=== PATIENT | male | born 1945 | race Caucasian/White ===

== ENCOUNTER 2017-09-15 09:32 | Inpatient (IN) | payer MEDICARE, SELFPAY ==
[2017-09-15] VITALS (14 sets, daily range): BP systolic 124–161; BP diastolic 75–122; PULSE 68–94; RESP 14–18; TEMP 36.4–36.8; O2SAT 92–96; BMI 41.5; BMI 40.4; BMI 41.6
--- NOTE | 2017-09-15 09:48 | EKG12_ITS ---
Test Reason : SOB Blood Pressure : / mmHG Vent. Rate : 088 BPM Atrial Rate : 101 BPM P-R Int : 000 ms QRS Dur : 114 ms QT Int : 394 ms P-R-T Axes : 000 -38 -69 degrees QTc Int : 476 ms Atrial fibrillation Left axis deviation Septal infarct , age undetermined Abnormal ECG Confirmed by ACE SOLIMAN, ERIKA ([id number]), commercial production editor ROSSANA HOGAN ([id number]) on 09/19/2017 2:31:38 PM Referred By: LUCERO/SHANON Confirmed By:ERIKA BELLO MD
--- NOTE | 2017-09-15 09:48 | RAD_ITS ---
STUDY: X-RAY CHEST REASON FOR EXAM: Male, 72 years old. Chest pain. TECHNIQUE: Single AP portable view of the chest. COMPARISON: None. FINDINGS: EKG electrodes are seen. Mild increased markings at the lung bases suggest bibasilar atelectasis. There is no demonstrated pleural abnormality. There is borderline cardiomegaly. Normal mediastinum and surjit. Normal visualized pulmonary arteries. There is atherosclerotic tortuosity of the aortic arch and descending thoracic aorta. Normal visualized thoracic spine. Normal visualized ribs, clavicles, and shoulders. There is no demonstrated abnormality of the visualized soft tissue structures of the upper abdomen. RAD/Chest 1 View (Portable) IMPRESSION: Mild increased markings at the lung bases suggestive of bibasilar atelectasis. Electronically Signed: Mane Velázquez MD at 10:10 EST Tel [phone], Service support ,
[2017-09-15] MEDS: Enoxaparin 100 MG/ML Syringe 140 MG SC (10:03)
[2017-09-15] MEDS: Aspirin 81 MG TAB.CHEW 324 MG PO (10:04)
[2017-09-15 10:10] LABS: Absolute Neutrophil Count 4.1 X10^3/uL (2.0-7.7); Basophil# 0.02 X10^3/uL; Basophil% 0.3 % (0-1); Eosinophil# 0.16 X10^3/uL; Eosinophils% 2.6 % (0-5); Hematocrit 43.6 % (40-54); Hemoglobin 13.6 g/dl (13.0-16.5); Lymphocyte % 16.4 % (19-41); Mean Corp Hgb Conc 31.2 g/gl (32-36); Mean Corpuscular Hgb 29.3 pg (27.0-32.0); Mean Platelet Vol. 10.5 fl (6.2-12.0); Monocyte# 0.79 X10^3/uL; Neutrophil # 4.11 X10^3/uL (2.7-7.7); Neutrophil % 67.5 % (47-70); Platelet Count 186 K/mm3 (150-450); RBC Distribution Width CV 14.9 % (11.6-14.6); RBC Distribution Width SD 50.8 fl (35.1-43.9); Red Blood Count 4.64 M/mm3 (4.6-6.2); White Blood Count 6.1 K/mm3 (4.4-11.0)
[2017-09-15 10:12] LABS: POSITIVE COUNT NO; POSITIVE DIFFERENTIAL NO; POSITIVE MORPHOLOGY NO
[2017-09-15 10:21] LABS: International Normalized Ratio 1.2; Partial Thromboplast Time 31.4 Seconds (24.1-36.2); Prothrombin Time (Protime)PT. 15.2 SECONDS (11.7-14.9)
[2017-09-15 10:38] LABS: ALB/GLOB Ratio 1.2 RATIO (0.9-2.4); AST(SGOT) 21 U/L (15-37); Alanine Aminotransfer ALT/SGPT 31 U/L (16-61); Albumin, Serum 3.5 g/dL (3.2-5.0); Alkaline Phosphatase 120 U/L (45-117); Anion Gap 8 (5-15); BUN 19 mg/dL (7-18); BUN/Creat Ratio 17.6 RATIO (10-20); Calcium,Total 8.7 mg/dL (8.5-10.1); Chloride 105 mmol/L (98-107); Creatinine, Serum 1.08 mg/dL (0.70-1.30); EST Glomerular Filtration Rate 72 mL/min (>60); Est Glom Filt Rate - Afr Amer 87 mL/min (>60); Estimated Creatinine Clearance 69.86 ml/min; Globulin 2.9 g/dL (2.2-4.2); Glucose 98 mg/dL (74-106); Potassium 4.2 mmol/L (3.5-5.1); Protein, Total 6.4 g/dL (6.4-8.2); Sodium Level 142 mmol/L (136-145); Thyroid Stim Hormone (TSH) 2.69 uIU/mL (0.358-3.74)
[2017-09-15 10:42] LABS: BNP,B-Type NATRIURETIC PEPTIDE 540.5 pg/mL (0-100)
--- NOTE | 2017-09-15 10:43 | CT_ITS ---
STUDY: CTA CHEST REASON FOR EXAM: Male, 72 years old. Shortness of breath. Several week history of lower extremity edema. RADIATION DOSAGE (If Supplied By Facility): CTDIvol = ( 20.05 ) mGy, DLP = ( 777.80 ) mGycm TECHNIQUE: The examination was performed with the intravenous administration of 100mL ml of Isovue 370 contrast material. Post-processing of the angiographic images was performed, with multiplanar reformation and 3D reconstruction. Individualized dose optimization techniques were used for this CT. COMPARISON: Comparison is made with prior chest radiograph done earlier in the day. FINDINGS: Normal enhancement of the main pulmonary artery and right and left pulmonary arteries. Normal enhancement of the bilateral peripheral pulmonary arteries. There is no demonstrated pulmonary embolism. There is atherosclerotic calcification of the aortic arch with tortuosity. There is no demonstrated aortic dissection. Normal heart and pericardium. There are calcifications of the coronary arteries. There are visualized mediastinal lymph nodes, which are within normal size limits, and with normal morphology. Normal hilar regions. Normal visualized trachea and bronchi. The lungs are well expanded. Mild increased markings at the right lung base with areas of confluence suggestive of left basilar atelectasis and/or infiltrate. Small right pleural effusion. Normal chest wall structures. There are degenerative changes of thoracic spine. Small amount of perisplenic fluid collection. Small amount of anterior perihepatic fluid collection. CT/CTA Chest W/WO Contrast IMPRESSION: Small right pleural effusion. Increased markings at the right lung base suggestive of atelectasis. Small amount of perihepatic and perisplenic fluid. Electronically Signed: Mane Velázquez MD at 11:24 EST Tel [phone], Service support ,
[2017-09-15] MEDS: Furosemide 100 MG/10 ML Vial 80 MG IV (11:48)
--- NOTE | 2017-09-15 11:48 | ED.VISSUMM ---
- ER Visit Summary Date of Service: 09/15/17 Chief Complaint: New onset A. fib History of Present Illness: The patient is a 72 M who went for his yearly checkup with his doctor today. He notices a progressive shortness of breath and bilateral leg swelling over the past few weeks. He notes particular dyspnea on exertion. He denies any palpitations or chest pain. He is a non-smoker has a history of hypertension hypercholesterolemia. While at doctor's office did an EKG and found him to be in A. fib but there was rate controlled. He does take metoprolol 100 mg once a day which could explain his rate control. Physical Examination: Afebrile vital signs are stable Gen: Well-nourished well-developed Head: Normocephalic atraumatic Eyes: Perrl EOMI ENT: TMs clear no rhinorrhea moist mucous membranes Neck: Supple no lymphadenopathy no JVD nontender CVS: Irregularly irregular rhythm rate rhythm no murmurs normal S1-S2 Respiratory: No distress few rales at bases bilaterally chest nontender Abdomen: Soft nontender nondistended normal bowel sounds no masses Back: Nontender Extremity: Nontender 2+ bilateral lower extremity edema dating Skin: Normal color no rash Neuro: alert orientated ?3 CN II-XII intact normal strength sensation reflexes gait cerebellar Psych: Normal affect normal mood Test Results: EKG shows atrial fibrillation at a rate of 88. Chest x-ray negative. Basic blood work including coags troponin magnesium and TSH were normal. Troponin negative. Beta natruretic peptide at 540. CTA of the chest was stated no pulmonary embolism. There was noted fluid in the abdomen. Emergency Department Course and Treatment: Appear the patient has new onset atrial fibrillation that is rate controlled most likely due to his high-dose metoprolol. He has associated congestive heart failure. He received Lovenox subcu and 80 of Lasix IV. Plan is admission to the hospital Impression: 1. New onset atrial fibrillation 2. Congestive heart failure This note was generated with [employer] dictation software. It may contain incorrect words, spelling, and punctuation that were not noted in review of the chart prior to signing ED Disposition - Plan for ED Patient: Chief Complaint: Palpitations Referrals: Demetrio Lyons MD [Primary Care Provider] -
--- NOTE | 2017-09-15 11:50 | ECHOD_ITS ---
Reason For Study: dyspnea/SOB Procedure This was a 2D Doppler, Color Flow transthoracic echocardiogram. The study was technically difficult. Due to body habitus. Exam performed portable in patient room. Left Ventricle Moderately dilated left ventricle. Mild concentric left ventricular hypertrophy. The estimated ejection fraction is 25 %. Severe global left ventricular systolic dysfunction. Transmitral and pulmonary venous doppler flow suggestive of elevated left atrial pressure. Transmitral diastolic flow velocities suggest severe (stage 3) diastolic dysfunction. Atria The left atrium is moderately enlarged. The right atrium is moderately enlarged. Mitral Valve Normal mitral valve. Mild-Moderate (1-2+) eccentric mitral valve insufficiency. Tricuspid Valve Normal tricuspid valve. Moderate (2+) tricuspid valve insufficiency. Pulmonary artery systolic pressure is 45 mmHg. Mild pulmonary hypertension. Pulmonic Valve Normal pulmonic valve. Great Vessels Normal aortic root. The pulmonary artery is normal size. The inferior vena cava is dilated. Pericardium/Pleural No pericardial effusion. MMode/2D Measurements & Calculations LVIDd: 6.1 cm IVSd: 1.3 cm Ao root diam: 3.6 cm LVIDs: 4.9 cm LVPWd: 1.3 cm LA dimension: 4.8 cm RVDd: 3.9 cm FS: 20.0 % LAV(MOD-bp): 90.0 ml LA A4 area: 25.3 cm2 RA A4 area: 27.9 cm2 LAV(MOD-bp) Indexed: 35.3 ml/m2 LAV(MOD-sp2): 89.5 ml LAV(MOD-sp4): 87.1 ml Time Measurements MV dec time: 0.17 sec Doppler Measurements & Calculations MV E max hiro: 95.4 cm/sec Ao V2 max: 109.9 cm/sec LV V1 max: 77.3 cm/sec MV A max hiro: 33.5 cm/sec Ao max P.8 mmHg LV V1 max P.4 mmHg MV E/A: 2.8 MR max hiro: 497.8 cm/sec PA V2 max: 68.9 cm/sec TR max hiro: 296.7 cm/sec MR max P.1 mmHg TR max P.8 mmHg Interpretation Summary Moderately dilated left ventricle. Mild concentric left ventricular hypertrophy. The estimated ejection fraction is 25 %. Severe global left ventricular systolic dysfunction. The left atrium is moderately enlarged. Mild pulmonary hypertension. Ordering Physician: Sis Montes De Oca Referring Physician: Demetrio Lyons Performed By: Nika Ronquillo RDCS, RVT
--- NOTE | 2017-09-15 11:50 | PCM.HP.STD ---
Problem List (1) Acute exacerbation of CHF (congestive heart failure) Status: Acute Qualifiers: Heart failure type: unspecified Qualified Code(s): I50.9 - Heart failure, unspecified (2) Hypertension Status: Chronic Qualifiers: Hypertension type: essential hypertension Qualified Code(s): I10 - Essential (primary) hypertension (3) Atrial fibrillation Status: Acute Qualifiers: Atrial fibrillation type: unspecified Qualified Code(s): I48.91 - Unspecified atrial fibrillation History of Present Illness Date of Admission: 09/15/17 Chief Complaint: Shortness of breath, leg swelling ongoing for 2 weeks The patient is a 72 year old M with PMhx of hypertension, morbid obesity who comes in with SOB and bilateral leg swelling ongoing for weeks. He noticed worsening bilateral leg swelling, went to see his PCP and had an EKG done that showed A. fib. No cardiac PMHx, denies chest pain, palpitations, nausea, vomiting, dizizness. Vitals in the ED show T 98.2F, HR 80, BP 147/91, RR 14, SpO2 94% on RA. Labs show CBCD and BMP which are unremarkable. BNPep 540.5. Troponin x 2 negative. EKG shows A. fib, rate controlled. CXR shows bibasilar atelectasis. CTA shows no PE. Past Medical History Past Medical History (Chronic Problems): Chronic Problems Hypertension (Chronic) Allergies Sulfa (Sulfonamide Antibiotics) Allergy (Verified 09/15/17 09:49) Hives Home Medications: Ambulatory Orders Medication Instructions Recorded Allopurinol [Zyloprim] 300 mg PO DAILY 09/15/17 Diclofenac Potassium 50 mg PO TID PRN 09/15/17 Doxazosin Mesylate [Cardura] 4 mg PO QHS 09/15/17 Metoprolol Succinate [Toprol Xl] 100 mg PO BID 09/15/17 Sildenafil Citrate [Viagra] 50 mg PO DAILY PRN PRN 09/15/17 TraMADol [Ultram] 1 - 2 tab PO Q6H PRN PRN 09/15/17 Surgical History: appendectomy Psychiatric History: No pertinent psych hx Lives: Spouse/ Significant Other Smoking Status: Former smoker Tobacco Use: Non-smoker Alcohol: None Drugs: None - *Family History Maternal History Items: No pertinent history Paternal History Items: Heart Disease Sibling History Items: Heart Disease - pacemaker Review of Systems Constitutional: Denies: Anorexia, Chills, Fever, Malaise, Weakness, Weight Change Eyes: Denies: Blurred vision, Cataracts, Conjunctivae Inflammation, Double vision HEENT: Denies: Difficulty Hearing, Difficulty Swallowing, Head Aches, Hearing Changes, Sinus Congestion, Sinus Drainage Cardiovascular: Reports: Edema. Denies: Chest Pain, Claudication, Chest Pressure, Heaviness, Light Headedness, Orthopnea, Palpitations, Paroxysmal Noc. Dyspnea, Syncope Respiratory: Reports: Shortness of Breath, Shortness of breath upon exertion. Denies: Cough, Shortness of breath at rest, Sputum production Gastrointestinal: Denies: Abdominal Pain, Constipation, Hematemesis, Hematochezia, Nausea, Vomiting Genitourinary: Denies: Dysuria Musculoskeletal: Denies: Joint Pain, Joint stiffness, Joint swelling, Joint Tenderness Skin: Denies: Rash, Wounds Neurological: Denies: Numbness, Tingling, Focal weakness Psychiatric: Denies: Anxiety, Depression, Homicidal Ideations, Suicidal Ideations Hematologic/ Lymphatic: Denies: Easy Bruising, Easy Bleeding VTE Information - Inpt Only VTE Present on Admission: No VTE Pharm Prophylaxis ordered?: Yes Patient Problems: Active and Suspected Problems Acute exacerbation of CHF (congestive heart failure) (Acute) Atrial fibrillation (Acute) - Physical Exam General: Alert, Oriented x3, Cooperative, - - obese, not in respiratory distress HEENT: Atraumatic, PERRLA, EOMI, Normocephalic Oral: Moist Mucosa Neck: Supple, No JVD, Negative Carotid Bruits Lungs: Clear to auscultation, Normal air movement, Diminished - at lung bases Cardiovascular: Regular rate, Regular Rhythm, Normal S1, Normal S2, No murmurs Abdomen: Bowel Sounds Present, Soft, Non Tender, Non-Distended, No Hepato-splenomegaly Extremities: Edema - bilateral +1, pitting, nontender Skin: No rashes, No breakdown Musculoskeletal: No Tenderness to Palpation of Joints or Extremities Neurological: Cranial nerves II-XII grossly intact, Motor Exam 5/5 strength throughout Psych/Mental Status: Normal Affect, Appropriate Vital Signs Temp Pulse Resp BP Pulse Ox 97.6 F L 80 17 161/98 H 94 09/15/17 09:34 09/15/17 10:30 09/15/17 10:30 09/15/17 10:30 09/15/17 10:30 Oxygen Delivery Method Room Air Weight: 139 kg Body Mass Index (BMI) 41.5 Laboratory Tests Past 24 Hrs 09/15/17 09/15/17 09/15/17 10:00 10:00 10:00 WBC 6.1 RBC 4.64 Hgb 13.6 Hct 43.6 MCV 94.0 MCH 29.3 MCHC 31.2 L RDW 14.9 H RDW Differential 50.8 H Plt Count 186 MPV 10.5 Immature Gran % (Auto) 0.200 Neut % (Auto) 67.5 Lymph % (Auto) 16.4 L [place] % (Auto) 13.0 H Eos % (Auto) 2.6 Baso % (Auto) 0.3 Absolute Neuts (auto) 4.1 Absolute Lymphs (auto) 1.00 Total Counted Not Reportable PT 15.2 H INR 1.2 APTT 31.4 Sodium 142 Potassium 4.2 Chloride 105 Carbon Dioxide 29.0 Anion Gap 8 BUN 19 H Creatinine 1.08 Estim Creat Clear Calc 69.86 Est GFR (MDRD) Af Amer 87 Est GFR (MDRD) Non-Af 72 BUN/Creatinine Ratio 17.6 Glucose 98 Calcium 8.7 Magnesium 2.0 Total Bilirubin 1.20 H AST 21 ALT 31 Alkaline Phosphatase 120 H Troponin I < 0.02 B-Natriuretic Peptide Total Protein 6.4 Albumin 3.5 Globulin 2.9 Albumin/Globulin Ratio 1.2 TSH 2.69 09/15/17 10:00 WBC RBC Hgb Hct MCV MCH MCHC RDW RDW Differential Plt Count MPV Immature Gran % (Auto) Neut % (Auto) Lymph % (Auto) [place] % (Auto) Eos % (Auto) Baso % (Auto) Absolute Neuts (auto) Absolute Lymphs (auto) Total Counted PT INR APTT Sodium Potassium Chloride Carbon Dioxide Anion Gap BUN Creatinine Estim Creat Clear Calc Est GFR (MDRD) Af Amer Est GFR (MDRD) Non-Af BUN/Creatinine Ratio Glucose Calcium Magnesium Total Bilirubin AST ALT Alkaline Phosphatase Troponin I B-Natriuretic Peptide 540.5 H Total Protein Albumin Globulin Albumin/Globulin Ratio TSH Assessment/Plan Active and Suspected Problems Acute exacerbation of CHF (congestive heart failure) (Acute) Atrial fibrillation (Acute) 72 year old M with PMhx of hypertension, morbid obesity who comes in with SOB and bilateral leg swelling ongoing for weeks. He noticed worsening bilateral leg swelling, went to see his PCP and had an EKG done that showed A. fib. 1. Acute CHF, unknown EF, newly diagnosed, likely secondary to A. fib, newly diagnosed. Vitals are controlled. Plan: Admit to PCU, monitor on telemetry, trend troponins, cardiology consult, continue IV 40 mg twice daily, Strict I & O's, daily weights, 2D echo. 2. Atrial fibrillation, newly diagnosed, chads score of 2, rate controlled, started on Lovenox twice daily for ED, will continue same. 3. Hypertension, controlled, likely secondary to medication noncompliance, patient is on metoprolol succinate, would continue same, monitor vitals closely 4. Morbid obesity, BMI 40.5, weight loss and diet advised 5. DVT prophylaxis - patient on Lovenox twice daily Code Visit Inpatient E&M: [id number] Init Hosp L3
--- NOTE | 2017-09-15 11:51 | ED.DCSUM_ITS ---
- ER Visit Summary Date of Service: 09/15/17 Chief Complaint: New onset A. fib History of Present Illness: The patient is a 72 M who went for his yearly checkup with his doctor today. He notices a progressive shortness of breath and bilateral leg swelling over the past few weeks. He notes particular dyspnea on exertion. He denies any palpitations or chest pain. He is a non- smoker has a history of hypertension hypercholesterolemia. While at doctor's office did an EKG and found him to be in A. fib but there was rate controlled. He does take metoprolol 100 mg once a day which could explain his rate control. Physical Examination: Afebrile vital signs are stable Gen: Well-nourished well-developed Head: Normocephalic atraumatic Eyes: Perrl EOMI ENT: TMs clear no rhinorrhea moist mucous membranes Neck: Supple no lymphadenopathy no JVD nontender CVS: Irregularly irregular rhythm rate rhythm no murmurs normal S1-S2 Respiratory: No distress few rales at bases bilaterally chest nontender Abdomen: Soft nontender nondistended normal bowel sounds no masses Back: Nontender Extremity: Nontender 2+ bilateral lower extremity edema dating Skin: Normal color no rash Neuro: alert orientated ?3 CN II-XII intact normal strength sensation reflexes gait cerebellar Psych: Normal affect normal mood Test Results: EKG shows atrial fibrillation at a rate of 88. Chest x-ray negative. Basic blood work including coags troponin magnesium and TSH were normal. Troponin negative. Beta natruretic peptide at 540. CTA of the chest was stated no pulmonary embolism. There was noted fluid in the abdomen. Emergency Department Course and Treatment: Appear the patient has new onset atrial fibrillation that is rate controlled most likely due to his high-dose metoprolol. He has associated congestive heart failure. He received Lovenox subcu and 80 of Lasix IV. Plan is admission to the hospital Impression: 1. New onset atrial fibrillation 2. Congestive heart failure This note was generated with [employer] dictation software. It may contain incorrect words, spelling, and punctuation that were not noted in review of the chart prior to signing ED Disposition - Plan for ED Patient: Chief Complaint: Palpitations Referrals: Demetrio Lyons MD [Primary Care Provider] -
--- NOTE | 2017-09-15 16:30 | CON.PCM_ITS ---
Reason for Consult Date of Consultation: 09/15/17 History of Present Illness: The patient is a 72 year old M with past medical history significant for hypertension. He presented to the emergency room with complaints of lower extremity swelling and shortness of breath with exertion that he has noticed for the last few weeks. Gradual onset. Has any orthopnea or paroxysmal nocturnal dyspnea. His any history of coronary artery disease. No fevers or chills. Denies any palpitations. According to the patient, he gets short of breath with mild exertion. Patient was noted to be in atrial fibrillation in the emergency room. This is new for him. [] Past Medical History Allergies/Adverse Reactions: Allergies Sulfa (Sulfonamide Antibiotics) Allergy (Verified 09/15/17 09:49) Hives Home Medications: Ambulatory Orders Medication Instructions Recorded Allopurinol [Zyloprim] 300 mg PO DAILY 09/15/17 Diclofenac Potassium 50 mg PO TID PRN 09/15/17 Doxazosin Mesylate [Cardura] 4 mg PO QHS 09/15/17 Metoprolol Succinate [Toprol Xl] 100 mg PO BID 09/15/17 Sildenafil Citrate [Viagra] 50 mg PO DAILY PRN PRN 09/15/17 TraMADol [Ultram] 1 - 2 tab PO Q6H PRN PRN 09/15/17 Past Medical History (Chronic Problems): Chronic Problems Hypertension (Chronic) Surgical History: appendectomy Psychiatric History: No pertinent psych hx - *Family History Maternal History Items: No pertinent history Paternal History Items: Heart Disease Sibling History Items: Heart Disease - pacemaker Lives: Spouse/ Significant Other Smoking Status: Former smoker Tobacco Use: Non-smoker Alcohol: None Drugs: None Review of Systems - Review of Systems General: Denies: Fever, Chills, Night Sweats, Anorexia, Weight Loss HEENT: Denies: Vision Change, Blurred Vision, Head Aches, Sore Throat Cardiovascular: Reports: Shortness of Breath with Exertion. Denies: Chest Discomfort, Chest Discomfort at Rest, Chest Discomfort with Exertion, Orthopnea , PND, Palpitations, Lightheadedness, Dizziness, Near Syncope, Syncope Respiratory: Denies: Cough, Hemoptysis Gastrointestinal: Denies: Abdominal Discomfort, Jaundice, Nausea, Hematemesis Muscoloskeletal: Denies: Myalgias Skin: Denies: Pruritus, Jaundice Neurological: Denies: History of TIA, History of CVA Psychiatric: Denies: Depression, Hallucinations Endocrine: Denies: Heat Intolerance, Cold Intolerance Hematologic/ Lymphatic: Denies: Easy Brusing, Easy Bleeding Subjectve: Obese. Appears comfortable. No distress. Objective: Vital Signs Temp Pulse Resp BP Pulse Ox 98.2 F 76 14 147/91 H 92 09/15/17 12:49 09/15/17 15:00 09/15/17 12:49 09/15/17 12:49 09/15/17 13:45 Oxygen Delivery Method Room Air Weight: 135.4 kg Body Mass Index (BMI) 40.4 General: Awake, Alert, Oriented x 3, No Acute Distress HEENT: Atraumatic, Normocephalic Oral: Moist Mucosa Neck: - - Neck with examination difficult because of body habitus Lungs: - - Mild end expiratory wheeze. Cardiovascular: Irregular Rhythm, Normal S1, Normal S2, No Murmurs Vascular: No Carotid Bruits Abdomen: Bowel Sounds Present, Soft Extremities: Bilateral Edema +3 Neurological: No Focal Motor or Sensory Deficit, CN II-XII Intact Psych/Mental Status: Appropriate 09/15/17 14:02: Troponin I < 0.02 Rhythm: Atrial fibrillation EKG: Atrial fibrillation. No ischemic changes noted. CXR: Bibasilar atelectasis Chest CT Scan: Atelectasis noted Assessment/Plan 1. New onset atrial fibrillation. Ventricular rate controlled. Continue metoprolol. Thromboembolic risks discussed with patient. Oral anticoagulation offered. Risks and benefits explained. The stent and wishes to proceed. Stop Lovenox. Start on Eliquis 5 mg twice daily 2. CHF. Most probably right-sided. No lung congestion. Agree with diuretics. Check 2D echocardiogram with Doppler 3. Obesity. Lose weight 4. Consider workup for sleep apnea. Follow as per internal medicine 5. Hypertension. Uncontrolled. Start on Cozaar 6. Further recommendations will follow results of 2D echocardiogram. Will continue to follow with you.
[2017-09-15] MEDS: Losartan Potassium 25 MG Tablet PO (17:40)
[2017-09-15] MEDS: Metoprolol(XL)Succ 100 MG Tablet PO (22:16)
[2017-09-15] MEDS: Doxazosin 4 MG Tablet PO (22:17)
[2017-09-15] MEDS: 0.9% NaCl Peripheral Flush Adult/Peds IV (22:17)
[2017-09-15] MEDS: APIXABAN 5 MG TABLET PO (22:17)
[2017-09-16] VITALS (12 sets, daily range): BP systolic 106–149; BP diastolic 58–93; PULSE 64–88; RESP 14–18; TEMP 36.6–36.8; O2SAT 92–97
[2017-09-16 05:59] LABS: Hematocrit 43.9 % (40-54); Hemoglobin 13.6 g/dl (13.0-16.5); Mean Corpuscular Hgb 29.1 pg (27.0-32.0); Mean Platelet Vol. 10.1 fl (6.2-12.0); Platelet Count 184 K/mm3 (150-450); RBC Distribution Width CV 14.9 % (11.6-14.6); RBC Distribution Width SD 51.1 fl (35.1-43.9); Red Blood Count 4.67 M/mm3 (4.6-6.2); White Blood Count 5.5 K/mm3 (4.4-11.0)
[2017-09-16 06:07] LABS: Scan Indicated on CBC? Y/N NO
[2017-09-16 06:18] LABS: International Normalized Ratio 1.4; Prothrombin Time (Protime)PT. 16.7 SECONDS (11.7-14.9)
[2017-09-16 06:21] LABS: Anion Gap 7 (5-15); BUN 16 mg/dL (7-18); Calcium,Total 8.6 mg/dL (8.5-10.1); Chloride 103 mmol/L (98-107); Creatinine, Serum 1.07 mg/dL (0.70-1.30); EST Glomerular Filtration Rate 73 mL/min (>60); Est Glom Filt Rate - Afr Amer 88 mL/min (>60); Estimated Creatinine Clearance 70.51 ml/min; Glucose 94 mg/dL (74-106); Potassium 3.8 mmol/L (3.5-5.1); Sodium Level 144 mmol/L (136-145)
--- NOTE | 2017-09-16 09:47 | PCM.PN.CARD ---
Subjectve: Feels better. No complaints Objective: Vital Signs Temp Pulse Resp BP Pulse Ox 97.8 F 78 18 106/58 L 92 09/16/17 04:15 09/16/17 07:00 09/16/17 04:15 09/16/17 04:15 09/16/17 04:15 Oxygen Delivery Method Room Air Weight: 130.6 kg Body Mass Index (BMI) 40.4 Intake and Output for Last 24 Hours 09/14/17 09/15/17 09/16/17 23:59 23:59 23:59 Intake Total 240 / 240 240 / 240 Output Total 2875 / 2875 1550 / 1550 Balance -2635 / -2635 -1310 / -1310 General: Awake, Alert, Oriented x 3, No Acute Distress HEENT: Atraumatic Oral: Moist Mucosa Lungs: Clear to auscultation Cardiovascular: Irregular Rhythm, Normal S1, Normal S2 Extremities: Bilateral Edema +3 Neurological: No Focal Motor or Sensory Deficit, CN II-XII Intact Psych/Mental Status: Appropriate 09/15/17 14:02: Troponin I < 0.02 09/15/17 18:56: Troponin I < 0.02 09/16/17 00:00: Troponin I < 0.02 09/16/17 05:48: WBC 5.5, RBC 4.67, Hgb 13.6, Hct 43.9, MCV 94.0, MCH 29.1, MCHC 31.0 L, RDW 14.9 H, RDW Differential 51.1 H, Plt Count 184, MPV 10.1 09/16/17 05:48: PT 16.7 H, INR 1.4 09/16/17 05:48: Sodium 144, Potassium 3.8, Chloride 103, Carbon Dioxide 34.0 H, Anion Gap 7, BUN 16, Creatinine 1.07, Est GFR (MDRD) Af Amer 88, Est GFR (MDRD) Non-Af 73, BUN/Creatinine Ratio 15.0, Glucose 94, Calcium 8.6 Rhythm: Atrial fibrillation. Controlled ventricular response. ECHO: Ejection fraction 25%. Global hypokinesis. Moderately dilated left ventricle. Assessment/Plan 1. CHF with severe cardiomyopathy. Continue angiotensin receptor roz, beta roz, continued diuresis. Start on Lasix infusion. Start on Aldactone. As we are starting on Aldactone, decrease Cardura to 2 mg once daily in view of borderline blood pressure. Cardiac catheterization to rule out coronary artery disease as outpatient after discharge. 2. Atrial fibrillation. On Eliquis. Ventricular rate controlled with metoprolol 3. Hypertension. Controlled. See #1 above 4. Obesity. Lose weight 5. Lipid management as per internal medicine
[2017-09-16] MEDS: APIXABAN 5 MG TABLET PO ×2 (09:58→22:01)
[2017-09-16] MEDS: Allopurinol 300 MG Tablet PO (09:58)
[2017-09-16] MEDS: Losartan Potassium 25 MG Tablet PO (09:58)
[2017-09-16] MEDS: Metoprolol(XL)Succ 100 MG Tablet PO ×2 (09:59→22:01)
[2017-09-16] MEDS: 0.9% NaCl Peripheral Flush Adult/Peds IV (10:03)
[2017-09-16] MEDS: Furosemide 500 MG in Empty Viaflex 50 mL 1 EACH CONT INF (10:33)
--- NOTE | 2017-09-16 13:48 | CASEMGMT ---
Face to Face with patient for initial transition planning/care coordination assessment. SAMANTHA DYE introduced self and role at [facility], pt voices understanding and consents to assessment at this time. Pt sitting up in bed in no distress at this time. Pt A/O x4 at this time and answers all questions appropriately. Care providers, pharmacy, and demographics verified. See attached link. Pt voices no further concerns/needs at this time. Advised pt to ask for CM if any further questions/concerns/needs arise, voices understanding. PLAN: [place] SAMANTHA DYE
--- NOTE | 2017-09-16 16:10 | CASEMGMT ---
Social Work Received referral from RN HARDIK as pt is requesting advance directives. SW met with pt and friend Patti in room and introduced self and role of SW. SW explained living will and Health Care POA and educated importance of end of life decisions and speaking with family about decisions. You have a choice Booklet provided as well as Living Will and HCPOA. Pt does not want to complete documents at this time as he would like to discuss with his children before he makes decisions. Instruction given on how to complete paper work if he should decide to do so. No further SW needs at this time. SW will remain available should needs arise. JENNIFER Sherman
[2017-09-16] MEDS: Spironolactone 25 MG Tablet 12.5 MG PO (16:16)
--- NOTE | 2017-09-16 17:39 | PN_ITS ---
Patient Problems: Active and Suspected Problems Acute exacerbation of CHF (congestive heart failure) (Acute) Atrial fibrillation (Acute) Subjective: Patient is a 72-year-old male with a past medical history of hypertension, Erectile dysfunction and obesity who presented to the ED at [facility] on 09/15/17 c/o swelling in his legs and SOB. His states that he has not been feeling well for about 3 months. BNP was increased at 540. The chest x-ray showed no pulmonary vascular congestion, no infiltrates and no pleural effusions. EKG in the emergency room showed atrial fibrillation which was rate controlled and he is on metoprolol for high blood pressure. A CTA of the chest was done and showed no pulmonary embolism. He was admitted to PCU and started on intravenous diuretics. Consultation with cardiology was ordered and he was seen by Dr. Key and I have reviewed the consult. He recommends a continuous Lasix infusion, ASHLEY, beta-roz and Aldactone. He recommends cardiac catheterization to rule out coronary artery disease as contributing to severe cardiomyopathy but feels this can be done as an outpatient following discharge. Pt states that his breathing is improving. He denies CP, palpitations, lightheadedness. Blood pressure today has ranged from 106/58-140 9/83. Cardura was decreased to prevent hypotension in light of continuous Lasix drip and Aldactone. Review of the lab shows a mildly increased serum bicarbonate 34 with a BUN of 16 and a creatinine that is stable at 1.07. Serial cardiac enzymes were negative. Fluid balance since admission is -[id number]. - Physical Exam General: Alert, Oriented x3, Cooperative, No apparent distress - sitting at the EOB. Oral: Moist Mucosa Lungs: Clear to auscultation - after a few deep breaths, - - He has no conversational dyspnea and is not tachypneic. He can speak in full sentences. Cardiovascular: Irregular Rate - in AF on the quality assurance monitor with a controlled VR Abdomen: Bowel Sounds Present, Soft, Non Tender, Non-Distended Extremities: Edema - He has pitting edema of both LE's R>L. ASHLEY wraps are inplace but, they are not wrapped to the tibial plateau Skin: No rashes, No breakdown Neurological: Cranial nerves II-XII grossly intact, Neuro grossly intact Psych/Mental Status: Normal Affect, Appropriate Vital Signs Temp Pulse Resp BP Pulse Ox 97.8 F 64 14 149/83 H 93 09/16/17 15:55 09/16/17 15:55 09/16/17 15:55 09/16/17 15:55 09/16/17 15:55 Oxygen Delivery Method Room Air Weight: 287 lb 14.779 oz Body Mass Index (BMI) 40.4 Intake and Output for Last 24 Hours 09/14/17 09/15/17 09/16/17 23:59 23:59 23:59 Intake Total 240 / 240 629.9 / 629.9 Output Total 2875 / 2875 2029 / 2029 Balance -2635 / -2635 -1400.1 / -1400.1 Laboratory Tests Past 24 Hrs 09/15/17 09/16/17 09/16/17 18:56 00:00 05:48 WBC 5.5 RBC 4.67 Hgb 13.6 Hct 43.9 MCV 94.0 MCH 29.1 MCHC 31.0 L RDW 14.9 H RDW Differential 51.1 H Plt Count 184 MPV 10.1 PT INR Sodium Potassium Chloride Carbon Dioxide Anion Gap BUN Creatinine Estim Creat Clear Calc Est GFR (MDRD) Af Amer Est GFR (MDRD) Non-Af BUN/Creatinine Ratio Glucose Calcium Troponin I < 0.02 < 0.02 09/16/17 09/16/17 05:48 05:48 WBC RBC Hgb Hct MCV MCH MCHC RDW RDW Differential Plt Count MPV PT 16.7 H INR 1.4 Sodium 144 Potassium 3.8 Chloride 103 Carbon Dioxide 34.0 H Anion Gap 7 BUN 16 Creatinine 1.07 Estim Creat Clear Calc 70.51 Est GFR (MDRD) Af Amer 88 Est GFR (MDRD) Non-Af 73 BUN/Creatinine Ratio 15.0 Glucose 94 Calcium 8.6 Troponin I Assessment/Plan Active and Suspected Problems Acute exacerbation of CHF (congestive heart failure) (Acute) Atrial fibrillation (Acute) Impressions 1. severe CM with a 25% EF - why? Is it due to AF? uncontrolled HTN? CAD? tachycardia induced due to AF with RVR? 2. mild Pulmonary HTN 3. hx of HTN 4. Atrial fibrillation 5. Obesity continue with the current orders Appreciate dr. Key's input. Pt has had a very large amount of urine OP today.....will check a BMP and a Mag now and repeat in the AM.
[2017-09-16] MEDS: Doxazosin 1 MG Tablet 2 MG PO (22:01)
[2017-09-16 22:30] LABS: Anion Gap 6 (5-15); BUN 18 mg/dL (7-18); BUN/Creat Ratio 14.2 RATIO (10-20); Calcium,Total 9.3 mg/dL (8.5-10.1); Chloride 101 mmol/L (98-107); Creatinine, Serum 1.27 mg/dL (0.70-1.30); EST Glomerular Filtration Rate 60 mL/min (>60); Est Glom Filt Rate - Afr Amer 72 mL/min (>60); Estimated Creatinine Clearance 59.41 ml/min; Glucose 83 mg/dL (74-106); Magnesium 2.2 mg/dL (1.6-2.6); Potassium 3.7 mmol/L (3.5-5.1); Sodium Level 141 mmol/L (136-145)
[2017-09-17] VITALS (12 sets, daily range): BP systolic 100–141; BP diastolic 58–84; PULSE 69–87; RESP 16–18; TEMP 36.6–36.9; O2SAT 92–95
[2017-09-17 07:14] LABS: International Normalized Ratio 1.3; Prothrombin Time (Protime)PT. 16.1 SECONDS (11.7-14.9)
[2017-09-17 07:31] LABS: BUN 15 mg/dL (7-18); Creatinine, Serum 1.24 mg/dL (0.70-1.30); EST Glomerular Filtration Rate 61 mL/min (>60); Estimated Creatinine Clearance 60.84 ml/min; Glucose 90 mg/dL (74-106)
[2017-09-17 07:32] LABS: Anion Gap 8 (5-15); BUN/Creat Ratio 12.1 RATIO (10-20); Calcium,Total 9.1 mg/dL (8.5-10.1); Chloride 97 mmol/L (98-107); Est Glom Filt Rate - Afr Amer 74 mL/min (>60); Magnesium 1.9 mg/dL (1.6-2.6); Potassium 3.5 mmol/L (3.5-5.1); Sodium Level 143 mmol/L (136-145)
[2017-09-17] MEDS: Allopurinol 300 MG Tablet PO (09:38)
[2017-09-17] MEDS: Losartan Potassium 25 MG Tablet PO (09:38)
[2017-09-17] MEDS: Metoprolol(XL)Succ 100 MG Tablet PO ×2 (09:38→22:09)
[2017-09-17] MEDS: APIXABAN 5 MG TABLET PO (09:39)
[2017-09-17] MEDS: Spironolactone 25 MG Tablet 12.5 MG PO (09:39)
--- NOTE | 2017-09-17 10:12 | PN.CARD_ITS ---
Subjectve: The patient was seen and evaluated. He appears to be breathing much better. Objective: Vital Signs Temp Pulse Resp BP Pulse Ox 97.8 F 84 16 141/84 H 93 09/17/17 03:55 09/17/17 09:38 09/17/17 03:55 09/17/17 03:55 09/17/17 03:55 Oxygen Delivery Method Room Air Weight: 276 lb 14.409 oz Body Mass Index (BMI) 40.4 Intake and Output for Last 24 Hours 09/15/17 09/16/17 09/17/17 23:59 23:59 23:59 Intake Total 240 / 240 1206.8 / 1206.8 242.1 / 242.1 Output Total 2875 / 2875 4445 / 4445 3275 / 3275 Balance -2635 / -2635 -3238.2 / -3238.2 -3032.9 / -3032.9 General: Awake, Alert, Oriented x 3 HEENT: PERRL, EOMI, Sclera Non Icteric Neck: Supple, Good ROM, No Lymph Node Enlargement Lungs: Clear to auscultation Cardiovascular: Irregular Rhythm, Normal S1, Normal S2, No Murmurs, No Rubs, No Gallops Vascular: No Carotid Bruits, Normal Femoral Pulses, Normal Radial Pulses, Normal Dorsalis Pedal Pulse, Normal Posterior Tibial Pulses Abdomen: Bowel Sounds Present, Soft, Non Tender, No HSM, No Organomegaly Extremities: No Cyanosis, No Clubbing, Bilateral Edema +1 Neurological: No Focal Motor or Sensory Deficit 09/16/17 22:06: Sodium 141, Potassium 3.7, Chloride 101, Carbon Dioxide 34.0 H, Anion Gap 6, BUN 18, Creatinine 1.27, Est GFR (MDRD) Af Amer 72, Est GFR (MDRD) Non-Af 60, BUN/Creatinine Ratio 14.2, Glucose 83, Calcium 9.3, Magnesium 2.2 09/17/17 06:33: PT 16.1 H, INR 1.3 09/17/17 06:33: Sodium 143, Potassium 3.5, Chloride 97 L, Carbon Dioxide 38.0 H , Anion Gap 8, BUN 15, Creatinine 1.24, Est GFR (MDRD) Af Amer 74, Est GFR (MDRD ) Non-Af 61, BUN/Creatinine Ratio 12.1, Glucose 90, Calcium 9.1, Magnesium 1.9 Rhythm: EKG: Atrial fibrillation with a controlled ventricular response rate. Assessment/Plan 1. CHF with severe cardiomyopathy-acute systolic. The etiology of the above is unclear at this particular time. The plan at this time will be to continue him on the beta-roz as well as the ARB and the spironolactone. He is on intravenous Lasix which will be continued for another day before he switched over to oral Lasix. I think as he may be closer to euvolemic on Tuesday we may just keep him and perform a cardiac catheterization on him on Tuesday morning. I have discussed the above with him he understands and agrees to proceed. 2. Atrial fibrillation. On Eliquis. Ventricular rate controlled with metoprolol will hold Eliquis from today. Pending cardiac catheterization early in the week. 3. Hypertension. Controlled. Will continue with the beta-roz as well as the ARB. He is also on Cardura. 4. Obesity. Weight loss and dietary manipulation have been advocated. 5. Lipid management -we will continue with aggressive lipid management. Thank you for allowing me to participate in the care of your patient. Please don't hesitate to call if any issues arise
--- NOTE | 2017-09-17 14:38 | PCM.PN.HOSP ---
Patient Problems: Active and Suspected Problems Acute exacerbation of CHF (congestive heart failure) (Acute) Atrial fibrillation (Acute) Subjective: The patient shortness of breath is better. Still dyspnea on mild exertion, going to bathroom. Acute on chronic heart failure with severe cardiomyopathy. Discussed with the space engineer, Dr. walton. Vitals/I&O's: Vital Signs Temp Pulse Resp BP Pulse Ox 97.8 F 70 16 121/70 H 92 09/17/17 09:35 09/17/17 11:34 09/17/17 09:35 09/17/17 09:35 09/17/17 09:35 Oxygen Delivery Method Room Air Weight: 276 lb 14.409 oz Body Mass Index (BMI) 40.4 Intake and Output for Last 24 Hours 09/15/17 09/16/17 09/17/17 23:59 23:59 23:59 Intake Total 240 / 240 1206.8 / 1206.8 639.1 / 639.1 Output Total 2875 / 2875 4445 / 4445 4675 / 4675 Balance -2635 / -2635 -3238.2 / -3238.2 -4035.9 / -4035.9 General: Alert, Oriented x3, Cooperative HEENT: Atraumatic, PERRLA, EOMI, Normocephalic Neck: Supple, No JVD, Negative Carotid Bruits Lungs: No rhonchi, No wheeze, Diminished Cardiovascular: Normal S1, Normal S2, No murmurs, Irregular Rate Abdomen: Bowel Sounds Present, Soft, Non Tender, Non-Distended Extremities: Capillary Refill Less than 3 Seconds, Edema Skin: No rashes, No breakdown Musculoskeletal: No Tenderness to Palpation of Joints or Extremities Neurological: Cranial nerves II-XII grossly intact Psych/Mental Status: Normal Affect, Appropriate Laboratory Results 09/16/17 22:06: Sodium 141, Potassium 3.7, Chloride 101, Carbon Dioxide 34.0 H, Anion Gap 6, BUN 18, Creatinine 1.27, Estim Creat Clear Calc 59.41, Est GFR (MDRD) Af Amer 72, Est GFR (MDRD) Non-Af 60, BUN/Creatinine Ratio 14.2, Glucose 83, Calcium 9.3, Magnesium 2.2 09/17/17 06:33: PT 16.1 H, INR 1.3 09/17/17 06:33: Sodium 143, Potassium 3.5, Chloride 97 L, Carbon Dioxide 38.0 H, Anion Gap 8, BUN 15, Creatinine 1.24, Estim Creat Clear Calc 60.84, Est GFR (MDRD) Af Amer 74, Est GFR (MDRD) Non-Af 61, BUN/Creatinine Ratio 12.1, Glucose 90, Calcium 9.1, Magnesium 1.9 Current Medications Acetaminophen (Tylenol) 650 mg PO Q6H PRN PRN PRN Reason: Mild Pain (1-3)/Temp > 100.7 F Albuterol/Ipratropium (Duoneb) 3 ml INHALATION Q4HWA.RT PRN PRN Reason: SHORTNESS OF BREATH [facility] Last Admin: 09/17/17 09:38 Dose: 300 mg Bisacodyl (Dulcolax) 5 mg PO DAILY PRN PRN PRN Reason: Constipation Doxazosin Mesylate (Cardura) [address] [facility] Last Admin: 09/16/17 22:01 Dose: 2 mg Furosemide 500 mg/ N/A 50 mls @ 0.5 mls/hr CONT INF .Q100H [facility] PRN Reason: 5 MG/HR Last Admin: 09/16/17 10:33 Dose: 0.5 mls/hr Losartan Potassium (Cozaar) 25 mg PO DAILY [facility] Last Admin: 09/17/17 09:38 Dose: 25 mg Magnesium Hydroxide (Milk Of Magnesia) 30 ml PO DAILY PRN PRN Reason: Constipation Metoprolol Succinate (Toprol Xl (Beta Masood)) 100 mg PO BID [facility] Last Admin: 09/17/17 09:38 Dose: 100 mg Ondansetron HCl (Zofran) 4 mg IV Q8H PRN PRN PRN Reason: NAUSEA Psyllium Hydrophilic Mucilloid (Metamucil) 1 packet PO DAILY PRN PRN PRN Reason: CONSTIPATION Sodium Chloride () 5 - 30 ml IV UD PRN PRN Reason: SALINE FLUSH Last Admin: 09/16/17 10:03 Dose: 10 ml Spironolactone (Aldactone) 12.5 mg PO DAILY [facility] Last Admin: 09/17/17 09:39 Dose: 12.5 mg Tramadol HCl (Ultram (G)) 50 - 100 mg PO Q6H PRN PRN PRN Reason: PAIN Assessment/Plan Active and Suspected Problems Acute exacerbation of CHF (congestive heart failure) (Acute) Atrial fibrillation (Acute) Patient is a 72-year-old male with a past medical history of hypertension, Erectile dysfunction and obesity who presented to the ED at [facility] on 09/15/17 c/o swelling in his legs and SOB. His states that he has not been feeling well for about 3 months. BNP was increased at 540. The chest x-ray showed no pulmonary vascular congestion, no infiltrates and no pleural effusions. EKG in the emergency room showed atrial fibrillation which was rate controlled and he is on metoprolol for high blood pressure. A CTA of the chest was done and showed no pulmonary embolism. He was admitted to PCU and started on intravenous diuretics. Consultation with cardiology was ordered and he was seen by Dr. Key. He recommended a continuous Lasix infusion, ASHLEY, beta-masood and Aldactone. Impressions 1. Acute systolic severe heart failure with severe CM, exact etiology unclear but ischemic cardiomyopathy needs to be ruled out. troponin enzymes are negative; acute coronary syndrome ruled out. 2D echo shows EF 25% with severe global left ventricular systolic dysfunction, elevated left atrial pressure listed above severe stage III diastolic dysfunction. Right atrium moderately enlarged. 2+ eccentric MR, moderate TR with PASP 45 mmHg consistent with mild pulmonary hypertension. Dr. walton suggested 1 more day of IV Lasix diuresis and then transitioned to oral Lasix tomorrow. Cardiac cath on Tuesday. Currently on beta-masood, ARB, spironolactone. 2. mild Pulmonary HTN 3. hx of HTN 4. Atrial fibrillation: Eliquis is discontinued because of cardiac cath anticipation on Tuesday. 5. Dyslipidemia and obesity: On high intensity statin. FLP tomorrow morning. This note was generated with [employer] dictation software. Every effort was made to ensure accuracy, however computerized collaborative physician mistakes may persist. Code Visit Inpatient E&M: [id number] [facility] Hosp L3
--- NOTE | 2017-09-17 14:47 | PN_ITS ---
Patient Problems: Active and Suspected Problems Acute exacerbation of CHF (congestive heart failure) (Acute) Atrial fibrillation (Acute) Subjective: The patient shortness of breath is better. Still dyspnea on mild exertion, going to bathroom. Acute on chronic heart failure with severe cardiomyopathy. Discussed with the enterprise integration developer, Dr. walton. Vitals/I&O's: Vital Signs Temp Pulse Resp BP Pulse Ox 97.8 F 70 16 121/70 H 92 09/17/17 09:35 09/17/17 11:34 09/17/17 09:35 09/17/17 09:35 09/17/17 09:35 Oxygen Delivery Method Room Air Weight: 276 lb 14.409 oz Body Mass Index (BMI) 40.4 Intake and Output for Last 24 Hours 09/15/17 09/16/17 09/17/17 23:59 23:59 23:59 Intake Total 240 / 240 1206.8 / 1206.8 639.1 / 639.1 Output Total 2875 / 2875 4445 / 4445 4675 / 4675 Balance -2635 / -2635 -3238.2 / -3238.2 -4035.9 / -4035.9 General: Alert, Oriented x3, Cooperative HEENT: Atraumatic, PERRLA, EOMI, Normocephalic Neck: Supple, No JVD, Negative Carotid Bruits Lungs: No rhonchi, No wheeze, Diminished Cardiovascular: Normal S1, Normal S2, No murmurs, Irregular Rate Abdomen: Bowel Sounds Present, Soft, Non Tender, Non-Distended Extremities: Capillary Refill Less than 3 Seconds, Edema Skin: No rashes, No breakdown Musculoskeletal: No Tenderness to Palpation of Joints or Extremities Neurological: Cranial nerves II-XII grossly intact Psych/Mental Status: Normal Affect, Appropriate Laboratory Results 09/16/17 22:06: Sodium 141, Potassium 3.7, Chloride 101, Carbon Dioxide 34.0 H, Anion Gap 6, BUN 18, Creatinine 1.27, Estim Creat Clear Calc 59.41, Est GFR ( MDRD) Af Amer 72, Est GFR (MDRD) Non-Af 60, BUN/Creatinine Ratio 14.2, Glucose 83, Calcium 9.3, Magnesium 2.2 09/17/17 06:33: PT 16.1 H, INR 1.3 09/17/17 06:33: Sodium 143, Potassium 3.5, Chloride 97 L, Carbon Dioxide 38.0 H , Anion Gap 8, BUN 15, Creatinine 1.24, Estim Creat Clear Calc 60.84, Est GFR ( MDRD) Af Amer 74, Est GFR (MDRD) Non-Af 61, BUN/Creatinine Ratio 12.1, Glucose 90, Calcium 9.1, Magnesium 1.9 Current Medications Acetaminophen (Tylenol) 650 mg PO Q6H PRN PRN PRN Reason: Mild Pain (1-3)/Temp > 100.7 F Albuterol/Ipratropium (Duoneb) 3 ml INHALATION Q4HWA.RT PRN PRN Reason: SHORTNESS OF BREATH [facility] Last Admin: 09/17/17 09:38 Dose: 300 mg Bisacodyl (Dulcolax) 5 mg PO DAILY PRN PRN PRN Reason: Constipation Doxazosin Mesylate (Cardura) 2 mg PO [facility] Last Admin: 09/16/17 22:01 Dose: 2 mg Furosemide 500 mg/ N/A 50 mls @ 0.5 mls/hr CONT INF .Q100H [facility] PRN Reason: 5 MG/HR Last Admin: 09/16/17 10:33 Dose: 0.5 mls/hr Losartan Potassium (Cozaar) 25 mg PO DAILY [facility] Last Admin: 09/17/17 09:38 Dose: 25 mg Magnesium Hydroxide (Milk Of Magnesia) 30 ml PO DAILY PRN PRN Reason: Constipation Metoprolol Succinate (Toprol Xl (Beta Masood)) 100 mg PO BID [facility] Last Admin: 09/17/17 09:38 Dose: 100 mg Ondansetron HCl (Zofran) 4 mg IV Q8H PRN PRN PRN Reason: NAUSEA Psyllium Hydrophilic Mucilloid (Metamucil) 1 packet PO DAILY PRN PRN PRN Reason: CONSTIPATION Sodium Chloride () 5 - 30 ml IV UD PRN PRN Reason: SALINE FLUSH Last Admin: 09/16/17 10:03 Dose: 10 ml Spironolactone (Aldactone) 12.5 mg PO DAILY [facility] Last Admin: 09/17/17 09:39 Dose: 12.5 mg Tramadol HCl (Ultram (G)) 50 - 100 mg PO Q6H PRN PRN PRN Reason: PAIN Assessment/Plan Active and Suspected Problems Acute exacerbation of CHF (congestive heart failure) (Acute) Atrial fibrillation (Acute) Patient is a 72-year-old male with a past medical history of hypertension, Erectile dysfunction and obesity who presented to the ED at [facility] on 09/15/17 c/o swelling in his legs and SOB. His states that he has not been feeling well for about 3 months. BNP was increased at 540. The chest x-ray showed no pulmonary vascular congestion, no infiltrates and no pleural effusions. EKG in the emergency room showed atrial fibrillation which was rate controlled and he is on metoprolol for high blood pressure. A CTA of the chest was done and showed no pulmonary embolism. He was admitted to PCU and started on intravenous diuretics. Consultation with cardiology was ordered and he was seen by Dr. Key. He recommended a continuous Lasix infusion, ASHLEY, beta- masood and Aldactone. Impressions 1. Acute systolic severe heart failure with severe CM, exact etiology unclear but ischemic cardiomyopathy needs to be ruled out. troponin enzymes are negative; acute coronary syndrome ruled out. 2D echo shows EF 25% with severe global left ventricular systolic dysfunction, elevated left atrial pressure listed above severe stage III diastolic dysfunction. Right atrium moderately enlarged. 2+ eccentric MR, moderate TR with PASP 45 mmHg consistent with mild pulmonary hypertension. Dr. walton suggested 1 more day of IV Lasix diuresis and then transitioned to oral Lasix tomorrow. Cardiac cath on Tuesday. Currently on beta-masood, ARB, spironolactone. 2. mild Pulmonary HTN 3. hx of HTN 4. Atrial fibrillation: Eliquis is discontinued because of cardiac cath anticipation on Tuesday. 5. Dyslipidemia and obesity: On high intensity statin. FLP tomorrow morning. This note was generated with [employer] dictation software. Every effort was made to ensure accuracy, however computerized kiln car unloader mistakes may persist. Code Visit Inpatient E&M: [id number] [facility] Hosp L3
[2017-09-17] MEDS: Doxazosin 1 MG Tablet 2 MG PO (22:09)
[2017-09-17] MEDS: Atorvastatin Calcium 40 MG Tablet PO (22:09)
[2017-09-18] VITALS (14 sets, daily range): BP systolic 102–136; BP diastolic 67–81; PULSE 64–92; RESP 16; TEMP 36.5–36.9; O2SAT 92–96
[2017-09-18 06:14] LABS: Cholesterol 130 mg/dL (200); High Density Lipoprotein 37 mg/dL; Triglycerides 72 mg/dL; Very Low Density Lipoprotein 14 mg/dL (5-40)
[2017-09-18] MEDS: Losartan Potassium 25 MG Tablet PO (09:28)
[2017-09-18] MEDS: Spironolactone 25 MG Tablet 12.5 MG PO (09:28)
[2017-09-18] MEDS: Metoprolol(XL)Succ 100 MG Tablet PO (09:28)
[2017-09-18] MEDS: Allopurinol 300 MG Tablet PO (09:28)
--- NOTE | 2017-09-18 10:27 | PCM.PN.CARD ---
Subjectve: The patient was seen and evaluated and appears to be doing well with no complaints. Objective: Vital Signs Temp Pulse Resp BP Pulse Ox 98 F 91 16 125/80 H 92 09/18/17 08:00 09/18/17 09:28 09/18/17 08:00 09/18/17 08:00 09/18/17 08:10 Oxygen Delivery Method Room Air Weight: 268 lb 11.896 oz Body Mass Index (BMI) 40.4 Intake and Output for Last 24 Hours 09/16/17 09/17/17 09/19/17 23:59 23:59 00:59 Intake Total 1206.8 / 1206.8 1170.4 / 1170.4 190.2 / 190.2 Output Total 4445 / 4445 6700 / 6700 600 / 600 Balance -3238.2 / -3238.2 -5529.6 / -5529.6 -409.8 / -409.8 General: Awake, Alert, Oriented x 3 HEENT: PERRL, EOMI, Sclera Non Icteric Neck: Supple, Good ROM, No Lymph Node Enlargement Lungs: Clear to auscultation Cardiovascular: Regular Rhythm, Normal S1, Normal S2, No Murmurs, No Rubs, No Gallops Vascular: No Carotid Bruits, Normal Femoral Pulses, Normal Radial Pulses, Normal Dorsalis Pedal Pulse, Normal Posterior Tibial Pulses Abdomen: Bowel Sounds Present, Soft, Non Tender, No HSM, No Organomegaly Extremities: No Cyanosis, No Clubbing, No edema Neurological: No Focal Motor or Sensory Deficit 09/18/17 05:37: Triglycerides 72, Cholesterol 130, LDL Cholesterol 79, VLDL Cholesterol 14, HDL Cholesterol 37 L Assessment/Plan 1. CHF with severe cardiomyopathy-acute systolic. The etiology of the above is unclear at this particular time. The plan at this time will be to continue him on the beta-roz as well as the ARB and the spironolactone. He is on intravenous Lasix which will be switched over to oral Lasix. I think as he may be closer to euvolemic on Tuesday we may just keep him and perform a cardiac catheterization on him on Tuesday morning. I have discussed the above with him he understands and agrees to proceed. Risks benefits and alternatives have been explained to him. 2. Atrial fibrillation. On Eliquis. Ventricular rate controlled with metoprolol will hold Eliquis from today. Pending cardiac catheterization early in the week. 3. Hypertension. Controlled. Will continue with the beta-roz as well as the ARB. He is also on Cardura. 4. Obesity. Weight loss and dietary manipulation have been advocated. 5. Lipid management -we will continue with aggressive lipid management. Lipid levels appear to be excellent at this time. Thank you for allowing me to participate in the care of your patient. Please don't hesitate to call if any issues arise
--- NOTE | 2017-09-18 11:13 | PCM.PN.HOSP ---
Patient Problems: Active and Suspected Problems Acute exacerbation of CHF (congestive heart failure) (Acute) Atrial fibrillation (Acute) Subjective: Follow-up on acute systolic CHF exacerbation: Joint was seen and examined. Admits to feeling much better. Denies any chest pain or dizziness or chest shortness of breath. Discussed with cardiology, will have a cardiac cath tomorrow. No acute events on telemetry. Objective: Physical Exam General: Alert, Oriented x3, Cooperative, - - obese, not in respiratory distress, on lasix drip HEENT: Atraumatic, PERRLA, EOMI, Normocephalic Oral: Moist Mucosa Neck: Supple, No JVD, Negative Carotid Bruits Lungs: Clear to auscultation, Normal air movement, Diminished - at lung bases Cardiovascular: Irregular rate, Regular Rhythm, Normal S1, Normal S2, No murmurs Abdomen: Bowel Sounds Present, Soft, Non Tender, Non-Distended, No Hepato-splenomegaly Extremities: Edema - bilateral +1, pitting, nontender, respiratory legs Skin: No rashes, No breakdown Musculoskeletal: No Tenderness to Palpation of Joints or Extremities Neurological: Cranial nerves II-XII grossly intact, Motor Exam 5/5 strength throughout Psych/Mental Status: Normal Affect, Appropriate Vitals/I&O's: Vital Signs Temp Pulse Resp BP Pulse Ox 98 F 91 16 125/80 H 92 09/18/17 08:00 09/18/17 09:28 09/18/17 08:00 09/18/17 08:00 09/18/17 08:10 Oxygen Delivery Method Room Air Weight: 121.9 kg Body Mass Index (BMI) 40.4 Intake and Output for Last 24 Hours 09/16/17 09/17/17 09/19/17 23:59 23:59 00:59 Intake Total 1206.8 / 1206.8 1170.4 / 1170.4 190.2 / 190.2 Output Total 4445 / 4445 6700 / 6700 600 / 600 Balance -3238.2 / -3238.2 -5529.6 / -5529.6 -409.8 / -409.8 Laboratory Results 09/18/17 05:37: Triglycerides 72, Cholesterol 130, LDL Cholesterol 79, VLDL Cholesterol 14, HDL Cholesterol 37 L Current Medications Acetaminophen (Tylenol) 650 mg PO Q6H PRN PRN PRN Reason: Mild Pain (1-3)/Temp > 100.7 F Albuterol/Ipratropium (Duoneb) 3 ml INHALATION Q4HWA.RT PRN PRN Reason: SHORTNESS OF BREATH Allopurinol (Zyloprim) 300 mg PO DAILYCM [facility] Last Admin: 09/18/17 09:28 Dose: 300 mg Atorvastatin Calcium (Lipitor) 40 mg PO QHS [facility] Last Admin: 09/17/17 22:09 Dose: 40 mg Bisacodyl (Dulcolax) 5 mg PO DAILY PRN PRN PRN Reason: Constipation Doxazosin Mesylate (Cardura) 2 mg PO HS [facility] Last Admin: 09/17/17 22:09 Dose: 2 mg Furosemide (Lasix) 40 mg PO BID@1000,1800 SARAI Sodium Chloride () 1,000 mls @ 15 mls/hr IV .Q48H SARAI PRN Reason: KVO Losartan Potassium (Cozaar) 25 mg PO DAILY [facility] Last Admin: 09/18/17 09:28 Dose: 25 mg Magnesium Hydroxide (Milk Of Magnesia) 30 ml PO DAILY PRN PRN Reason: Constipation Metoprolol Succinate (Toprol Xl (Beta Masood)) 100 mg PO BID [facility] Last Admin: 09/18/17 09:28 Dose: 100 mg Ondansetron HCl (Zofran) 4 mg IV Q8H PRN PRN PRN Reason: NAUSEA Psyllium Hydrophilic Mucilloid (Metamucil) 1 packet PO DAILY PRN PRN PRN Reason: CONSTIPATION Sodium Chloride () 5 - 30 ml IV UD PRN PRN Reason: SALINE FLUSH Last Admin: 09/16/17 10:03 Dose: 10 ml Spironolactone (Aldactone) 12.5 mg PO DAILY [facility] Last Admin: 09/18/17 09:28 Dose: 12.5 mg Tramadol HCl (Ultram (G)) 50 - 100 mg PO Q6H PRN PRN PRN Reason: PAIN Assessment/Plan Active and Suspected Problems Acute exacerbation of CHF (congestive heart failure) (Acute) Atrial fibrillation (Acute) 72 year old M with PMhx of hypertension, morbid obesity who comes in with SOB and bilateral leg swelling ongoing for weeks. He noticed worsening bilateral leg swelling, went to see his PCP and had an EKG done that showed A. fib. 1. Acute CHF, EF 25%, severe global left ventricular systolic dysfunction, newly diagnosed, unclear underlying etiology, patient has diuresed nicely, lost more than 14 pounds of weight, cardiology following, patient would have cardiac cath tomorrow, switch from IV Lasix to p.o., continue on atorvastatin,, beta-masood, Aldactone, labs in am 2. Atrial fibrillation, newly diagnosed, metoprolol, off Eliquis for cardiac cath tomorrow, 3. Hypertension, controlled, likely secondary to medication noncompliance, patient is on metoprolol succinate, would continue same, monitor vitals closely 4. Morbid obesity, BMI 40.5, weight loss and diet advised 5. BPH, reduced doses of Cardura 2mg daily, 6. Gout, on allopurinol DVT prophylaxis - patient on Lovenox twice daily Code Visit Inpatient E&M: 26363 Subs Hosp L3
--- NOTE | 2017-09-18 11:21 | PN_ITS ---
Patient Problems: Active and Suspected Problems Acute exacerbation of CHF (congestive heart failure) (Acute) Atrial fibrillation (Acute) Subjective: Follow-up on acute systolic CHF exacerbation: Joint was seen and examined. Admits to feeling much better. Denies any chest pain or dizziness or chest shortness of breath. Discussed with cardiology, will have a cardiac cath tomorrow. No acute events on telemetry. Objective: Physical Exam General: Alert, Oriented x3, Cooperative, - - obese, not in respiratory distress , on lasix drip HEENT: Atraumatic, PERRLA, EOMI, Normocephalic Oral: Moist Mucosa Neck: Supple, No JVD, Negative Carotid Bruits Lungs: Clear to auscultation, Normal air movement, Diminished - at lung bases Cardiovascular: Irregular rate, Regular Rhythm, Normal S1, Normal S2, No murmurs Abdomen: Bowel Sounds Present, Soft, Non Tender, Non-Distended, No Hepato- splenomegaly Extremities: Edema - bilateral +1, pitting, nontender, respiratory legs Skin: No rashes, No breakdown Musculoskeletal: No Tenderness to Palpation of Joints or Extremities Neurological: Cranial nerves II-XII grossly intact, Motor Exam 5/5 strength throughout Psych/Mental Status: Normal Affect, Appropriate Vitals/I&O's: Vital Signs Temp Pulse Resp BP Pulse Ox 98 F 91 16 125/80 H 92 09/18/17 08:00 09/18/17 09:28 09/18/17 08:00 09/18/17 08:00 09/18/17 08:10 Oxygen Delivery Method Room Air Weight: 121.9 kg Body Mass Index (BMI) 40.4 Intake and Output for Last 24 Hours 09/16/17 09/17/17 09/19/17 23:59 23:59 00:59 Intake Total 1206.8 / 1206.8 1170.4 / 1170.4 190.2 / 190.2 Output Total 4445 / 4445 6700 / 6700 600 / 600 Balance -3238.2 / -3238.2 -5529.6 / -5529.6 -409.8 / -409.8 Laboratory Results 09/18/17 05:37: Triglycerides 72, Cholesterol 130, LDL Cholesterol 79, VLDL Cholesterol 14, HDL Cholesterol 37 L Current Medications Acetaminophen (Tylenol) 650 mg PO Q6H PRN PRN PRN Reason: Mild Pain (1-3)/Temp > 100.7 F Albuterol/Ipratropium (Duoneb) 3 ml INHALATION Q4HWA.RT PRN PRN Reason: SHORTNESS OF BREATH Allopurinol (Zyloprim) 300 mg PO DAILYCM [facility] Last Admin: 09/18/17 09:28 Dose: 300 mg Atorvastatin Calcium (Lipitor) 40 mg PO QHS [facility] Last Admin: 09/17/17 22:09 Dose: 40 mg Bisacodyl (Dulcolax) 5 mg PO DAILY PRN PRN PRN Reason: Constipation Doxazosin Mesylate (Cardura) 2 mg PO HS [facility] Last Admin: 09/17/17 22:09 Dose: 2 mg Furosemide (Lasix) 40 mg PO BID@1000,1800 SARAI Sodium Chloride () 1,000 mls @ 15 mls/hr IV .Q48H SARAI PRN Reason: KVO Losartan Potassium (Cozaar) 25 mg PO DAILY [facility] Last Admin: 09/18/17 09:28 Dose: 25 mg Magnesium Hydroxide (Milk Of Magnesia) 30 ml PO DAILY PRN PRN Reason: Constipation Metoprolol Succinate (Toprol Xl (Beta Masood)) 100 mg PO BID [facility] Last Admin: 09/18/17 09:28 Dose: 100 mg Ondansetron HCl (Zofran) 4 mg IV Q8H PRN PRN PRN Reason: NAUSEA Psyllium Hydrophilic Mucilloid (Metamucil) 1 packet PO DAILY PRN PRN PRN Reason: CONSTIPATION Sodium Chloride () 5 - 30 ml IV UD PRN PRN Reason: SALINE FLUSH Last Admin: 09/16/17 10:03 Dose: 10 ml Spironolactone (Aldactone) 12.5 mg PO DAILY [facility] Last Admin: 09/18/17 09:28 Dose: 12.5 mg Tramadol HCl (Ultram (G)) 50 - 100 mg PO Q6H PRN PRN PRN Reason: PAIN Assessment/Plan Active and Suspected Problems Acute exacerbation of CHF (congestive heart failure) (Acute) Atrial fibrillation (Acute) 72 year old M with PMhx of hypertension, morbid obesity who comes in with SOB and bilateral leg swelling ongoing for weeks. He noticed worsening bilateral leg swelling, went to see his PCP and had an EKG done that showed A. fib. 1. Acute CHF, EF 25%, severe global left ventricular systolic dysfunction, newly diagnosed, unclear underlying etiology, patient has diuresed nicely, lost more than 14 pounds of weight, cardiology following, patient would have cardiac cath tomorrow, switch from IV Lasix to p.o., continue on atorvastatin,, beta- masood, Aldactone, labs in am 2. Atrial fibrillation, newly diagnosed, metoprolol, off Eliquis for cardiac cath tomorrow, 3. Hypertension, controlled, likely secondary to medication noncompliance, patient is on metoprolol succinate, would continue same, monitor vitals closely 4. Morbid obesity, BMI 40.5, weight loss and diet advised 5. BPH, reduced doses of Cardura 2mg daily, 6. Gout, on allopurinol DVT prophylaxis - patient on Lovenox twice daily Code Visit Inpatient E&M: 35311 Subs Hosp L3
[2017-09-18] MEDS: Furosemide 40 MG Tablet PO (17:00)
[2017-09-18] MEDS: Atorvastatin Calcium 40 MG Tablet PO (22:05)
[2017-09-18] MEDS: Doxazosin 1 MG Tablet 2 MG PO (22:05)
[2017-09-18] MEDS: Aspirin 81 MG TAB.CHEW PO (23:10)
[2017-09-19] VITALS (31 sets, daily range): BP systolic 96–167; BP diastolic 57–107; PULSE 64–96; RESP 10–22; TEMP 35.6–36.8; O2SAT 90–99; BMI 36.1
--- NOTE | 2017-09-19 05:00 | EKG12_ITS ---
Test Reason : AM Blood Pressure : / mmHG Vent. Rate : 077 BPM Atrial Rate : 087 BPM P-R Int : 000 ms QRS Dur : 140 ms QT Int : 418 ms P-R-T Axes : 000 -46 084 degrees QTc Int : 473 ms Atrial fibrillation with premature ventricular or aberrantly conducted complexes Left axis deviation Non-specific intra-ventricular conduction block Abnormal ECG When compared with ECG of 15-SEP-2017 09:35, MANUAL COMPARISON REQUIRED, DATA IS UNCONFIRMED Confirmed by ACE SOLIMAN, ERIKA ([id number]), proposal editor ROSSANA HOGAN ([id number]) on 09/21/2017 4:15:28 PM Referred By: TRENA Confirmed By:ERIKA BELLO MD
[2017-09-19 05:23] LABS: Absolute Lymphocyte Count 1.62 X10^3/ul (0.83-4.51); Absolute Neutrophil Count 4.3 X10^3/uL (2.0-7.7); Basophil# 0.02 X10^3/uL; Basophil% 0.3 % (0-1); Eosinophil# 0.27 X10^3/uL; Eosinophils% 3.8 % (0-5); Hematocrit 47.5 % (40-54); Hemoglobin 15.4 g/dl (13.0-16.5); Lymphocyte # 1.62 X10^3/ul (4.0); Lymphocyte % 22.7 % (19-41); Mean Corp Hgb Conc 32.4 g/gl (32-36); Mean Corpuscular Volume 92.4 fL (80-94); Mean Platelet Vol. 10.4 fl (6.2-12.0); Monocyte# 0.95 X10^3/uL; Monocyte% 13.3 % (0-10); Neutrophil # 4.27 X10^3/uL (2.7-7.7); Neutrophil % 59.8 % (47-70); Platelet Count 217 K/mm3 (150-450); RBC Distribution Width CV 14.6 % (11.6-14.6); RBC Distribution Width SD 49.1 fl (35.1-43.9); Red Blood Count 5.14 M/mm3 (4.6-6.2); White Blood Count 7.1 K/mm3 (4.4-11.0)
[2017-09-19 05:26] LABS: International Normalized Ratio 1.1; Prothrombin Time (Protime)PT. 14.6 SECONDS (11.7-14.9)
[2017-09-19 05:27] LABS: POSITIVE COUNT NO; POSITIVE DIFFERENTIAL NO; POSITIVE MORPHOLOGY NO; Partial Thromboplast Time 32.4 Seconds (24.1-36.2)
[2017-09-19 05:41] LABS: Anion Gap 7 (5-15); BUN 23 mg/dL (7-18); BUN/Creat Ratio 22.1 RATIO (10-20); Calcium,Total 9.2 mg/dL (8.5-10.1); Chloride 98 mmol/L (98-107); Creatinine, Serum 1.04 mg/dL (0.70-1.30); EST Glomerular Filtration Rate 75 mL/min (>60); Est Glom Filt Rate - Afr Amer 91 mL/min (>60); Estimated Creatinine Clearance 72.54 ml/min; Glucose 101 mg/dL (74-106); Potassium 3.4 mmol/L (3.5-5.1); Sodium Level 141 mmol/L (136-145)
[2017-09-19] MEDS: Aspirin 81 MG TAB.CHEW PO (06:41)
--- NOTE | 2017-09-19 09:38 | PCM.PN.CARD ---
Subjectve: Patient seen and evaluated. Objective: Vital Signs Temp Pulse Resp BP Pulse Ox 98.3 F 64 16 130/66 H 94 09/19/17 07:50 09/19/17 07:50 09/19/17 07:50 09/19/17 07:50 09/19/17 08:00 Oxygen Delivery Method Room Air Weight: 267 lb 10.259 oz Body Mass Index (BMI) 40.4 Intake and Output for Last 24 Hours 09/17/17 09/18/17 09/19/17 22:59 23:59 23:59 Intake Total Output Total 500 / 500 Balance -500 / -500 General: Awake, Alert, Oriented x 3 HEENT: PERRL, EOMI, Sclera Non Icteric Neck: Supple, Good ROM, No Lymph Node Enlargement Lungs: Clear to auscultation Cardiovascular: Regular Rhythm, Normal S1, Normal S2, No Murmurs, No Rubs, No Gallops Vascular: No Carotid Bruits, Normal Femoral Pulses, Normal Radial Pulses, Normal Dorsalis Pedal Pulse, Normal Posterior Tibial Pulses Abdomen: Bowel Sounds Present, Soft, Non Tender, No HSM, No Organomegaly Extremities: No Cyanosis, No Clubbing, No edema Neurological: No Focal Motor or Sensory Deficit 09/19/17 05:00: Sodium 141, Potassium 3.4 L, Chloride 98, Carbon Dioxide 36.0 H, Anion Gap 7, BUN 23 H, Creatinine 1.04, Est GFR (MDRD) Af Amer 91, Est GFR (MDRD) Non-Af 75, BUN/Creatinine Ratio 22.1 H, Glucose 101, Calcium 9.2 09/19/17 05:00: WBC 7.1, RBC 5.14, Hgb 15.4, Hct 47.5, MCV 92.4, MCH 30.0, MCHC 32.4, RDW 14.6, RDW Differential 49.1 H, Plt Count 217, MPV 10.4, Immature Gran % (Auto) 0.100, Neut % (Auto) 59.8, Lymph % (Auto) 22.7, Pacific % (Auto) 13.3 H, Eos % (Auto) 3.8, Baso % (Auto) 0.3, Absolute Neuts (auto) 4.3, Total Counted Not Reportable 09/19/17 05:00: PT 14.6, INR 1.1, APTT 32.4 Rhythm: EKG: Atrial fibrillation. With a controlled ventricular response rate. Assessment/Plan 1. CHF with severe cardiomyopathy-acute systolic. The etiology of the above is unclear at this particular time. The plan at this time will be to continue him on the beta-roz as well as the ARB and the spironolactone. His cardiac catheterization today demonstrated a normal left main coronary artery. The left anterior descending artery with mild disease. C codominant circumflex artery with mild disease. The right coronary artery with eccentric 70% lesion noted in the proximal distribution. Severe left ventricular systolic dysfunction with an estimated ejection fraction of 25%. Based on the above angiographic findings the patient will be treated with Brilinta and we will proceed with angioplasty of the right coronary artery. His cardiomyopathy may be out of proportion to the extent of his coronary disease however. 2. Atrial fibrillation. On Eliquis. Ventricular rate controlled with metoprolol will hold Eliquis from today. The Eliquis can be started again after he has undergone the angioplasty. 3. Hypertension. Controlled. Will continue with the beta-roz as well as the ARB. He is also on Cardura. 4. Obesity. Weight loss and dietary manipulation have been advocated. 5. Lipid management -we will continue with aggressive lipid management. Lipid levels appear to be excellent at this time. Thank you for allowing me to participate in the care of your patient. Please don't hesitate to call if any issues arise
--- NOTE | 2017-09-19 09:50 | CL.D_ITS ---
Patient Name: NANDO TIMMONS Study Date: 09/19/2017 Performing: Lemuel Martinez MD Ht: 72.04 inches 183 cm : 1945 Wt: 266.76 lbs 121 kg Age: 72 Gender: male BSA: 2.41 PROCEDURE(S) PERFORMED RT53-GVE/COR/LV CLINICAL PROFILE AND INDICATIONS INDICATIONS: 72 yo man with cardiomyopathy Stress/Imaging Stress/Image Study Performed: No CAD Presentations: No Sxs, no angina. CONCLUSIONS Severe single-vessel disease with out of proportion cardiomyopathy. RECOMMENDATIONS Referred for immediate PCI DESCRIPTION OF PROCEDURE The patient arrived to the procedure lab. The risks and benefits of the procedure as well as a full d escription of our services here and current unavailability of surgical backup were fully explained to the patient and/or their significant other prior to the catheterization. The Timeout was completed, verifying the correct patient and procedure. The patient's procedural site was prepped and draped in the usual fashion. Local anesthetic was given subcutaneously to right radial region with Lidocaine 2% . Using a modified Seldinger technique, arterial access was obtained via the right radial artery, a 6 Fr sheath was inserted. Left Coronary Artery selective angiography was performed in multiple views u sing a 5 Fr. 4.0 Rosebud catheter. Right Coronary Artery selective angiography was then performed in mu ltiple views using a 5 Fr. JR 5 catheter. more Left Coronary Artery selective angiography was perform ed in multiple views using a 5 Fr. JL3.5 catheter. Left Ventriculography was performed in HUGHES project ion using a 4 Fr. Pigtail catheter. LV to AO pullback pressures were then recorded.The arterial sheat h was pulled and a TR Band was applied for hemostasis CORONARY ANGIOGRAPHY DOMINANCE: Co- Dominant LEFT HEART ASSESSMENT Left Ventricular Ejection Fraction: by LV Gram 25 % Global Hypokinesis - Severe Depressed Left Ventricular systolic function LEFT MAIN: Angiographically normal LEFT ANTERIOR DECENDING ARTERY: Mild luminal irregularities less than 30% CIRCUMFLEX ARTERY: Mild luminal irregularities RIGHT CORONARY ARTERY: PROX RCA: 70 eccentric % Stenosis COMPLICATIONS No Complications PROCEDURE MEDICATIONS Versed 1 mg IV Fentanyl 50 mcg IV Oxygen: 2 L/min via nasal cannula Heparin diluted in 23cc Heparinized saline. Patient given 10cc IA of this solution. 09/19/2017 09:01: 51 Verapamil 2.5mg, Ntg 100mcgs, 2000 units of Heparin diluted in 23cc Heparinized saline. Patient give n 10cc IA of this solution. 09/19/2017 09:01:51 SUMMARY OF HEMODYNAMIC DATA Time AIR REST ECG 08:37:40 AO 95/74 (83) SA 09:11:05 LV 114/2, 9 09:31:59 LV 110/2, 7 09:32:22 LV 115/7, 12 09:33:27 LVp 107/7, 13 09:33:35 AOp 0/78 (90) 09:33:40 Signed By Lemuel Martinez MD On 09/19/2017 09:49:52 Lemuel Martinez MD
--- NOTE | 2017-09-19 11:38 | CASEMGMT ---
REPORT RECEIVED FROM Vic SINGH CM, THAT PATIENT DOES NOT HAVE PRESCRIPTION DRUG INSURANCE. PATIENT HAS BEEN PROVIDED WITH ELIQUIS COUPON AND RX HOPE INFORMATION. [facility] WILL CONTINUE TO FOLLOW FOR FURTHER PRESCRIPTION NEEDS. Anastacio ARMSTRONG, BSN, RN-BC, CCM WRITTEN HANDOFF REPORT PROVIDED TO Kimberly SINGH CM, ICU/MS2 [facility].
--- NOTE | 2017-09-19 11:43 | CL.I_ITS ---
Patient Name: NANDO TIMMONS Study Date: 09/19/2017 Performing: Nick Siu MD Ht: 72.04 inches 183 cm : 1945 Wt: 266.76 lbs 121 kg Age: 72 Gender: male BSA: 2.41 PROCEDURE(S) PERFORMED [id number] W OR WO PTCA, SINGLE CORONARY ARTERY CLINICAL PROFILE AND CO-MORBIDITIES INDICATIONS: 72 yo man with cardiomyopathy Stress/Imaging Stress/Image Study Performed: No CAD Presentations: No Sxs, no angina. CONCLUSIONS Successful PTCA/BONNY of the proximal RCA with a 3.5 x 17 BONNY Elunir stent, post dilated throughout wit h a 4.0 x 12 NC Balloon; 75%-->0%, no dissection. RECOMMENDATIONS Highly recommend quitting all tobacco products Follow up with primary center human resources manager Risk factor modification ASA Indefinitley Plavix for at least 12 months Routine post interventional care Refer for Outpatient Cardiac Rehab Manual sheath removal per protocol Follow up with Dr. Martinez Start anti-coagulation in a few days per protocol for 3-4 weeks, then DCCV for Afib, followed by card ia rehab, then repeat echo in 4 months for LV dysfunction. Pt will need DAPT for 1 full year given Elunir stent. D/w Dr Martinez. Successul Mynx closure. Release TR band in 1 hour. DESCRIPTION OF PROCEDURE The patient arrived to the procedure lab. The risks and benefits of the procedure as well as a full d escription of our services here and current unavailability of surgical backup were fully explained to the patient and/or their significant other prior to the catheterization. The Timeout was completed, verifying the correct patient and procedure. The patient's procedural site was prepped and draped in the usual fashion. Local anesthetic was given subcutaneously to right radial region with Lidocaine 2% Using a modified Seldinger technique,arterial access was obtained via the right radial artery, a 6Fr sheath was inserted. Left Coronary Artery selective angiography was performed in multiple views usin g a 5 Fr. 4.0 Bud catheter. Right Coronary Artery selective angiography was then performed in multi ple views using a 5 Fr. JR 5 catheter. more Left Coronary Artery selective angiography was performed in multiple views using a 5 Fr. JL3.5 catheter. Left Ventriculography was performed in HUGHES projection using a 4 Fr. Pigtail catheter. LV to AO pullback pressures were then recorded.The images were revie wed and options discussed. A decision was then made to proceed with an Intervention, IVUS or other ad junct procedure. Angiogram performed pre balloon dilatation. HS II Guide catheter was inserted and engaged into the RC A. universal Guide wire was advanced to the RCA. 2.0x12 emerge Balloon catheter was advanced across l esion in the right coronary, proximal. PTCA balloon inflated at 12 atms for [address] ug Eluting stent was advanced across the lesion in the right coronary, proximal. NC emerge 4.0x12 Bal loon catheter was inserted post stent. Angiogram performed post stent deployment.. . The arterial sh eath was pulled and a TR Band was applied for hemostasis. The arterial sheath was pulled and a Mynx c losure device was deployed for hemostasis. INTERVENTION INFORMATION LESION SITE: RCA (Proximal) Lesion Complexity: Non-High/Non-C, lesion at bifurcation: No, thrombus present: No, lesion length: 17 mm, culprit lesion: Yes Pre Stenosis: 75 % Pre intervention INOCENCIO flow: 3 PROCEDURE: Drug Eluting Stent with pre and post dilatation Post Stenosis: 0 % Post intervention INOCENCIO flow: 3 Lesion Devices: Arrogenetronic 6 Fr HSII 100cm Guide Catheter Rubio .014 [employer] [place] Straight 190cm Jase Sci EMERGE MR 2.00x12 BALLOON Cardinal Elunir BONNY RX 3.5x17 Jase Sci NC EMERGE MR 4.00x12 BALLOON COMPLICATIONS No Complications PROCEDURE MEDICATIONS Versed 1 mg IV Fentanyl 50 mcg IV Versed 1 mg IV Oxygen: 2 L/min via nasal cannula Oxygen: 2 L/min via nasal cannula Brilinta 180 mg PO @ 09/19/2017 09:49:46 Heparin diluted in 23cc Heparinized saline. Patient given 10cc IA of this solution. 09/19/2017 09:01: 51 Heparin 6000 unit(s) IV 09/19/2017 11:05:38 Nitro 200 mcg IC 09/19/2017 11:07:42 Nitro 200 mcg IC 09/19/2017 11:07:42 Verapamil 2.5mg, Ntg 100mcgs, 2000 units of Heparin diluted in 23cc Heparinized saline. Patient give n 10cc IA of this solution. 09/19/2017 09:01:51 SUMMARY OF HEMODYNAMIC DATA Time AIR REST ECG 08:37:40 AO 95/74 (83) SA 09:11:05 LV 114/2, 9 09:31:59 LV 110/2, 7 09:32:22 LV 115/7, 12 09:33:27 LVp 107/7, 13 09:33:35 AOp 0/78 (90) 09:33:40 ECG 11:01:16 Signed By Nick Siu MD On 09/19/2017 11:42:55 Nick Siu MD
--- NOTE | 2017-09-19 11:45 | EKG12_ITS ---
Test Reason : POST-PCI Blood Pressure : / mmHG Vent. Rate : 074 BPM Atrial Rate : 250 BPM P-R Int : 000 ms QRS Dur : 140 ms QT Int : 460 ms P-R-T Axes : 000 -48 017 degrees QTc Int : 510 ms Atrial fibrillation Left axis deviation Non-specific intra-ventricular conduction block Abnormal ECG When compared with ECG of 19-SEP-2017 05:36, MANUAL COMPARISON REQUIRED, DATA IS UNCONFIRMED Confirmed by ACE SOLIMAN, ERIKA ([id number]), proposal editor ROSSANA HOGAN ([id number]) on 09/23/2017 2:13:10 PM Referred By: ETHAN Confirmed By:ERIKA BELLO MD
[2017-09-19 11:51] LABS: ACT Activated Clotting Time 202 sec (74-137)
[2017-09-19 12:26] LABS: Hematocrit 46.3 % (40-54); Hemoglobin 14.6 g/dl (13.0-16.5); Mean Corp Hgb Conc 31.5 g/gl (32-36); Mean Corpuscular Hgb 29.1 pg (27.0-32.0); Mean Corpuscular Volume 92.4 fL (80-94); Mean Platelet Vol. 10.4 fl (6.2-12.0); Platelet Count 211 K/mm3 (150-450); RBC Distribution Width CV 14.7 % (11.6-14.6); RBC Distribution Width SD 49.3 fl (35.1-43.9); Red Blood Count 5.01 M/mm3 (4.6-6.2)
[2017-09-19 12:34] LABS: Scan Indicated on CBC? Y/N NO
[2017-09-19 12:35] LABS: CPK Total, Creatine Kinase 69 U/L (39-308)
--- NOTE | 2017-09-19 13:36 | CRPHASE1 ---
Patient Data/Charges Dispatcher [employer]ugboat:: Nick Siu PCP:: Demetrio Lyons Date/Diagnosis #1:: HEART CATH WITH PCI Risk Factors/Lifestyle Smoking Status: Former smoker Hx Hypertension: Yes Hx Diabetes Mellitus Type 1: No Hx Diabetes Mellitus Type 2: No Hx Dyslipidemia: Yes Hx Obesity: Yes Height: 1.83 m Weight:: 121 kg BMI: 36.1 Risk Factor for Sedentary Lifestyle: Highest Risk Family History: Cancer, High Cholesterol Past Cardiac Illness: CHF, Myocardial Infarction Laboratory Values: Cardiac Rehab Phase I Labs Triglycerides 72 mg/dL (-199) 09/18/17 05:37 Cholesterol 130 mg/dL (200) 09/18/17 05:37 LDL Cholesterol 79 mg/dL (0-130) 09/18/17 05:37 HDL Cholesterol 37 mg/dL (40-) L 09/18/17 05:37 Phase I Education Given On:: [facility] Presenting Symptoms:: SOB, EDEMA Medical/Surgical History AL:: Yes Pulmonary:: No COPD:: No Asthma:: No Diabetes:: Yes Hypertension:: Yes Dyslipidemia:: Yes PE:: No DVT:: No PVD:: No Arthritis:: Yes GI:: No GERD:: No Cancer:: No Renal:: No Thyroid:: Yes CABG: No Discharge/Home/Social Eval Discharge Disposition: Home
--- NOTE | 2017-09-19 13:39 | PN_ITS ---
Patient Problems: Active and Suspected Problems Acute exacerbation of CHF (congestive heart failure) (Acute) Atrial fibrillation (Acute) Subjective: Patient had cardiac catheter and BONNY in RCA through right radial artery approach. Objective: General: Alert, Oriented x3, Cooperative HEENT: Atraumatic, PERRLA, EOMI, Normocephalic Neck: Supple, No JVD, Negative Carotid Bruits Lungs: No rhonchi, No wheeze, Diminished Cardiovascular: Normal S1, Normal S2, No murmurs, Irregular Rate Abdomen: Bowel Sounds Present, Soft, Non Tender, Non-Distended Extremities: Capillary Refill Less than 3 Seconds, Edema; better after cr?pe bandage Skin: No rashes, No breakdown Musculoskeletal: No Tenderness to Palpation of Joints or Extremities Neurological: Cranial nerves II-XII grossly intact Psych/Mental Status: Normal Affect, Appropriate Vitals/I&O's: Vital Signs Temp Pulse Resp BP Pulse Ox 96.1 F L 76 16 143/73 H 98 09/19/17 12:00 09/19/17 13:15 09/19/17 13:15 09/19/17 13:15 09/19/17 13:15 Oxygen Flow Rate (L/min) 2 Oxygen Delivery Method Room Air Weight: 267 lb 10.259 oz Body Mass Index (BMI) 40.4 Intake and Output for Last 24 Hours 09/17/17 09/18/17 09/19/17 22:59 23:59 23:59 Intake Total Output Total 500 / 500 Balance -500 / -500 Laboratory Results 09/19/17 05:00: Sodium 141, Potassium 3.4 L, Chloride 98, Carbon Dioxide 36.0 H , Anion Gap 7, BUN 23 H, Creatinine 1.04, Estim Creat Clear Calc 72.54, Est GFR (MDRD) Af Amer 91, Est GFR (MDRD) Non-Af 75, BUN/Creatinine Ratio 22.1 H, Glucose 101, Calcium 9.2 09/19/17 05:00: WBC 7.1, RBC 5.14, Hgb 15.4, Hct 47.5, MCV 92.4, MCH 30.0, MCHC 32.4, RDW 14.6, RDW Differential 49.1 H, Plt Count 217, MPV 10.4, Immature Gran % (Auto) 0.100, Neut % (Auto) 59.8, Lymph % (Auto) 22.7, [place] % (Auto) 13.3 H, Eos % (Auto) 3.8, Baso % (Auto) 0.3, Absolute Neuts (auto) 4.3, Absolute Lymphs (auto) 1.62, Total Counted Not Reportable 09/19/17 05:00: PT 14.6, INR 1.1, APTT 32.4 09/19/17 10:27: Activated Clotting Time 202 H 09/19/17 12:10: Total Creatine Kinase 69 09/19/17 12:10: WBC 7.0, RBC 5.01, Hgb 14.6, Hct 46.3, MCV 92.4, MCH 29.1, MCHC 31.5 L, RDW 14.7 H, RDW Differential 49.3 H, Plt Count 211, MPV 10.4 09/19/17 12:10: MRSA (PCR) Pending Current Medications Acetaminophen (Tylenol) 650 mg PO Q6H PRN PRN PRN Reason: Mild Pain (1-3)/Temp > 100.7 F Albuterol/Ipratropium (Duoneb) 3 ml INHALATION Q4HWA.RT PRN PRN Reason: SHORTNESS OF BREATH [facility] Admin: 09/18/17 09:28 Dose: 300 mg Aspirin (Ecotrin) 81 mg PO DAILY@0800 [facility] Atorvastatin Calcium (Lipitor) 40 mg PO QHS [facility] Last Admin: 09/18/17 22:05 Dose: 40 mg Atropine Sulfate () 0.5 mg IV UD PRN PRN Reason: HR <50 bpm Bisacodyl (Dulcolax) 5 mg PO DAILY PRN PRN PRN Reason: Constipation Diazepam (Valium) 5 mg PO Q6H PRN PRN PRN Reason: BACK SPASMS/ANXIETY Doxazosin Mesylate (Cardura) 2 mg PO HS [facility] Last Admin: 09/18/17 22:05 Dose: 2 mg Furosemide (Lasix) 40 mg PO BID@1000,1800 [facility] Last Admin: 09/18/17 17:00 Dose: 40 mg Sodium Chloride () 1,000 mls @ 60 mls/hr IV .[id number] [facility] Sodium Chloride () 1,000 mls @ 150 mls/hr IV .[id number] [facility] Stop: 09/19/17 18:14 Sodium Chloride () 250 mls @ 15 mls/hr IV .[id number] PRN PRN Reason: SALINE FLUSH Sodium Chloride () 250 mls @ 15 mls/hr IV .[id number] PRN PRN Reason: SALINE FLUSH Losartan Potassium (Cozaar) 25 mg PO DAILY [facility] Last Admin: 09/18/17 09:28 Dose: 25 mg Magnesium Hydroxide (Milk Of Magnesia) 30 ml PO DAILY PRN PRN Reason: Constipation Metoclopramide HCl (Reglan) 5 mg IV Q6 PRN PRN Reason: NAUSEA/VOMITING Metoprolol Succinate (Toprol Xl (Beta Roz)) 100 mg PO BID [facility] Last Admin: 09/18/17 22:04 Dose: Not Given Ondansetron HCl (Zofran) 4 mg IV Q8H PRN PRN PRN Reason: NAUSEA Psyllium Hydrophilic Mucilloid (Metamucil) 1 packet PO DAILY PRN PRN PRN Reason: CONSTIPATION Sodium Chloride () 500 ml IV BOLUS PRN PRN Reason: VASO-VAGAL PROTOCOL Sodium Chloride () 5 - 30 ml IV UD PRN PRN Reason: SALINE FLUSH Spironolactone (Aldactone) 12.5 mg PO DAILY [facility] Last Admin: 09/18/17 09:28 Dose: 12.5 mg Ticagrelor (Brilinta) 90 mg PO BID [facility] Tramadol HCl (Ultram (G)) 50 - 100 mg PO Q6H PRN PRN PRN Reason: PAIN Assessment/Plan Active and Suspected Problems Acute exacerbation of CHF (congestive heart failure) (Acute) Atrial fibrillation (Acute) Patient is a 72-year-old male with a past medical history of hypertension, Erectile dysfunction and obesity who presented to the ED at [facility] on 09/15/17 c/o swelling in his legs and SOB. His states that he has not been feeling well for about 3 months. BNP was increased at 540. The chest x-ray showed no pulmonary vascular congestion, no infiltrates and no pleural effusions. EKG in the emergency room showed atrial fibrillation which was rate controlled and he is on metoprolol for high blood pressure. A CTA of the chest was done and showed no pulmonary embolism. He was admitted to PCU and started on intravenous diuretics. Consultation with cardiology was ordered and he was seen by Dr. Key. Patient was treated with IV Lasix infusion and on ASHLEY, beta- roz and Aldactone. Impressions 1. Acute systolic severe heart failure with severe CM, exact etiology unclear but ischemic cardiomyopathy needs to be ruled out. troponin enzymes are negative; acute coronary syndrome ruled out. Cardiac cath done today shows proximal RCA eccentric 70% lesion for which he received BONNY. EF 25%. Severe LV systolic dysfunction. Currently patient on Brilinta. Eliquis on hold and will resume later after 24 hours. 2D echo shows EF 25% with severe global left ventricular systolic dysfunction, elevated left atrial pressure listed above severe stage III diastolic dysfunction. Right atrium moderately enlarged. 2+ eccentric MR, moderate TR with PASP 45 mmHg consistent with mild pulmonary hypertension. Dr. walton suggested 1 more day of IV Lasix diuresis and then transitioned to oral Lasix tomorrow. Currently on beta-roz, ARB, spironolactone 6. 2. mild Pulmonary HTN 3. hx of HTN 4. Atrial fibrillation: Eliquis is on hold as mentioned above 5. Dyslipidemia and obesity: On high intensity statin. FLP shows low HDL 37, LDL 79. This note was generated with [employer] dictation software. Every effort was made to ensure accuracy, however computerized sleeping bag filler mistakes may persist. Code Visit Inpatient E&M: 83885 Subs Hosp L3
--- NOTE | 2017-09-19 13:44 | CRPHASE1_ITS ---
Patient Data/Charges Director University:: [employer] PCP:: Demetrio Lyons Date/Diagnosis #1:: HEART CATH WITH PCI Risk Factors/Lifestyle Smoking Status: Former smoker Hx Hypertension: Yes Hx Diabetes Mellitus Type 1: No Hx Diabetes Mellitus Type 2: No Hx Dyslipidemia: Yes Hx Obesity: Yes Height: 1.83 m Weight:: 121 kg BMI: 36.1 Risk Factor for Sedentary Lifestyle: Highest Risk Family History: Cancer, High Cholesterol Past Cardiac Illness: CHF, Myocardial Infarction Laboratory Values: Cardiac Rehab Phase I Labs Triglycerides 72 mg/dL (-199) 09/18/17 05:37 Cholesterol 130 mg/dL (200) 09/18/17 05:37 LDL Cholesterol 79 mg/dL (0-130) 09/18/17 05:37 HDL Cholesterol 37 mg/dL (40-) L 09/18/17 05:37 Phase I Education Given On:: [place] [facility] Presenting Symptoms:: SOB, EDEMA Medical/Surgical History SD:: Yes Pulmonary:: No COPD:: No Asthma:: No Diabetes:: Yes Hypertension:: Yes Dyslipidemia:: Yes PE:: No DVT:: No PVD:: No Arthritis:: Yes GI:: No GERD:: No Cancer:: No Renal:: No Thyroid:: Yes CABG: No Discharge/Home/Social Eval Discharge Disposition: Home
--- NOTE | 2017-09-19 13:44 | CRPH1.INSTRU ---
General Education CAD and cardiac anatomy and function:: Not instructed Explanation of diagnoses and procedures:: Not instructed Sign/Symptoms of MO:: Needs reinforcement Antiplatelet therapy: Needs reinforcement, Not instructed Proper use of NTG-SL: Not instructed Emergency procedures and activation of EMS: Not instructed Compliance of all prescribed medications: Not instructed Smoking Patient Nicotine/Smoking Risk Factors Are:: Smokeless tobacco Nicotine/Smoking Response Code:: Needs reinforcement Dyslipidemia Recommendations Include:: Lipid profile not available Dyslipidemia Response Code:: Not instructed Overweight/Obesity Patient Overweight/Obesity Risk Factors Are:: Obesity - > or = 30 Overweight/Obesity:: Not instructed Hypertension Hypertension:: Needs reinforcement Heart Disease Heart Disease Response Code:: Needs reinforcement Diabetes Patient Diabetes Risk Factors Are:: Elevated blood sugars - STATES HE WAS TOLD BY PCP THAT HE IS BORDERLINE DM Diabetes:: Not instructed Metabolic Syndrome Patient Metabolic Syndrome Risk Factors Are [3 of 5]:: Waist circumference > 35 [female] or 40 [male], Hypertension Metabolic Syndrome Response Code:: Needs reinforcement Sedentary Patient Sedentary Risk Factors Are:: Lack of regular exercise Sedentary Response Code:: Needs reinforcement Stress Stress Response Code:: Not instructed
--- NOTE | 2017-09-19 13:47 | CRPH1.INST_ITS ---
General Education CAD and cardiac anatomy and function:: Not instructed Explanation of diagnoses and procedures:: Not instructed Sign/Symptoms of MD:: Needs reinforcement Antiplatelet therapy: Needs reinforcement, Not instructed Proper use of NTG-SL: Not instructed Emergency procedures and activation of EMS: Not instructed Compliance of all prescribed medications: Not instructed Smoking Patient Nicotine/Smoking Risk Factors Are:: Smokeless tobacco Nicotine/Smoking Response Code:: Needs reinforcement Dyslipidemia Recommendations Include:: Lipid profile not available Dyslipidemia Response Code:: Not instructed Overweight/Obesity Patient Overweight/Obesity Risk Factors Are:: Obesity - > or = 30 Overweight/Obesity:: Not instructed Hypertension Hypertension:: Needs reinforcement Heart Disease Heart Disease Response Code:: Needs reinforcement Diabetes Patient Diabetes Risk Factors Are:: Elevated blood sugars - STATES HE WAS TOLD BY PCP THAT HE IS BORDERLINE DM Diabetes:: Not instructed Metabolic Syndrome Patient Metabolic Syndrome Risk Factors Are [3 of 5]:: Waist circumference > 35 [female] or 40 [male], Hypertension Metabolic Syndrome Response Code:: Needs reinforcement Sedentary Patient Sedentary Risk Factors Are:: Lack of regular exercise Sedentary Response Code:: Needs reinforcement Stress Stress Response Code:: Not instructed
[2017-09-19 14:36] LABS: M R Staph aureus DNA By PCR Negative (Negative); Probe Check PASS; Specimen Processing Control PASS
[2017-09-19 14:38] LABS: Bacteria 0 SEEN /hpf (None Seen); Mucous, Urine 0 SEEN /hpf (<or=2+); Squamous Epithelial Cells - UA 0 SEEN /hpf (0-5)
[2017-09-19 14:55] LABS: Color, Urine Yellow (Yellow); Glucose, Dipstick Normal (Normal); Ketone-Dipstick 15 mg/dl (Negative); Leukocyte Esterase-Dipstick 25 /ul (Negative); Nitrite-Dipstick Negative (Negative); Occult Blood-Urine 250 /ul (Negative); Protein-Dipstick 30 mg/dl (Negative); Urine Bilirubin Dipstick Negative (Negative); Urine Clarity Sl. Cloudy (Clear); Urine Urobilinogen 1 mg/dl (Normal)
[2017-09-19 15:01] LABS: Red Blood Cells-Urine 25-50 SEEN /hpf (0-5); White Blood Cells 0-5 SEEN /hpf (0-5)
[2017-09-19] MEDS: Losartan Potassium 25 MG Tablet PO (15:32)
[2017-09-19] MEDS: Allopurinol 300 MG Tablet PO (15:32)
[2017-09-19] MEDS: Spironolactone 25 MG Tablet 12.5 MG PO (15:33)
[2017-09-19] MEDS: Furosemide 40 MG Tablet PO (15:33)
[2017-09-19] MEDS: diazePAM 5 MG Tablet PO ×2 (16:06→22:17)
[2017-09-19 18:24] LABS: Hematocrit 47.5 % (40-54); Hemoglobin 15.1 g/dl (13.0-16.5); Mean Corp Hgb Conc 31.8 g/gl (32-36); Mean Corpuscular Hgb 29.4 pg (27.0-32.0); Mean Corpuscular Volume 92.4 fL (80-94); Mean Platelet Vol. 10.6 fl (6.2-12.0); Platelet Count 215 K/mm3 (150-450); RBC Distribution Width CV 14.6 % (11.6-14.6); RBC Distribution Width SD 49.4 fl (35.1-43.9); Red Blood Count 5.14 M/mm3 (4.6-6.2); White Blood Count 7.8 K/mm3 (4.4-11.0)
[2017-09-19 18:25] LABS: Scan Indicated on CBC? Y/N NO
[2017-09-19 18:47] LABS: CPK Total, Creatine Kinase 65 U/L (39-308)
[2017-09-19] MEDS: LORazepam 2 MG/ML Syringe 1 MG IV (19:39)
[2017-09-19] MEDS: 0.9% NaCl Peripheral Flush Adult/Peds IV (19:40)
[2017-09-19] MEDS: TICAGRELOR 90 MG TABLET PO (21:45)
[2017-09-19] MEDS: Atorvastatin Calcium 40 MG Tablet PO (21:45)
[2017-09-19 22:01] LABS: Bedside Glucose 85 mg/dL (70-110)
[2017-09-19 23:39] LABS: Hematocrit 45.8 % (40-54); Hemoglobin 15.3 g/dl (13.0-16.5); Mean Corp Hgb Conc 33.4 g/gl (32-36); Mean Corpuscular Hgb 30.2 pg (27.0-32.0); Mean Corpuscular Volume 90.5 fL (80-94); Mean Platelet Vol. 10.5 fl (6.2-12.0); Platelet Count 225 K/mm3 (150-450); RBC Distribution Width CV 14.6 % (11.6-14.6); RBC Distribution Width SD 48.1 fl (35.1-43.9); Red Blood Count 5.06 M/mm3 (4.6-6.2); White Blood Count 9.2 K/mm3 (4.4-11.0)
[2017-09-19 23:44] LABS: Scan Indicated on CBC? Y/N NO
[2017-09-20] VITALS (26 sets, daily range): BP systolic 92–167; BP diastolic 55–103; PULSE 62–108; RESP 11–19; TEMP 36–36.9; O2SAT 89–98
[2017-09-20 00:07] LABS: CPK Total, Creatine Kinase 73 U/L (39-308)
[2017-09-20 01:56] LABS: Bedside Glucose 98 mg/dL (70-110)
[2017-09-20 05:33] LABS: Hematocrit 46.6 % (40-54); Hemoglobin 15.2 g/dl (13.0-16.5); Mean Corp Hgb Conc 32.6 g/gl (32-36); Mean Corpuscular Hgb 29.6 pg (27.0-32.0); Mean Corpuscular Volume 90.8 fL (80-94); Mean Platelet Vol. 10.4 fl (6.2-12.0); Platelet Count 212 K/mm3 (150-450); RBC Distribution Width CV 14.6 % (11.6-14.6); RBC Distribution Width SD 47.6 fl (35.1-43.9); Red Blood Count 5.13 M/mm3 (4.6-6.2); White Blood Count 9.3 K/mm3 (4.4-11.0)
[2017-09-20 05:37] LABS: Scan Indicated on CBC? Y/N NO
[2017-09-20 05:41] LABS: Anion Gap 8 (5-15); BUN 19 mg/dL (7-18); BUN/Creat Ratio 21.5 RATIO (10-20); Calcium,Total 9.2 mg/dL (8.5-10.1); Chloride 102 mmol/L (98-107); Creatinine, Serum 0.88 mg/dL (0.70-1.30); EST Glomerular Filtration Rate 91 mL/min (>60); Est Glom Filt Rate - Afr Amer 110 mL/min (>60); Estimated Creatinine Clearance 85.73 ml/min; Glucose 92 mg/dL (74-106); Potassium 3.6 mmol/L (3.5-5.1); Sodium Level 143 mmol/L (136-145)
--- NOTE | 2017-09-20 05:55 | EKG12_ITS ---
Test Reason : AM EKG Blood Pressure : / mmHG Vent. Rate : 083 BPM Atrial Rate : 091 BPM P-R Int : 000 ms QRS Dur : 142 ms QT Int : 414 ms P-R-T Axes : 000 -55 063 degrees QTc Int : 486 ms Atrial fibrillation Left axis deviation Left bundle branch block Abnormal ECG When compared with ECG of 19-SEP-2017 11:59, MANUAL COMPARISON REQUIRED, DATA IS UNCONFIRMED Confirmed by ACE SOLIMAN, ERIKA ([id number]), greeting card editor ROSSANA HOGAN ([id number]) on 09/23/2017 2:02:08 PM Referred By: MICHELLE Confirmed By:ERIKA BELLO MD
[2017-09-20] MEDS: Aspirin E.C. 81 MG Tablet PO (07:46)
[2017-09-20] MEDS: Allopurinol 300 MG Tablet PO (07:46)
--- NOTE | 2017-09-20 08:28 | PN.CARD_ITS ---
Subjectve: The patient was seen and evaluated and appears to be stable. Was apparently somewhat restless in the night. Objective: Vital Signs Temp Pulse Resp BP Pulse Ox 96.8 F L 81 16 148/95 H 97 09/20/17 08:00 09/20/17 08:00 09/20/17 08:00 09/20/17 08:00 09/20/17 08:00 Oxygen Flow Rate (L/min) 2 Oxygen Delivery Method Room Air Weight: 270 lb 11.642 oz Body Mass Index (BMI) 40.4 Intake and Output for Last 24 Hours 09/18/17 09/19/17 09/20/17 23:59 23:59 23:59 Intake Total 626 / 626 250 / 250 Output Total 1100 / 1100 1125 / 1125 Balance -474 / -474 -875 / -875 General: Awake, Alert, Oriented x 3 HEENT: PERRL, EOMI, Sclera Non Icteric Neck: Supple, Good ROM, No Lymph Node Enlargement Lungs: Clear to auscultation Cardiovascular: Irregular Rhythm, Normal S1, Normal S2, No Murmurs, No Rubs, No Gallops Vascular: No Carotid Bruits, Normal Femoral Pulses, Normal Radial Pulses, Normal Dorsalis Pedal Pulse, Normal Posterior Tibial Pulses Abdomen: Bowel Sounds Present, Soft, Non Tender, No HSM, No Organomegaly Extremities: No Cyanosis, No Clubbing, No edema Neurological: No Focal Motor or Sensory Deficit 09/18/17 14:30: Urine Color Yellow, Urine Clarity Sl. Cloudy, Urine pH 8.0, Ur Specific [place] 1.010, Urine Protein 30 H, Urine Glucose (UA) Normal, Urine Ketones 15 H, Urine Occult Blood 250 H, Urine Nitrite Negative, Urine Bilirubin Negative, Urine Urobilinogen 1 H, Ur Leukocyte Esterase 25 H, Urine RBC 25-50 SEEN, Urine WBC 0-5 SEEN 09/19/17 12:10: WBC 7.0, RBC 5.01, Hgb 14.6, Hct 46.3, MCV 92.4, MCH 29.1, MCHC 31.5 L, RDW 14.7 H, RDW Differential 49.3 H, Plt Count 211, MPV 10.4 09/19/17 17:40: WBC 7.8, RBC 5.14, Hgb 15.1, Hct 47.5, MCV 92.4, MCH 29.4, MCHC 31.8 L, RDW 14.6, RDW Differential 49.4 H, Plt Count 215, MPV 10.6 09/19/17 23:30: WBC 9.2, RBC 5.06, Hgb 15.3, Hct 45.8, MCV 90.5, MCH 30.2, MCHC 33.4, RDW 14.6, RDW Differential 48.1 H, Plt Count 225, MPV 10.5 09/20/17 05:15: WBC 9.3, RBC 5.13, Hgb 15.2, Hct 46.6, MCV 90.8, MCH 29.6, MCHC 32.6, RDW 14.6, RDW Differential 47.6 H, Plt Count 212, MPV 10.4 09/20/17 05:15: Sodium 143, Potassium 3.6, Chloride 102, Carbon Dioxide 33.0 H, Anion Gap 8, BUN 19 H, Creatinine 0.88, Est GFR (MDRD) Af Amer 110, Est GFR ( MDRD) Non-Af 91, BUN/Creatinine Ratio 21.5 H, Glucose 92, Calcium 9.2 Rhythm: Atrial fibrillation with pauses. No pauses in excess of 3.5 seconds. EKG: Atrial fibrillation with a controlled ventricular response rate. ECHO: Globally reduced ejection fraction estimated at 25% Assessment/Plan 1. CHF with severe cardiomyopathy-acute systolic. The etiology of the above is unclear at this particular time. Is likely multifactorial the plan at this time will be to continue him on the beta- roz as well as the ARB and the spironolactone. His cardiac catheterization today demonstrated a normal left main coronary artery. The left anterior descending artery with mild disease. C codominant circumflex artery with mild disease. The right coronary artery with eccentric 70% lesion noted in the proximal distribution. Severe left ventricular systolic dysfunction with an estimated ejection fraction of 25%. Based on the above angiographic findings the patient underwent angioplasty and stenting of the right coronary lesion. The plan will be to keep him on aspirin and Brilinta as well as Eliquis. His hemoglobin has remained stable as well as his creatinine. And there has been no change from baseline. 2. Atrial fibrillation. Patient did experience some pauses and the metoprolol dose was reduced. Ventricular rate controlled with metoprolol will hold Eliquis today. The Eliquis can be started again this evening. The plan would be to continue for at least 4 weeks and perform a DC cardioversion to see whether this would improve his left ventricular function. 3. Hypertension. Controlled. Will continue with the beta-roz as well as the ARB. He is also on Cardura. 4. Obesity. Weight loss and dietary manipulation have been advocated. He likely has sleep apnea as well. 5. Lipid management -we will continue with aggressive lipid management. Lipid levels appear to be excellent at this time. Thank you for allowing me to participate in the care of your patient. Please don't hesitate to call if any issues arise The patient can be transferred to the progressive care unit or even may be discharged home later today.
[2017-09-20] MEDS: Metoprolol Tartrate 50 MG Tablet PO ×2 (09:32→21:10)
[2017-09-20] MEDS: Losartan Potassium 25 MG Tablet PO (09:33)
[2017-09-20] MEDS: Furosemide 40 MG Tablet PO ×2 (09:33→17:15)
[2017-09-20] MEDS: TICAGRELOR 90 MG TABLET PO ×2 (09:34→21:10)
[2017-09-20] MEDS: Spironolactone 25 MG Tablet 12.5 MG PO (09:34)
--- NOTE | 2017-09-20 10:19 | PCM.PN.HOSP ---
Patient Problems: Active and Suspected Problems Acute exacerbation of CHF (congestive heart failure) (Acute) Atrial fibrillation (Acute) Subjective: The patient had sinus bradycardia with sinus pauses to missed heartbeat yesterday. Metoprolol was held. Today she is tachycardic, heart rate between 110s-120s. Still in A. fib. Vitals/I&O's: Vital Signs Temp Pulse Resp BP Pulse Ox 97 F L 100 15 153/85 H 95 09/20/17 10:00 09/20/17 10:00 09/20/17 10:00 09/20/17 10:00 09/20/17 10:00 Oxygen Flow Rate (L/min) 2 Oxygen Delivery Method Room Air Weight: 270 lb 11.642 oz Body Mass Index (BMI) 40.4 Intake and Output for Last 24 Hours 09/18/17 09/19/17 09/20/17 23:59 23:59 23:59 Intake Total 626 / 626 250 / 250 Output Total 1100 / 1100 1125 / 1125 Balance -474 / -474 -875 / -875 General: Alert, Oriented x3, Cooperative HEENT: Atraumatic, PERRLA, EOMI, Normocephalic Neck: Supple, No JVD, Negative Carotid Bruits Lungs: Clear to auscultation, Normal air movement, No rhonchi, No wheeze, No rales Cardiovascular: Normal S1, Normal S2, No murmurs, Irregular Rate, Tachycardic Abdomen: Bowel Sounds Present, Soft, Non Tender Extremities: No edema, Capillary Refill Less than 3 Seconds Skin: No rashes, No breakdown Musculoskeletal: No Tenderness to Palpation of Joints or Extremities Neurological: Cranial nerves II-XII grossly intact Psych/Mental Status: Normal Affect, Appropriate Laboratory Results 09/18/17 14:30: Urine Color Yellow, Urine Clarity Sl. Cloudy, Urine pH 8.0, Ur Specific [place] 1.010, Urine Protein 30 H, Urine Glucose (UA) Normal, Urine Ketones 15 H, Urine Occult Blood 250 H, Urine Nitrite Negative, Urine Bilirubin Negative, Urine Urobilinogen 1 H, Ur Leukocyte Esterase 25 H, Urine RBC 25-50 SEEN, Urine WBC 0-5 SEEN, Ur Squamous Epith Cells 0 SEEN, Urine Bacteria 0 SEEN, Urine Mucus 0 SEEN 09/19/17 10:27: Activated Clotting Time 202 H 09/19/17 12:10: Total Creatine Kinase 69 09/19/17 12:10: WBC 7.0, RBC 5.01, Hgb 14.6, Hct 46.3, MCV 92.4, MCH 29.1, MCHC 31.5 L, RDW 14.7 H, RDW Differential 49.3 H, Plt Count 211, MPV 10.4 09/19/17 12:10: MRSA (PCR) Negative 09/19/17 17:40: Total Creatine Kinase 65 09/19/17 17:40: WBC 7.8, RBC 5.14, Hgb 15.1, Hct 47.5, MCV 92.4, MCH 29.4, MCHC 31.8 L, RDW 14.6, RDW Differential 49.4 H, Plt Count 215, MPV 10.6 09/19/17 21:55: POC Glucose 85 09/19/17 23:30: Total Creatine Kinase 73 09/19/17 23:30: WBC 9.2, RBC 5.06, Hgb 15.3, Hct 45.8, MCV 90.5, MCH 30.2, MCHC 33.4, RDW 14.6, RDW Differential 48.1 H, Plt Count 225, MPV 10.5 09/20/17 01:52: POC Glucose 98 09/20/17 05:15: WBC 9.3, RBC 5.13, Hgb 15.2, Hct 46.6, MCV 90.8, MCH 29.6, MCHC 32.6, RDW 14.6, RDW Differential 47.6 H, Plt Count 212, MPV 10.4 09/20/17 05:15: Sodium 143, Potassium 3.6, Chloride 102, Carbon Dioxide 33.0 H, Anion Gap 8, BUN 19 H, Creatinine 0.88, Estim Creat Clear Calc 85.73, Est GFR (MDRD) Af Amer 110, Est GFR (MDRD) Non-Af 91, BUN/Creatinine Ratio 21.5 H, Glucose 92, Calcium 9.2 Current Medications Acetaminophen (Tylenol) 650 mg PO Q6H PRN PRN PRN Reason: Mild Pain (1-3)/Temp > 100.7 F Albuterol/Ipratropium (Duoneb) 3 ml INHALATION Q4HWA.RT PRN PRN Reason: SHORTNESS OF BREATH [facility]) [facility] Last Admin: 09/20/17 07:46 Dose: 300 mg Aspirin (Ecotrin) 81 mg PO DAILY@0800 [facility] Last Admin: 09/20/17 07:46 Dose: 81 mg Atorvastatin Calcium (Lipitor) 40 mg PO QHS [facility] Last Admin: 09/19/17 21:45 Dose: 40 mg Atropine Sulfate () 0.5 mg IV UD PRN PRN Reason: HR <50 bpm Bisacodyl (Dulcolax) 5 mg PO DAILY PRN PRN PRN Reason: Constipation Diazepam (Valium) 5 mg PO Q6H PRN PRN PRN Reason: BACK SPASMS/ANXIETY Last Admin: 09/19/17 22:17 Dose: 5 mg Furosemide (Lasix) 40 mg PO BID@1000,1800 [facility] Last Admin: 09/20/17 09:33 Dose: 40 mg Sodium Chloride () 250 mls @ 15 mls/hr IV .[id number] PRN PRN Reason: SALINE FLUSH Sodium Chloride () 250 mls @ 15 mls/hr IV .[id number] PRN PRN Reason: SALINE FLUSH Losartan Potassium (Cozaar) 25 mg PO DAILY [facility] Last Admin: 09/20/17 09:33 Dose: 25 mg Magnesium Hydroxide (Milk Of Magnesia) 30 ml PO DAILY PRN PRN Reason: Constipation Metoclopramide HCl (Reglan) 5 mg IV Q6 PRN PRN Reason: NAUSEA/VOMITING Metoprolol Tartrate (Lopressor (Beta Masood)) 50 mg PO BID [facility] Last Admin: 09/20/17 09:32 Dose: 50 mg Ondansetron HCl (Zofran) 4 mg IV Q8H PRN PRN PRN Reason: NAUSEA Psyllium Hydrophilic Mucilloid (Metamucil) 1 packet PO DAILY PRN PRN PRN Reason: CONSTIPATION Sodium Chloride () 500 ml IV BOLUS PRN PRN Reason: VASO-VAGAL PROTOCOL Sodium Chloride () 5 - 30 ml IV UD PRN PRN Reason: SALINE FLUSH Last Admin: 09/19/17 19:40 Dose: 10 ml Spironolactone (Aldactone) 12.5 mg PO DAILY [facility] Last Admin: 09/20/17 09:34 Dose: 12.5 mg Ticagrelor (Brilinta) 90 mg PO BID [facility] Last Admin: 09/20/17 09:34 Dose: 90 mg Tramadol HCl (Ultram (G)) 50 - 100 mg PO Q6H PRN PRN PRN Reason: PAIN Assessment/Plan Active and Suspected Problems Acute exacerbation of CHF (congestive heart failure) (Acute) Atrial fibrillation (Acute) Patient is a 72-year-old male with a past medical history of hypertension, Erectile dysfunction and obesity who presented to the ED at [facility] on 09/15/17 c/o swelling in his legs and SOB. His states that he has not been feeling well for about 3 months. BNP was increased at 540. The chest x-ray showed no pulmonary vascular congestion, no infiltrates and no pleural effusions. EKG in the emergency room showed atrial fibrillation which was rate controlled and he is on metoprolol for high blood pressure. A CTA of the chest was done and showed no pulmonary embolism. He was admitted to PCU and started on intravenous diuretics. Consultation with cardiology was ordered and he was seen by Dr. Key. Patient was treated with IV Lasix infusion and on ASHLEY, beta-masood and Aldactone. Impressions 1. Acute systolic severe heart failure with severe CM, exact etiology unclear but ischemic cardiomyopathy needs to be ruled out. troponin enzymes are negative; acute coronary syndrome ruled out. Cardiac cath done today shows proximal RCA eccentric 70% lesion for which he received BONNY. EF 25%. Severe LV systolic dysfunction. Currently patient on Brilinta. Eliquis on hold and will resume later after 24 hours. 2D echo shows EF 25% with severe global left ventricular systolic dysfunction, elevated left atrial pressure listed above severe stage III diastolic dysfunction. Right atrium moderately enlarged. 2+ eccentric MR, moderate TR with PASP 45 mmHg consistent with mild pulmonary hypertension. Dr. walton suggested 1 more day of IV Lasix diuresis and then transitioned to oral Lasix tomorrow. Currently on beta-masood, ARB, spironolactone 6. 2. mild Pulmonary HTN 3. hx of HTN 4. Atrial fibrillation, unstable heart rate : Patient was bradycardic with sinus pause yesterday and today's tachycardic; most probably due to hold off metoprolol Eliquis is on hold as mentioned above, may be resumed in the evening. Metoprolol resumed. Heart rate in 90s 5. Dyslipidemia and obesity: On high intensity statin. FLP shows low HDL 37, LDL 79. This note was generated with [employer] dictation software. Every effort was made to ensure accuracy, however computerized insurance rater mistakes may persist. Code Visit Inpatient E&M: 44766 Subs Hosp L3
[2017-09-20 11:32] LABS: Hemoglobin 15.5 g/dl (13.0-16.5); Mean Corp Hgb Conc 32.3 g/gl (32-36); Mean Corpuscular Hgb 29.7 pg (27.0-32.0); Mean Platelet Vol. 10.7 fl (6.2-12.0); Platelet Count 225 K/mm3 (150-450); RBC Distribution Width CV 14.5 % (11.6-14.6); RBC Distribution Width SD 48.3 fl (35.1-43.9); Red Blood Count 5.22 M/mm3 (4.6-6.2); White Blood Count 9.2 K/mm3 (4.4-11.0)
[2017-09-20 11:34] LABS: Scan Indicated on CBC? Y/N NO
[2017-09-20] MEDS: Atorvastatin Calcium 40 MG Tablet PO (21:10)
[2017-09-21] VITALS (8 sets, daily range): BP systolic 120–155; BP diastolic 65–94; PULSE 71–107; RESP 16–19; TEMP 36.4–37; O2SAT 95–97
--- NOTE | 2017-09-21 05:55 | EKG12_ITS ---
Test Reason : AM EKG Blood Pressure : / mmHG Vent. Rate : 094 BPM Atrial Rate : 129 BPM P-R Int : 000 ms QRS Dur : 138 ms QT Int : 432 ms P-R-T Axes : 000 -44 122 degrees QTc Int : 540 ms Atrial fibrillation Left axis deviation Non-specific intra-ventricular conduction block Nonspecific T wave abnormality Abnormal ECG When compared with ECG of 20-SEP-2017 05:34, MANUAL COMPARISON REQUIRED, DATA IS UNCONFIRMED Confirmed by ACE SOLIMAN, ERIKA ([id number]), imaging technician ROSSANA HOGAN ([id number]) on 09/23/2017 1:38:00 PM Referred By: DR MARTINEZ Confirmed By:ERIKA BELLO MD
[2017-09-21 06:01] LABS: Anion Gap 7 (5-15); BUN 22 mg/dL (7-18); BUN/Creat Ratio 22.9 RATIO (10-20); Calcium,Total 9.1 mg/dL (8.5-10.1); Chloride 102 mmol/L (98-107); Creatinine, Serum 0.96 mg/dL (0.70-1.30); EST Glomerular Filtration Rate 82 mL/min (>60); Est Glom Filt Rate - Afr Amer 99 mL/min (>60); Estimated Creatinine Clearance 78.59 ml/min; Glucose 104 mg/dL (74-106); Potassium 3.5 mmol/L (3.5-5.1); Sodium Level 142 mmol/L (136-145)
--- NOTE | 2017-09-21 07:41 | PN.CARD_ITS ---
Subjectve: Patient seen and evaluated and appears to be doing well. Had uneventful night. Objective: Vital Signs Temp Pulse Resp BP Pulse Ox 98.6 F 81 16 155/94 H 95 09/21/17 04:06 09/21/17 04:06 09/21/17 04:06 09/21/17 04:06 09/21/17 07:31 Oxygen Flow Rate (L/min) 2 Oxygen Delivery Method Room Air Weight: 263 lb 10.766 oz Body Mass Index (BMI) 40.4 Intake and Output for Last 24 Hours 09/19/17 09/20/17 09/21/17 23:59 23:59 23:59 Intake Total 626 / 626 550 / 550 200 / 200 Output Total 1100 / 1100 2075 / 2075 Balance -474 / -474 -1525 / -1525 200 / 200 General: Awake, Alert, Oriented x 3 HEENT: PERRL, EOMI, Sclera Non Icteric Neck: Supple, Good ROM, No Lymph Node Enlargement Lungs: Clear to auscultation Cardiovascular: Irregular Rhythm, Normal S1, Normal S2, No Murmurs, No Rubs, No Gallops Vascular: No Carotid Bruits, Normal Femoral Pulses, Normal Radial Pulses, Normal Dorsalis Pedal Pulse, Normal Posterior Tibial Pulses Abdomen: Bowel Sounds Present, Soft, Non Tender, No HSM, No Organomegaly Extremities: No Cyanosis, No Clubbing, No edema Neurological: No Focal Motor or Sensory Deficit 09/20/17 11:20: WBC 9.2, RBC 5.22, Hgb 15.5, Hct 48.0, MCV 92.0, MCH 29.7, MCHC 32.3, RDW 14.5, RDW Differential 48.3 H, Plt Count 225, MPV 10.7 09/21/17 05:10: Sodium 142, Potassium 3.5, Chloride 102, Carbon Dioxide 33.0 H, Anion Gap 7, BUN 22 H, Creatinine 0.96, Est GFR (MDRD) Af Amer 99, Est GFR (MDRD ) Non-Af 82, BUN/Creatinine Ratio 22.9 H, Glucose 104, Calcium 9.1 Rhythm: Atrial fibrillation with a controlled ventricular response rate Assessment/Plan 1. CHF with severe cardiomyopathy-acute systolic. The etiology of the above is unclear at this particular time. Is likely multifactorial the plan at this time will be to continue him on the beta- roz as well as the ARB and the spironolactone. His cardiac catheterization demonstrated a normal left main coronary artery. The left anterior descending artery with mild disease. C codominant circumflex artery with mild disease. The right coronary artery with eccentric 70% lesion noted in the proximal distribution. Severe left ventricular systolic dysfunction with an estimated ejection fraction of 25%. Based on the above angiographic findings the patient underwent angioplasty and stenting of the right coronary lesion. The plan will be to keep him on aspirin and Brilinta as well as Eliquis. His hemoglobin has remained stable as well as his creatinine. And there has been no change from baseline. 2. Atrial fibrillation. Patient did experience some pauses and the metoprolol dose was reduced. Ventricular rate controlled with metoprolol will resume Eliquis today. The plan would be to continue for at least 4 weeks and perform a DC cardioversion to see whether this would improve his left ventricular function. 3. Hypertension. UNControlled. Will continue with the beta-roz as well as the ARB. Will increase the dose of the losartan. He is also on Cardura. 4. Obesity. Weight loss and dietary manipulation have been advocated. He likely has sleep apnea as well. 5. Lipid management -we will continue with aggressive lipid management. Lipid levels appear to be excellent at this time. Thank you for allowing me to participate in the care of your patient. Please don't hesitate to call if any issues arise He can be discharged home later today. Outpatient follow-up arranged through my office.
[2017-09-21] MEDS: Spironolactone 25 MG Tablet 12.5 MG PO (09:51)
[2017-09-21] MEDS: Losartan Potassium 50 MG Tablet PO (09:52)
[2017-09-21] MEDS: APIXABAN 5 MG TABLET PO (09:53)
[2017-09-21] MEDS: Aspirin E.C. 81 MG Tablet PO (09:53)
[2017-09-21] MEDS: Metoprolol Tartrate 50 MG Tablet PO (09:56)
[2017-09-21] MEDS: TICAGRELOR 90 MG TABLET PO (09:56)
[2017-09-21] MEDS: Allopurinol 300 MG Tablet PO (09:56)
[2017-09-21] MEDS: Furosemide 40 MG Tablet PO (09:56)
--- NOTE | 2017-09-21 11:50 | PCM.DC ---
- Discharge Diagnoses Current Active Problems: Current Active and Chronic Problems Acute exacerbation of CHF (congestive heart failure) (Acute) Hypertension (Chronic) Atrial fibrillation (Acute) You will use the following diet at home:: Cardiac Your food should be the consistency of: Regular Discharge Activity: May not drive while taking narcotic pain medications. Allergies/Adverse Reactions: Allergies Sulfa (Sulfonamide Antibiotics) Allergy (Verified 09/15/17 09:49) Hives Medications to take at Discharge Allopurinol [Zyloprim] 300 mg PO DAILY 09/15/17 Diclofenac Potassium 50 mg PO TID PRN 09/15/17 Doxazosin Mesylate [Cardura] 4 mg PO QHS 09/15/17 TraMADol [Ultram] 1 - 2 tab PO Q6H PRN PRN 09/15/17 Apixaban [Eliquis] 5 mg PO BID #60 tab 09/21/17 Aspirin E.C. [Ecotrin] 81 mg PO DAILY@0800 #30 tab 09/21/17 Atorvastatin Calcium [Lipitor] 40 mg PO QHS #30 tab 09/21/17 Furosemide [Lasix] 40 mg PO BID #30 tab 09/21/17 Losartan Potassium [Cozaar] 50 mg PO DAILY #30 tab 09/21/17 Metoprolol Tartrate [Lopressor (beta roz)] 50 mg PO BID #60 tab 09/21/17 Sildenafil Citrate [Viagra] 25 mg PO DAILY PRN PRN #0 09/21/17 Spironolactone [Aldactone] 25 mg PO DAILY #30 tab 09/21/17 Ticagrelor [Brilinta] 90 mg PO BID #60 tab 09/21/17 The following prescriptions were given: Aspirin E.C. [Ecotrin] 81 mg PO DAILY@0800 #30 tab Atorvastatin Calcium [Lipitor] 40 mg PO QHS #30 tab Losartan Potassium [Cozaar] 50 mg PO DAILY #30 tab Spironolactone [Aldactone] 25 mg PO DAILY #30 tab Apixaban [Eliquis] 5 mg PO BID #60 tab Furosemide [Lasix] 40 mg PO BID #30 tab Metoprolol Tartrate [Lopressor (beta roz)] 50 mg PO BID #60 tab Ticagrelor [Brilinta] 90 mg PO BID #60 tab Primary Care Physician: Demetrio Lyons MD [Primary Care Provider] - Please follow up with your Primary Care Physician in: in 2 weeks Please Follow Up With: Lemuel Martinez MD When: in 3-4 weeks
--- NOTE | 2017-09-21 12:05 | DS.PCM_ITS ---
Discharge Date and Diagnosis Date of Admission: 09/15/17 Date of Discharge: 09/21/17 - Primary Discharge Diagnosis Active and Suspected Problems 1. Acute systolic and diastolic combined severe heart failure with ischemic cardiomyopathy due to proximal RCA stenosis: 2D echo shows EF 25% with severe global left ventricular systolic dysfunction, elevated left atrial pressure listed above severe stage III diastolic dysfunction. Right atrium moderately enlarged. 2+ eccentric MR, moderate TR with PASP 45 mmHg consistent with mild pulmonary hypertension. Coronary artery disease with RCA stent status post stent mild Pulmonary HTN New Onset atrial fibrillation, unstable heart rate : - Secondary Discharge Diagnosis Chronic Problems Hypertension (Chronic) Hospital Course and Treatment Summary of Care Provided: [] Patient is a 72-year-old male with a past medical history of hypertension, Erectile dysfunction and obesity who presented to the ED at [facility] on 09/15/17 c/o swelling in his legs and SOB. His states that he has not been feeling well for about 3 months. BNP was increased at 540. The chest x-ray showed no pulmonary vascular congestion, no infiltrates and no pleural effusions. EKG in the emergency room showed atrial fibrillation which was rate controlled and he is on metoprolol for high blood pressure. A CTA of the chest was done and showed no pulmonary embolism. He was admitted to PCU and started on intravenous diuretics. Consultation with cardiology was ordered and he was seen by Dr. Key. Patient was treated with IV Lasix infusion and on ASHLEY, beta- roz and Aldactone. Impressions 1. Acute systolic and diastolic combined severe heart failure with ischemic cardiomyopathy due to proximal RCA stenosis; coronary artery disease: Troponins negative; acute coronary syndrome ruled out. Cardiac cath done shows proximal RCA eccentric 70% lesion for which he received BONNY. EF 25%. Severe LV systolic dysfunction. Currently patient on Brilinta. Eliquis on hold and will resume later after 24 hours. 2D echo shows EF 25% with severe global left ventricular systolic dysfunction, elevated left atrial pressure listed above severe stage III diastolic dysfunction. Right atrium moderately enlarged. 2+ eccentric MR, moderate TR with PASP 45 mmHg consistent with mild pulmonary hypertension. Patient is discharged onLasix, beta-roz, ARB, spironolactone. Coronary artery disease with RCA stent status post stent 2. mild Pulmonary HTN 3. hx of HTN 4. Atrial fibrillation,variable heart rate : Patient was bradycardic with sinus pause yesterday and today's tachycardic; most probably due to hold off metoprolol Eliquis is on hold as mentioned above, may be resumed in the evening. Metoprolol resumed. Heart rate in 90s. Discussed with Dr. walton and patient is discharged on metoprolol 50 mg p.o. twice daily. 5. Dyslipidemia and obesity: On high intensity statin. FLP shows low HDL 37, LDL 79. Discharge meds reconciliation done. Follow-up instructions given. Patient was advised to follow-up with the worm picker, Dr. walton for possible cardioversion in 2-4 weeks. Continue Eliquis. Total time spent, exact 32 minutes on discharge meds reconciliation, examination , review of imaging and blood test and discussion with the patient on follow-up instructions. This note was generated with [employer] dictation software. Every effort was made to ensure accuracy, however computerized prior authorization nurse mistakes may persist. Discharge Activity: May not drive while taking narcotic pain medications. Home Medications: Medications to take at Discharge Allopurinol [Zyloprim] 300 mg PO DAILY 09/15/17 Diclofenac Potassium 50 mg PO TID PRN 09/15/17 Doxazosin Mesylate [Cardura] 4 mg PO QHS 09/15/17 TraMADol [Ultram] 1 - 2 tab PO Q6H PRN PRN 09/15/17 Apixaban [Eliquis] 5 mg PO BID #60 tab 09/21/17 Aspirin E.C. [Ecotrin] 81 mg PO DAILY@0800 #30 tab 09/21/17 Atorvastatin Calcium [Lipitor] 40 mg PO QHS #30 tab 09/21/17 Furosemide [Lasix] 40 mg PO BID #30 tab 09/21/17 Losartan Potassium [Cozaar] 50 mg PO DAILY #30 tab 09/21/17 Metoprolol Tartrate [Lopressor (beta roz)] 50 mg PO BID #60 tab 09/21/17 Sildenafil Citrate [Viagra] 25 mg PO DAILY PRN PRN #0 09/21/17 Spironolactone [Aldactone] 25 mg PO DAILY #30 tab 09/21/17 Ticagrelor [Brilinta] 90 mg PO BID #60 tab 09/21/17 Following Prescrptions Were Given to Patient: Aspirin E.C. [Ecotrin] 81 mg PO DAILY@0800 #30 tab Atorvastatin Calcium [Lipitor] 40 mg PO QHS #30 tab Losartan Potassium [Cozaar] 50 mg PO DAILY #30 tab Spironolactone [Aldactone] 25 mg PO DAILY #30 tab Apixaban [Eliquis] 5 mg PO BID #60 tab Furosemide [Lasix] 40 mg PO BID #30 tab Metoprolol Tartrate [Lopressor (beta roz)] 50 mg PO BID #60 tab Ticagrelor [Brilinta] 90 mg PO BID #60 tab Primary Care Physician: Demetrio Lyons MD [Primary Care Provider] - Please follow up with your Primary Care Physician in: in 2 weeks Please Follow Up With: Lemuel Walton MD When: in 3-4 weeks Meaningful Use Info Meaningful Use Diagnoses (Choose all that apply): CHF - CHF ASHLEY/ARB ordered at discharge?: Yes Documented LVEF (%): 25 Code Visit Inpatient E&M: 54556 Disch Hosp
--- NOTE | 2017-09-21 14:44 | CASEMGMT ---
Pt to be sent home on Brilinta and Eliquis. Pt already given Rx assist info and Eliquis card by this SAMANTHA DYE previously. Call to [facility] to check on cost of scripts at this time as pt does not have Rx coverage. Per tech, Brilinta will be $362.14/month and Eliquis will be $429.86/month. Pt given Brilinta 30day free coupon at this time. Pt/ updated on all at this time and voice understanding. Pt advised to get into see Dr. Martinez in 3 weeks for f/u and medication discussion/assist. Also, advised pt/ that they can call drug company directly to try and get assist, voice understanding. Myesha, [employer] workers compensation legal secretary, did attempt to set up appt for pt for Dr. Martinez at this time but had to leave a message. Pt to be discharged at this time. SSttang SINGH CM
== END 2017-09-21 13:58 | disposition home or self-care (01) | DRG 246 ==
LOC: ED 11:57 → PCU 12:02 → ICU 09-19 11:27 → PCU 09-20 15:35
PROVIDERS: Internal Medicine; Internal Medicine Cardiovascular Disease; Admitting Provider Internal Medicine; Emergency Provider Emergency Medicine; Family Provider Family Medicine; PCP Family Medicine; Visit Provider Internal Medicine
DX: I48.91 Unspecified atrial fibrillation (principal); I50.41 Acute combined systolic (congestive) and diastolic (congestive) heart failure; E66.01 Morbid (severe) obesity due to excess calories; I27.20 Pulmonary hypertension, unspecified; I25.5 Ischemic cardiomyopathy; Z68.41 Body mass index [BMI] 40.0-44.9, adult; I25.10 Atherosclerotic heart disease of native coronary artery without angina pectoris; Z87.891 Personal history of nicotine dependence; E78.5 Hyperlipidemia, unspecified; N40.0 Benign prostatic hyperplasia without lower urinary tract symptoms; M10.9 Gout, unspecified; Z79.899 Other long term (current) drug therapy; I10 Essential (primary) hypertension
CPT/HCPCS: 36415; 71045; 71275; 80048; 80053; 80061; 81001; 82550; 82962; 83735; 83880; 84443; 84484; 85025; 85027; 85347; 85610; 85730; 87641; 92928; 93005; 93306; 93458; 99152; 99153; 99285; C1760; J3010; J7040; Q9957; Q9967; A4216; C1725; C1769; C1874; C1887; C1894; C9600; J1940

== ENCOUNTER → 2017-10-17 12:29 | Outpatient (CLI) | payer MEDICARE, SELFPAY ==
[2017-09-21 13:58] VITALS: BMI 36.1
--- NOTE | 2017-10-17 13:01 | CR.ITP_ITS ---
Exercise - Initial Assessment - Visit Date of Eval: 10/17/17 - Lennox Mays - Stages of Change Stages of Change:: Contemplate - Exercise Prescription Mode:: Treadmill, Biodyne, Rower, Airdyne, NuStep, Arm Ergometer Angina with exercise?: No Target Heart Rate:: 105-112 - Hypertension Do any of the following apply?: Yes Resting Blood Pressure:: 82/52 - Intervention Home Exercise/Activity Goal:: Sitting Time <3 hrs/day - Education Goals:: Warm-up, RPE KASI Scale, S/S, Safe Exercise, Self-Monitoring - Exercise Program Goals Exercise Program Goals: Aerobic Activity >30 min, B/P <140/90 Nutrition - Initial Assessment - Program Goals Nutrition Program Goals: LDL <70. Total Cholesterol <200. HDL >45. Triglycerides <150. HgbA1C <7%. BMI <25 - Visit Date of Assessment:: 10/17/17 - Stages of Change Stages of Change:: Contemplate - Diabetes Diabetes:: Yes - Weight Management Height: 1.83 m Weight:: 138.346 kg Total Score:: 3 - Intervention Referral to dietitian:: No Referral to Diabetic Clinic:: No Will attend diet classes:: No - Education Gave educational materials for:: Signs & symptoms of hypoglycemia, Signs & symptoms of hyperglycemia, Relate diabetes to coronary artery disease, Healthy eating Nutrition - 30-Day Assessment - Program Goals Nutrition Program Goals: LDL <70. Total Cholesterol <200. HDL >45. Triglycerides <150. HgbA1C <7%. BMI <25 - Diabetes Diabetes:: Yes Nutrition - 60-Day Assessment - Program Goals Nutrition Program Goals: LDL <70. Total Cholesterol <200. HDL >45. Triglycerides <150. HgbA1C <7%. BMI <25 - Diabetes Diabetes:: Yes Nutrition - 90-Day Assessment - Program Goals Nutrition Program Goals: LDL <70. Total Cholesterol <200. HDL >45. Triglycerides <150. HgbA1C <7%. BMI <25 - Diabetes Diabetes:: Yes Nutrition - Final Assessment - Program Goals Nutrition Program Goals: LDL <70. Total Cholesterol <200. HDL >45. Triglycerides <150. HgbA1C <7%. BMI <25 - Diabetes Diabetes:: Yes Tobacco - Initial Assessment - Program Goals Tobacco Program Goals: Complete smoking cessation. Attend education classes. Improve Knowledge Test score - Stage of Change Stages of Change:: Contemplate - Learning Barriers Total Score:: 8 - Family Support Do you have family support?: Yes - Tobacco Use Tobacco Use: Non-smoker Do you use smokeless tobacco?: No - Intervention Smoking Cessation Referral:: No Individual Education/Counseling:: No Education Schedule Given:: Yes - Education Gave educational material for:: Tobacco triggers, Coronary artery disease, Risk factors, Sexuality, Medical compliance, Cardiac A&P, Angina signs & symptoms Psychosocial - Initial Assess - Target Goals Target Goals: Assess presence or absence of depression. Using a valid screening tool, maximizes coping skills. Positive support system - Stages of Change Stages of Change:: Contemplate - Psychosocial Test Tool Used:: HANDS Depression Questionnaire Tests Completed: SF - 36 survey completed Total Mood Screening Score:: 4 Self-Efficacy Score:: 3 - Intervention PS - Interventions: Yes Attend Stress Management Classes, Yes Uses Stress Management Skills, No Referral to Mental Health, No Referral to [facility] Case Management, No Referral to Physician - Education Gave educational materials for:: Coping techniques, Signs & symptoms of depression, Stress management, Relaxation techniques - Assistive Devices Assistive Devices:: Cane Fall Risk Assessed:: Yes Patient Health Questionnaire Initial Assessment 1. Little interest or pleasure in doing things: Not at all 2. Feeling down, depressed, or hopeless: Not at all 3. Trouble falling or staying asleep, or sleeping too much: Several days 4. Feeling tired or having little energy: Several days 5. Poor appetite or overeating: Several days 6. Feeling bad about yourself -- or that you are a failure or have let yourself or your family down: Not at all 7. Trouble concentrating on things, such as reading the newspaper or watching television: Several days 8. Moving or speaking so slowly that other people could have noticed. Or the opposite - being so fidgety or restless that you have been moving around a lot more than usual: Not at all 9. Thoughts that you would be better off , or of hurting yourself in some way: Not at all Total Score: 4 Knowledge Test - Check your knowledge Initial The #1 cause of in the [place] each year is:: Heart disease Which of the following is a common treatment for heart disease?: All of the above The arteries that feed the heart are called:: Coronary arteries HDL cholesterol is known as the good cholesterol.: True What disease increases your risk for heart disease?: Diabetes What food product raises blood cholesterol level the most?: Saturated fat The bad cholesterol in the blood is called:: LDL Hypertension is another word for:: High stress A blood pressure reading of 148/88 is considered normal.: True Exercise will only benefit your health when your heart rate reaches a target level.: False Total Score:: 8 Self-Efficacy Initial Assessment We would like to know how confident you are in doing certain activities. Please select your confidence level for:: Select your confidence level for the following using the scale 1-10 where 1 is not at all confident and 10 is totally confident. Your score is the average of all 6 responses. Fatigue: How confident are you that you can keep the fatigue caused by your disease from interfering with the things you want to do? Select Number: 3 Physical Discomfort or Pain: How confident are you that you can keep the physical discomfort or pain of your disease from interfering with the things you want to do? Select Number: 4 Emotional Distress: How confident are you that you can keep the emotional distress caused by your disease from interfering with the things you want to do? Select Number: 3 Other Symptoms or Health Problems: How confident are you that you can keep other symptoms or health problems from interfering with the things you want to do? Select Number: 3 Different Tasks and Activities: How confident are you that you can do the different tasks and activities needed to manage your health condition so as to reduce your need to see a doctor? Select Number: 4 Medication: How confident are you that you can do things other than just taking medication to reduce how much your illness affects your everyday life? Select Number: 5 Total Score:: 3 Nutrition Survey - Nutrition Survey Instructions Scoring Instructions: Scoring is as follows: Yes = 1 points. No = 0 point. Patient score that is >/=12 is considered to be at potential nutritional risk and could benefit from a referral to a registered dietitian. - Nutrition Survey Initial Have you lost >10 lbs over the past 2 months without trying?: No Are you following a special diet at home for diabetes, low fat, or low salt?: Yes Are you interested in meeting with a dietitian for help understanding your diet? : Yes Do you eat less than 3 meals a day?: Yes Do you eat fatty meats (beck, sausage, ribs, etc), fried foods, desserts, large amounts of salad dressings, margarine, butter, or cheese most days?: No Do you have food allergies? [Enter types in comment field]: No Do you eat in restaurants more than 3 times a week?: No Do you season food with salt, seasoning salt, or garlic salt?: No Do you used canned, boxed, frozen meals, or soups, seasoning packets?: No Total Score:: 3 Cardiac Rehabilitation Goals - Cardiac Rehab Goals Cardiac Rehabilitation Goals: 1. Maintain the individual as the primary focus of care. 2. To improve the patient's quality of life. 3. Identification of cardiac risk factors and provide cardiac risk factor management. 4. Enhance the psychosocial status of the patient. 5. Reconditioning enough to allow the patient to resume customary activities. 6. Control symptoms of cardiac disease - Scale Scale for measuring improvement of personal goals: Enter appropriate number in Comments. 2 = Unchanged. 3 = Slightly Better. 4 = Moderate Improvement. 5 = Met my Goal Initial Assessment Personal Goals: 30-day Re-assessment: Improve management of stress and emotions , Improve energy level, Participate in home exercise program, Improve knowledge of cardiac disease, Improve muscle strength and endurance, Improve diet and eating habits (eat healthier), Control risk factors (learn risk factor modification)
--- NOTE | 2017-10-17 13:03 | CR.HP_ITS ---
CR - History & Physical - General Arrival date:: 10/17/17 Arrival time:: 12:51 Date of Admission: 09/19/17 Referring Physician: Dr. Lemuel Martinez Primary Diagnosis: Z95.5, I25.10 09/19/2017 - History of Present Cardiac Event Onset Date: Enter Onset Date of cardiac illnesses in Comment field below Angina:: No PA:: No CABG:: No PTCA:: Yes Valve Replacement/Repair:: No Pacemaker/ICD: No Type of Symptoms:: SOB, LE edema Were there any complications?: New onset of A-Fib - Medications Home Medications: Ambulatory Orders Medication Instructions Recorded Allopurinol [Zyloprim] 300 mg PO DAILY 09/15/17 Diclofenac Potassium 50 mg PO TID PRN 09/15/17 Doxazosin Mesylate [Cardura] 4 mg PO QHS 09/15/17 traMADol [Ultram] 1 - 2 tab PO Q6H PRN PRN 09/15/17 Apixaban [Eliquis] 5 mg PO BID #60 tab 09/21/17 Aspirin E.C. [Ecotrin] 81 mg PO DAILY@0800 #30 tab 09/21/17 Atorvastatin Calcium [Lipitor] 40 mg PO QHS #30 tab 09/21/17 Metoprolol Tartrate [Lopressor 50 mg PO BID #60 tab 09/21/17 (beta roz)] Sildenafil Citrate [Viagra] 25 mg PO DAILY PRN PRN #0 09/21/17 Ticagrelor [Brilinta] 90 mg PO BID #60 tab 09/21/17 furosemide 40 mg tablet 40 mg PO BID #60 tab 10/06/17 losartan 50 mg tablet 50 mg PO DAILY #30 tab 10/12/17 spironolactone 25 mg tablet 25 mg PO DAILY #30 tab 10/12/17 - Allergies Allergies/Adverse Reactions: Allergies Sulfa (Sulfonamide Antibiotics) Allergy (Verified 10/12/17 12:56) Hives - Sleep Disorder Evaluation Hx of Sleep Apnea: No Do you snore loudly (louder than talking or can be heard through closed doors)? : Yes Do you often feel tired/ fatigued/ sleepy during daytime?: No Has anyone observed you stop breathing during sleep?: No History of Hypertension (for STOP score): Yes STOP Results: Positive Advanced Directives - Advanced Directives Power of Jerker: No Living Will: No Advance Directives Information Provided: No Advance Directives on File: No DNR Order?:: No Additional Comments:: Plans on completing Past Medical History - Problems and Co-Morbidities Problems & Co-Morbidities: Dyslipidemia, Obesity, Hypertension - Cardiology Procedures/Interventions Cardiology Procedures/Interventions: PCI w/Stenting, Heart Catheterization, Echocardiogram - EF 25% - Past Surgical History Surgical History: appendectomy, - - erectile dysfunction - Family History Summary Family History: Heart Disease: Sibling, Paternal Review of Systems - Review of Systems Hints: Right click = Denies (Slash). Left click = Reports ([place]) Review of Present Symptoms: Reports: Shortness of Breath with Exertion, Appetite - Normal. Denies: Shortness of Breath at Rest, PVD, Operative Discomfort, Angina, Wound Healing, Dizziness/Lightheadedness, Fatigue, Heart Arrhythmia/Irregularities, Appetite - Special Diet, Sleep - Normal, Sexual Changes Risk Factor Assessment - Chief Complaint Chief Complaint: SOB and LE edema - Pulse Pulse Rate: 62 - SPO2 95% Pulse Rhythm: Irregular - Hypertension How long have you been treated?: 10 Blood Pressure Sitting - Right Arm: 82/52 - Diabetes Nutrition Referral for Diabetes: No - Obesity Height: 1.83 m Weight:: 136.985 kg Weight in Pounds: 302.0 lbs Body Mass Index (BMI): 40.9 Nutritional Referral for Obesity: No - Physical Inactivity Physical Inactivity: Recreational activity - Risk Stratification Risk Guidelines: Moderate Risk: Risk Factor for Smoking, Risk Factor for Dyslipidemia, Risk Factor for Diabetes, Risk Factor for Sedentary Lifestyle, Risk Factor for Depression, Highest Risk: Risk Factor for Obesity, Risk Factor for Hypertension - For Smoking Smoking Risk Guidelines: Smoking Low Risk: None or quit greater than 6 months ago. Smoking Moderate Risk: Smoker or quit 6 months or less ago. Smoking High Risk: Smoker - For Dyslipidemia Dyslipidemia Risk Guidelines: Low Risk: Moderate Risk: High Risk: 15-25% fat 25.1-29% fat >/= 30% fat. <7% sat fat 7-9% sat fat >9% sat fat. <150 mg chol 150-299 mg chol >/= 300 mg chol. LDL <100 LDL 100-129 LDL >/= 130. Chol/HDL ratio <5.0 Chol/HDL ratio 5.0-6.0 Chol/HDL ratio >6.0. Triglycerides <100 Triglycerides 100-149 Triglycerides >/= 150 - For Diabetes Mellitus Diabetes Risk Guidelines: Diabetes Low Risk: HgA1c <6.5% and/or FBG <120. Diabetes Moderate Risk: HgA1c 6.6-7.9% and/or FBG 120-180. Diabetes High Risk: HgA1c >/= 8% and/or FBG >180 - For Obesity/Overweight Obesity/Overweight Risk Guidelines: Obesity Low Risk: BMI <25.0. Obesity Moderate Risk: BMI 25-29.9. Obesity High Risk: BMI >/= 30.0 - For Hypertension Hypertension Risk Guidelines: Hypertension Low Risk: Systolic <120 and Diastolic <80. Hypertension Moderate Risk: Systolic 120-139 and Diastolic 80-89. Hypertension High Risk: Systolic >/= 140 and Diastolic >/= 90 - For Sedentary Lifestyle Sedentary Lifestyle Risk Guidelines: Sedentary Lifestyle Low Risk: >/= 1 ,500 kcal/week. Sedentary Lifestyle Moderate Risk: 700-1,499 kcal/week. Sedentary Lifestyle High Risk: < 700 kcal/week - For Depression Depression Risk Guidelines: Depression Low Risk: Not clinically depressed. Depression Moderate Risk: Mildly depressed. Depression High Risk: Clinically depressed - Family History Family History: Family History (Last Reviewed 10/12/17 @ 13:40 by Lemuel Martinez MD) Father Heart disease Brother Heart disease Social History - Smoking History Smoking Status: Former smoker Years Smokin Packs Smoked per Day: 1 Hx Smoking Cessation Date: 1989 Hx Tobacco Use: Yes Hx Smoking Exposure: Yes - Alcohol Use Alcohol Usage: Yes - socially - Substance Abuse Hx Substance Use: No - Occupation Occupation (List type of work in comments):: Retired - Hobbies, Recreation, Social Activities Recreational Activities: I am able to engage in all my recreational activities Marital Status - Status Marital Status: - Current Living Arrangements Living Environment:: Spouse - lives with girlfriend - Children How many children do you have?: 2 Do any of your children live nearby?: Yes - Safety Do you feel safe in your surroundings?: Yes - Assistance Do you need any assistance at home?: none
[2017-10-17 14:00] VITALS: BP 82/52
[2017-10-17 14:11] VITALS: BP 82/52; PULSE 62; BMI 40.9
== END ==
PROVIDERS: Family Provider Family Medicine; PCP Family Medicine; Visit Provider Internal Medicine Cardiovascular Disease
DX: I25.10 Atherosclerotic heart disease of native coronary artery without angina pectoris (principal); Z95.5 Presence of coronary angioplasty implant and graft

== ENCOUNTER → 2017-10-27 13:04 | Outpatient (CLI) | payer MEDICARE, SELFPAY ==
[2017-09-21 13:58] VITALS: BMI 36.1
[2017-10-27 14:00] LABS: Anion Gap 6 (5-15); BUN 30 mg/dL (7-18); BUN/Creat Ratio 19.6 RATIO (10-20); Calcium,Total 9.2 mg/dL (8.5-10.1); Chloride 101 mmol/L (98-107); Creatinine, Serum 1.53 mg/dL (0.70-1.30); EST Glomerular Filtration Rate 48 mL/min (>60); Est Glom Filt Rate - Afr Amer 58 mL/min (>60); Glucose 80 mg/dL (74-106); Potassium 4.3 mmol/L (3.5-5.1); Sodium Level 138 mmol/L (136-145)
== END ==
PROVIDERS: Family Provider Family Medicine; PCP Family Medicine; Visit Provider Internal Medicine Cardiovascular Disease
DX: I48.1 Persistent atrial fibrillation (principal)
CPT/HCPCS: 36415; 80048

== ENCOUNTER 2017-10-31 09:45 | Day surgery (SDC) | payer MEDICARE, SELFPAY ==
[2017-09-21 13:58] VITALS: BMI 36.1
[2017-10-28 10:10] VITALS: BMI 35.6
--- NOTE | 2017-10-31 12:17 | PCM.OP.BLANK ---
Operative Report Date of Procedure: 10/31/17 DC cardioversion. 72-year-old man with a history of cardiomyopathy right coronary artery stenosis and atrial fibrillation. The patient was brought to the cardiac catheterization lab in the postabsorptive nonsedated state. The patient was seen by Dr. Powell of the critical care division. After informed consent was obtained anterior posterior pads were applied the patient was administered 12 mg of etomidate and 4 mg aliquots. The patient was cardioverted with 200 J, 300 J, and 360 J of biphasic DC cardioversion energy with none converting him back to sinus rhythm. Unsuccessful DC cardioversion from atrial fibrillation. The patient will be reevaluated in the office.
--- NOTE | 2017-10-31 13:04 | OP.PCM_ITS ---
Operative Report Date of Procedure: 10/31/17 CONSCIOUS SEDATION REPORT DATE OF SERVICE: October 31, 2017 BRIEF HISTORY OF PRESENT ILLNESS: The patient is a 72-year-old male who presented to [facility] for an elective outpatient cardioversion due to underlying atrial fibrillation. The patient is currently anticoagulated on Eliquis. His last surface echocardiogram revealed an ejection fraction of approximately 25%. The patient has never undergone any previous cardioversions. He denies a history of anesthetic complications. There is some clinical concern for underlying sleep disordered breathing, however, the patient has never undergone a formal polysomnogram. He denies a history of asthma or COPD. PHYSICAL EXAMINATION: VITAL SIGNS: Reviewed and were acceptable. GENERAL: The patient is a male, in no apparent distress, speaking in full sentences. HEENT: Normocephalic, atraumatic. Mucous membranes are moist and pink. Good mouth opening noted. Trachea is midline. Good neck mobility. CHEST: S1, S2 irregularly irregular. No murmurs, rubs or gallops were noted. LUNGS: Clear to auscultation bilaterally without appreciable wheezes, rales or rhonchi. ABDOMEN: Soft, nontender, nondistended. Positive bowel sounds. EXTREMITIES: There is no clubbing, cyanosis or edema. ASA Class: II DESCRIPTION OF PROCEDURE: After confirmation of informed consent, the patient's anesthesia plan was reviewed in detail. Etomidate was chosen. Risks and benefits were reviewed and the patient agreed to proceed. At 1203, the patient was given the first bolus of etomidate. In total, the patient required 12 mg of etomidate throughout the entire procedure in order to facilitate adequate sedation for 3 separate cardioversions to be delivered, one at 200 J, one at 300 J and one at 360 J. Unfortunately, the cardioversion was unsuccessful in achieving normal sinus rhythm. Dr. Martinez was present at the bedside. The patient was monitored until 1212, at which time they reached their baseline mental status and function. The patient tolerated the procedure well. COMPLICATIONS: None ESTIMATED BLOOD LOSS: None RECOMMENDATIONS: Okay to recover in usual fashion. Code Visit 9xxxx: Other Procedure See Report
== END 2017-10-31 23:59 | disposition home or self-care (01) ==
LOC: CLSP 09:46
PROVIDERS: Family Provider Family Medicine; PCP Family Medicine; Visit Provider Internal Medicine Cardiovascular Disease
DX: I48.1 Persistent atrial fibrillation (principal); Z79.01 Long term (current) use of anticoagulants; I25.10 Atherosclerotic heart disease of native coronary artery without angina pectoris; Z79.899 Other long term (current) drug therapy; I11.0 Hypertensive heart disease with heart failure; I50.41 Acute combined systolic (congestive) and diastolic (congestive) heart failure; Z87.891 Personal history of nicotine dependence; E78.5 Hyperlipidemia, unspecified; I43 Cardiomyopathy in diseases classified elsewhere
CPT/HCPCS: 92960; 93005; J7030

== ENCOUNTER 2017-11-07 14:15 | Outpatient (RCR) | payer MEDICARE, SELFPAY ==
[2017-09-21 13:58] VITALS: BMI 36.1
[2017-10-31 13:43] VITALS: BP 130/74; BP 84/50
--- NOTE | 2017-10-31 13:43 | CR.ITP_ITS ---
General Information - General Information Admitting Diagnosis: PCI with coronary stenting - Education/Goals Individual Counselin-Day Assessment: Abnormal Cholesterol Levels, High Blood Pressure, Overweight/Obesity Cardiac Rehabilitation Goals: 1. Maintain the individual as the primary focus of care. 2. To improve the patient's quality of life. 3. Identification of cardiac risk factors and provide cardiac risk factor management. 4. Enhance the psychosocial status of the patient. 5. Reconditioning enough to allow the patient to resume customary activities. 6. Control symptoms of cardiac disease Scale for measuring improvement of personal goals: Enter appropriate number in Comments. 2 = Unchanged. 3 = Slightly Better. 4 = Moderate Improvement. 5 = Met my Goal Personal Goals: 30-day Re-assessment: Improve energy level, Participate in home exercise program, Improve knowledge of cardiac disease, Improve muscle strength and endurance, Improve diet and eating habits (eat healthier) Exercise - 30-day Assessment - Visit Date of Eval: 10/31/17 Session #:: 3 - Stages of Change Stages of Change:: Action - Exercise Prescription Mode:: Treadmill, Airdyne, NuStep Frequency (x/week): 3 Duration:: 30 METs - Progression: 0.5-1 MET as tolerated: 2.5 Target Heart Rate:: 105-112 - Hypertension Resting Blood Pressure:: 84/50 Peak Exercise Blood Pressure:: 130/74 Medication Changes:: No - Intervention Home Exercise/Activity Goal:: Sitting Time <3 hrs/day - Education Goals:: Warm-up, RPE KASI Scale, S/S, Safe Exercise, Self-Monitoring - Exercise Program Goals Exercise Program Goals: Aerobic Activity >30 min, B/P <140/90 Nutrition - 30-Day Assessment - Program Goals Nutrition Program Goals: LDL <70. Total Cholesterol <200. HDL >45. Triglycerides <150. HgbA1C <7%. BMI <25 - Visit Date of Eval: 10/31/17 - Stages of Change Stages of Change:: Action - Lipids Has the patient seen the dietitian?: No - Diabetes Diabetes:: Yes - Weight Management Weight:: 116.346 kg - Intervention Referral to dietitian:: No Referral to Diabetic Clinic:: No Will attend diet classes:: Yes - Education Attended class for:: Signs & symptoms of hypoglycemia, Signs & symptoms of hyperglycemia, Relate diabetes to coronary artery disease, Healthy eating Tobacco - 30-Day Assessment - Program Goals Tobacco Program Goals: Complete smoking cessation. Attend education classes. Improve Knowledge Test score - Stage of Change Stages of Change:: Action - Learning Barriers Learning Barriers: Participates in education - Family Support Do you have family support?: Yes - Tobacco Use Tobacco Use: Non-smoker Do you use smokeless tobacco?: No - Intervention Smoking Cessation Referral:: No Individual Education/Counseling:: No Education Schedule Given:: Yes - Education Attended class for:: Tobacco triggers Psychosocial - Initial Assess - Target Goals Target Goals: Assess presence or absence of depression. Using a valid screening tool, maximizes coping skills. Positive support system - Psychosocial Test Tool Used:: HANDS Depression Questionnaire - Assistive Devices Fall Risk Assessed:: Yes Psychosocial - 30-Day Assess - Target Goals Target Goals: Assess presence or absence of depression. Using a valid screening tool, maximizes coping skills. Positive support system - Stages of Change Stages of Change:: Action - Psychosocial Test Tool Used:: HANDS Depression Questionnaire - Intervention PS - Interventions: Yes Attend Stress Management Classes, Yes Uses Stress Management Skills, No Referral to Mental Health, No Referral to [facility] Case Management - Education Attended classes for:: Coping techniques, Signs & symptoms of depression, Stress management, Relaxation techniques - Assistive Devices Assistive Devices:: None Fall Risk Assessed:: Yes Patient Health Questionnaire 30-Day Re-eval Assessment 1. Little interest or pleasure in doing things: Not at all 2. Feeling down, depressed, or hopeless: Not at all 3. Trouble falling or staying asleep, or sleeping too much: Several days 4. Feeling tired or having little energy: Several days 5. Poor appetite or overeating: Several days 6. Feeling bad about yourself -- or that you are a failure or have let yourself or your family down: Not at all 7. Trouble concentrating on things, such as reading the newspaper or watching television: Several days 8. Moving or speaking so slowly that other people could have noticed. Or the opposite - being so fidgety or restless that you have been moving around a lot more than usual: Not at all 9. Thoughts that you would be better off , or of hurting yourself in some way: Not at all How difficult have these problems made it for you to do your work, take care of things at home, or get along with other people?: Not difficult at all Total Score: 4 Self-Efficacy 30-Day Re-eval Assessment We would like to know how confident you are in doing certain activities. Please select your confidence level for:: Select your confidence level for the following using the scale 1-10 where 1 is not at all confident and 10 is totally confident. Your score is the average of all 6 responses. Fatigue: How confident are you that you can keep the fatigue caused by your disease from interfering with the things you want to do? Select Number: 4 Physical Discomfort or Pain: How confident are you that you can keep the physical discomfort or pain of your disease from interfering with the things you want to do? Select Number: 4 Emotional Distress: How confident are you that you can keep the emotional distress caused by your disease from interfering with the things you want to do? Select Number: 4 Other Symptoms or Health Problems: How confident are you that you can keep other symptoms or health problems from interfering with the things you want to do? Select Number: 4 Different Tasks and Activities: How confident are you that you can do the different tasks and activities needed to manage your health condition so as to reduce your need to see a doctor? Select Number: 4 Medication: How confident are you that you can do things other than just taking medication to reduce how much your illness affects your everyday life? Select Number: 5 Total Score:: 4
== END 2017-11-07 23:59 ==
LOC: CR 14:15
PROVIDERS: Family Provider Family Medicine; PCP Family Medicine; Visit Provider Internal Medicine Cardiovascular Disease
DX: Z95.5 Presence of coronary angioplasty implant and graft (principal); I25.10 Atherosclerotic heart disease of native coronary artery without angina pectoris; I50.9 Heart failure, unspecified; I10 Essential (primary) hypertension; I48.91 Unspecified atrial fibrillation
CPT/HCPCS: 93798

== ENCOUNTER → 2017-11-24 12:42 | Outpatient (CLI) | payer MEDICARE, SELFPAY ==
[2017-09-21 13:58] VITALS: BMI 36.1
[2017-11-24 14:12] LABS: Anion Gap 5 (5-15); BUN 25 mg/dL (7-18); BUN/Creat Ratio 19.5 RATIO (10-20); Calcium,Total 8.9 mg/dL (8.5-10.1); Chloride 105 mmol/L (98-107); Creatinine, Serum 1.28 mg/dL (0.70-1.30); EST Glomerular Filtration Rate 59 mL/min (>60); Est Glom Filt Rate - Afr Amer 71 mL/min (>60); Glucose 97 mg/dL (74-106); Potassium 4.4 mmol/L (3.5-5.1); Sodium Level 142 mmol/L (136-145)
== END ==
PROVIDERS: Family Provider Family Medicine; PCP Family Medicine; Visit Provider Internal Medicine Cardiovascular Disease
DX: I48.1 Persistent atrial fibrillation (principal)
CPT/HCPCS: 36415; 80048

== ENCOUNTER 2017-11-28 10:43 | Day surgery (SDC) | payer MEDICARE, SELFPAY ==
[2017-09-21 13:58] VITALS: BMI 36.1
[2017-11-25 10:42] VITALS: BMI 35.6
--- NOTE | 2017-11-28 12:07 | PN_ITS ---
Progress Note ADDENDUM Addendum entered and electronically signed by COLIN Garcia 12:06: I have re-examined the patient. There are no clinical changes since the date of exam. He will followup accordingly after his cardioversion. HPI HPI Chief Complaint: Follow-up visit. Details: NANDO TIMMONS, is a 72 M who presents to the office today for a follow -up visit. He is a gentleman with a history of atrial fibrillation congestive heart failure severe cardiomyopathy with an estimated ejection fraction of approximately 25%. He was diuresed placed on medication including beta blockers and ARB's and did well. He underwent a cardiac catheterization which demonstrated a high-grade stenosis of his right coronary artery for which she underwent angioplasty. He has been on dual antiplatelet therapy as well as anticoagulation with apixaban which he has tolerated. He has had no neck arm or jaw discomfort suggest angina he has had occasional funny chest episodes no dizziness or diaphoresis no near syncope or syncope. His physical exam demonstrates clear lung montes irregular regular heart rate and no pedal edema. Intake Vital Signs 10/12/17 Blood Pressure 82/44 10/12/17 Blood Pressure Position Standing 10/12/17 Pulse Rate 76 10/12/17 Height 6 ft 10/12/17 Weight: 263 lb 10/12/17 Body Mass Index (BMI) 35.6 10/12/17 Blood Pressure 98/50 10/12/17 Blood Pressure Position Sitting 10/12/17 Respiratory Rate 20 10/12/17 Pulse Rate 70 10/12/17 Pulse Ox 98 Intake Visit Reasons: DC PCU 3-14 (NEW to [facility]) Allergies Sulfa (Sulfonamide Antibiotics) Allergy (Verified 10/12/17 12:56) Hives Medications Allopurinol [Zyloprim] 300 mg PO DAILY 09/15/17 [History Confirmed 09/15/17] Diclofenac Potassium 50 mg PO TID PRN 09/15/17 [History Confirmed 09/15/17] Doxazosin Mesylate [Cardura] 4 mg PO QHS 09/15/17 [History Confirmed 09/15/17] traMADol [Ultram] 1 - 2 tab PO Q6H PRN PRN 09/15/17 [History Confirmed 09/15/17] Apixaban [Eliquis] 5 mg PO BID #60 tab 09/21/17 [Rx] Aspirin E.C. [Ecotrin] 81 mg PO DAILY@0800 #30 tab 09/21/17 [Rx] Atorvastatin Calcium [Lipitor] 40 mg PO QHS #30 tab 09/21/17 [Rx] Losartan Potassium [Cozaar] 50 mg PO DAILY #30 tab 09/21/17 [Rx] Metoprolol Tartrate [Lopressor (beta roz)] 50 mg PO BID #60 tab 09/21/17 [Rx ] Sildenafil Citrate [Viagra] 25 mg PO DAILY PRN PRN #0 09/21/17 [Rx Confirmed 02/25] Spironolactone [Aldactone] 25 mg PO DAILY #30 tab 09/21/17 [Rx] Ticagrelor [Brilinta] 90 mg PO BID #60 tab 09/21/17 [Rx] furosemide 40 mg tablet 40 mg PO BID #60 tab 10/06/17 [Rx] PFSH Medical History Acute combined systolic (congestive) and diastolic (congestive) heart failure ( Acute) Dyslipidemia (Chronic) Obesity (Chronic) Nonrheumatic mitral (valve) insufficiency (Chronic) Non-rheumatic tricuspid valve insufficiency (Chronic) Cardiomyopathy in disease classified elsewhere (Chronic) Secondary pulmonary arterial hypertension (Chronic) Persistent atrial fibrillation (Acute) Atherosclerosis of coronary artery of [place] heart without angina pectoris ( Chronic) Hypertension (Chronic) Erectile dysfunction (Chronic) Surgical History History of appendectomy (Chronic) History of coronary artery stent placement (Chronic ~09/19/17) Family History Father Heart disease Brother Heart disease Pacemaker Social History Smoking Status: Former smoker ROS Const Const: Negative for fatigue, weakness, difficulty sleeping, frequent falls, headache(s) or excessive sweating Eyes Eyes: Negative for loss of peripheral vision, transient loss of vision, blurry vision or double vision ENT ENT: Negative for headache(s), Nosebleed/epistaxis, balance problems or dizziness Cardio Chest Pain: No Edema: None Muscle aches with walking: None Resp Respiratory: Positive for SOB with activity (SOB when ambulating); negative for SOB at rest, SOB orthopnea\SOB lying down or paroxysmal nocturnal dyspnea GI GI: Negative nausea or heartburn : Negative for hematuria Musc Musc: Negative for muscle aches/ myalgia, muscle weakness, joint pain or balance problems Skin Skin: Negative non-healing lesions, unusual bruising or rash Neuro Neuro: Positive for orthostatic symptoms; negative for weakness, frequent falls, blurry vision, headache(s), double vision or dizziness [place] Hematologic/Lymphatic: Negative for easy bruising Endo Endo: Negative for fatigue, excessive sweating or increased thirst/drinking Psych Psych: Negative for anxiety or depression Allergy Allergy/Immunology: Negative for hives, Negative for rash Cardiology Exam Const Appearance: cooperative, healthy appearing, well developed, well groomed and no acute distress Nutritional Appearance: well nourished and average body habitus Orientation: alert, awake and oriented x3 Head Head: normal to inspection, normocephalic and atraumatic Ears: hearing grossly normal bilaterally and external ears normal Nose: external nose normal, nasal mucous membranes and turbinates normal, nares normal, septum normal, no nasal discharge Face and Sinus: face symmetric Mouth: oral mucosae normal, tongue normal, oropharynx normal and moist mucous membranes Teeth and gingiva: dentition normal Throat: posterior oropharynx normal, tonsils normal and uvula midline Eyes General: appearance normal, both eyes and all related structures Eyelids: eyelids normal Conjunctivae: conjunctivae normal Pupils: PERRL, normal by confrontation and accommodation normal EOM: EOM intact bilaterally Neck Neck: normal visual inspection, trachea midline and no JVD JVD: +5 Carotids: normal carotid upstroke and bounding pulses Chest Chest inspection: normal inspection of the chest, symmetric chest movement and normal respiratory effort Auscultation: Bilateral: Clear to Auscultation Cardio Palpation: normal PMI Rhythm: irregular rhythm Heart sounds: S1 normal and S2 normal GI GI: normal to inspection, soft, no hepatosplenomegaly and bowel sounds present Neuro General: alert, awake, oriented x3, no focal sensory deficit, gait normal and moves all extremities Skin Skin: no rashes or lesions noted Extremities Pulses: Normal: Right Femoral Pulse, Left Femoral Pulse, Right Dorsalis Pedis Pulse, Left Dorsalis Pedis Pulse, Right Posterior Tibial Pulse, Left Posterior Tibial Pulse, Right Radial Pulse, Left Radial Pulse Lower Extremity Edema: None: Bilateral Musculoskel Musculoskeletal: No joint tenderness Psych Psychological: normal affect Assessment & Plan 1. Atherosclerosis of coronary artery of [place] heart without angina pectoris I25.10 PCI-BONNY Prox RCA 3.5 x 17 mm Elunir 09/19/17 Plan Patient is noted to have atherosclerosis of the coronary arteries and underwent drug-eluting stent to the right coronary artery. This is out of proportion to his coronary artery disease. The plan will be for him to continue on his aspirin and Brilinta for at least a year. He would also remain on his beta- roz. 2. Cardiomyopathy in disease classified elsewhere I43 Plan He does have a history of cardiomyopathy and he will remain on his Toprol as well as his losartan. I suspect the above may be tachycardia mediated. A repeat echocardiogram will be performed in 3-4 months to see how he is doing. 3. Persistent atrial fibrillation I48.1 Plan He does now have chronic persistent atrial fibrillation his ventricular response rate is controlled. He has been on apixaban and the plan will be for him to continue with and for us to attempt a DC cardioversion towards the end of this month. If he reverts to sinus rhythm hopefully this would help improve his overall cardiac function. Orders Orders: Cardioversion 3 Weeks Basic Metabolic Profile (BMP) 3 Weeks 4. Essential hypertension I10 Plan His blood pressure appears to be under good control on the current medical therapy with the doxazosin Cozaar furosemide and metoprolol as well as the spironolactone. I would like us to obtain a chemistry profile. 5. Dyslipidemia E78.5 Plan He is in a high intensity statin as he has coronary artery disease. This will be continued with no changes. Thank you for allowing me to participate in the care of your patient. 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) Coding Level of Care Code Off vis,est,level 4 Diagnoses Atherosclerosis of coronary artery of [place] heart without angina pectoris I25.10 Cardiomyopathy in disease classified elsewhere I43 Persistent atrial fibrillation I48.1 Essential hypertension I10 Hypertension type: essential hypertension Dyslipidemia E78.5 Coding Level of Care Code Off vis,est,level 4 Diagnoses Atherosclerosis of coronary artery of [place] heart without angina pectoris I25.10 Cardiomyopathy in disease classified elsewhere I43 Persistent atrial fibrillation I48.1 Essential hypertension I10 Hypertension type: essential hypertension Dyslipidemia E78.5
--- NOTE | 2017-11-28 12:17 | PCM.OP.BLANK ---
Operative Report Date of Procedure: 11/28/17 DC cardioversion. 72-year-old man with a history of chronic persistent atrial fibrillation and cardiomyopathy with an estimated ejection fraction of 25% status post right coronary artery stenting. The patient was brought into the noninvasive cardiac catheterization suite in the postabsorptive nonsedated state. Informed consent was obtained. The patient was seen by Dr. Powell of the critical care division. Anterior posterior pads were applied. The patient was then administered 6 mg of intravenous etomidate and 300 J of DC cardioversion energy were applied. The patient did not convert to sinus rhythm and so required an additional 4 mg of intravenous etomidate and 300 J of DC cardioversion energy were applied with prompt reversal to sinus rhythm. Successful DC cardioversion. Patient to continue anticoagulation. Patient to continue amiodarone and follow-up in office with EKG.
--- NOTE | 2017-11-28 13:11 | PCM.OP.BLANK ---
Operative Report Date of Procedure: 11/28/17 CONSCIOUS SEDATION REPORT DATE OF SERVICE: November 28, 2017 BRIEF HISTORY OF PRESENT ILLNESS: The patient is a 72-year-old male who presented to [facility] [place] for an elective outpatient cardioversion due to underlying atrial fibrillation. The patient is currently anticoagulated on Eliquis. His last surface echocardiogram revealed ejection fraction of approximately 25%. The patient did previously undergo a cardioversion in October 2017 which was unsuccessful in achieving normal sinus rhythm. The patient received a total of 12 mg of etomidate throughout that procedure. The patient does have a history of sleep disordered breathing, but is yet to undergo a formal polysomnogram. He has no known history of asthma or COPD. PHYSICAL EXAMINATION: VITAL SIGNS: Reviewed and were acceptable. GENERAL: The patient is a male, in no apparent distress, speaking in full sentences. HEENT: Normocephalic, atraumatic. Mucous membranes are moist and pink. Good mouth opening noted. Trachea is midline. Good neck mobility. MP III CHEST: S1, S2 irregularly irregular. No murmurs, rubs or gallops were noted. LUNGS: Clear to auscultation bilaterally without appreciable wheezes, rales or rhonchi. ABDOMEN: Soft, nontender, nondistended. Positive bowel sounds. EXTREMITIES: There is no clubbing, cyanosis or edema. ASA Class: II DESCRIPTION OF PROCEDURE: After confirmation of informed consent, the patient's anesthesia plan was reviewed in detail. Etomidate was chosen. Risks and benefits were reviewed and the patient agreed to proceed. At 1207, the patient was given the first bolus of etomidate. In total, the patient required 10 mg of etomidate throughout the entire procedure in order to facilitate adequate sedation for 2 separate cardioversions to be delivered, one at 300 J, one at 360 J. Following the last cardioversion attempts, normal sinus rhythm was restored. Dr. Martinez was present at the bedside. The patient was monitored until 1213, at which time he reached his baseline mental status and function. The patient tolerated the procedure well. COMPLICATIONS: None ESTIMATED BLOOD LOSS: None RECOMMENDATIONS: Okay to recover in usual fashion. Code Visit 9xxxx: Other Procedure See Report - [id number]
== END 2017-11-28 23:59 | disposition home or self-care (01) ==
LOC: CLSP 10:44
PROVIDERS: Family Provider Family Medicine; PCP Family Medicine; Visit Provider Internal Medicine Cardiovascular Disease
DX: I25.10 Atherosclerotic heart disease of native coronary artery without angina pectoris (principal); I43 Cardiomyopathy in diseases classified elsewhere; I48.1 Persistent atrial fibrillation; I11.0 Hypertensive heart disease with heart failure; I50.21 Acute systolic (congestive) heart failure; E78.5 Hyperlipidemia, unspecified; Z79.899 Other long term (current) drug therapy; Z79.82 Long term (current) use of aspirin; E66.9 Obesity, unspecified; I34.0 Nonrheumatic mitral (valve) insufficiency; I36.1 Nonrheumatic tricuspid (valve) insufficiency; I27.21 Secondary pulmonary arterial hypertension; N52.9 Male erectile dysfunction, unspecified; Z87.891 Personal history of nicotine dependence; Z68.35 Body mass index [BMI] 35.0-35.9, adult
CPT/HCPCS: 92960; 93005; J7040

== ENCOUNTER 2017-12-02 14:15 | Outpatient (RCR) | payer MEDICARE, SELFPAY ==
[2017-09-21 13:58] VITALS: BMI 36.1
[2017-11-08 01:08] VITALS: BP 130/74; BP 84/50
--- NOTE | 2017-11-30 11:46 | PCM.CR.ITP ---
General Information - General Information Admitting Diagnosis: PCI w/coroanry stent placement - Education/Goals Barriers to Learning: None Individual Counselin-Day Assessment: High Blood Pressure, Overweight/Obesity Cardiac Rehabilitation Goals: 1. Maintain the individual as the primary focus of care. 2. To improve the patient's quality of life. 3. Identification of cardiac risk factors and provide cardiac risk factor management. 4. Enhance the psychosocial status of the patient. 5. Reconditioning enough to allow the patient to resume customary activities. 6. Control symptoms of cardiac disease Scale for measuring improvement of personal goals: Enter appropriate number in Comments. 2 = Unchanged. 3 = Slightly Better. 4 = Moderate Improvement. 5 = Met my Goal Personal Goals: 60-day Re-assessment: Improve energy level - 4, Participate in home exercise program - 4, Improve knowledge of cardiac disease - 4, Improve muscle strength and endurance - 4, Improve diet and eating habits (eat healthier) - 4, Control risk factors (learn risk factor modification) - 4 Exercise - 60-Day Assessment - Visit Date of Eval: 11/30/17 Session #:: 15 - has only missed 1 session - Stages of Change Stages of Change:: Action - Exercise Prescription Mode:: Treadmill, Rower, Airdyne, NuStep Frequency (x/week): 3 Duration:: 30 METs: 2.9 Target Heart Rate:: 105-112 - Hypertension Resting Blood Pressure:: 90/58 Peak Exercise Blood Pressure:: 130/60 Medication Changes:: Yes - Intervention Home Exercise/Activity Goal:: Moderate Exercise 30 min/day x 5 days/wk - Education Goals:: Warm-up, RPE KASI Scale, S/S, Safe Exercise, Self-Monitoring - Exercise Program Goals Exercise Program Goals: Aerobic Activity >30 min Nutrition - 60-Day Assessment - Program Goals Nutrition Program Goals: LDL <70. Total Cholesterol <200. HDL >45. Triglycerides <150. HgbA1C <7%. BMI <25 - Visit Date of Eval: 11/30/17 - Stages of Change Stages of Change:: Action - Lipids Has the patient seen the dietitian?: No - Weight Management Weight:: 258 lb - 3% decrease - Intervention Referral to dietitian:: No Referral to Diabetic Clinic:: No Will attend diet classes:: Yes - Education Attended class for:: Healthy eating Tobacco - 60-Day Assessment - Program Goals Tobacco Program Goals: Complete smoking cessation. Attend education classes. Improve Knowledge Test score - Stage of Change Stages of Change:: Action - Learning Barriers Learning Barriers: Participates in education - Family Support Do you have family support?: Yes - Tobacco Use Tobacco Use: Non-smoker Do you use smokeless tobacco?: No - Intervention Smoking Cessation Referral:: No Individual Education/Counseling:: No Education Schedule Given:: Yes - Education Attended class for:: Coronary artery disease, Risk factors, Sexuality, Medical compliance, Cardiac A&P, Angina signs & symptoms Psychosocial - 60-Day Assess - Target Goals Target Goals: Assess presence or absence of depression. Using a valid screening tool, maximizes coping skills. Positive support system - Stages of Change Stages of Change:: Action - Psychosocial Test Tool Used:: HANDS Depression Questionnaire - Intervention PS - Interventions: Yes Attend Stress Management Classes, Yes Uses Stress Management Skills, No Referral to Mental Health, No Referral to [facility] Case Management, No Referral to Physician - Education Attended classes for:: Coping techniques, Signs & symptoms of depression, Stress management, Relaxation techniques - Patient/Program Goal Preventative Medication(s):: Aspirin, Clopidogrel, Statin/lipid - Assistive Devices Assistive Devices:: Cane Fall Risk Assessed:: Yes Patient Health Questionnaire 60-Day Re-eval Assessment 1. Little interest or pleasure in doing things: Not at all 2. Feeling down, depressed, or hopeless: Not at all 3. Trouble falling or staying asleep, or sleeping too much: Not at all 4. Feeling tired or having little energy: Several days 5. Poor appetite or overeating: Several days 6. Feeling bad about yourself -- or that you are a failure or have let yourself or your family down: Not at all 7. Trouble concentrating on things, such as reading the newspaper or watching television: Not at all 8. Moving or speaking so slowly that other people could have noticed. Or the opposite - being so fidgety or restless that you have been moving around a lot more than usual: Not at all 9. Thoughts that you would be better off , or of hurting yourself in some way: Not at all How difficult have these problems made it for you to do your work, take care of things at home, or get along with other people?: Not difficult at all Total Score: 2 Self-Efficacy 60-Day Re-eval Assessment We would like to know how confident you are in doing certain activities. Please select your confidence level for:: Select your confidence level for the following using the scale 1-10 where 1 is not at all confident and 10 is totally confident. Your score is the average of all 6 responses. Fatigue: How confident are you that you can keep the fatigue caused by your disease from interfering with the things you want to do? [place] Number: 8 Physical Discomfort or Pain: How confident are you that you can keep the physical discomfort or pain of your disease from interfering with the things you want to do? Select Number: 9 Emotional Distress: How confident are you that you can keep the emotional distress caused by your disease from interfering with the things you want to do? [place] Number: 8 Other Symptoms or Health Problems: How confident are you that you can keep other symptoms or health problems from interfering with the things you want to do? [place] Number: 9 Different Tasks and Activities: How confident are you that you can do the different tasks and activities needed to manage your health condition so as to reduce your need to see a doctor? Select Number: 9 Medication: How confident are you that you can do things other than just taking medication to reduce how much your illness affects your everyday life? Select Number: 9 Total Score:: 8
[2017-11-30 11:54] VITALS: BP 130/60; BP 90/58
== END 2017-12-08 23:59 ==
LOC: CR 14:15
PROVIDERS: Family Provider Family Medicine; PCP Family Medicine; Visit Provider Internal Medicine Cardiovascular Disease
DX: Z95.5 Presence of coronary angioplasty implant and graft (principal); I25.10 Atherosclerotic heart disease of native coronary artery without angina pectoris; I50.9 Heart failure, unspecified; I10 Essential (primary) hypertension; I48.91 Unspecified atrial fibrillation
CPT/HCPCS: 93798

== ENCOUNTER 2018-01-06 14:15 | Outpatient (RCR) | payer MEDICARE, SELFPAY ==
[2017-09-21 13:58] VITALS: BMI 36.1
[2017-12-09 00:56] VITALS: BP 130/60; BP 90/58
[2017-12-30 09:22] VITALS: BP 162/76; BP 96/52
--- NOTE | 2017-12-30 09:23 | CR.ITP_ITS ---
General Information - General Information Admitting Diagnosis: PCI with coronary stent - Education/Goals Cardiac Rehabilitation Goals: 1. Maintain the individual as the primary focus of care. 2. To improve the patient's quality of life. 3. Identification of cardiac risk factors and provide cardiac risk factor management. 4. Enhance the psychosocial status of the patient. 5. Reconditioning enough to allow the patient to resume customary activities. 6. Control symptoms of cardiac disease Scale for measuring improvement of personal goals: Enter appropriate number in Comments. 2 = Unchanged. 3 = Slightly Better. 4 = Moderate Improvement. 5 = Met my Goal Personal Goals: Discharge Reassessment: Improve energy level, Participate in home exercise program, Get back to work, or to resume activities faster, Improve muscle strength and endurance, Control risk factors (learn risk factor modification) Exercise - 90-Day Assessment - Visit Date of Eval: 12/30/17 Session #:: 23 - Stages of Change Stages of Change:: Action - Exercise Prescription Mode:: Treadmill, Airdyne, NuStep Frequency (x/week): 3 Duration:: 30 METs: 3.5 40% increase Target Heart Rate:: 105-112 Max HR 119 - Hypertension Resting Blood Pressure:: 96/52 Peak Exercise Blood Pressure:: 162/76 Medication Changes:: No - Intervention Home Exercise/Activity Goal:: Sitting Time <3 hrs/day - Education Goals:: Warm-up, RPE KASI Scale, S/S, Safe Exercise, Self-Monitoring - Exercise Program Goals Exercise Program Goals: Aerobic Activity >30 min, B/P <130/80 Nutrition - 90-Day Assessment - Program Goals Nutrition Program Goals: LDL <70. Total Cholesterol <200. HDL >45. Triglycerides <150. HgbA1C <7%. BMI <25 - Visit Date of Eval: 12/30/17 - Stages of Change Stages of Change:: Action - Lipids Has the patient seen the dietitian?: No - Diabetes Diabetes:: No - Weight Management Weight:: 116.12 kg - Intervention Referral to dietitian:: No Referral to Diabetic Clinic:: No Will attend diet classes:: Yes - Education Attended class for:: Signs & symptoms of hypoglycemia, Signs & symptoms of hyperglycemia, Relate diabetes to coronary artery disease, Healthy eating Tobacco - 90-Day Assessment - Program Goals Tobacco Program Goals: Complete smoking cessation. Attend education classes. Improve Knowledge Test score - Stage of Change Stages of Change:: Action - Learning Barriers Learning Barriers: Participates in education - Family Support Do you have family support?: Yes - Tobacco Use Tobacco Use: Non-smoker Do you use smokeless tobacco?: No - Intervention Smoking Cessation Referral:: No Individual Education/Counseling:: No Education Schedule Given:: Yes - Education Attended class for:: Tobacco triggers, Coronary artery disease, Risk factors, Sexuality, Medical compliance, Cardiac A&P, Angina signs & symptoms Psychosocial - Initial Assess - Target Goals Target Goals: Assess presence or absence of depression. Using a valid screening tool, maximizes coping skills. Positive support system - Psychosocial Test Tool Used:: HANDS Depression Questionnaire - Assistive Devices Fall Risk Assessed:: Yes Psychosocial - 90-Day Assess - Target Goals Target Goals: Assess presence or absence of depression. Using a valid screening tool, maximizes coping skills. Positive support system - Stages of Change Stages of Change:: Action - Psychosocial Test Tool Used:: HANDS Depression Questionnaire - Intervention PS - Interventions: Yes Attend Stress Management Classes, Yes Uses Stress Management Skills, No Referral to Mental Health, No Referral to [facility] Case Management, No Referral to Physician - Education Attended classes for:: Coping techniques, Signs & symptoms of depression, Stress management, Relaxation techniques - Assistive Devices Assistive Devices:: None Fall Risk Assessed:: Yes Patient Health Questionnaire 90-Day Re-eval Assessment 1. Little interest or pleasure in doing things: Not at all 2. Feeling down, depressed, or hopeless: Not at all 3. Trouble falling or staying asleep, or sleeping too much: Not at all 4. Feeling tired or having little energy: Several days 5. Poor appetite or overeating: Not at all 6. Feeling bad about yourself -- or that you are a failure or have let yourself or your family down: Not at all 7. Trouble concentrating on things, such as reading the newspaper or watching television: Not at all 8. Moving or speaking so slowly that other people could have noticed. Or the opposite - being so fidgety or restless that you have been moving around a lot more than usual: Not at all 9. Thoughts that you would be better off , or of hurting yourself in some way: Not at all How difficult have these problems made it for you to do your work, take care of things at home, or get along with other people?: Not difficult at all Total Score: 1 Self-Efficacy 90-Day Re-eval Assessment We would like to know how confident you are in doing certain activities. Please select your confidence level for:: Select your confidence level for the following using the scale 1-10 where 1 is not at all confident and 10 is totally confident. Your score is the average of all 6 responses. Fatigue: How confident are you that you can keep the fatigue caused by your disease from interfering with the things you want to do? Select Number: 9 Physical Discomfort or Pain: How confident are you that you can keep the physical discomfort or pain of your disease from interfering with the things you want to do? Select Number: 9 Emotional Distress: How confident are you that you can keep the emotional distress caused by your disease from interfering with the things you want to do? Select Number: 9 Other Symptoms or Health Problems: How confident are you that you can keep other symptoms or health problems from interfering with the things you want to do? Select Number: 9 Different Tasks and Activities: How confident are you that you can do the different tasks and activities needed to manage your health condition so as to reduce your need to see a doctor? Select Number: 9 Medication: How confident are you that you can do things other than just taking medication to reduce how much your illness affects your everyday life? Select Number: 9 Total Score:: 9
== END 2018-01-07 23:59 ==
LOC: CR 14:15
PROVIDERS: Family Provider Family Medicine; PCP Family Medicine; Visit Provider Internal Medicine Cardiovascular Disease
DX: I25.10 Atherosclerotic heart disease of native coronary artery without angina pectoris (principal); I11.0 Hypertensive heart disease with heart failure; I50.9 Heart failure, unspecified; I48.91 Unspecified atrial fibrillation; Z95.5 Presence of coronary angioplasty implant and graft
CPT/HCPCS: 93798

== ENCOUNTER 2018-01-30 14:15 | Outpatient (RCR) | payer MEDICARE, SELFPAY ==
[2017-09-21 13:58] VITALS: BMI 36.1
[2018-01-08 00:48] VITALS: BP 162/76; BP 96/52
--- NOTE | 2018-02-01 07:24 | PCM.CR.ITP ---
Exercise - Final/Discharge - Visit Date of Eval: 02/01/18 Session #:: 36 - Stages of Change Stages of Change:: Action - Exercise Prescription Mode:: Treadmill, Rower, Airdyne, NuStep Frequency (x/week): 3 Duration:: 30 METs: 3.8 Target Heart Rate:: 112-124 Max HR 130 - Hypertension Do any of the following apply?: Yes Resting Blood Pressure:: 100/50 - optimal management Peak Exercise Blood Pressure:: 162/88 - Intervention Home Exercise/Activity Goal:: Moderate Exercise 30 min/day x 5 days/wk - Education Goal Progress: Goal Met - Exercise Program Goals Exercise Program Goals: Aerobic Activity >30 min Nutrition - Final Assessment - Program Goals Nutrition Program Goals: LDL <70. Total Cholesterol <200. HDL >45. Triglycerides <150. HgbA1C <7%. BMI <25 - Visit Date of Eval: 02/01/18 - Diabetes Diabetes:: No - Weight Management Height: 6 ft Weight:: 254 lb - loss 2# - Intervention Referral to dietitian:: No Referral to Diabetic Clinic:: No Will attend diet classes:: Yes - Education Education Goal Reached?: Yes Tobacco - Final Assessment - Program Goals Tobacco Program Goals: Complete smoking cessation. Attend education classes. Improve Knowledge Test score - Stage of Change Stages of Change:: Action - Family Support Do you have family support?: No - Tobacco Use Tobacco Use: Non-smoker Do you use smokeless tobacco?: No - Intervention Education Schedule Given:: Yes - Education Education Goal Reached?: Yes Psychosocial - Final Assessmen - Target Goals Target Goals: Assess presence or absence of depression. Using a valid screening tool, maximizes coping skills. Positive support system - Stages of Change Stages of Change:: Action - Psychosocial Test Tool Used:: HANDS Depression Questionnaire - Intervention PS - Interventions: Yes Attend Stress Management Classes, Yes Uses Stress Management Skills, No Referral to Mental Health, No Referral to [facility] Case Management, No Referral to Physician - Education Education Goal Reached?: Yes - Patient/Program Goal Preventative Medication(s):: Aspirin, Clopidogrel, Beta roz, Statin/lipid - Assistive Devices Assistive Devices:: None Fall Risk Assessed:: Yes Patient Health Questionnaire Discharge Assessment 1. Little interest or pleasure in doing things: Not at all 2. Feeling down, depressed, or hopeless: Not at all 3. Trouble falling or staying asleep, or sleeping too much: Not at all 4. Feeling tired or having little energy: Not at all 5. Poor appetite or overeating: Not at all 6. Feeling bad about yourself -- or that you are a failure or have let yourself or your family down: Not at all 7. Trouble concentrating on things, such as reading the newspaper or watching television: Not at all 8. Moving or speaking so slowly that other people could have noticed. Or the opposite - being so fidgety or restless that you have been moving around a lot more than usual: Not at all 9. Thoughts that you would be better off , or of hurting yourself in some way: Not at all Total Score: 0 YU-Q SV Test - Statements CAD is a disease of the arteries in the heart: False Examples of risk factors for heart disease: True Angina is chest pain or discomfort: True The benefits of resistance training include: True Eating more meat and dairy products: False Anti-platelet medications such as aspirin are important: True The only effective way to manage stress: False An exercise warm-up slowly increases heart rate: True Prepared, processed foods usually have high sodium: True Depression is common after a heart attack: True The statin medications lower cholesterol: True To control blood pressure, lower the amount of sodium: True If someone gets chest discomfort during walking: False Transfats are partially hydrogenated vegetable oils: True Sleep apnea that is not treated increases the risk: False To control cholesterol, one should become a vegetarian: False Someone knows if he/she is exercising at the right level: True Diabetes cannot be prevented with exercise & health eating: False Stress is a large risk for heart attack: True A diet that can help lower blood pressure is rich in: True - Total Score Total Correct Responses: 20 Self-Efficacy Discharge Assessment We would like to know how confident you are in doing certain activities. Please select your confidence level for:: Select your confidence level for the following using the scale 1-10 where 1 is not at all confident and 10 is totally confident. Your score is the average of all 6 responses. Fatigue: How confident are you that you can keep the fatigue caused by your disease from interfering with the things you want to do? Select Number: 9 Physical Discomfort or Pain: How confident are you that you can keep the physical discomfort or pain of your disease from interfering with the things you want to do? Select Number: 10 Emotional Distress: How confident are you that you can keep the emotional distress caused by your disease from interfering with the things you want to do? Select Number: 10 Other Symptoms or Health Problems: How confident are you that you can keep other symptoms or health problems from interfering with the things you want to do? Select Number: 10 Different Tasks and Activities: How confident are you that you can do the different tasks and activities needed to manage your health condition so as to reduce your need to see a doctor? Select Number: 10 Medication: How confident are you that you can do things other than just taking medication to reduce how much your illness affects your everyday life? Select Number: 10 Total Score:: 9 Nutrition Survey - Nutrition Survey Instructions Scoring Instructions: Scoring is as follows: Yes = 1 points. No = 0 point. Patient score that is >/=12 is considered to be at potential nutritional risk and could benefit from a referral to a registered dietitian. - Nutrition Survey Discharge Have you lost >10 lbs over the past 2 months without trying?: No Are you following a special diet at home for diabetes, low fat, or low salt?: Yes - low fat, low sodium cardiac diet Are you interested in meeting with a dietitian for help understanding your diet?: No Do you eat less than 3 meals a day?: No Do you eat fatty meats (beck, sausage, ribs, etc), fried foods, desserts, large amounts of salad dressings, margarine, butter, or cheese most days?: No Do you have food allergies? [Enter types in comment field]: No Do you eat in restaurants more than 3 times a week?: No Do you season food with salt, seasoning salt, or garlic salt?: No Do you used canned, boxed, frozen meals, or soups, seasoning packets?: No Total Score:: 1
[2018-02-01 07:28] VITALS: BP 100/50; BP 162/88
== END 2018-02-01 14:24 | disposition home or self-care (01) ==
LOC: CR 14:15
PROVIDERS: Family Provider Family Medicine; PCP Family Medicine; Visit Provider Internal Medicine Cardiovascular Disease
DX: I25.10 Atherosclerotic heart disease of native coronary artery without angina pectoris (principal); I11.0 Hypertensive heart disease with heart failure; I50.9 Heart failure, unspecified; I48.91 Unspecified atrial fibrillation; Z95.5 Presence of coronary angioplasty implant and graft
CPT/HCPCS: 93798

== ENCOUNTER → 2018-04-20 20:08 | Outpatient (CLI) | payer MEDICARE, SELFPAY ==
[2017-09-21 13:58] VITALS: BMI 36.1
== END ==
PROVIDERS: Family Provider Family Medicine; PCP Family Medicine; Referring Provider Family Medicine; Visit Provider Family Medicine
DX: G47.10 Hypersomnia, unspecified (principal); R06.83 Snoring; I11.0 Hypertensive heart disease with heart failure; I50.42 Chronic combined systolic (congestive) and diastolic (congestive) heart failure; I25.10 Atherosclerotic heart disease of native coronary artery without angina pectoris; I27.20 Pulmonary hypertension, unspecified; I25.5 Ischemic cardiomyopathy
CPT/HCPCS: 95810

== ENCOUNTER → 2018-04-24 10:35 | Outpatient (CLI) | payer MEDICARE, SELFPAY ==
[2017-09-21 13:58] VITALS: BMI 36.1
--- NOTE | 2018-04-24 10:37 | ECHOD_ITS ---
Version 2 Reason For Study: DYSPNEA Procedure This was a 2D Doppler, Color Flow transthoracic echocardiogram. Myocardial strain analysis was performed in this exam to aid in the assessment of cardiac function. Exam performed in department. Left Ventricle Normal LV size. Left ventricular systolic function is lower limits of normal. The estimated ejection fraction is 50 %. Stage 2 diastolic dysfunction. The global longitudinal strain is borderline abnormal. The global longitudinal strain = -16% (abnormal). No regional wall motion abnormalities noted. Right Ventricle Normal RV size. Normal systolic function. Atria The left atrium is mildly enlarged. Normal right atrium. Mitral Valve Normal mitral valve. Trivial eccentric mitral valve insufficiency. Tricuspid Valve Normal tricuspid valve. Mild (1+) tricuspid valve insufficiency. Pulmonary artery systolic pressure is 34 mmHg. Aortic Valve Trisinus/trileaflet aortic valve. Mild focal aortic valve calcification. Pulmonic Valve Normal pulmonic valve. Great Vessels Normal aortic root. The pulmonary artery is normal size. Normal inferior vena cava. Pericardium/Pleural No pericardial effusion. MMode/2D Measurements & Calculations LVIDd: 6.5 cm IVSd: 1.2 cm Ao root diam: 3.9 cm LVIDs: 4.4 cm LVPWd: 1.2 cm LA dimension: 4.7 cm RVDd: 4.0 cm FS: 31.9 % LAV(MOD-bp): 76.1 ml LA A4 area: 22.0 cm2 RA A4 area: 19.1 cm2 LAV(MOD-bp) Indexed: 32.2 ml/m2 LAV(MOD-sp2): 79.1 ml LAV(MOD-sp4): 63.8 ml Time Measurements MV dec time: 0.21 sec Doppler Measurements & Calculations MV E max wally: 95.2 cm/sec Lat Peak E' Wally: 8.6 cm/sec Med Peak E' Wally: 4.6 cm/sec MV A max wally: 88.0 cm/sec E/E' lat: 11.1 E/E' med: 20.5 MV E/A: 1.1 Ao V2 max: 141.2 cm/sec TR max wally: 274.5 cm/sec Ao max P.0 mmHg TR max P.5 mmHg Interpretation Summary Normal LV size. Left ventricular systolic function is lower limits of normal. The estimated ejection fraction is 50 %. Stage 2 diastolic dysfunction. The left atrium is mildly enlarged. Mild (1+) tricuspid valve insufficiency. The global longitudinal strain is borderline abnormal. Ordering Physician: Lemuel Martinez Referring Physician: JUSTIN PETTIT Performed By: Alycia Bush RDCS, RVT
== END ==
PROVIDERS: Family Provider Family Medicine; PCP Family Medicine; Referring Provider Internal Medicine Cardiovascular Disease; Visit Provider Internal Medicine Cardiovascular Disease
DX: I45.5 Other specified heart block (principal)
CPT/HCPCS: 93306

== ENCOUNTER → 2018-05-04 11:38 | Outpatient (CLI) | payer MEDICARE, SELFPAY ==
[2017-09-21 13:58] VITALS: BMI 36.1
[2018-05-04 14:16] LABS: Hematocrit 19.2 % (40-54); Mean Corp Hgb Conc 26.6 g/gl (32-36); Mean Corpuscular Hgb 19.8 pg (27.0-32.0); Mean Corpuscular Volume 74.7 fL (80-94); Mean Platelet Vol. 9.4 fl (6.2-12.0); Platelet Count 317 K/mm3 (150-450); RBC Distribution Width CV 16.9 % (11.6-14.6); RBC Distribution Width SD 46.6 fl (35.1-43.9); Red Blood Count 2.57 M/mm3 (4.6-6.2); White Blood Count 6.9 K/mm3 (4.4-11.0)
[2018-05-04 14:18] LABS: Hemoglobin 5.1 g/dl (13.0-16.5); Scan Indicated on CBC? Y/N YES- FLAGS NOTED
[2018-05-04 14:26] LABS: Ferritin 3 ng/mL (26-388); Iron 9 ug/dL (65-175); Iron Binding Capacity,Total 447 ug/dL (250-450)
[2018-05-04 14:35] LABS: Differential Comment SCANNED
[2018-05-08 13:09] LABS: Pathologist Review Reviewed
== END ==
PROVIDERS: Family Provider Family Medicine; PCP Family Medicine; Referring Provider Internal Medicine Pulmonary Disease; Visit Provider Internal Medicine Pulmonary Disease
DX: D64.9 Anemia, unspecified (principal)
CPT/HCPCS: 36415; 82728; 83540; 83550; 85027

== ENCOUNTER 2018-05-04 15:36 | Inpatient (IN) | payer MEDICARE, SELFPAY ==
[2017-09-21 13:58] VITALS: BMI 36.1
[2018-05-04] VITALS (23 sets, daily range): BP systolic 105–150; BP diastolic 44–75; PULSE 63–91; RESP 13–23; TEMP 36.8–37.3; O2SAT 97–100; BMI 35.9; BMI 35.2
--- NOTE | 2018-05-04 16:57 | EKG12_ITS ---
Test Reason : Blood Pressure : / mmHG Vent. Rate : 064 BPM Atrial Rate : 064 BPM P-R Int : 170 ms QRS Dur : 138 ms QT Int : 472 ms P-R-T Axes : 040 -24 066 degrees QTc Int : 486 ms Normal sinus rhythm Non-specific intra-ventricular conduction block Abnormal ECG Confirmed by DAISY LONG ([id number]), photo editor ROSSANA HOGAN ([id number]) on 05/09/2018 8:46:47 AM Referred By: Lemuel Martinez Confirmed By:DAISY LONG
--- NOTE | 2018-05-04 17:00 | RAD_ITS ---
STUDY: X-RAY CHEST REASON FOR EXAM: Male, 73 years old. Low O2 sats TECHNIQUE: Single AP portable view of the chest. COMPARISON: 09/15/2017 FINDINGS: Stable elevation of the right hemidiaphragm The lungs are clear and expanded. There is no demonstrated pleural abnormality. Normal size heart. Normal mediastinum and surjit. Normal visualized pulmonary arteries. Normal visualized aortic arch and descending thoracic aorta. Normal visualized thoracic spine. Normal visualized ribs, clavicles, and shoulders. There is no demonstrated abnormality of the visualized soft tissue structures of the upper abdomen. RAD/Chest 1 View (Portable) IMPRESSION: No acute pulmonary process Electronically Signed: Fritz Gardner MD at 17:16 EDT , Service support ,
[2018-05-04 17:47] LABS: International Normalized Ratio 1.3; Prothrombin Time (Protime)PT. 15.9 SECONDS (11.7-14.9)
[2018-05-04 17:56] LABS: Absolute Lymphocyte Count 0.91 X10^3/ul (0.83-4.51); Absolute Neutrophil Count 4.2 X10^3/uL (2.0-7.7); Basophil# 0.02 X10^3/uL; Basophil% 0.3 % (0-1); Eosinophil# 0.12 X10^3/uL; Hematocrit 18.2 % (40-54); Hemoglobin 4.9 g/dl (13.0-16.5); Lymphocyte # 0.91 X10^3/ul (4.0); Lymphocyte % 15.2 % (19-41); Mean Corp Hgb Conc 26.9 g/gl (32-36); Mean Corpuscular Hgb 19.8 pg (27.0-32.0); Mean Corpuscular Volume 73.7 fL (80-94); Mean Platelet Vol. 9.5 fl (6.2-12.0); Monocyte# 0.77 X10^3/uL; Monocyte% 12.9 % (0-10); Neutrophil # 4.16 X10^3/uL (2.7-7.7); Neutrophil % 69.4 % (47-70); Platelet Count 317 K/mm3 (150-450); RBC Distribution Width CV 16.8 % (11.6-14.6); RBC Distribution Width SD 46.2 fl (35.1-43.9); Red Blood Count 2.47 M/mm3 (4.6-6.2)
--- NOTE | 2018-05-04 17:56 | ED.RN ---
LAB CALLED CRITICAL RESULT ON THIS PATIENT, HEMOGLOBIN 4.9, DR BHAKTA NOTIFIED, NFO
[2018-05-04 18:00] LABS: Anion Gap 5 (5-15); BUN 29 mg/dL (7-18); BUN/Creat Ratio 18.8 RATIO (10-20); Calcium,Total 8.3 mg/dL (8.5-10.1); Chloride 108 mmol/L (98-107); Creatinine, Serum 1.54 mg/dL (0.70-1.30); EST Glomerular Filtration Rate 48 mL/min (>60); Est Glom Filt Rate - Afr Amer 58 mL/min (>60); Estimated Creatinine Clearance 48.29 ml/min; Glucose 111 mg/dL (74-106); Potassium 3.9 mmol/L (3.5-5.1); Sodium Level 141 mmol/L (136-145)
[2018-05-04 18:22] LABS: Differential Indicated SCAN CRITERIA MET; POSITIVE COUNT YES; POSITIVE DIFFERENTIAL NO; POSITIVE MORPHOLOGY YES
[2018-05-04 18:23] LABS: Platelet Estimate ADEQUATE (ADEQ)
[2018-05-04 18:25] LABS: Anisocytosis 2+; Hypochromasia 3+
--- NOTE | 2018-05-04 19:33 | ED.DCSUM_ITS ---
- ER Visit Summary Date of Service: 05/04/18 Chief Complaint: Low hemoglobin History of Present Illness: The patient is a 73 M presenting with low hemoglobin. Patient was sent in by Dr. Frazier's office. He had routine blood work which showed a hemoglobin of 5.1. He complains of dizziness, weakness, and shortness of breath. He states this has been going on for awhile. He denies any black or bloody stool. He is on Eliquis and Brilinta. He states he has had chest pain which has been ongoing for the past month. Physical Examination: Vitals are stable. Patient is afebrile. Alert no acute distress. HEENT exam is unremarkable. Neck is supple. Lungs are clear and equal bilaterally. Heart is regular rate and rhythm. Abdomen is soft nontender nondistended. Extremities are unremarkable. Skin is warm and dry. No focal neurologic deficit. Remainder of exam is unremarkable. Emergency Department Course and Treatment: EKG is sinus rate is 64 with no acute ischemic changes. Chest x-ray shows no acute process. CBC showed hemoglobin 4.9, hematocrit 18.2. Chemistries show glucose 111, BUN 29, creatinine 1.54. INR 1.3. Troponin is negative. Stool is guaiac negative. Patient was typed and cross for 2 units packed red blood cells. Will discuss with hospitalist for admission. Disposition: Admission Impression: Anemia This note was generated with [employer] dictation software. It may contain incorrect words, spelling, and punctuation that were not noted in review of the chart prior to signing ED Disposition - Plan for ED Patient: Chief Complaint: Abn Labs
--- NOTE | 2018-05-04 19:35 | HP.PCM_ITS ---
Problem List (1) Acute anemia Status: Acute (2) Heart failure Status: Chronic Qualifiers: Heart failure type: combined systolic and diastolic Heart failure chronicity: chronic Qualified Code(s): I50.42 - Chronic combined systolic (congestive) and diastolic (congestive) heart failure (3) Bradycardia Status: Chronic (4) Dyslipidemia Status: Chronic (5) Obesity Status: Chronic Qualifiers: Obesity type: due to excess calories Obesity classification: adult class 2 (BMI 35 - 39.9) Serious obesity comorbidity presence: with serious comorbidity (6) Nonrheumatic mitral (valve) insufficiency Status: Chronic (7) Non-rheumatic tricuspid valve insufficiency Status: Chronic (8) Cardiomyopathy in disease classified elsewhere Status: Chronic (9) Secondary pulmonary arterial hypertension Status: Chronic (10) Persistent atrial fibrillation Status: Chronic (11) History of coronary artery stent placement Status: Chronic Comment: PCI-BONNY Prox RCA 3.5 x 17 mm Elunir 09/19/17 (12) Atherosclerosis of coronary artery of [place] heart without angina pectoris Status: Chronic Qualifiers: Coronary Disease-Associated Artery/Lesion type: [place] artery Qualified Code(s): I25.10 - Atherosclerotic heart disease of [place] coronary artery without angina pectoris Comment: PCI-BONNY Prox RCA 3.5 x 17 mm Elunir 09/19/17 (13) Hypertension Status: Chronic Qualifiers: Hypertension type: essential hypertension Qualified Code(s): I10 - Essential (primary) hypertension History of Present Illness Date of Admission: 05/04/18 Chief Complaint: Low Hgb at Dr. Frazier office The patient is a 73 y/o M w/ PMHx: Chronic Systolic and Diastolic CHF, Severe Cardiomyopathy Unclear Type (EF 25%), MVI and TVI, Pulmonary Hypertension, Persistent atrial fibrillation, CAD s/p BONNY Prox RCA 09/19/17, HTN, HLD who presents to the [facility] ED on 05/04/18 with history of ongoing progressively worsening weakness, fatigue dyspnea especially with exertion, dizziness as well as L sided focal lateral lower rib chest discomfort, described as sharp, rated 3-4/5 when it does occur, intermittent, lasting 2-3 minutes independent of activity x 1 month with recent medication changes per Cardiology secondary to lower BP felt possible related to hypotension who now presents to the [facility] following referral to Dr. Frazier for BRITTA assessment and CPAP start with Hgb obtained and notably low 5.1. In the ED patient denies any current chest pain. He denies any recent stool changes including dark black or tarry stools or bright red blood per rectum. Notes he has had the ongoing symptoms as noted. In the ED work-up included T 98.2, HR 91, BP 115/49, RR 18, 98% on RA, CBC w/ WBC 6, Hgb 4.9 (last Hgb after stent 09/2017 15), Plts 317 without marked shift, coags w/ PT 15.9, INR 1.3, PTT 33, BMP w/ Chl 108, BUN/Cr 29/1.54 (baseline Cr 1.2), glucose 111, trop < 0.015, EKG without acute findings, CXR without acute process. 2 U PRBC ordered per ED. Past Medical History Past Medical History (Chronic Problems): Chronic Problems (Last Reviewed 04/12/18 @ 15:31 by Lemuel Martinez MD) Heart failure (Chronic) Bradycardia (Chronic) Dyslipidemia (Chronic) Obesity (Chronic) History of appendectomy (Chronic) Nonrheumatic mitral (valve) insufficiency (Chronic) Non-rheumatic tricuspid valve insufficiency (Chronic) Cardiomyopathy in disease classified elsewhere (Chronic) Secondary pulmonary arterial hypertension (Chronic) Persistent atrial fibrillation (Chronic) History of coronary artery stent placement (Chronic ~09/19/17) PCI-BONNY Prox RCA 3.5 x 17 mm Elunir 09/19/17 Atherosclerosis of coronary artery of tang[place] heart without angina pectoris (Chronic) PCI-BONNY Prox RCA 3.5 x 17 mm Elunir 09/19/17 Hypertension (Chronic) Medical History: Medical History (Last Reviewed 04/12/18 @ 15:31 by Lemuel Martinez MD) Acute combined systolic (congestive) and diastolic (congestive) heart failure (Acute) I50.41 Dyslipidemia (Chronic) E78.5 Obesity (Chronic) E66.9 Nonrheumatic mitral (valve) insufficiency (Chronic) I34.0 Non-rheumatic tricuspid valve insufficiency (Chronic) I36.1 Cardiomyopathy in disease classified elsewhere (Chronic) I43 Secondary pulmonary arterial hypertension (Chronic) I27.21 Persistent atrial fibrillation (Chronic) I48.1 Atherosclerosis of coronary artery of [place] heart without angina pectoris (Chronic) I25.10 PCI-BONNY Prox RCA 3.5 x 17 mm Elunir 09/19/17 Hypertension (Chronic) I10 Erectile dysfunction N52.9 Allergies Sulfa (Sulfonamide Antibiotics) Allergy (Verified 05/04/18 15:37) Hives Home Medications: Ambulatory Orders Medication Instructions Recorded Allopurinol [Zyloprim] 300 mg PO DAILY 09/15/17 Doxazosin Mesylate [Cardura] 4 mg PO QHS 09/15/17 Aspirin E.C. [Ecotrin] 81 mg PO DAILY@0800 #30 tab 09/21/17 atorvastatin 40 mg tablet 40 mg PO QHS #30 tab 10/21/17 Tramadol HCl [Ultram] 50 - 100 mg PO Q6H PRN 11/25/17 losartan 25 mg tablet 25 mg PO QDAY tab 12/21/17 Brilinta 90 mg tablet 90 mg PO BID #180 tab NS 01/12/18 furosemide 40 mg tablet 40 mg PO QDAY tab 01/12/18 metoprolol tartrate 50 mg tablet 25 mg PO BID tab 01/12/18 Amiodarone HCl 200 mg PO DAILY 05/04/18 Apixaban [Eliquis] 5 mg PO BID 05/04/18 Surgical History: Surgical History (Last Reviewed 04/12/18 @ 15:31 by Lemuel Martinez MD) History of appendectomy (Chronic) Z90.49 History of coronary artery stent placement (Chronic) Onset Date: ~09/19/17 Z95.5 PCI-BONNY Prox RCA 3.5 x 17 mm Elunir 09/19/17 Surgical History: - - Intestinal perforation repair, PCI, appendectomy. Psychiatric History: No pertinent psych hx Lives: Spouse/ Significant Other Smoking Status: Former smoker - Smoked when he was in the and quit remotely. Tobacco Use: Non-smoker Alcohol: Occasional Drugs: None - *Family History Maternal Family History: Family History (Last Reviewed 04/12/18 @ 15:31 by Lemuel Martinez MD) Father Heart disease Brother Heart disease History Items: Heart Disease Paternal Family History: Family History (Last Reviewed 04/12/18 @ 15:31 by Lemuel Martinez MD) Father Heart disease Brother Heart disease History Items: Heart Disease Sibling Family History: Family History (Last Reviewed 04/12/18 @ 15:31 by Lemuel Martinez MD) Father Heart disease Brother Heart disease History Items: Heart Disease - pacemaker Review of Systems Constitutional: Reports: Malaise, Weakness, Fatigue. Denies: Chills, Fever, Weight Change HEENT: Denies: Head Aches, Sinus Congestion, Sinus Drainage Cardiovascular: Reports: Chest Pain, Light Headedness. Denies: Orthopnea, Palpitations Respiratory: Reports: Shortness of breath upon exertion. Denies: Cough, Shortness of Breath, Shortness of breath at rest, Sputum production Gastrointestinal: Denies: Abdominal Pain, Nausea, Vomiting Genitourinary: Denies: Dysuria Musculoskeletal: Reports: Back Pain. Denies: Joint Pain, Joint Tenderness Skin: Denies: Rash, Wounds Neurological: Denies: Numbness, Tingling, Focal weakness Psychiatric: Denies: Anxiety, Depression, Homicidal Ideations, Suicidal Ideations Hematologic/ Lymphatic: Reports: Anemia, Easy Bruising, Easy Bleeding VTE Information - Inpt Only VTE Present on Admission: No VTE Mechan Device Prophylaxis: SCD's VTE Pharm Prophylaxis ordered?: No Reason prophylaxis not ordered:: Medical Contraindication Patient Problems: Active and Suspected Problems (Last Reviewed 04/12/18 @ 15:31 by Lemuel Martinez MD) Acute anemia (Acute) Subjective: Seated upright in ED bed, fatigued appearance but otherwise well-appearing. Objective: Physical Examination: General: awake, alert, oriented x 3 and cooperative, seated upright in the ED bed in no apparent distress. Skin: pale color, turgor, no icterus, cyanosis. HEENT: AT/NC, EOMI, PERRLA, MMM, no carotid bruits or JVD noted. Lungs: Diminished BS BL, > bases, moderate effort, no rales, ronchi or wheezing. Heart: Regular rate and rhythm; no gallop, rub audible. Abdomen: soft, obese, NTTP, ND, normal BS, no HSM. Extremities: no cyanosis, clubbing, or edema. Neurological: patient awake, alert, oriented x 3; cognitive function intact; pupils equally reactive to light and accomodation; cranial nerves II-XII grossly normal, moving all 4 extremities, no focal deficits, strength moderately globally decreased. Psychiatric: affect appears normal, no acute evidence of depressive or anxiety feelings. - Physical Exam Vital Signs Temp Pulse Resp BP Pulse Ox 98.2 F 66 23 H 122/56 H 100 05/04/18 15:38 05/04/18 19:00 05/04/18 19:00 05/04/18 19:00 05/04/18 19:00 Oxygen Flow Rate (L/min) 2 Oxygen Delivery Method Nasal Cannula Weight: 264 lb 8.875 oz Body Mass Index (BMI) 35.9 Microbiology Past 72 Hours 05/04/18 18:17 Stool Occult Blood ([facility]EDITH) - Final Stool Laboratory Tests Past 24 Hrs 05/04/18 05/04/18 05/04/18 16:30 16:30 16:30 WBC 6.0 RBC 2.47 L Hgb 4.9 L* Hct 18.2 L MCV 73.7 L MCH 19.8 L MCHC 26.9 L RDW 16.8 H RDW Differential 46.2 H Plt Count 317 MPV 9.5 Immature Gran % (Auto) 0.200 Neut % (Auto) 69.4 Lymph % (Auto) 15.2 L Kimball % (Auto) 12.9 H Eos % (Auto) 2.0 Baso % (Auto) 0.3 Absolute Neuts (auto) 4.2 Absolute Lymphs (auto) 0.91 Total Counted Not Reportable Diff Path Review May foll Platelet Estimate ADEQUATE Hypochromasia 3+ Anisocytosis 2+ PT 15.9 H INR 1.3 APTT 33.0 Sodium 141 Potassium 3.9 Chloride 108 H Carbon Dioxide 28.0 Anion Gap 5 BUN 29 H Creatinine 1.54 H Estim Creat Clear Calc 48.29 Est GFR (MDRD) Af Amer 58 L Est GFR (MDRD) Non-Af 48 L BUN/Creatinine Ratio 18.8 Glucose 111 H Calcium 8.3 L Troponin I < 0.015 Blood Type Antibody Screen 05/04/18 16:30 WBC RBC Hgb Hct MCV MCH MCHC RDW RDW Differential Plt Count MPV Immature Gran % (Auto) Neut % (Auto) Lymph % (Auto) Kimball % (Auto) Eos % (Auto) Baso % (Auto) Absolute Neuts (auto) Absolute Lymphs (auto) Total Counted Diff Path Review Platelet Estimate Hypochromasia Anisocytosis PT INR APTT Sodium Potassium Chloride Carbon Dioxide Anion Gap BUN Creatinine Estim Creat Clear Calc Est GFR (MDRD) Af Amer Est GFR (MDRD) Non-Af BUN/Creatinine Ratio Glucose Calcium Troponin I Blood Type O NEGATIVE Antibody Screen NEGATIVE Assessment/Plan All Active Problems (Last Reviewed 04/12/18 @ 15:31 by Lemuel Martinez MD) Acute anemia (Acute) Sinus pause (Acute) Acute combined systolic (congestive) and diastolic (congestive) heart failure (Acute) The patient is a 73 y/o M w/ PMHx: Chronic Systolic and Diastolic CHF, Severe Cardiomyopathy Unclear Type (EF 25%), MVI and TVI, Pulmonary Hypertension, Persistent atrial fibrillation, CAD s/p BONNY Prox RCA 09/19/17, HTN, HLD who presents to the [facility] ED on 05/04/18 with history of ongoing progressively worsening weakness, fatigue dyspnea especially with exertion, dizziness as well as L sided focal lateral lower rib chest discomfort, described as sharp, rated 3-4/5 when it does occur, intermittent, lasting 2-3 minutes independent of activity x 1 month with incidentally noted Hgb low 5.1. (1) Acute Microcytic Anemia, ? GI Bleed on Anticoagulation and Antiplt therapies: Admission Hgb 5.1-->4.[address] Frazier, sent to ED, guiac negative, will admit to ICU, maintain on IVFs. Admission INR 1.3, holding anticoagulation. Will obtain serial H+H q 6 hours, PRBC ordered per ED, will continue, maintain on IV PPI. Surgery consulted. (2) Chronic bradycardia: Known, following w/ Cardiology, secondary to his usage amiodarone and BB therapy for his atrial fibrillation. (3) CAD: s/p PCI x 1 BONNY Prox RCA 09/2017, given acute presentation unclear if antiplt contributing, temporarily hold asa, brillinta, continue home metoprolol, statin. Cardiology consultation given acute presentation w/ severe anemia in the setting of recent stent. (4) Persistent Atrial Fibrillation: Maintain on home amiodarone, metoprolol, holding apixaban. (5) Chronic Combined Systolic and Diastolic CHF, Severe Cardiomyopathy Unclear Type: Holding asa, brillinta as noted, continue metoprolol, lasix, ARB, recent discontinuation of patient spironolactone. (6) Hypertension: Recent Cardiology visit 04/12/18 with discontinuation of his spironolactone and reduction of his doxazosin to 2 mg daily, continue losartan, lasix with hold parameters, PRN hydralazine. (7) Hyperlipidemia: Continue home statin regimen. (8) DVT Prophylaxis: SCDs, holding patient anticoagulation given acute presentation, #1. (9) CODE status: Patient and are in process of learning about setting up HCPOA and living will, not in place currently. Discussed CODE status at length including difference between FULL code, DNR-CCA and DNR-CC status. Encouraged them to discuss, currently FULL CODE. Advanced Care Planning Face to Face Time: 16 minutes. Code Visit Inpatient E&M: 06776 Init Hosp L3 Procedures: 95260 Advncd Care Plan 30 Min
[2018-05-04] MEDS: Doxazosin 4 MG Tablet 2 MG PO (21:23)
[2018-05-04] MEDS: Atorvastatin Calcium 40 MG Tablet PO (21:23)
[2018-05-04] MEDS: Metoprolol Tartrate 25 MG Tablet PO (21:23)
[2018-05-04 21:41] LABS: Hematocrit 17.4 % (40-54)
[2018-05-04 21:43] LABS: Hemoglobin 4.7 g/dl (13.0-16.5)
[2018-05-04 21:58] LABS: Magnesium 2.1 mg/dL (1.6-2.6)
[2018-05-04] MEDS: 0.9% NaCl Peripheral Flush Adult/Peds IV (22:07)
[2018-05-04] MEDS: 0.9% NaCl IVPB Med Flush (250 mL) 15 ML IV (22:07)
[2018-05-05] VITALS (33 sets, daily range): BP systolic 90–155; BP diastolic 37–70; PULSE 52–76; RESP 11–22; TEMP 36.4–37.3; O2SAT 95–100
[2018-05-05 04:15] LABS: Absolute Lymphocyte Count 1.16 X10^3/ul (0.83-4.51); Absolute Neutrophil Count 3.5 X10^3/uL (2.0-7.7); Basophil# 0.03 X10^3/uL; Basophil% 0.5 % (0-1); Eosinophil# 0.15 X10^3/uL; Eosinophils% 2.7 % (0-5); Hematocrit 20.7 % (40-54); Lymphocyte # 1.16 X10^3/ul (4.0); Lymphocyte % 20.6 % (19-41); Mean Corpuscular Hgb 21.7 pg (27.0-32.0); Mean Corpuscular Volume 77.5 fL (80-94); Mean Platelet Vol. 9.5 fl (6.2-12.0); Monocyte# 0.75 X10^3/uL; Monocyte% 13.3 % (0-10); Neutrophil # 3.54 X10^3/uL (2.7-7.7); Neutrophil % 62.7 % (47-70); Platelet Count 298 K/mm3 (150-450); RBC Distribution Width CV 17.2 % (11.6-14.6); RBC Distribution Width SD 45.7 fl (35.1-43.9); Red Blood Count 2.67 M/mm3 (4.6-6.2); White Blood Count 5.6 K/mm3 (4.4-11.0)
[2018-05-05 04:17] LABS: Differential Indicated SCAN CRITERIA MET; Hemoglobin 5.8 g/dl (13.0-16.5); POSITIVE COUNT YES; POSITIVE DIFFERENTIAL NO; POSITIVE MORPHOLOGY NO
[2018-05-05 04:19] LABS: Anion Gap 7 (5-15); BUN 23 mg/dL (7-18); BUN/Creat Ratio 16.7 RATIO (10-20); Calcium,Total 8.2 mg/dL (8.5-10.1); Chloride 110 mmol/L (98-107); Creatinine, Serum 1.38 mg/dL (0.70-1.30); EST Glomerular Filtration Rate 54 mL/min (>60); Est Glom Filt Rate - Afr Amer 65 mL/min (>60); Estimated Creatinine Clearance 53.89 ml/min; Glucose 94 mg/dL (74-106); Potassium 4.1 mmol/L (3.5-5.1); Sodium Level 145 mmol/L (136-145)
[2018-05-05 05:08] LABS: Anisocytosis RARE
[2018-05-05 05:09] LABS: Microcytosis 1+
[2018-05-05 05:10] LABS: Hypochromasia 2+
--- NOTE | 2018-05-05 05:55 | EKG12_ITS ---
Test Reason : AM EKG Blood Pressure : / mmHG Vent. Rate : 076 BPM Atrial Rate : 076 BPM P-R Int : 182 ms QRS Dur : 140 ms QT Int : 424 ms P-R-T Axes : 049 -35 099 degrees QTc Int : 477 ms Normal sinus rhythm Left axis deviation Non-specific intra-ventricular conduction block Abnormal ECG When compared with ECG of 28-NOV-2017 12:22, Fusion complexes are no longer Present Nonspecific T wave abnormality no longer evident in Inferior leads T wave inversion now evident in Lateral leads Confirmed by DAISY LONG ([id number]), editorial director ROSSANA HOGAN ([id number]) on 05/09/2018 12:45:14 PM Referred By: Lemuel Martinez Confirmed By:DAISY LONG
--- NOTE | 2018-05-05 06:05 | PCM.CON.CC ---
Reason for Consult Date of Consultation: 05/05/18 Reason for Consultation: Anemia History of Present Illness: The patient is a 73-year-old male, with a history as outlined below, who presented to the emergency department on May 04 after being evaluated in the office of Dr. Frazier for BRITTA, during which time, he was subsequently found to be anemic. The patient reports a history of weakness, fatigue, dizziness and lightheadedness, which initially began following his stent placement. The patient does have a history of coronary artery disease, severe cardiomyopathy with an ejection fraction of 25% in atrial fibrillation. The patient reported the presence of progressively worsening shortness of breath, weakness and fatigue. The patient's hemoglobin was noted to be 5.1 g/dL at Dr. Frazier's office. Therefore, the patient was referred to the emergency department. The patient was noted to have undergone a PTCA with drug-eluting stent placement to the proximal RCA in September [address] Siu. He is currently on dual antiplatelet therapy along with Eliquis for the aforementioned cardiac diseases. On presentation to the emergency department, the patient was noted to be afebrile and hemodynamically stable. He was maintaining appropriate oxygen saturations on room air. Laboratory evaluation revealed no evidence of a leukocytosis. There was evidence of microcytic anemia with a hemoglobin of 4.9 and hematocrit of 18.2. In September 2017, the patient had a hemoglobin, which was documented to be 15.5 g/dL. Chemistry profile revealed evidence of acute kidney injury with a creatinine of 1.54. Troponin was negative. Plain film chest x-ray revealed no acute cardiopulmonary process. Due to the patient's severe anemia, he was subsequently transferred to the medical intensive care unit for ongoing management. Overnight, the patient received 2 units packed red blood cells. His hemoglobin this morning only increased to 5.8 g/dL. He is currently ordered to receive an additional 2 units packed red blood cells. Surgery consultation is currently pending. The patient remains otherwise hemodynamically stable. Past Medical History Past Medical History (Chronic Problems): Chronic Problems (Last Reviewed 04/12/18 @ 15:31 by Lemuel Martinez MD) Heart failure (Chronic) Bradycardia (Chronic) Dyslipidemia (Chronic) Obesity (Chronic) History of appendectomy (Chronic) Nonrheumatic mitral (valve) insufficiency (Chronic) Non-rheumatic tricuspid valve insufficiency (Chronic) Cardiomyopathy in disease classified elsewhere (Chronic) Secondary pulmonary arterial hypertension (Chronic) Persistent atrial fibrillation (Chronic) History of coronary artery stent placement (Chronic ~09/19/17) PCI-BONNY Prox RCA 3.5 x 17 mm Elunir 09/19/17 Atherosclerosis of coronary artery of [place] heart without angina pectoris (Chronic) PCI-BONNY Prox RCA 3.5 x 17 mm Elunir 09/19/17 Hypertension (Chronic) Medical History: Medical History (Last Reviewed 04/12/18 @ 15:31 by Lemuel Martinez MD) Acute combined systolic (congestive) and diastolic (congestive) heart failure (Acute) I50.41 Dyslipidemia (Chronic) E78.5 Obesity (Chronic) E66.9 Nonrheumatic mitral (valve) insufficiency (Chronic) I34.0 Non-rheumatic tricuspid valve insufficiency (Chronic) I36.1 Cardiomyopathy in disease classified elsewhere (Chronic) I43 Secondary pulmonary arterial hypertension (Chronic) I27.21 Persistent atrial fibrillation (Chronic) I48.1 Atherosclerosis of coronary artery of [place] heart without angina pectoris (Chronic) I25.10 PCI-BONNY Prox RCA 3.5 x 17 mm Elunir 09/19/17 Hypertension (Chronic) I10 Erectile dysfunction N52.9 Allergies Sulfa (Sulfonamide Antibiotics) Allergy (Verified 05/04/18 15:37) Hives Home Medications: Ambulatory Orders Medication Instructions Recorded Allopurinol [Zyloprim] 300 mg PO DAILY 09/15/17 Doxazosin Mesylate [Cardura] 4 mg PO QHS 09/15/17 Aspirin E.C. [Ecotrin] 81 mg PO DAILY@0800 #30 tab 09/21/17 atorvastatin 40 mg tablet 40 mg PO QHS #30 tab 10/21/17 Tramadol HCl [Ultram] 50 - 100 mg PO Q6H PRN 11/25/17 losartan 25 mg tablet 25 mg PO QDAY tab 12/21/17 Brilinta 90 mg tablet 90 mg PO BID #180 tab NS 01/12/18 furosemide 40 mg tablet 40 mg PO QDAY tab 01/12/18 metoprolol tartrate 50 mg tablet 25 mg PO BID tab 01/12/18 Amiodarone HCl 200 mg PO DAILY 05/04/18 Apixaban [Eliquis] 5 mg PO BID 05/04/18 Surgical History: Surgical History (Last Reviewed 04/12/18 @ 15:31 by Lemuel Martinez MD) History of appendectomy (Chronic) Z90.49 History of coronary artery stent placement (Chronic) Onset Date: ~09/19/17 Z95.5 PCI-BONNY Prox RCA 3.5 x 17 mm Elunir 09/19/17 Surgical History: - - Intestinal perforation repair, PCI, appendectomy. Psychiatric History: No pertinent psych hx Lives: Spouse/ Significant Other Smoking Status: Former smoker - Smoked when he was in the and quit remotely. Tobacco Use: Non-smoker Alcohol: Occasional Drugs: None - *Family History Maternal Family History: Family History (Last Reviewed 04/12/18 @ 15:31 by Lemuel Martinez MD) Father Heart disease Brother Heart disease History Items: Heart Disease Paternal Family History: Family History (Last Reviewed 04/12/18 @ 15:31 by Lemuel Martinez MD) Father Heart disease Brother Heart disease History Items: Heart Disease Sibling Family History: Family History (Last Reviewed 04/12/18 @ 15:31 by Lemuel Martinez MD) Father Heart disease Brother Heart disease History Items: Heart Disease - pacemaker Review of Systems Constitutional: Reports: Weakness, Fatigue. Denies: Chills, Fever Eyes: Denies: Blurred vision, Double vision HEENT: Denies: Head Aches, Sinus Congestion, Sinus Drainage Cardiovascular: Denies: Chest Pain, Palpitations Respiratory: Denies: Cough, Shortness of breath at rest, Sputum production Gastrointestinal: Denies: Abdominal Pain, Diarrhea, Hematemesis, Hematochezia, Melena Genitourinary: Denies: Dysuria Musculoskeletal: Denies: Joint Pain, Joint Tenderness Skin: Denies: Rash, Wounds Neurological: Denies: Numbness, Tingling, Focal weakness Hematologic/ Lymphatic: Reports: Anemia Patient Problems: Active and Suspected Problems (Last Reviewed 04/12/18 @ 15:31 by Lemuel Martinez MD) Acute anemia (Acute) Objective: The patient's most recent lab work, culture data and imaging studies have all been personally reviewed. Surface echocardiogram dated April 2018 revealed evidence of stage II diastolic dysfunction with an ejection fraction of 50%. Pulmonary artery systolic pressure was noted to be 34 mmHg. The patient recently completed a diagnostic polysomnogram, which revealed evidence of severe BRITTA with an overall apnea hypopnea index of 36 events per hour. - Physical Exam General: Alert, Oriented x3, Cooperative, No apparent distress, - - Pale in appearance HEENT: Atraumatic, PERRLA, Normocephalic Oral: No Gingival or Mucosal Lesions/ Ulcerations Neck: Supple, No Nodes, Trachea Midline Lungs: Normal air movement, No rhonchi, No wheeze, No rales Cardiovascular: Regular rate, Regular Rhythm, Normal S1, Normal S2, No murmurs Abdomen: Bowel Sounds Present, Soft, Non Tender Extremities: No clubbing, No cyanosis, No edema Skin: No breakdown Musculoskeletal: No Tenderness to Palpation of Joints or Extremities, No Muscle Wasting Lymphatic: No Cervical, Supraclavicular, or Inguinal Adenopathy Neurological: Cranial nerves II-XII grossly intact, Neuro grossly intact Psych/Mental Status: Alert and oriented to time, place, person, mood and affect Vital Signs Temp Pulse Resp BP Pulse Ox 98.4 F 76 17 138/59 H 97 05/05/18 04:00 05/05/18 05:00 05/05/18 05:00 05/05/18 05:00 05/05/18 05:00 Oxygen Flow Rate (L/min) 2 Oxygen Delivery Method Room Air Weight: 260 lb 12.909 oz Body Mass Index (BMI) 35.2 Intake and Output for Last 24 Hours 05/03/18 05/04/18 05/05/18 23:59 23:59 23:59 Intake Total 0 / 0 1496 / 1496 Output Total 100 / 100 Balance 0 / 0 1396 / 1396 Microbiology Past 72 Hours 05/04/18 18:17 Stool Occult Blood ([facility]EDITH) - Final Stool Laboratory Tests Past 24 Hrs 05/04/18 05/04/18 05/04/18 16:30 16:30 16:30 WBC 6.0 RBC 2.47 L Hgb 4.9 L* Hct 18.2 L MCV 73.7 L MCH 19.8 L MCHC 26.9 L RDW 16.8 H RDW Differential 46.2 H Plt Count 317 MPV 9.5 Immature Gran % (Auto) 0.200 Neut % (Auto) 69.4 Lymph % (Auto) 15.2 L [place] % (Auto) 12.9 H Eos % (Auto) 2.0 Baso % (Auto) 0.3 Absolute Neuts (auto) 4.2 Absolute Lymphs (auto) 0.91 Total Counted Not Reportable Diff Path Review May foll Platelet Estimate ADEQUATE Hypochromasia 3+ Anisocytosis 2+ Microcytosis PT 15.9 H INR 1.3 APTT 33.0 Sodium 141 Potassium 3.9 Chloride 108 H Carbon Dioxide 28.0 Anion Gap 5 BUN 29 H Creatinine 1.54 H Estim Creat Clear Calc 48.29 Est GFR (MDRD) Af Amer 58 L Est GFR (MDRD) Non-Af 48 L BUN/Creatinine Ratio 18.8 Glucose 111 H Calcium 8.3 L Magnesium Troponin I < 0.015 Blood Type Antibody Screen Crossmatch 05/04/18 05/04/18 05/04/18 16:30 16:30 21:20 WBC RBC Hgb Hct MCV MCH MCHC RDW RDW Differential Plt Count MPV Immature Gran % (Auto) Neut % (Auto) Lymph % (Auto) [place] % (Auto) Eos % (Auto) Baso % (Auto) Absolute Neuts (auto) Absolute Lymphs (auto) Total Counted Diff Path Review Platelet Estimate Hypochromasia Anisocytosis Microcytosis PT INR APTT Sodium Potassium Chloride Carbon Dioxide Anion Gap BUN Creatinine Estim Creat Clear Calc Est GFR (MDRD) Af Amer Est GFR (MDRD) Non-Af BUN/Creatinine Ratio Glucose Calcium Magnesium 2.1 Troponin I < 0.015 Blood Type O NEGATIVE Antibody Screen NEGATIVE Crossmatch See Detail 05/04/18 05/05/18 05/05/18 21:20 00:00 03:45 WBC RBC Hgb 4.7 L* Hct 17.4 L MCV MCH MCHC RDW RDW Differential Plt Count MPV Immature Gran % (Auto) Neut % (Auto) Lymph % (Auto) [place] % (Auto) Eos % (Auto) Baso % (Auto) Absolute Neuts (auto) Absolute Lymphs (auto) Total Counted Diff Path Review Platelet Estimate Hypochromasia Anisocytosis Microcytosis PT INR APTT Sodium 145 Potassium 4.1 Chloride 110 H Carbon Dioxide 28.0 Anion Gap 7 BUN 23 H Creatinine 1.38 H Estim Creat Clear Calc 53.89 Est GFR (MDRD) Af Amer 65 Est GFR (MDRD) Non-Af 54 L BUN/Creatinine Ratio 16.7 Glucose 94 Calcium 8.2 L Magnesium Troponin I < 0.015 Blood Type Antibody Screen Crossmatch 05/05/18 05/05/18 03:45 03:45 WBC 5.6 RBC 2.67 L Hgb 5.8 L* Hct 20.7 L MCV 77.5 L MCH 21.7 L MCHC 28.0 L RDW 17.2 H RDW Differential 45.7 H Plt Count 298 MPV 9.5 Immature Gran % (Auto) 0.200 Neut % (Auto) 62.7 Lymph % (Auto) 20.6 [place] % (Auto) 13.3 H Eos % (Auto) 2.7 Baso % (Auto) 0.5 Absolute Neuts (auto) 3.5 Absolute Lymphs (auto) 1.16 Total Counted Not Reportable Diff Path Review May foll Platelet Estimate Hypochromasia 2+ Anisocytosis RARE Microcytosis 1+ PT INR APTT Sodium Potassium Chloride Carbon Dioxide Anion Gap BUN Creatinine Estim Creat Clear Calc Est GFR (MDRD) Af Amer Est GFR (MDRD) Non-Af BUN/Creatinine Ratio Glucose Calcium Magnesium Troponin I < 0.015 Blood Type Antibody Screen Crossmatch Clinical Impression(s) from Imaging Studies Chest X-Ray 05/04/18 17:00 IMPRESSION: No acute pulmonary process Electronically Signed: Fritz Gardner MD at 17:16 EDT , Service support , Assessment/Plan Active and Suspected Problems (Last Reviewed 04/12/18 @ 15:31 by Lemuel Martinez MD) Acute anemia (Acute) RECOMMENDATIONS: 1. Transfuse to maintain a hemoglobin of at least 7 g/dL. 2. Patient to remain n.p.o. for now. Surgery evaluation is pending for potential endoscopy. 3. Maintain appropriate large-bore peripheral IV access. 4. Continue PPI therapy 5. Hold antiplatelet agents, along with Eliquis, pending evaluation by cardiology. IMPRESSIONS: 1. Microcytic anemia with concern for gastrointestinal blood loss May be related to a slow, chronic gastrointestinal bleed, in the setting of dual antiplatelet therapy and Eliquis utilization. Despite this, the patient remains hemodynamically stable. Recommend continued transfusion of blood products in hopes of achieving a hemoglobin of 7 g/dL. Will await surgery recommendations with regards to the timing for potential endoscopy. Patient will remain n.p.o. for now. Continue PPI therapy as ordered. 2. Ischemic cardiomyopathy with recent PTCA and drug-eluting stent placement in September 2017/heart failure with preserved ejection fraction Cardiology has been consulted to weigh in with regards to the ablation stool antiplatelet therapy in the setting of recent drug-eluting stent placement. Obviously, these agents are being placed on hold for the time being. Will defer to their recommendations with regards to the agent selection for reinitiation of antiplatelet therapy. 3. Gout/hypertension/hyperlipidemia Complicates care, management, recovery and prognosis. This note was generated with [employer] software. It may contain incorrect words, spelling, and punctuation that were not noted in checking the note before signing. Code Visit Inpatient E&M: 06912 Init Hosp L3
--- NOTE | 2018-05-05 07:22 | PCM.CONS.GEN ---
Reason for Consult Date of Consultation: 05/05/18 History of Present Illness: The patient is a 73 year old M with a history of chronic heart failure, atrial fibrillation and a history of a drug-eluting stent on anticoagulation. he presented with a complaint of easy fatigue and dyspnea and chest discomfort. Workup demonstrated a hemoglobin of 4.9. The patient had a normal hemoglobin in the spring of this year. he was checked for Hemoccult positivity. This is currently negative. I was consulted. The patient has a family history of colon cancer. He underwent colonoscopy Dr. Monaco March 28, 2014 which demonstrated a small adenomatous polyp. The patient was seen earlier this year and underwent a stool test which was positive for occult blood in October. It was recommended the patient have a follow-up stool for occult blood obtained as he was on anticoagulation as well as after his recent stent placement. The patient failed to return for follow-up stool test. earlier in the year, the patient echocardiogram which demonstrated a cardiac ejection fraction of 25% I understand he was in atrial fibrillation at the time. the patient denies any abdominal pain. He denies melena. He denies hematochezia. He denies nausea or vomiting Past Medical History Past Medical History (Chronic Problems): Chronic Problems (Last Reviewed 04/12/18 @ 15:31 by Lemuel Martinez MD) Heart failure (Chronic) Bradycardia (Chronic) Dyslipidemia (Chronic) Obesity (Chronic) History of appendectomy (Chronic) Nonrheumatic mitral (valve) insufficiency (Chronic) Non-rheumatic tricuspid valve insufficiency (Chronic) Cardiomyopathy in disease classified elsewhere (Chronic) Secondary pulmonary arterial hypertension (Chronic) Persistent atrial fibrillation (Chronic) History of coronary artery stent placement (Chronic ~09/19/17) PCI-BONNY Prox RCA 3.5 x 17 mm Elunir 09/19/17 Atherosclerosis of coronary artery of [place] heart without angina pectoris (Chronic) PCI-BONNY Prox RCA 3.5 x 17 mm Elunir 09/19/17 Hypertension (Chronic) Medical History: Medical History (Last Reviewed 04/12/18 @ 15:31 by Lemuel Martinez MD) Acute combined systolic (congestive) and diastolic (congestive) heart failure (Acute) I50.41 Dyslipidemia (Chronic) E78.5 Obesity (Chronic) E66.9 Nonrheumatic mitral (valve) insufficiency (Chronic) I34.0 Non-rheumatic tricuspid valve insufficiency (Chronic) I36.1 Cardiomyopathy in disease classified elsewhere (Chronic) I43 Secondary pulmonary arterial hypertension (Chronic) I27.21 Persistent atrial fibrillation (Chronic) I48.1 Atherosclerosis of coronary artery of [place] heart without angina pectoris (Chronic) I25.10 PCI-BONNY Prox RCA 3.5 x 17 mm Elunir 09/19/17 Hypertension (Chronic) I10 Erectile dysfunction N52.9 Allergies Sulfa (Sulfonamide Antibiotics) Allergy (Verified 05/04/18 15:37) Hives Home Medications: Ambulatory Orders Medication Instructions Recorded Allopurinol [Zyloprim] 300 mg PO DAILY 09/15/17 Doxazosin Mesylate [Cardura] 4 mg PO QHS 09/15/17 Aspirin E.C. [Ecotrin] 81 mg PO DAILY@0800 #30 tab 09/21/17 atorvastatin 40 mg tablet 40 mg PO QHS #30 tab 10/21/17 Tramadol HCl [Ultram] 50 - 100 mg PO Q6H PRN 11/25/17 losartan 25 mg tablet 25 mg PO QDAY tab 12/21/17 Brilinta 90 mg tablet 90 mg PO BID #180 tab NS 01/12/18 furosemide 40 mg tablet 40 mg PO QDAY tab 01/12/18 metoprolol tartrate 50 mg tablet 25 mg PO BID tab 01/12/18 Amiodarone HCl 200 mg PO DAILY 05/04/18 Apixaban [Eliquis] 5 mg PO BID 05/04/18 Surgical History: Surgical History (Last Reviewed 04/12/18 @ 15:31 by Lemuel Martinez MD) History of appendectomy (Chronic) Z90.49 History of coronary artery stent placement (Chronic) Onset Date: ~09/19/17 Z95.5 PCI-BONNY Prox RCA 3.5 x 17 mm Elunir 09/19/17 Surgical History: - - Intestinal perforation repair, PCI, appendectomy. Psychiatric History: No pertinent psych hx Lives: Spouse/ Significant Other Smoking Status: Former smoker - Smoked when he was in the and quit remotely. Tobacco Use: Non-smoker Alcohol: Occasional Drugs: None - *Family History Maternal Family History: Family History (Last Reviewed 04/12/18 @ 15:31 by Lemuel Martinez MD) Father Heart disease Brother Heart disease History Items: Heart Disease Paternal Family History: Family History (Last Reviewed 04/12/18 @ 15:31 by Lemuel Martinez MD) Father Heart disease Brother Heart disease History Items: Heart Disease Sibling Family History: Family History (Last Reviewed 04/12/18 @ 15:31 by Lemuel Martinez MD) Father Heart disease Brother Heart disease History Items: Heart Disease - pacemaker Review of Systems Constitutional: Reports: Malaise, Weakness, Fatigue. Denies: Chills, Fever, Weight Change HEENT: Denies: Head Aches, Sinus Congestion, Sinus Drainage Cardiovascular: Denies: Chest Pain, Palpitations Respiratory: Denies: Cough, Shortness of breath at rest, Sputum production Gastrointestinal: Denies: Abdominal Pain, Nausea, Vomiting Genitourinary: Denies: Dysuria Musculoskeletal: Denies: Joint Pain, Joint Tenderness Skin: Denies: Rash, Wounds Neurological: Denies: Numbness, Tingling, Focal weakness Psychiatric: Denies: Anxiety, Depression, Homicidal Ideations, Suicidal Ideations Hematologic/ Lymphatic: Denies: Easy Bruising, Easy Bleeding Patient Problems: Active and Suspected Problems (Last Reviewed 04/12/18 @ 15:31 by Lemuel Martinez MD) Acute anemia (Acute) - Physical Exam General: Alert, Oriented x3, Cooperative, - - somewhat pale Lungs: Clear to auscultation, Normal air movement Cardiovascular: Regular rate, Regular Rhythm Abdomen: Bowel Sounds Present, Soft, Non Tender Vital Signs Temp Pulse Resp BP Pulse Ox 98.4 F 76 22 H 102/38 L 96 05/05/18 04:00 05/05/18 06:00 05/05/18 06:00 05/05/18 06:00 05/05/18 06:00 Oxygen Flow Rate (L/min) 2 Oxygen Delivery Method Room Air Weight: 118.3 kg Body Mass Index (BMI) 35.2 Intake and Output for Last 24 Hours 05/03/18 05/04/18 05/05/18 23:59 23:59 23:59 Intake Total 0 / 0 1896 / 1896 Output Total 325 / 325 Balance 0 / 0 1571 / 1571 Microbiology Past 72 Hours 05/04/18 18:17 Stool Occult Blood ([facility]ED[facility]) - Final Stool Laboratory Tests Past 24 Hrs 05/04/18 05/04/18 05/04/18 16:30 16:30 16:30 WBC 6.0 RBC 2.47 L Hgb 4.9 L* Hct 18.2 L MCV 73.7 L MCH 19.8 L MCHC 26.9 L RDW 16.8 H RDW Differential 46.2 H Plt Count 317 MPV 9.5 Immature Gran % (Auto) 0.200 Neut % (Auto) 69.4 Lymph % (Auto) 15.2 L [place] % (Auto) 12.9 H Eos % (Auto) 2.0 Baso % (Auto) 0.3 Absolute Neuts (auto) 4.2 Absolute Lymphs (auto) 0.91 Total Counted Not Reportable Diff Path Review May foll Platelet Estimate ADEQUATE Hypochromasia 3+ Anisocytosis 2+ Microcytosis PT 15.9 H INR 1.3 APTT 33.0 Sodium 141 Potassium 3.9 Chloride 108 H Carbon Dioxide 28.0 Anion Gap 5 BUN 29 H Creatinine 1.54 H Estim Creat Clear Calc 48.29 Est GFR (MDRD) Af Amer 58 L Est GFR (MDRD) Non-Af 48 L BUN/Creatinine Ratio 18.8 Glucose 111 H Calcium 8.3 L Magnesium Troponin I < 0.015 Blood Type Antibody Screen Crossmatch 05/04/18 05/04/18 05/04/18 16:30 16:30 16:30 WBC RBC Hgb Hct MCV MCH MCHC RDW RDW Differential Plt Count MPV Immature Gran % (Auto) Neut % (Auto) Lymph % (Auto) [place] % (Auto) Eos % (Auto) Baso % (Auto) Absolute Neuts (auto) Absolute Lymphs (auto) Total Counted Diff Path Review Platelet Estimate Hypochromasia Anisocytosis Microcytosis PT INR APTT Sodium Potassium Chloride Carbon Dioxide Anion Gap BUN Creatinine Estim Creat Clear Calc Est GFR (MDRD) Af Amer Est GFR (MDRD) Non-Af BUN/Creatinine Ratio Glucose Calcium Magnesium Troponin I Blood Type O NEGATIVE Antibody Screen NEGATIVE Crossmatch See Detail See Detail 05/04/18 05/04/18 05/05/18 21:20 21:20 00:00 WBC RBC Hgb 4.7 L* Hct 17.4 L MCV MCH MCHC RDW RDW Differential Plt Count MPV Immature Gran % (Auto) Neut % (Auto) Lymph % (Auto) [place] % (Auto) Eos % (Auto) Baso % (Auto) Absolute Neuts (auto) Absolute Lymphs (auto) Total Counted Diff Path Review Platelet Estimate Hypochromasia Anisocytosis Microcytosis PT INR APTT Sodium Potassium Chloride Carbon Dioxide Anion Gap BUN Creatinine Estim Creat Clear Calc Est GFR (MDRD) Af Amer Est GFR (MDRD) Non-Af BUN/Creatinine Ratio Glucose Calcium Magnesium 2.1 Troponin I < 0.015 < 0.015 Blood Type Antibody Screen Crossmatch 05/05/18 05/05/18 05/05/18 03:45 03:45 03:45 WBC 5.6 RBC 2.67 L Hgb 5.8 L* Hct 20.7 L MCV 77.5 L MCH 21.7 L MCHC 28.0 L RDW 17.2 H RDW Differential 45.7 H Plt Count 298 MPV 9.5 Immature Gran % (Auto) 0.200 Neut % (Auto) 62.7 Lymph % (Auto) 20.6 [place] % (Auto) 13.3 H Eos % (Auto) 2.7 Baso % (Auto) 0.5 Absolute Neuts (auto) 3.5 Absolute Lymphs (auto) 1.16 Total Counted Not Reportable Diff Path Review May foll Platelet Estimate Hypochromasia 2+ Anisocytosis RARE Microcytosis 1+ PT INR APTT Sodium 145 Potassium 4.1 Chloride 110 H Carbon Dioxide 28.0 Anion Gap 7 BUN 23 H Creatinine 1.38 H Estim Creat Clear Calc 53.89 Est GFR (MDRD) Af Amer 65 Est GFR (MDRD) Non-Af 54 L BUN/Creatinine Ratio 16.7 Glucose 94 Calcium 8.2 L Magnesium Troponin I < 0.015 Blood Type Antibody Screen Crossmatch Assessment/Plan All Active Problems (Last Reviewed 04/12/18 @ 15:31 by Lemuel Martinez MD) Acute anemia (Acute) Sinus pause (Acute) Acute combined systolic (congestive) and diastolic (congestive) heart failure (Acute) anemia - severe - no obvious source The patient is currently receiving his 3rd and 4th unit of PRBC. We will plan to perform upper and lower endoscopy. If the patient will [place] the [place] for the weekend, will plan for bowel prep on Tuesday with Tuesday EGD and [place] or prompt outpatient endoscopy if ready for discharge. patient understands and agrees to procedure. He understands the risks, benefits, possible complications and alternatives.
[2018-05-05] MEDS: 0.9% NaCl Peripheral Flush Adult/Peds IV ×3 (08:02→22:53)
--- NOTE | 2018-05-05 09:02 | PCM.PN.HOSP ---
Patient Problems: Active and Suspected Problems (Last Reviewed 04/12/18 @ 15:31 by Lemuel Martinez MD) Acute anemia (Acute) Subjective: Doing well, no SOB, chest pain, lightheadedness or dizziness. Feels a little better after his first 2 U PRBC Vitals/I&O's: Vital Signs Temp Pulse Resp BP Pulse Ox 98.4 F 64 14 137/45 H 95 05/05/18 08:15 05/05/18 08:15 05/05/18 08:15 05/05/18 08:15 05/05/18 08:15 Oxygen Flow Rate (L/min) 2 Oxygen Delivery Method Room Air Weight: 260 lb 12.909 oz Body Mass Index (BMI) 35.2 Intake and Output for Last 24 Hours 05/03/18 05/04/18 05/05/18 23:59 23:59 23:59 Intake Total 0 / 0 1896 / 1896 Output Total 325 / 325 Balance 0 / 0 1571 / 1571 General: Alert, Oriented x3, Cooperative, No apparent distress HEENT: Atraumatic, EOMI, Normocephalic Oral: Moist Mucosa Neck: Supple, No JVD Lungs: Clear to auscultation, Normal air movement, No rhonchi, No wheeze, No rales Cardiovascular: Regular rate, Regular Rhythm, Normal S1, Normal S2, No murmurs Abdomen: Soft, Non Tender, Non-Distended, No Hepato-splenomegaly Extremities: No edema, Capillary Refill Less than 3 Seconds Skin: No rashes, No breakdown Neurological: Neuro grossly intact, Sensory exam intact to light touch and pain Psych/Mental Status: Normal Affect, Appropriate Microbiology Past 72 Hours 05/04/18 18:17 Stool Stool Occult Blood ([facility]) - Final Laboratory Results 05/04/18 16:30: WBC 6.0, RBC 2.47 L, Hgb 4.9 L*, Hct 18.2 L, MCV 73.7 L, MCH 19.8 L, MCHC 26.9 L, RDW 16.8 H, RDW Differential 46.2 H, Plt Count 317, MPV 9.5, Immature Gran % (Auto) 0.200, Neut % (Auto) 69.4, Lymph % (Auto) 15.2 L, [place] % (Auto) 12.9 H, Eos % (Auto) 2.0, Baso % (Auto) 0.3, Absolute Neuts (auto) 4.2, Absolute Lymphs (auto) 0.91, Total Counted Not Reportable, Diff Path Review November, Platelet Estimate ADEQUATE, Hypochromasia 3+, Anisocytosis 2+ 05/04/18 16:30: PT 15.9 H, INR 1.3, APTT 33.0 05/04/18 16:30: Sodium 141, Potassium 3.9, Chloride 108 H, Carbon Dioxide 28.0, Anion Gap 5, BUN 29 H, Creatinine 1.54 H, Estim Creat Clear Calc 48.29, Est GFR (MDRD) Af Amer 58 L, Est GFR (MDRD) Non-Af 48 L, BUN/Creatinine Ratio 18.8, Glucose 111 H, Calcium 8.3 L, Troponin I < 0.015 05/04/18 16:30: Blood Type O NEGATIVE, Antibody Screen NEGATIVE 05/04/18 16:30: Crossmatch See Detail 05/04/18 16:30: Crossmatch See Detail 05/04/18 21:20: Magnesium 2.1, Troponin I < 0.015 05/04/18 21:20: Hgb 4.7 L*, Hct 17.4 L 05/05/18 00:00: Troponin I < 0.015 05/05/18 03:45: Sodium 145, Potassium 4.1, Chloride 110 H, Carbon Dioxide 28.0, Anion Gap 7, BUN 23 H, Creatinine 1.38 H, Estim Creat Clear Calc 53.89, Est GFR (MDRD) Af Amer 65, Est GFR (MDRD) Non-Af 54 L, BUN/Creatinine Ratio 16.7, Glucose 94, Calcium 8.2 L 05/05/18 03:45: Troponin I < 0.015 05/05/18 03:45: WBC 5.6, RBC 2.67 L, Hgb 5.8 L*, Hct 20.7 L, MCV 77.5 L, MCH 21.7 L, MCHC 28.0 L, RDW 17.2 H, RDW Differential 45.7 H, Plt Count 298, MPV 9.5, Immature Gran % (Auto) 0.200, Neut % (Auto) 62.7, Lymph % (Auto) 20.6, [place] % (Auto) 13.3 H, Eos % (Auto) 2.7, Baso % (Auto) 0.5, Absolute Neuts (auto) 3.5, Absolute Lymphs (auto) 1.16, Total Counted Not Reportable, Diff Path Review May foll, Hypochromasia 2+, Anisocytosis RARE, Microcytosis 1+ Current Medications Al Hydroxide/Mg Hydroxide (Mylanta Ii) 30 ml PO Q6H PRN PRN PRN Reason: Gastric burning Allopurinol (Zyloprim) 300 mg PO DAILY [facility] Amiodarone HCl (Cordarone) 200 mg PO DAILY [facility] Atorvastatin Calcium (Lipitor) 40 mg PO QHS [facility] Last Admin: 05/04/18 21:23 Dose: 40 mg Doxazosin Mesylate (Cardura) 2 mg PO QHS [facility] Last Admin: 05/04/18 21:23 Dose: 2 mg Furosemide (Lasix) 40 mg PO DAILY [facility] Last Admin: 05/05/18 08:58 Dose: Not Given Furosemide (Lasix) 40 mg IV X1 ONE Stop: 05/05/18 08:57 Pantoprazole Sodium 40 mg/ (Sodium Chloride) 110 mls @ 330 mls/hr IV Q12 [facility] Last Admin: 05/04/18 21:22 Dose: 330 mls/hr Sodium Chloride () 250 mls @ 15 mls/hr IV .[id number] PRN PRN Reason: SALINE FLUSH Last Admin: 05/04/18 22:07 Dose: 15 mls/hr Sodium Chloride () 250 mls @ 15 mls/hr IV .[id number] PRN PRN Reason: SALINE FLUSH Losartan Potassium (Cozaar) 25 mg PO DAILY [facility] Magnesium Hydroxide (Milk Of Magnesia) 30 ml PO DAILY PRN PRN PRN Reason: Constipation Metoprolol Tartrate (Lopressor (Beta Masood)) 25 mg PO BID [facility] Last Admin: 05/04/18 21:23 Dose: 25 mg Ondansetron HCl (Zofran) 4 mg IV Q8H PRN PRN PRN Reason: NAUSEA Promethazine HCl (Phenergan) 12.5 mg IV Q6H PRN PRN PRN Reason: NAUSEA/VOMITING Sodium Chloride () 5 - 30 ml IV UD PRN PRN Reason: SALINE FLUSH Last Admin: 10/26/18 08:02 Dose: 20 ml Tramadol HCl (Ultram) 50 - 100 mg PO Q6H PRN PRN PRN Reason: PAIN Medical Necessity - Tobacco Use Smoking Status: Former smoker - Smoked when he was in the and quit remotely. Tobacco Use: Non-smoker Assessment/Plan All Active Problems (Last Reviewed 04/12/18 @ 15:31 by Lemuel Martinez MD) Acute anemia (Acute) Sinus pause (Acute) Acute combined systolic (congestive) and diastolic (congestive) heart failure (Acute) 1. Acute microcytic anemia/A-fib - Possible GI bleed though fecal occult is negative - Received 2 U PRBC yesterday has another 2 for today - Irone studies tomorrow morning - Hold anticoagulation for a-fib, c/w amio and BB - Surgery can do scopes as an outpatient - DC q6 HH - Given how low his H/H was and his fairly asymptomatic presentation, this is likely a very slow bleed 2. CAD s/p BONNY to prox RCA/chronic systolic and diastolic CHF/HTN/HLD - hold his ASA and brillinta for now - c/s to cardiology since his stent was placed in 09/2017 - c/w lasix, ARB - C/w statin DVT: SCDs Diet: NPO Code Visit Inpatient E&M: 65585 Subs Hosp L2
--- NOTE | 2018-05-05 09:08 | PN_ITS ---
Patient Problems: Active and Suspected Problems (Last Reviewed 04/12/18 @ 15:31 by Lemuel Martinez MD) Acute anemia (Acute) Subjective: Doing well, no SOB, chest pain, lightheadedness or dizziness. Feels a little better after his first 2 U PRBC Vitals/I&O's: Vital Signs Temp Pulse Resp BP Pulse Ox 98.4 F 64 14 137/45 H 95 05/05/18 08:15 05/05/18 08:15 05/05/18 08:15 05/05/18 08:15 05/05/18 08:15 Oxygen Flow Rate (L/min) 2 Oxygen Delivery Method Room Air Weight: 260 lb 12.909 oz Body Mass Index (BMI) 35.2 Intake and Output for Last 24 Hours 05/03/18 05/04/18 05/05/18 23:59 23:59 23:59 Intake Total 0 / 0 1896 / 1896 Output Total 325 / 325 Balance 0 / 0 1571 / 1571 General: Alert, Oriented x3, Cooperative, No apparent distress HEENT: Atraumatic, EOMI, Normocephalic Oral: Moist Mucosa Neck: Supple, No JVD Lungs: Clear to auscultation, Normal air movement, No rhonchi, No wheeze, No rales Cardiovascular: Regular rate, Regular Rhythm, Normal S1, Normal S2, No murmurs Abdomen: Soft, Non Tender, Non-Distended, No Hepato-splenomegaly Extremities: No edema, Capillary Refill Less than 3 Seconds Skin: No rashes, No breakdown Neurological: Neuro grossly intact, Sensory exam intact to light touch and pain Psych/Mental Status: Normal Affect, Appropriate Microbiology Past 72 Hours 05/04/18 18:17 Stool Stool Occult Blood ([facility]) - Final Laboratory Results 05/04/18 16:30: WBC 6.0, RBC 2.47 L, Hgb 4.9 L*, Hct 18.2 L, MCV 73.7 L, MCH 19.8 L, MCHC 26.9 L, RDW 16.8 H, RDW Differential 46.2 H, Plt Count 317, MPV 9.5, Immature Gran % (Auto) 0.200, Neut % (Auto) 69.4, Lymph % (Auto) 15.2 L, [place] % (Auto) 12.9 H, Eos % (Auto) 2.0, Baso % (Auto) 0.3, Absolute Neuts (auto) 4.2, Absolute Lymphs (auto) 0.91, Total Counted Not Reportable, Diff Path Review November, Platelet Estimate ADEQUATE, Hypochromasia 3+, Anisocytosis 2+ 05/04/18 16:30: PT 15.9 H, INR 1.3, APTT 33.0 05/04/18 16:30: Sodium 141, Potassium 3.9, Chloride 108 H, Carbon Dioxide 28.0, Anion Gap 5, BUN 29 H, Creatinine 1.54 H, Estim Creat Clear Calc 48.29, Est GFR (MDRD) Af Amer 58 L, Est GFR (MDRD) Non-Af 48 L, BUN/Creatinine Ratio 18.8, Glucose 111 H, Calcium 8.3 L, Troponin I < 0.015 05/04/18 16:30: Blood Type O NEGATIVE, Antibody Screen NEGATIVE 05/04/18 16:30: Crossmatch See Detail 05/04/18 16:30: Crossmatch See Detail 05/04/18 21:20: Magnesium 2.1, Troponin I < 0.015 05/04/18 21:20: Hgb 4.7 L*, Hct 17.4 L 05/05/18 00:00: Troponin I < 0.015 05/05/18 03:45: Sodium 145, Potassium 4.1, Chloride 110 H, Carbon Dioxide 28.0, Anion Gap 7, BUN 23 H, Creatinine 1.38 H, Estim Creat Clear Calc 53.89, Est GFR (MDRD) Af Amer 65, Est GFR (MDRD) Non-Af 54 L, BUN/Creatinine Ratio 16.7, Glucose 94, Calcium 8.2 L 05/05/18 03:45: Troponin I < 0.015 05/05/18 03:45: WBC 5.6, RBC 2.67 L, Hgb 5.8 L*, Hct 20.7 L, MCV 77.5 L, MCH 21.7 L, MCHC 28.0 L, RDW 17.2 H, RDW Differential 45.7 H, Plt Count 298, MPV 9.5, Immature Gran % (Auto) 0.200, Neut % (Auto) 62.7, Lymph % (Auto) 20.6, [place] % (Auto) 13.3 H, Eos % (Auto) 2.7, Baso % (Auto) 0.5, Absolute Neuts (auto) 3.5, Absolute Lymphs (auto) 1.16, Total Counted Not Reportable, Diff Path Review May foll, Hypochromasia 2+, Anisocytosis RARE, Microcytosis 1+ Current Medications Al Hydroxide/Mg Hydroxide (Mylanta Ii) 30 ml PO Q6H PRN PRN PRN Reason: Gastric burning Allopurinol (Zyloprim) 300 mg PO DAILY [facility] Amiodarone HCl (Cordarone) 200 mg PO DAILY [facility] Atorvastatin Calcium (Lipitor) 40 mg PO QHS [facility] Last Admin: 05/04/18 21:23 Dose: 40 mg Doxazosin Mesylate (Cardura) 2 mg PO QHS [facility] Last Admin: 05/04/18 21:23 Dose: 2 mg Furosemide (Lasix) 40 mg PO DAILY [facility] Last Admin: 05/05/18 08:58 Dose: Not Given Furosemide (Lasix) 40 mg IV X1 ONE Stop: 05/05/18 08:57 Pantoprazole Sodium 40 mg/ (Sodium Chloride) 110 mls @ 330 mls/hr IV Q12 [facility] Last Admin: 05/04/18 21:22 Dose: 330 mls/hr Sodium Chloride () 250 mls @ 15 mls/hr IV .[id number] PRN PRN Reason: SALINE FLUSH Last Admin: 05/04/18 22:07 Dose: 15 mls/hr Sodium Chloride () 250 mls @ 15 mls/hr IV .[id number] PRN PRN Reason: SALINE FLUSH Losartan Potassium (Cozaar) 25 mg PO DAILY [facility] Magnesium Hydroxide (Milk Of Magnesia) 30 ml PO DAILY PRN PRN PRN Reason: Constipation Metoprolol Tartrate (Lopressor (Beta Masood)) 25 mg PO BID [facility] Last Admin: 05/04/18 21:23 Dose: 25 mg Ondansetron HCl (Zofran) 4 mg IV Q8H PRN PRN PRN Reason: NAUSEA Promethazine HCl (Phenergan) 12.5 mg IV Q6H PRN PRN PRN Reason: NAUSEA/VOMITING Sodium Chloride () 5 - 30 ml IV UD PRN PRN Reason: SALINE FLUSH Last Admin: 10/26/18 08:02 Dose: 20 ml Tramadol HCl (Ultram) 50 - 100 mg PO Q6H PRN PRN PRN Reason: PAIN Medical Necessity - Tobacco Use Smoking Status: Former smoker - Smoked when he was in the and quit remotely. Tobacco Use: Non-smoker Assessment/Plan All Active Problems (Last Reviewed 04/12/18 @ 15:31 by Lemuel Martinez MD) Acute anemia (Acute) Sinus pause (Acute) Acute combined systolic (congestive) and diastolic (congestive) heart failure (Acute) 1. Acute microcytic anemia/A-fib - Possible GI bleed though fecal occult is negative - Received 2 U PRBC yesterday has another 2 for today - Irone studies tomorrow morning - Hold anticoagulation for a-fib, c/w amio and BB - Surgery can do scopes as an outpatient - DC q6 HH - Given how low his H/H was and his fairly asymptomatic presentation, this is likely a very slow bleed 2. CAD s/p BONNY to prox RCA/chronic systolic and diastolic CHF/HTN/HLD - hold his ASA and brillinta for now - c/s to cardiology since his stent was placed in 09/2017 - c/w lasix, ARB - C/w statin DVT: SCDs Diet: NPO Code Visit Inpatient E&M: 71223 Subs Hosp L2
[2018-05-05] MEDS: Furosemide 40 MG/4 ML Vial IV (09:22)
[2018-05-05] MEDS: Metoprolol Tartrate 25 MG Tablet PO ×2 (09:58→22:44)
[2018-05-05] MEDS: Amiodarone 200 MG Tablet PO (09:58)
[2018-05-05] MEDS: Losartan Potassium 25 MG Tablet PO (09:58)
[2018-05-05] MEDS: Allopurinol 300 MG Tablet PO (09:59)
--- NOTE | 2018-05-05 10:02 | CASEMGMT ---
RN CM Assessment -Intro role of CM to patient in room . He is able to participate in RN CM assessment. PCP: Dr. Lyons Pharmacy: [facility] Prescription coverage: None. Pt will be signing up for MCR part D on discharge. DME: Cane Transportation: Drives Living arrangements: lives with S.O. States he is independent. Has used cane past few weeks for safety due to lightheadedness. Independent in ADL's. DC PLAN: Home on discharge.
--- NOTE | 2018-05-05 10:10 | CASEMGMT ---
RN CM Assessment -Intro role of CM to patient in room . He is able to participate in RN CM assessment. PCP: Dr. Lyons Pharmacy: [facility] Prescription coverage: None. Pt will be signing up for MCR part D on discharge. Is on Brillinta and Eliquis prior to admission. Receives assistance for these medications which are mail ordered to his home. DME: Cane Transportation: Drives Living arrangements: lives with S.O. States he is independent. Has used cane past few weeks for safety due to lightheadedness. Independent in ADL's. DC PLAN: Home on discharge.
[2018-05-05] MEDS: 0.9% NaCl IVPB Med Flush (250 mL) 15 ML IV (11:36)
--- NOTE | 2018-05-05 16:02 | PCM.CONS.C ---
Problem List (1) Acute anemia Status: Acute (2) Bradycardia Status: Chronic (3) Sinus pause Status: Acute (4) Acute combined systolic (congestive) and diastolic (congestive) heart failure Status: Acute (5) Dyslipidemia Status: Chronic (6) Cardiomyopathy in disease classified elsewhere Status: Chronic (7) History of coronary artery stent placement Status: Chronic Comment: PCI-BONNY Prox RCA 3.5 x 17 mm Elunir 09/19/17 (8) Atherosclerosis of coronary artery of [place] heart without angina pectoris Status: Chronic Qualifiers: Coronary Disease-Associated Artery/Lesion type: [place] artery Qualified Code(s): I25.10 - Atherosclerotic heart disease of [place] coronary artery without angina pectoris Comment: PCI-BONNY Prox RCA 3.5 x 17 mm Elunir 09/19/17 (9) Hypertension Status: Chronic Qualifiers: Hypertension type: essential hypertension Qualified Code(s): I10 - Essential (primary) hypertension Reason for Consult Date of Consultation: 05/05/18 Reason for Consultation: Coronary artery disease status post stenting in September 2017, acute anemia, hypertension, hypercholesterolemia. History of Present Illness: The patient is a 73 year old M, patient of Dr. Slater, nondiabetic, with a history of hypertension, hypercholesterolemia, coronary artery disease status post angioplasty and stenting at [facility] in September 2017. At that time he received a 3.5X 17 Elunir drug-eluting stent, postdilated to 4.0 mm throughout in the right coronary artery. In addition he has a history of what appears to be atrial fibrillation and was on triple anticoagulant therapy including baby aspirin, Brilinta, and Eliquis. The patient was doing well up into the last several weeks when he began developing worsening fatigue, dyspnea on exertion, shortness of breath, lightheadedness and dizziness. He denied any chest pain. When his symptoms did not improve he sought medical attention at [facility] ER where an EKG showed normal sinus rhythm, left bundle branch block, no acute changes. He was found to have a hemoglobin of 4.9, and is undergoing his third unit of PRBC transfusion, awaiting a total of 4 units. The patient denies any hematochezia, bright red blood per rectum, coffee-ground emesis, or other bleeding issues. He was taking and tolerating his medicines well. His baby aspirin, Brilinta, and Eliquis have been put on hold. He has no history of GI bleeding. His troponins are negative x3. [] Past Medical History Allergies/Adverse Reactions: Allergies Sulfa (Sulfonamide Antibiotics) Allergy (Verified 05/04/18 15:37) Hives Home Medications: Ambulatory Orders Medication Instructions Recorded Allopurinol [Zyloprim] 300 mg PO DAILY 09/15/17 Doxazosin Mesylate [Cardura] 4 mg PO QHS 09/15/17 Aspirin E.C. [Ecotrin] 81 mg PO DAILY@0800 #30 tab 09/21/17 atorvastatin 40 mg tablet 40 mg PO QHS #30 tab 10/21/17 Tramadol HCl [Ultram] 50 - 100 mg PO Q6H PRN 11/25/17 losartan 25 mg tablet 25 mg PO QDAY tab 12/21/17 Brilinta 90 mg tablet 90 mg PO BID #180 tab NS 01/12/18 furosemide 40 mg tablet 40 mg PO QDAY tab 01/12/18 metoprolol tartrate 50 mg tablet 25 mg PO BID tab 01/12/18 Amiodarone HCl 200 mg PO DAILY 05/04/18 Apixaban [Eliquis] 5 mg PO BID 05/04/18 Past Medical History (Chronic Problems): Chronic Problems (Last Reviewed 04/12/18 @ 15:31 by Lemuel Martinez MD) Heart failure (Chronic) Bradycardia (Chronic) Dyslipidemia (Chronic) Obesity (Chronic) History of appendectomy (Chronic) Nonrheumatic mitral (valve) insufficiency (Chronic) Non-rheumatic tricuspid valve insufficiency (Chronic) Cardiomyopathy in disease classified elsewhere (Chronic) Secondary pulmonary arterial hypertension (Chronic) Persistent atrial fibrillation (Chronic) History of coronary artery stent placement (Chronic ~09/19/17) PCI-BONNY Prox RCA 3.5 x 17 mm Elunir 09/19/17 Atherosclerosis of coronary artery of [place] heart without angina pectoris (Chronic) PCI-BONNY Prox RCA 3.5 x 17 mm Elunir 09/19/17 Hypertension (Chronic) Surgical History: - - Intestinal perforation repair, PCI, appendectomy. Psychiatric History: No pertinent psych hx - *Family History Maternal Family History: Family History (Last Reviewed 04/12/18 @ 15:31 by Lemuel Martinez MD) Father Heart disease Brother Heart disease History Items: Heart Disease Paternal Family History: Family History (Last Reviewed 04/12/18 @ 15:31 by Lemuel Martinez MD) Father Heart disease Brother Heart disease History Items: Heart Disease Sibling Family History: Family History (Last Reviewed 04/12/18 @ 15:31 by Lemuel Martinez MD) Father Heart disease Brother Heart disease History Items: Heart Disease - pacemaker Lives: Spouse/ Significant Other Smoking Status: Former smoker - Smoked when he was in the and quit remotely. Tobacco Use: Non-smoker Alcohol: Occasional Drugs: None Review of Systems - Review of Systems General: Reports: Fatigue, Malaise, Weakness. Denies: Fever, Night Sweats Cardiovascular: Reports: Shortness of Breath, Shortness of Breath with Exertion. Denies: Chest Discomfort, Orthopnea, PND, Peripheral Edema, Palpitations, Lightheadedness, Dizziness, Near Syncope, Syncope Respiratory: Denies: Cough, Sputum Production, Hemoptysis Gastrointestinal: Denies: Hematemesis, Hematochezia, Melena Genitourinary: Denies: Dysuria, Hematuria Skin: Denies: Rash Subjectve: Patient resting comfortably, no acute distress. Denies any chest pain. Objective: Vital Signs Temp Pulse Resp BP Pulse Ox 98.4 F 56 L 15 125/70 H 98 05/05/18 14:41 05/05/18 14:41 05/05/18 14:41 05/05/18 14:41 05/05/18 14:41 Oxygen Flow Rate (L/min) 2 Oxygen Delivery Method Room Air Weight: 260 lb 12.909 oz Body Mass Index (BMI) 35.2 Intake and Output for Last 24 Hours 05/03/18 05/04/18 05/05/18 23:59 23:59 23:59 Intake Total 0 / 0 2906 / 2906 Output Total 2075 / 2075 Balance 0 / 0 831 / 831 General: Awake, Alert, Oriented x 3 HEENT: PERRL, EOMI, Sclera Non Icteric Neck: Supple, Good ROM, No Lymph Node Enlargement Lungs: Clear to auscultation Cardiovascular: Regular Rhythm, Normal S1, Normal S2, No Murmurs, No Rubs, No Gallops Vascular: No Carotid Bruits, Normal Femoral Pulses, Normal Radial Pulses, Normal Dorsalis Pedal Pulse, Normal Posterior Tibial Pulses Abdomen: Bowel Sounds Present, Soft, Non Tender, No HSM, No Organomegaly Extremities: No Cyanosis, No Clubbing, No edema Neurological: No Focal Motor or Sensory Deficit 05/04/18 16:30: WBC 6.0, RBC 2.47 L, Hgb 4.9 L*, Hct 18.2 L, MCV 73.7 L, MCH 19.8 L, MCHC 26.9 L, RDW 16.8 H, RDW Differential 46.2 H, Plt Count 317, MPV 9.5, Immature Gran % (Auto) 0.200, Neut % (Auto) 69.4, Lymph % (Auto) 15.2 L, [place] % (Auto) 12.9 H, Eos % (Auto) 2.0, Baso % (Auto) 0.3, Absolute Neuts (auto) 4.2, Total Counted Not Reportable 05/04/18 16:30: PT 15.9 H, INR 1.3, APTT 33.0 05/04/18 16:30: Sodium 141, Potassium 3.9, Chloride 108 H, Carbon Dioxide 28.0, Anion Gap 5, BUN 29 H, Creatinine 1.54 H, Est GFR (MDRD) Af Amer 58 L, Est GFR (MDRD) Non-Af 48 L, BUN/Creatinine Ratio 18.8, Glucose 111 H, Calcium 8.3 L, Troponin I < 0.015 05/04/18 21:20: Magnesium 2.1, Troponin I < 0.015 05/04/18 21:20: Hgb 4.7 L*, Hct 17.4 L 05/05/18 00:00: Troponin I < 0.015 05/05/18 03:45: Sodium 145, Potassium 4.1, Chloride 110 H, Carbon Dioxide 28.0, Anion Gap 7, BUN 23 H, Creatinine 1.38 H, Est GFR (MDRD) Af Amer 65, Est GFR (MDRD) Non-Af 54 L, BUN/Creatinine Ratio 16.7, Glucose 94, Calcium 8.2 L 05/05/18 03:45: Troponin I < 0.015 05/05/18 03:45: WBC 5.6, RBC 2.67 L, Hgb 5.8 L*, Hct 20.7 L, MCV 77.5 L, MCH 21.7 L, MCHC 28.0 L, RDW 17.2 H, RDW Differential 45.7 H, Plt Count 298, MPV 9.5, Immature Gran % (Auto) 0.200, Neut % (Auto) 62.7, Lymph % (Auto) 20.6, [place] % (Auto) 13.3 H, Eos % (Auto) 2.7, Baso % (Auto) 0.5, Absolute Neuts (auto) 3.5, Total Counted Not Reportable Rhythm: EKG: ECHO: Stress Test: Cardiac Cath: PCI: CT Surgery: Holter monitor: EPS: PPM: CXR: Chest CT Scan: Assessment/Plan 1. Coronary artery disease: The patient is status post angioplasty and drug-eluting stent to his proximal RCA in September 2017. At that time he received a 3.5X 17 Elunir drug-eluting stent, postdilated with a 4.0 mm balloon. As this was a drug-eluting stent, the patient will require dual antiplatelet therapy for at least 6 months time, and preferably for 1 year. However he has acute anemia, most likely from a GI source, I would recommend holding his baby aspirin and Brilinta until his EGD and colonoscopy have been completed. I would definitely recommend holding his Eliquis going forward as he is in sinus rhythm and has maintained that for some time. Would recommend keeping his potassium of 4.0 and his magnesium of 2.0 to avoid recurrence to atrial fibrillation. Pending the outcome of his EGD and colonoscopy and provided he has no additional bleeding issues that are observable, would recommend holding his baby aspirin and Brilinta for at least 2 days time, followed by restarting it without a repeat bolus. Would not recommend heparin at this time. I do not recommend the patient undergo a repeat echocardiogram or stress test at this time. His troponins have been negative. 2. Atrial fibrillation: Apparently the patient is status post DC cardioversion, and remains in normal sinus rhythm. We discontinue Eliquis therapy going forward given his acute anemia. Continue amiodarone to maintain normal sinus rhythm. 3. Hyperlipidemia: Continue statin based medications. Continue Lipitor therapy. 4. Thank you very much for the opportunity to participate in the cardiac care of your patient. Consultation time took place between 8 AM and 8:30 AM. Code Visit Inpatient E&M: 43213 Init Hosp L2
--- NOTE | 2018-05-05 16:06 | CON.PCM_ITS ---
Problem List (1) Acute anemia Status: Acute (2) Bradycardia Status: Chronic (3) Sinus pause Status: Acute (4) Acute combined systolic (congestive) and diastolic (congestive) heart failure Status: Acute (5) Dyslipidemia Status: Chronic (6) Cardiomyopathy in disease classified elsewhere Status: Chronic (7) History of coronary artery stent placement Status: Chronic Comment: PCI-BONNY Prox RCA 3.5 x 17 mm Elunir 09/19/17 (8) Atherosclerosis of coronary artery of [place] heart without angina pectoris Status: Chronic Qualifiers: Coronary Disease-Associated Artery/Lesion type: [place] artery Qualified Code(s): I25.10 - Atherosclerotic heart disease of [place] coronary artery without angina pectoris Comment: PCI-BONNY Prox RCA 3.5 x 17 mm Elunir 09/19/17 (9) Hypertension Status: Chronic Qualifiers: Hypertension type: essential hypertension Qualified Code(s): I10 - Essential (primary) hypertension Reason for Consult Date of Consultation: 05/05/18 Reason for Consultation: Coronary artery disease status post stenting in September 2017, acute anemia, hypertension, hypercholesterolemia. History of Present Illness: The patient is a 73 year old M, patient of Dr. Slater, nondiabetic, with a history of hypertension, hypercholesterolemia, coronary artery disease status post angioplasty and stenting at [facility] in September 2017. At that time he received a 3.5X 17 Elunir drug-eluting stent, postdilated to 4.0 mm throughout in the right coronary artery. In addition he has a history of what appears to be atrial fibrillation and was on triple anticoagulant therapy including baby aspirin, Brilinta, and Eliquis. The patient was doing well up into the last several weeks when he began developing worsening fatigue, dyspnea on exertion, shortness of breath, lightheadedness and dizziness. He denied any chest pain. When his symptoms did not improve he sought medical attention at [facility] ER where an EKG showed normal sinus rhythm, left bundle branch block, no acute changes. He was found to have a hemoglobin of 4.9, and is undergoing his third unit of PRBC transfusion, awaiting a total of 4 units. The patient denies any hematochezia, bright red blood per rectum, coffee-ground emesis, or other bleeding issues. He was taking and tolerating his medicines well. His baby aspirin, Brilinta, and Eliquis have been put on hold. He has no history of GI bleeding. His troponins are negative x3. [] Past Medical History Allergies/Adverse Reactions: Allergies Sulfa (Sulfonamide Antibiotics) Allergy (Verified 05/04/18 15:37) Hives Home Medications: Ambulatory Orders Medication Instructions Recorded Allopurinol [Zyloprim] 300 mg PO DAILY 09/15/17 Doxazosin Mesylate [Cardura] 4 mg PO QHS 09/15/17 Aspirin E.C. [Ecotrin] 81 mg PO DAILY@0800 #30 tab 09/21/17 atorvastatin 40 mg tablet 40 mg PO QHS #30 tab 10/21/17 Tramadol HCl [Ultram] 50 - 100 mg PO Q6H PRN 11/25/17 losartan 25 mg tablet 25 mg PO QDAY tab 12/21/17 Brilinta 90 mg tablet 90 mg PO BID #180 tab NS 01/12/18 furosemide 40 mg tablet 40 mg PO QDAY tab 01/12/18 metoprolol tartrate 50 mg tablet 25 mg PO BID tab 01/12/18 Amiodarone HCl 200 mg PO DAILY 05/04/18 Apixaban [Eliquis] 5 mg PO BID 05/04/18 Past Medical History (Chronic Problems): Chronic Problems (Last Reviewed 04/12/18 @ 15:31 by Lemuel Martinez MD) Heart failure (Chronic) Bradycardia (Chronic) Dyslipidemia (Chronic) Obesity (Chronic) History of appendectomy (Chronic) Nonrheumatic mitral (valve) insufficiency (Chronic) Non-rheumatic tricuspid valve insufficiency (Chronic) Cardiomyopathy in disease classified elsewhere (Chronic) Secondary pulmonary arterial hypertension (Chronic) Persistent atrial fibrillation (Chronic) History of coronary artery stent placement (Chronic ~09/19/17) PCI-BONNY Prox RCA 3.5 x 17 mm Elunir 09/19/17 Atherosclerosis of coronary artery of [place] heart without angina pectoris (Chronic) PCI-BONNY Prox RCA 3.5 x 17 mm Elunir 09/19/17 Hypertension (Chronic) Surgical History: - - Intestinal perforation repair, PCI, appendectomy. Psychiatric History: No pertinent psych hx - *Family History Maternal Family History: Family History (Last Reviewed 04/12/18 @ 15:31 by Lemuel Martinez MD) Father Heart disease Brother Heart disease History Items: Heart Disease Paternal Family History: Family History (Last Reviewed 04/12/18 @ 15:31 by Lemuel Martinez MD) Father Heart disease Brother Heart disease History Items: Heart Disease Sibling Family History: Family History (Last Reviewed 04/12/18 @ 15:31 by Lemuel Martinez MD) Father Heart disease Brother Heart disease History Items: Heart Disease - pacemaker Lives: Spouse/ Significant Other Smoking Status: Former smoker - Smoked when he was in the and quit remotely. Tobacco Use: Non-smoker Alcohol: Occasional Drugs: None Review of Systems - Review of Systems General: Reports: Fatigue, Malaise, Weakness. Denies: Fever, Night Sweats Cardiovascular: Reports: Shortness of Breath, Shortness of Breath with Exertion. Denies: Chest Discomfort, Orthopnea, PND, Peripheral Edema, Palpitations, Lightheadedness, Dizziness, Near Syncope, Syncope Respiratory: Denies: Cough, Sputum Production, Hemoptysis Gastrointestinal: Denies: Hematemesis, Hematochezia, Melena Genitourinary: Denies: Dysuria, Hematuria Skin: Denies: Rash Subjectve: Patient resting comfortably, no acute distress. Denies any chest pain. Objective: Vital Signs Temp Pulse Resp BP Pulse Ox 98.4 F 56 L 15 125/70 H 98 05/05/18 14:41 05/05/18 14:41 05/05/18 14:41 05/05/18 14:41 05/05/18 14:41 Oxygen Flow Rate (L/min) 2 Oxygen Delivery Method Room Air Weight: 260 lb 12.909 oz Body Mass Index (BMI) 35.2 Intake and Output for Last 24 Hours 05/03/18 05/04/18 05/05/18 23:59 23:59 23:59 Intake Total 0 / 0 2906 / 2906 Output Total 2075 / 2075 Balance 0 / 0 831 / 831 General: Awake, Alert, Oriented x 3 HEENT: PERRL, EOMI, Sclera Non Icteric Neck: Supple, Good ROM, No Lymph Node Enlargement Lungs: Clear to auscultation Cardiovascular: Regular Rhythm, Normal S1, Normal S2, No Murmurs, No Rubs, No Gallops Vascular: No Carotid Bruits, Normal Femoral Pulses, Normal Radial Pulses, Normal Dorsalis Pedal Pulse, Normal Posterior Tibial Pulses Abdomen: Bowel Sounds Present, Soft, Non Tender, No HSM, No Organomegaly Extremities: No Cyanosis, No Clubbing, No edema Neurological: No Focal Motor or Sensory Deficit 05/04/18 16:30: WBC 6.0, RBC 2.47 L, Hgb 4.9 L*, Hct 18.2 L, MCV 73.7 L, MCH 19.8 L, MCHC 26.9 L, RDW 16.8 H, RDW Differential 46.2 H, Plt Count 317, MPV 9.5, Immature Gran % (Auto) 0.200, Neut % (Auto) 69.4, Lymph % (Auto) 15.2 L, [place] % (Auto) 12.9 H, Eos % (Auto) 2.0, Baso % (Auto) 0.3, Absolute Neuts (auto) 4.2, Total Counted Not Reportable 05/04/18 16:30: PT 15.9 H, INR 1.3, APTT 33.0 05/04/18 16:30: Sodium 141, Potassium 3.9, Chloride 108 H, Carbon Dioxide 28.0, Anion Gap 5, BUN 29 H, Creatinine 1.54 H, Est GFR (MDRD) Af Amer 58 L, Est GFR (MDRD) Non-Af 48 L, BUN/Creatinine Ratio 18.8, Glucose 111 H, Calcium 8.3 L, Troponin I < 0.015 05/04/18 21:20: Magnesium 2.1, Troponin I < 0.015 05/04/18 21:20: Hgb 4.7 L*, Hct 17.4 L 05/05/18 00:00: Troponin I < 0.015 05/05/18 03:45: Sodium 145, Potassium 4.1, Chloride 110 H, Carbon Dioxide 28.0, Anion Gap 7, BUN 23 H, Creatinine 1.38 H, Est GFR (MDRD) Af Amer 65, Est GFR (MDRD) Non-Af 54 L, BUN/Creatinine Ratio 16.7, Glucose 94, Calcium 8.2 L 05/05/18 03:45: Troponin I < 0.015 05/05/18 03:45: WBC 5.6, RBC 2.67 L, Hgb 5.8 L*, Hct 20.7 L, MCV 77.5 L, MCH 21.7 L, MCHC 28.0 L, RDW 17.2 H, RDW Differential 45.7 H, Plt Count 298, MPV 9.5, Immature Gran % (Auto) 0.200, Neut % (Auto) 62.7, Lymph % (Auto) 20.6, [place] % (Auto) 13.3 H, Eos % (Auto) 2.7, Baso % (Auto) 0.5, Absolute Neuts (auto) 3.5, Total Counted Not Reportable Rhythm: EKG: ECHO: Stress Test: Cardiac Cath: PCI: CT Surgery: Holter monitor: EPS: PPM: CXR: Chest CT Scan: Assessment/Plan 1. Coronary artery disease: The patient is status post angioplasty and drug- eluting stent to his proximal RCA in September 2017. At that time he received a 3.5X 17 Elunir drug-eluting stent, postdilated with a 4.0 mm balloon. As this was a drug-eluting stent, the patient will require dual antiplatelet therapy for at least 6 months time, and preferably for 1 year. However he has acute anemia, most likely from a GI source, I would recommend holding his baby aspirin and Brilinta until his EGD and colonoscopy have been completed. I would definitely recommend holding his Eliquis going forward as he is in sinus rhythm and has maintained that for some time. Would recommend keeping his potassium of 4.0 and his magnesium of 2.0 to avoid recurrence to atrial fibrillation. Pending the outcome of his EGD and colonoscopy and provided he has no additional bleeding issues that are observable, would recommend holding his baby aspirin and Brilinta for at least 2 days time, followed by restarting it without a repeat bolus. Would not recommend heparin at this time. I do not recommend the patient undergo a repeat echocardiogram or stress test at this time. His troponins have been negative. 2. Atrial fibrillation: Apparently the patient is status post DC cardioversion, and remains in normal sinus rhythm. We discontinue Eliquis therapy going forward given his acute anemia. Continue amiodarone to maintain normal sinus rhythm. 3. Hyperlipidemia: Continue statin based medications. Continue Lipitor therapy. 4. Thank you very much for the opportunity to participate in the cardiac care of your patient. Consultation time took place between 8 AM and 8:30 AM. Code Visit Inpatient E&M: 94880 Init Hosp L2
[2018-05-05 16:26] LABS: Hematocrit 25.6 % (40-54); Hemoglobin 7.5 g/dl (13.0-16.5)
[2018-05-05] MEDS: Doxazosin 4 MG Tablet 2 MG PO (22:43)
[2018-05-05] MEDS: Atorvastatin Calcium 40 MG Tablet PO (22:44)
[2018-05-06] VITALS (12 sets, daily range): BP systolic 105–125; BP diastolic 41–64; PULSE 53–89; RESP 16–18; TEMP 36.4–37; O2SAT 91–98
[2018-05-06 06:51] LABS: Hematocrit 25.2 % (40-54); Hemoglobin 7.3 g/dl (13.0-16.5); Mean Corpuscular Hgb 22.9 pg (27.0-32.0); Mean Platelet Vol. 9.9 fl (6.2-12.0); Platelet Count 279 K/mm3 (150-450); RBC Distribution Width CV 18.1 % (11.6-14.6); RBC Distribution Width SD 49.6 fl (35.1-43.9); Red Blood Count 3.19 M/mm3 (4.6-6.2); Scan Indicated on CBC? Y/N NO; White Blood Count 6.2 K/mm3 (4.4-11.0)
--- NOTE | 2018-05-06 06:54 | PN_ITS ---
Patient Problems: Active and Suspected Problems (Last Reviewed 04/12/18 @ 15:31 by Lemuel Martinez MD) Acute anemia (Acute) Subjective: The patient was seen and examined at the bedside this morning. Events from the last 24 hours have been reviewed. The patient is currently afebrile, hemodynamically stable and maintaining appropriate oxygen saturations on room air. In total, the patient has received 4 units of packed red blood cells on the admission. Hemoglobin improved yesterday to 7.5 g/dL. Objective: The patient's most recent lab work, culture data and imaging studies have all been personally reviewed. - Physical Exam General: Alert, Cooperative, No apparent distress HEENT: Atraumatic, PERRLA, Normocephalic Oral: No Gingival or Mucosal Lesions/ Ulcerations Neck: Supple, No Nodes, Trachea Midline Lungs: Normal air movement, No rhonchi, No wheeze, No rales Cardiovascular: Regular rate, Regular Rhythm, Normal S1, Normal S2, No murmurs Abdomen: Bowel Sounds Present, Soft, Non Tender Extremities: No clubbing, No cyanosis, No edema Skin: No breakdown Musculoskeletal: No Tenderness to Palpation of Joints or Extremities, No Muscle Wasting Lymphatic: No Cervical, Supraclavicular, or Inguinal Adenopathy Neurological: Cranial nerves II-XII grossly intact, Neuro grossly intact Psych/Mental Status: Alert and oriented to time, place, person, mood and affect Vital Signs Temp Pulse Resp BP Pulse Ox 98.2 F 58 L 18 105/41 L 95 05/06/18 04:30 05/06/18 04:30 05/06/18 04:30 05/06/18 04:30 05/06/18 04:30 Oxygen Flow Rate (L/min) 2 Oxygen Delivery Method Room Air Weight: 259 lb 4.218 oz Body Mass Index (BMI) 35.2 Intake and Output for Last 24 Hours 05/04/18 05/05/18 05/06/18 23:59 23:59 23:59 Intake Total 0 / 0 3016 / 3016 Output Total 3375 / 3375 Balance 0 / 0 -359 / -359 Microbiology Past 72 Hours 05/04/18 18:17 Stool Occult Blood ([facility]) - Final Stool Laboratory Tests Past 24 Hrs 05/04/18 05/05/18 05/06/18 16:30 16:15 05:35 WBC Pending RBC Pending Hgb 7.5 L Pending Hct 25.6 L Pending MCV Pending MCH Pending MCHC Pending RDW Pending RDW Differential Pending Plt Count Pending Sodium Potassium Chloride Carbon Dioxide Anion Gap BUN Creatinine Est GFR (MDRD) Af Amer Est GFR (MDRD) Non-Af BUN/Creatinine Ratio Glucose Calcium Crossmatch See Detail 05/06/18 05:35 WBC RBC Hgb Hct MCV MCH MCHC RDW RDW Differential Plt Count Sodium Pending Potassium Pending Chloride Pending Carbon Dioxide Pending Anion Gap Pending BUN Pending Creatinine Pending Est GFR (MDRD) Af Amer Pending Est GFR (MDRD) Non-Af Pending BUN/Creatinine Ratio Pending Glucose Pending Calcium Pending Crossmatch Clinical Impression(s) from Imaging Studies Chest X-Ray 05/04/18 17:00 IMPRESSION: No acute pulmonary process Electronically Signed: Fritz Gardner MD at 17:16 EDT , Service support , Medical Necessity - Tobacco Use Smoking Status: Former smoker - Smoked when he was in the and quit remotely. Tobacco Use: Non-smoker Assessment/Plan All Active Problems (Last Reviewed 04/12/18 @ 15:31 by Lemuel Martinez MD) Acute anemia (Acute) Sinus pause (Acute) Acute combined systolic (congestive) and diastolic (congestive) heart failure (Acute) RECOMMENDATIONS: 1. Transfuse to maintain a hemoglobin of at least 7 g/dL. 2. Check CBC daily. 3. Maintain appropriate large-bore peripheral IV access. 4. Continue PPI therapy 5. Hold antiplatelet agents, along with Eliquis. 6. Planed endoscopy per surgery recommendations. IMPRESSIONS: 1. Microcytic anemia with concern for gastrointestinal blood loss May be related to a slow, chronic gastrointestinal bleed, in the setting of dual antiplatelet therapy and Eliquis utilization. Despite this, the patient remains hemodynamically stable. Recommend transfusing packed red blood cells to maintain a hemoglobin at or above 7 g/dL. There are no emergent plans for endoscopy from a surgery perspective. Would recommend continuing PPI therapy. Check CBC daily. Continue to hold antiplatelet therapy and Eliquis. 2. Ischemic cardiomyopathy with recent PTCA and drug-eluting stent placement in September 2017/heart failure with preserved ejection fraction Cardiology has been consulted to weigh in with regards to the future utilization of dual antiplatelet therapy in the setting of recent drug-eluting stent placement. Obviously, these agents are being placed on hold for the time being. Will defer to their recommendations with regards to the agent selection for reinitiation of antiplatelet therapy, following stabilization. 3. Gout/hypertension/hyperlipidemia Complicates care, management, recovery and prognosis. This note was generated with [employer] software. It may contain incorrect words, spelling, and punctuation that were not noted in checking the note before signing. DISPOSITION: Given the patient's lack of ongoing ICU/pulmonary needs, will sign off. Please call with any additional questions. Code Visit Inpatient E&M: [id number] Subs Hosp L2
[2018-05-06 07:16] LABS: Anion Gap 6 (5-15); BUN 20 mg/dL (7-18); BUN/Creat Ratio 14.6 RATIO (10-20); Calcium,Total 8.6 mg/dL (8.5-10.1); Chloride 106 mmol/L (98-107); Creatinine, Serum 1.37 mg/dL (0.70-1.30); EST Glomerular Filtration Rate 54 mL/min (>60); Est Glom Filt Rate - Afr Amer 66 mL/min (>60); Estimated Creatinine Clearance 54.28 ml/min; Glucose 85 mg/dL (74-106); Potassium 3.8 mmol/L (3.5-5.1); Sodium Level 142 mmol/L (136-145)
[2018-05-06] MEDS: Amiodarone 200 MG Tablet PO (10:14)
[2018-05-06] MEDS: Losartan Potassium 25 MG Tablet PO (10:15)
[2018-05-06] MEDS: Allopurinol 300 MG Tablet PO (10:15)
[2018-05-06] MEDS: Metoprolol Tartrate 25 MG Tablet PO (10:15)
[2018-05-06] MEDS: Furosemide 40 MG Tablet PO (10:15)
[2018-05-06] MEDS: 0.9% NaCl Peripheral Flush Adult/Peds IV ×2 (10:16→13:09)
--- NOTE | 2018-05-06 10:51 | PN.CARD_ITS ---
Subjectve: Patient feels much better after his 4 units of PRBCs and does have some mild shortness of breath today. His hemoglobin is increased to 7.3 and is sta bilized. His aspirin, Brilinta, and Eliquis were discontinued yesterday. EGD and colonoscopy are still pending. Objective: Vital Signs Temp Pulse Resp BP Pulse Ox 98.0 F 89 18 125/64 H 95 05/06/18 10:12 05/06/18 10:15 05/06/18 10:12 05/06/18 10:15 05/06/18 10:12 Oxygen Flow Rate (L/min) 2 Oxygen Delivery Method Room Air Weight: 259 lb 4.218 oz Body Mass Index (BMI) 35.2 Intake and Output for Last 24 Hours 05/04/18 05/05/18 05/06/18 23:59 23:59 23:59 Intake Total 0 / 0 3016 / 3016 Output Total 3375 / 3375 Balance 0 / 0 -359 / -359 General: Awake, Alert, Oriented x 3 HEENT: PERRL, EOMI, Sclera Non Icteric Neck: Supple, Good ROM, No Lymph Node Enlargement Lungs: Clear to auscultation Cardiovascular: Regular Rhythm, Normal S1, Normal S2, No Murmurs, No Rubs, No Gallops Vascular: No Carotid Bruits, Normal Femoral Pulses, Normal Radial Pulses, Normal Dorsalis Pedal Pulse, Normal Posterior Tibial Pulses Abdomen: Bowel Sounds Present, Soft, Non Tender, No HSM, No Organomegaly Extremities: No Cyanosis, No Clubbing, No edema Neurological: No Focal Motor or Sensory Deficit 05/05/18 16:15: Hgb 7.5 L, Hct 25.6 L 05/06/18 05:35: WBC 6.2, RBC 3.19 L, Hgb 7.3 L, Hct 25.2 L, MCV 79.0 L, MCH 22.9 L, MCHC 29.0 L, RDW 18.1 H, RDW Differential 49.6 H, Plt Count 279, MPV 9.9 05/06/18 05:35: Sodium 142, Potassium 3.8, Chloride 106, Carbon Dioxide 30.0, Anion Gap 6, BUN 20 H, Creatinine 1.37 H, Est GFR (MDRD) Af Amer 66, Est GFR (MDRD) Non-Af 54 L, BUN/Creatinine Ratio 14.6, Glucose 85, Calcium 8.6 Rhythm: EKG: ECHO: Stress Test: Cardiac Cath: PCI: CT Surgery: Holter monitor: EPS: PPM: CXR: Chest CT Scan: Medical Necessity - Tobacco Use Smoking Status: Former smoker - Smoked when he was in the and quit remotely. Tobacco Use: Non-smoker Assessment/Plan 1. Coronary artery disease: The patient is status post angioplasty and drug- eluting stent to his proximal RCA in September 2017. At that time he received a 3.5X 17 Elunir drug-eluting stent, postdilated with a 4.0 mm balloon. As this was a drug-eluting stent, the patient will require dual antiplatelet therapy for at least 6 months time, and preferably for 1 year. However he has acute anemia, most likely from a GI source, I would recommend holding his baby aspirin and Brilinta until his EGD and colonoscopy have been completed. I would definitely recommend holding his Eliquis going forward as he is in sinus rhythm and has maintained that for some time. Would recommend keeping his potassium of 4.0 and his magnesium of 2.0 to avoid recurrence to atrial fibrillation. Pending the outcome of his EGD and colonoscopy and provided he has no additional bleeding issues that are observable, would recommend holding his baby aspirin and Brilinta until at least tomorrow, followed by restarting it without a repeat bolus. Would also recommend switching the patient to Plavix 75 mg daily as well as baby aspirin 81 mg a day. Would not recommend heparin at this time. I do not recommend the patient undergo a repeat echocardiogram or stress test at this time. His troponins have been negative. Patient's LVEF is 25% by catheterization in September 2017. Recommend Lasix 40 mg IV x1 now, followed by Lasix 40 mg p.o. daily going forward. Recommend a 1500 cc fluid restriction, and Lasix 40 mg IV in between units of blood. Would recommend keeping his hemoglobin above 8.0. Continue Cozaar therapy for afterload reduction. 2. Atrial fibrillation: Apparently the patient is status post DC cardioversion, and remains in normal sinus rhythm. We discontinue Eliquis therapy going forward given his acute anemia. Continue amiodarone to maintain normal sinus rhythm. 3. Hyperlipidemia: Continue statin based medications. Continue Lipitor therapy. 4. Thank you very much for the opportunity to participate in the cardiac care of your patient. Code Visit Inpatient E&M: [id number] Subs Hosp L2
[2018-05-06 12:10] LABS: Ferritin 9 ng/mL (26-388); Iron Binding Capacity,Total 393 ug/dL (250-450)
--- NOTE | 2018-05-06 12:38 | PCM.PN.HOSP ---
Patient Problems: Active and Suspected Problems (Last Reviewed 04/12/18 @ 15:31 by Lemuel Martinez MD) Acute anemia (Acute) Subjective: Feels much better today but not back to baseline Vitals/I&O's: Vital Signs Temp Pulse Resp BP Pulse Ox 98.0 F 64 18 125/64 H 95 05/06/18 10:12 05/06/18 11:02 05/06/18 10:12 05/06/18 10:15 05/06/18 10:12 Oxygen Flow Rate (L/min) 2 Oxygen Delivery Method Room Air Weight: 259 lb 4.218 oz Body Mass Index (BMI) 35.2 Intake and Output for Last 24 Hours 05/04/18 05/05/18 05/06/18 23:59 23:59 23:59 Intake Total 0 / 0 3016 / 3016 Output Total 3375 / 3375 Balance 0 / 0 -359 / -359 General: Alert, Oriented x3, Cooperative, No apparent distress HEENT: Atraumatic, EOMI, Normocephalic Oral: Moist Mucosa Neck: Supple, No JVD Lungs: Clear to auscultation, Normal air movement, No rhonchi, No wheeze, No rales Cardiovascular: Regular rate, Regular Rhythm, Normal S1, Normal S2, No murmurs Abdomen: Soft, Non Tender, Non-Distended, No Hepato-splenomegaly Extremities: No edema, Capillary Refill Less than 3 Seconds Skin: No rashes, No breakdown Neurological: Neuro grossly intact, Sensory exam intact to light touch and pain Psych/Mental Status: Normal Affect, Appropriate Microbiology Past 72 Hours 05/04/18 18:17 Stool Stool Occult Blood ([facility]) - Final Laboratory Results 05/04/18 16:30: Crossmatch See Detail 05/05/18 16:15: Hgb 7.5 L, Hct 25.6 L 05/06/18 05:35: WBC 6.2, RBC 3.19 L, Hgb 7.3 L, Hct 25.2 L, MCV 79.0 L, MCH 22.9 L, MCHC 29.0 L, RDW 18.1 H, RDW Differential 49.6 H, Plt Count 279, MPV 9.9 05/06/18 05:35: Sodium 142, Potassium 3.8, Chloride 106, Carbon Dioxide 30.0, Anion Gap 6, BUN 20 H, Creatinine 1.37 H, Estim Creat Clear Calc 54.28, Est GFR (MDRD) Af Amer 66, Est GFR (MDRD) Non-Af 54 L, BUN/Creatinine Ratio 14.6, Glucose 85, Calcium 8.6 05/06/18 05:35: TIBC 393, Ferritin 9 L 05/06/18 05:35: Transferrin Pending Current Medications Al Hydroxide/Mg Hydroxide (Mylanta Ii) 30 ml PO Q6H PRN PRN PRN Reason: Gastric burning Allopurinol (Zyloprim) 300 mg PO DAILY [facility] Last Admin: 05/06/18 10:15 Dose: 300 mg Amiodarone HCl (Cordarone) 200 mg PO DAILY [facility] Last Admin: 05/06/18 10:14 Dose: 200 mg Atorvastatin Calcium (Lipitor) 40 mg PO QHS [facility] Last Admin: 05/05/18 22:44 Dose: 40 mg Carvedilol (Coreg) 3.125 mg PO BID [facility] Doxazosin Mesylate (Cardura) 2 mg PO QHS [facility] Last Admin: 05/05/18 22:43 Dose: 2 mg Furosemide (Lasix) 40 mg PO DAILY [facility] Last Admin: 05/06/18 10:15 Dose: 40 mg Pantoprazole Sodium 40 mg/ (Sodium Chloride) 110 mls @ 330 mls/hr IV Q12 [facility] Last Admin: 05/06/18 10:16 Dose: 330 mls/hr Sodium Chloride () 250 mls @ 15 mls/hr IV .[id number] PRN PRN Reason: SALINE FLUSH Last Admin: 05/05/18 11:36 Dose: 15 mls/hr Sodium Chloride () 250 mls @ 15 mls/hr IV .[id number] PRN PRN Reason: SALINE FLUSH Sodium Chloride () 250 mls @ 15 mls/hr IV .[id number] PRN PRN Reason: SALINE FLUSH Losartan Potassium (Cozaar) 25 mg PO DAILY [facility] Last Admin: 05/06/18 10:15 Dose: 25 mg Magnesium Hydroxide (Milk Of Magnesia) 30 ml PO DAILY PRN PRN PRN Reason: Constipation Ondansetron HCl (Zofran) 4 mg IV Q8H PRN PRN PRN Reason: NAUSEA Promethazine HCl (Phenergan) 12.5 mg IV Q6H PRN PRN PRN Reason: NAUSEA/VOMITING Sodium Chloride () 5 - 30 ml IV UD PRN PRN Reason: SALINE FLUSH Last Admin: 05/06/18 10:16 Dose: 10 ml Sodium Chloride/Electrolytes (Nulytely) 4,000 ml PO X1 ONE Stop: 05/07/18 15:01 Tramadol HCl (Ultram) 50 - 100 mg PO Q6H PRN PRN PRN Reason: PAIN Medical Necessity - Tobacco Use Smoking Status: Former smoker - Smoked when he was in the and quit remotely. Tobacco Use: Non-smoker Assessment/Plan All Active Problems (Last Reviewed 04/12/18 @ 15:31 by Lemuel Martinez MD) Acute anemia (Acute) Sinus pause (Acute) Acute combined systolic (congestive) and diastolic (congestive) heart failure (Acute) 1. Acute microcytic anemia/A-fib - Possible GI bleed though fecal occult is negative - 4 U PRBCs given - Hold anticoagulation for a-fib, c/w amio and BB - Surgery can do scopes on tuesday - Given how low his H/H was and his fairly asymptomatic presentation, this is likely a very slow bleed - Iron studies pending 2. CAD s/p BONNY to prox RCA/chronic systolic and diastolic CHF/HTN/HLD - hold his ASA and brillinta for now - c/s to cardiology since his stent was placed in 09/2017 - c/w lasix, ARB - C/w statin DVT: SCDs Diet: Regular Code Visit Inpatient E&M: [id number] Subs Hosp L2
--- NOTE | 2018-05-06 12:42 | PN_ITS ---
Patient Problems: Active and Suspected Problems (Last Reviewed 04/12/18 @ 15:31 by Lemuel Martinez MD) Acute anemia (Acute) Subjective: Feels much better today but not back to baseline Vitals/I&O's: Vital Signs Temp Pulse Resp BP Pulse Ox 98.0 F 64 18 125/64 H 95 05/06/18 10:12 05/06/18 11:02 05/06/18 10:12 05/06/18 10:15 05/06/18 10:12 Oxygen Flow Rate (L/min) 2 Oxygen Delivery Method Room Air Weight: 259 lb 4.218 oz Body Mass Index (BMI) 35.2 Intake and Output for Last 24 Hours 05/04/18 05/05/18 05/06/18 23:59 23:59 23:59 Intake Total 0 / 0 3016 / 3016 Output Total 3375 / 3375 Balance 0 / 0 -359 / -359 General: Alert, Oriented x3, Cooperative, No apparent distress HEENT: Atraumatic, EOMI, Normocephalic Oral: Moist Mucosa Neck: Supple, No JVD Lungs: Clear to auscultation, Normal air movement, No rhonchi, No wheeze, No rales Cardiovascular: Regular rate, Regular Rhythm, Normal S1, Normal S2, No murmurs Abdomen: Soft, Non Tender, Non-Distended, No Hepato-splenomegaly Extremities: No edema, Capillary Refill Less than 3 Seconds Skin: No rashes, No breakdown Neurological: Neuro grossly intact, Sensory exam intact to light touch and pain Psych/Mental Status: Normal Affect, Appropriate Microbiology Past 72 Hours 05/04/18 18:17 Stool Stool Occult Blood (MEREDITH) - Final Laboratory Results 05/04/18 16:30: Crossmatch See Detail 05/05/18 16:15: Hgb 7.5 L, Hct 25.6 L 05/06/18 05:35: WBC 6.2, RBC 3.19 L, Hgb 7.3 L, Hct 25.2 L, MCV 79.0 L, MCH 22.9 L, MCHC 29.0 L, RDW 18.1 H, RDW Differential 49.6 H, Plt Count 279, MPV 9.9 05/06/18 05:35: Sodium 142, Potassium 3.8, Chloride 106, Carbon Dioxide 30.0, Anion Gap 6, BUN 20 H, Creatinine 1.37 H, Estim Creat Clear Calc 54.28, Est GFR (MDRD) Af Amer 66, Est GFR (MDRD) Non-Af 54 L, BUN/Creatinine Ratio 14.6, Glucose 85, Calcium 8.6 05/06/18 05:35: TIBC 393, Ferritin 9 L 05/06/18 05:35: Transferrin Pending Current Medications Al Hydroxide/Mg Hydroxide (Mylanta Ii) 30 ml PO Q6H PRN PRN PRN Reason: Gastric burning Allopurinol (Zyloprim) 300 mg PO DAILY [facility] Last Admin: 05/06/18 10:15 Dose: 300 mg Amiodarone HCl (Cordarone) 200 mg PO DAILY [facility] Last Admin: 05/06/18 10:14 Dose: 200 mg Atorvastatin Calcium (Lipitor) 40 mg PO QHS [facility] Last Admin: 05/05/18 22:44 Dose: 40 mg Carvedilol (Coreg) 3.125 mg PO BID [facility] Doxazosin Mesylate (Cardura) 2 mg PO QHS [facility] Last Admin: 05/05/18 22:43 Dose: 2 mg Furosemide (Lasix) 40 mg PO DAILY [facility] Last Admin: 05/06/18 10:15 Dose: 40 mg Pantoprazole Sodium 40 mg/ (Sodium Chloride) 110 mls @ 330 mls/hr IV Q12 [facility] Last Admin: 05/06/18 10:16 Dose: 330 mls/hr Sodium Chloride () 250 mls @ 15 mls/hr IV .[id number] PRN PRN Reason: SALINE FLUSH Last Admin: 05/05/18 11:36 Dose: 15 mls/hr Sodium Chloride () 250 mls @ 15 mls/hr IV .[id number] PRN PRN Reason: SALINE FLUSH Sodium Chloride () 250 mls @ 15 mls/hr IV .[id number] PRN PRN Reason: SALINE FLUSH Losartan Potassium (Cozaar) 25 mg PO DAILY [facility] Last Admin: 05/06/18 10:15 Dose: 25 mg Magnesium Hydroxide (Milk Of Magnesia) 30 ml PO DAILY PRN PRN PRN Reason: Constipation Ondansetron HCl (Zofran) 4 mg IV Q8H PRN PRN PRN Reason: NAUSEA Promethazine HCl (Phenergan) 12.5 mg IV Q6H PRN PRN PRN Reason: NAUSEA/VOMITING Sodium Chloride () 5 - 30 ml IV UD PRN PRN Reason: SALINE FLUSH Last Admin: 05/06/18 10:16 Dose: 10 ml Sodium Chloride/Electrolytes (Nulytely) 4,000 ml PO X1 ONE Stop: 05/07/18 15:01 Tramadol HCl (Ultram) 50 - 100 mg PO Q6H PRN PRN PRN Reason: PAIN Medical Necessity - Tobacco Use Smoking Status: Former smoker - Smoked when he was in the and quit remotely. Tobacco Use: Non-smoker Assessment/Plan All Active Problems (Last Reviewed 04/12/18 @ 15:31 by Lemuel Martinez MD) Acute anemia (Acute) Sinus pause (Acute) Acute combined systolic (congestive) and diastolic (congestive) heart failure (Acute) 1. Acute microcytic anemia/A-fib - Possible GI bleed though fecal occult is negative - 4 U PRBCs given - Hold anticoagulation for a-fib, c/w amio and BB - Surgery can do scopes on tuesday - Given how low his H/H was and his fairly asymptomatic presentation, this is likely a very slow bleed - Iron studies pending 2. CAD s/p BONNY to prox RCA/chronic systolic and diastolic CHF/HTN/HLD - hold his ASA and brillinta for now - c/s to cardiology since his stent was placed in 09/2017 - c/w lasix, ARB - C/w statin DVT: SCDs Diet: Regular Code Visit Inpatient E&M: 56361 Subs Hosp L2
[2018-05-06] MEDS: Furosemide 40 MG/4 ML Vial IV (13:09)
[2018-05-06 16:45] LABS: Iron 11 ug/dL (65-175)
[2018-05-06] MEDS: Carvedilol 3.125 MG TABLET PO (22:31)
[2018-05-06] MEDS: Atorvastatin Calcium 40 MG Tablet PO (22:31)
[2018-05-06] MEDS: Doxazosin 4 MG Tablet 2 MG PO (22:32)
[2018-05-06] MEDS: Acetaminophen 325 MG Tablet 650 MG PO (23:40)
[2018-05-06] MEDS: Fluticasone 0.05% 1 SPRAY NASAL.SRY NASAL (23:40)
[2018-05-07] VITALS (11 sets, daily range): BP systolic 103–136; BP diastolic 45–71; PULSE 53–91; RESP 16–18; TEMP 36.4–37.1; O2SAT 93–99
[2018-05-07 06:06] LABS: Absolute Lymphocyte Count 1.13 X10^3/ul (0.83-4.51); Absolute Neutrophil Count 3.5 X10^3/uL (2.0-7.7); Basophil# 0.04 X10^3/uL; Basophil% 0.7 % (0-1); Eosinophil# 0.21 X10^3/uL; Eosinophils% 3.6 % (0-5); Hematocrit 25.9 % (40-54); Hemoglobin 7.6 g/dl (13.0-16.5); Lymphocyte # 1.13 X10^3/ul (4.0); Lymphocyte % 19.6 % (19-41); Mean Corp Hgb Conc 29.3 g/gl (32-36); Mean Corpuscular Hgb 23.3 pg (27.0-32.0); Mean Corpuscular Volume 79.4 fL (80-94); Mean Platelet Vol. 9.5 fl (6.2-12.0); Monocyte# 0.89 X10^3/uL; Monocyte% 15.4 % (0-10); Neutrophil % 60.5 % (47-70); Platelet Count 285 K/mm3 (150-450); RBC Distribution Width CV 18.8 % (11.6-14.6); RBC Distribution Width SD 51.9 fl (35.1-43.9); Red Blood Count 3.26 M/mm3 (4.6-6.2); White Blood Count 5.8 K/mm3 (4.4-11.0)
[2018-05-07 06:12] LABS: POSITIVE COUNT NO; POSITIVE DIFFERENTIAL NO; POSITIVE MORPHOLOGY NO
[2018-05-07 06:22] LABS: Anion Gap 6 (5-15); BUN 24 mg/dL (7-18); Calcium,Total 8.3 mg/dL (8.5-10.1); Chloride 108 mmol/L (98-107); EST Glomerular Filtration Rate 49 mL/min (>60); Est Glom Filt Rate - Afr Amer 59 mL/min (>60); Estimated Creatinine Clearance 49.58 ml/min; Glucose 91 mg/dL (74-106); Potassium 3.9 mmol/L (3.5-5.1); Sodium Level 144 mmol/L (136-145)
[2018-05-07] MEDS: Amiodarone 200 MG Tablet PO (09:31)
[2018-05-07] MEDS: Carvedilol 3.125 MG TABLET PO ×2 (09:31→22:55)
[2018-05-07] MEDS: Losartan Potassium 25 MG Tablet PO (09:31)
[2018-05-07] MEDS: Fluticasone 0.05% 1 SPRAY NASAL.SRY NASAL ×2 (09:32→22:53)
[2018-05-07] MEDS: Allopurinol 300 MG Tablet PO (09:32)
[2018-05-07] MEDS: Furosemide 40 MG Tablet PO (09:32)
--- NOTE | 2018-05-07 11:28 | PCM.PN.CARD ---
Subjectve: Patient continues to do well overnight. Telemetry showed normal sinus rhythm/sinus tachycardia. Hemoglobin has remained stable. Awaiting EGD and colonoscopy tomorrow. No chest pain or anginal symptoms. Objective: Vital Signs Temp Pulse Resp BP Pulse Ox 97.5 F L 65 18 103/56 L 97 05/07/18 09:27 05/07/18 09:27 05/07/18 09:27 05/07/18 09:27 05/07/18 09:27 Oxygen Flow Rate (L/min) 2 Oxygen Delivery Method Room Air Weight: 253 lb 1.451 oz Body Mass Index (BMI) 35.2 Intake and Output for Last 24 Hours 05/05/18 05/06/18 05/07/18 23:59 23:59 23:59 Intake Total 3016 / 3016 1151 / 1151 120 / 120 Output Total 3375 / 3375 750 / 750 Balance -359 / -359 401 / 401 120 / 120 General: Awake, Alert, Oriented x 3 HEENT: PERRL, EOMI, Sclera Non Icteric Neck: Supple, Good ROM, No Lymph Node Enlargement Lungs: Clear to auscultation Cardiovascular: Regular Rhythm, Normal S1, Normal S2, No Murmurs, No Rubs, No Gallops Vascular: No Carotid Bruits, Normal Femoral Pulses, Normal Radial Pulses, Normal Dorsalis Pedal Pulse, Normal Posterior Tibial Pulses Abdomen: Bowel Sounds Present, Soft, Non Tender, No HSM, No Organomegaly Extremities: No Cyanosis, No Clubbing, No edema Neurological: No Focal Motor or Sensory Deficit 05/06/18 05:35: TIBC 393, Ferritin 9 L 05/06/18 05:35: Iron 11 L 05/07/18 05:43: WBC 5.8, RBC 3.26 L, Hgb 7.6 L, Hct 25.9 L, MCV 79.4 L, MCH 23.3 L, MCHC 29.3 L, RDW 18.8 H, RDW Differential 51.9 H, Plt Count 285, MPV 9.5, Immature Gran % (Auto) 0.200, Neut % (Auto) 60.5, Lymph % (Auto) 19.6, [place] % (Auto) 15.4 H, Eos % (Auto) 3.6, Baso % (Auto) 0.7, Absolute Neuts (auto) 3.5, Total Counted Not Reportable 05/07/18 05:43: Sodium 144, Potassium 3.9, Chloride 108 H, Carbon Dioxide 30.0, Anion Gap 6, BUN 24 H, Creatinine 1.50 H, Est GFR (MDRD) Af Amer 59 L, Est GFR (MDRD) Non-Af 49 L, BUN/Creatinine Ratio 16.0, Glucose 91, Calcium 8.3 L Rhythm: EKG: ECHO: Stress Test: Cardiac Cath: PCI: CT Surgery: Holter monitor: EPS: PPM: CXR: Chest CT Scan: Medical Necessity - Tobacco Use Smoking Status: Former smoker - Smoked when he was in the and quit remotely. Tobacco Use: Non-smoker Assessment/Plan 1. Coronary artery disease: The patient is status post angioplasty and drug-eluting stent to his proximal RCA in September 2017. At that time he received a 3.5X 17 Elunir drug-eluting stent, postdilated with a 4.0 mm balloon. As this was a drug-eluting stent, the patient will require dual antiplatelet therapy for at least 6 months time, and preferably for 1 year. However he has acute anemia, most likely from a GI source, I would recommend holding his baby aspirin and Brilinta until his EGD and colonoscopy have been completed. I would definitely recommend holding his Eliquis going forward as he is in sinus rhythm and has maintained that for some time. Would recommend keeping his potassium of 4.0 and his magnesium of 2.0 to avoid recurrence to atrial fibrillation. Pending the outcome of his EGD and colonoscopy and provided he has no additional bleeding issues that are observable, would recommend holding his baby aspirin but loading him with Plavix 150 mg x1 today followed by 75 mg daily starting tomorrow. Would recommend baby aspirin and Plavix going forward if agreeable by Dr. Clements.. Would not recommend heparin at this time. I do not recommend the patient undergo a repeat echocardiogram or stress test at this time. His troponins have been negative. Patient's LVEF is 25% by catheterization in September 2017. Recommend Lasix 40 mg p.o. daily going forward. Recommend a 1500 cc fluid restriction, and Lasix 40 mg IV in between units of blood. Would recommend keeping his hemoglobin above 8.0. Continue Cozaar therapy for afterload reduction. 2. Atrial fibrillation: Apparently the patient is status post DC cardioversion, and remains in normal sinus rhythm. We discontinue Eliquis therapy going forward given his acute anemia. Continue amiodarone to maintain normal sinus rhythm. 3. Hyperlipidemia: Continue statin based medications. Continue Lipitor therapy. 4. Thank you very much for the opportunity to participate in the cardiac care of your patient. We await EGD and colonoscopy results tomorrow. Code Visit Inpatient E&M: [id number] Subs Hosp L2
--- NOTE | 2018-05-07 11:29 | PCM.PN.HOSP ---
Patient Problems: Active and Suspected Problems (Last Reviewed 04/12/18 @ 15:31 by Lemuel Martinez MD) Acute anemia (Acute) Subjective: Feels about the same as yesterday, better than when he came in. No CP or SOB. Vitals/I&O's: Vital Signs Temp Pulse Resp BP Pulse Ox 97.5 F L 65 18 103/56 L 97 05/07/18 09:27 05/07/18 09:27 05/07/18 09:27 05/07/18 09:27 05/07/18 09:27 Oxygen Flow Rate (L/min) 2 Oxygen Delivery Method Room Air Weight: 253 lb 1.451 oz Body Mass Index (BMI) 35.2 Intake and Output for Last 24 Hours 05/05/18 05/06/18 05/07/18 23:59 23:59 23:59 Intake Total 3016 / 3016 1151 / 1151 120 / 120 Output Total 3375 / 3375 750 / 750 Balance -359 / -359 401 / 401 120 / 120 General: Alert, Oriented x3, Cooperative, No apparent distress HEENT: Atraumatic, EOMI, Normocephalic Oral: Moist Mucosa Neck: Supple, No JVD Lungs: Clear to auscultation, Normal air movement, No rhonchi, No wheeze, No rales Cardiovascular: Regular rate, Regular Rhythm, Normal S1, Normal S2, No murmurs Abdomen: Soft, Non Tender, Non-Distended, No Hepato-splenomegaly Extremities: No edema, Capillary Refill Less than 3 Seconds Skin: No rashes, No breakdown Neurological: Neuro grossly intact, Sensory exam intact to light touch and pain Psych/Mental Status: Normal Affect, Appropriate Microbiology Past 72 Hours 05/04/18 18:17 Stool Stool Occult Blood ([facility]) - Final Laboratory Results 05/06/18 05:35: TIBC 393, Ferritin 9 L 05/06/18 05:35: Transferrin Pending 05/06/18 05:35: Iron 11 L 05/07/18 05:43: WBC 5.8, RBC 3.26 L, Hgb 7.6 L, Hct 25.9 L, MCV 79.4 L, MCH 23.3 L, MCHC 29.3 L, RDW 18.8 H, RDW Differential 51.9 H, Plt Count 285, MPV 9.5, Immature Gran % (Auto) 0.200, Neut % (Auto) 60.5, Lymph % (Auto) 19.6, [place] % (Auto) 15.4 H, Eos % (Auto) 3.6, Baso % (Auto) 0.7, Absolute Neuts (auto) 3.5, Absolute Lymphs (auto) 1.13, Total Counted Not Reportable 05/07/18 05:43: Sodium 144, Potassium 3.9, Chloride 108 H, Carbon Dioxide 30.0, Anion Gap 6, BUN 24 H, Creatinine 1.50 H, Estim Creat Clear Calc 49.58, Est GFR (MDRD) Af Amer 59 L, Est GFR (MDRD) Non-Af 49 L, BUN/Creatinine Ratio 16.0, Glucose 91, Calcium 8.3 L Current Medications Acetaminophen (Tylenol) 650 mg PO Q6H PRN PRN PRN Reason: Non-cardiac pain (mod-severe) Last Admin: 05/06/18 23:40 Dose: 650 mg Al Hydroxide/Mg Hydroxide (Mylanta Ii) 30 ml PO Q6H PRN PRN PRN Reason: Gastric burning Allopurinol (Zyloprim) 300 mg PO DAILY [facility] Last Admin: 05/07/18 09:32 Dose: 300 mg Amiodarone HCl (Cordarone) 200 mg PO DAILY [facility] Last Admin: 05/07/18 09:31 Dose: 200 mg Ascorbic Acid (Vitamin C) [facility] Atorvastatin Calcium (Lipitor) 40 mg PO QHS [facility] Last Admin: 05/06/18 22:31 Dose: 40 mg Carvedilol (Coreg) 3.125 mg PO BID [facility] Last Admin: 05/07/18 09:31 Dose: 3.1249 mg Doxazosin Mesylate (Cardura) 2 mg PO QHS [facility] Last Admin: 05/06/18 22:32 Dose: 2 mg Ferrous Sulfate (Ferrous Sulfate) 325 mg PO 1200,1700 [facility] Fluticasone Propionate (Flonase Nasal [place]) 1 spray NASAL BID [facility] Last Admin: 05/07/18 09:32 Dose: 1 spray Furosemide (Lasix) 40 mg PO DAILY [facility] Last Admin: 05/07/18 09:32 Dose: 40 mg Pantoprazole Sodium 40 mg/ (Sodium Chloride) 110 mls @ 330 mls/hr IV Q12 [facility] Last Admin: 05/07/18 09:33 Dose: 330 mls/hr Sodium Chloride () 250 mls @ 15 mls/hr IV .[id number] PRN PRN Reason: SALINE FLUSH Last Admin: 05/05/18 11:36 Dose: 15 mls/hr Sodium Chloride () 250 mls @ 15 mls/hr IV .[id number] PRN PRN Reason: SALINE FLUSH Sodium Chloride () 250 mls @ 15 mls/hr IV .[id number] PRN PRN Reason: SALINE FLUSH Iron Sucrose 200 mg/ Sodium (Chloride) 110 mls @ 220 mls/hr IV X1 ONE Stop: 05/07/18 11:55 Losartan Potassium (Cozaar) 25 mg PO DAILY [facility] Last Admin: 05/07/18 09:31 Dose: 25 mg Magnesium Hydroxide (Milk Of Magnesia) 30 ml PO DAILY PRN PRN PRN Reason: Constipation Ondansetron HCl (Zofran) 4 mg IV Q8H PRN PRN PRN Reason: NAUSEA Promethazine HCl (Phenergan) 12.5 mg IV Q6H PRN PRN PRN Reason: NAUSEA/VOMITING Sodium Chloride () 5 - 30 ml IV UD PRN PRN Reason: SALINE FLUSH Last Admin: 05/06/18 13:09 Dose: 10 ml Sodium Chloride/Electrolytes (Nulytely) 4,000 ml PO X1 ONE Stop: 05/07/18 15:01 Tramadol HCl (Ultram) 50 - 100 mg PO Q6H PRN PRN PRN Reason: PAIN Medical Necessity - Tobacco Use Smoking Status: Former smoker - Smoked when he was in the and quit remotely. Tobacco Use: Non-smoker Assessment/Plan All Active Problems (Last Reviewed 04/12/18 @ 15:31 by Lemuel Martinez MD) Acute anemia (Acute) Sinus pause (Acute) Acute combined systolic (congestive) and diastolic (congestive) heart failure (Acute) 1. Acute microcytic anemia/A-fib - Possible GI bleed though fecal occult is negative - 4 U PRBCs given - Hold anticoagulation for a-fib, c/w amio and BB - Surgery can do scopes on tuesday, prep tonight - Given how low his H/H was and his fairly asymptomatic presentation, this is likely a very slow bleed - Iron studies with iron deficiency anemia, venofer 200 mg x1 then PO replacement with Vitamin C BID 2. CAD s/p BONNY to prox RCA/chronic systolic and diastolic CHF/HTN/HLD - hold his ASA and brillinta for now - c/s to cardiology since his stent was placed in 09/2017 - c/w lasix, ARB - C/w statin DVT: SCDs Diet: Regular Code Visit Inpatient E&M: [id number] Subs Hosp L2
--- NOTE | 2018-05-07 11:31 | PN.CARD_ITS ---
Subjectve: Patient continues to do well overnight. Telemetry showed normal sinus rhythm/sinus tachycardia. Hemoglobin has remained stable. Awaiting EGD and co lonoscopy tomorrow. No chest pain or anginal symptoms. Objective: Vital Signs Temp Pulse Resp BP Pulse Ox 97.5 F L 65 18 103/56 L 97 05/07/18 09:27 05/07/18 09:27 05/07/18 09:27 05/07/18 09:27 05/07/18 09:27 Oxygen Flow Rate (L/min) 2 Oxygen Delivery Method Room Air Weight: 253 lb 1.451 oz Body Mass Index (BMI) 35.2 Intake and Output for Last 24 Hours 05/05/18 05/06/18 05/07/18 23:59 23:59 23:59 Intake Total 3016 / 3016 1151 / 1151 120 / 120 Output Total 3375 / 3375 750 / 750 Balance -359 / -359 401 / 401 120 / 120 General: Awake, Alert, Oriented x 3 HEENT: PERRL, EOMI, Sclera Non Icteric Neck: Supple, Good ROM, No Lymph Node Enlargement Lungs: Clear to auscultation Cardiovascular: Regular Rhythm, Normal S1, Normal S2, No Murmurs, No Rubs, No Gallops Vascular: No Carotid Bruits, Normal Femoral Pulses, Normal Radial Pulses, Normal Dorsalis Pedal Pulse, Normal Posterior Tibial Pulses Abdomen: Bowel Sounds Present, Soft, Non Tender, No HSM, No Organomegaly Extremities: No Cyanosis, No Clubbing, No edema Neurological: No Focal Motor or Sensory Deficit 05/06/18 05:35: TIBC 393, Ferritin 9 L 05/06/18 05:35: Iron 11 L 05/07/18 05:43: WBC 5.8, RBC 3.26 L, Hgb 7.6 L, Hct 25.9 L, MCV 79.4 L, MCH 23.3 L, MCHC 29.3 L, RDW 18.8 H, RDW Differential 51.9 H, Plt Count 285, MPV 9.5, Immature Gran % (Auto) 0.200, Neut % (Auto) 60.5, Lymph % (Auto) 19.6, [place] % (Auto) 15.4 H, Eos % (Auto) 3.6, Baso % (Auto) 0.7, Absolute Neuts (auto) 3.5, Total Counted Not Reportable 05/07/18 05:43: Sodium 144, Potassium 3.9, Chloride 108 H, Carbon Dioxide 30.0, Anion Gap 6, BUN 24 H, Creatinine 1.50 H, Est GFR (MDRD) Af Amer 59 L, Est GFR (MDRD) Non-Af 49 L, BUN/Creatinine Ratio 16.0, Glucose 91, Calcium 8.3 L Rhythm: EKG: ECHO: Stress Test: Cardiac Cath: PCI: CT Surgery: Holter monitor: EPS: PPM: CXR: Chest CT Scan: Medical Necessity - Tobacco Use Smoking Status: Former smoker - Smoked when he was in the and quit remotely. Tobacco Use: Non-smoker Assessment/Plan 1. Coronary artery disease: The patient is status post angioplasty and drug- eluting stent to his proximal RCA in September 2017. At that time he received a 3.5X 17 Elunir drug-eluting stent, postdilated with a 4.0 mm balloon. As this was a drug-eluting stent, the patient will require dual antiplatelet therapy for at least 6 months time, and preferably for 1 year. However he has acute anemia, most likely from a GI source, I would recommend holding his baby aspirin and Brilinta until his EGD and colonoscopy have been completed. I would definitely recommend holding his Eliquis going forward as he is in sinus rhythm and has maintained that for some time. Would recommend keeping his potassium of 4.0 and his magnesium of 2.0 to avoid recurrence to atrial fibrillation. Pending the outcome of his EGD and colonoscopy and provided he has no additional bleeding issues that are observable, would recommend holding his baby aspirin but loading him with Plavix 150 mg x1 today followed by 75 mg daily starting tomorrow. Would recommend baby aspirin and Plavix going forward if agreeable by Dr. Clements.. Would not recommend heparin at this time. I do not recommend the patient undergo a repeat echocardiogram or stress test at this time. His troponins have been negative. Patient's LVEF is 25% by catheter ization in September 2017. Recommend Lasix 40 mg p.o. daily going forward. Recommend a 1500 cc fluid restriction, and Lasix 40 mg IV in between units of blood. Would recommend keeping his hemoglobin above 8.0. Continue Cozaar therapy for afterload reduction. 2. Atrial fibrillation: Apparently the patient is status post DC cardioversion, and remains in normal sinus rhythm. We discontinue Eliquis therapy going forward given his acute anemia. Continue amiodarone to maintain normal sinus rhythm. 3. Hyperlipidemia: Continue statin based medications. Continue Lipitor therapy. 4. Thank you very much for the opportunity to participate in the cardiac care of your patient. We await EGD and colonoscopy results tomorrow. Code Visit Inpatient E&M: [id number] Subs Hosp L2
[2018-05-07] MEDS: Ferrous Sulfate 325 MG Tablet PO ×2 (13:05→16:07)
[2018-05-07] MEDS: Electrolyte Solution/Peg's 4000 ML PO (15:59)
[2018-05-07] MEDS: Ascorbic Acid 500 MG Tablet 1000 MG PO (18:20)
[2018-05-07] MEDS: Atorvastatin Calcium 40 MG Tablet PO (22:54)
[2018-05-07] MEDS: Doxazosin 4 MG Tablet 2 MG PO (22:55)
[2018-05-08] VITALS (22 sets, daily range): BP systolic 88–134; BP diastolic 45–81; PULSE 57–95; RESP 12–18; TEMP 36.5–37.3; O2SAT 92–99; BMI 34.3; BMI 34.2
--- NOTE | 2018-05-08 | IMM_PTH ---
PATIENT: NANDO TIMMONS LOC: PCU U#:[id number] AGE/SX: 73/M ROOM: [facility] RE05/04/[address]: Dr. Bouchra Mohan MD : 1945 BED: 1 DIS: 05/09/2018 SPEC #: [id number] RECD: 05/08/18 10:23 STATUS: NIHARIKA REQ #: [id number] CELESTE: 05/08/18 00:[address]: Nando Starks DEPT: IMMUNOHISTOCHEMISTRY RECD BY: Darline Remy ENTERED: 05/08/18 10:24 SP TYPE: IMMUNO OTHR DR: MD Dr. Lemuel Mora MD Dr. Derek Brown, DO Dr. Daniel Newton, MD Dr. Ghasem E Ashelfah, MD Dr. Jeffrey Burkey, MD Tissues: Stomach, NOS Procedures: H Pylori (initial) PHYSICIAN & [place] [id number] SPECIMEN INFORMATION: Tissue Source: Biopsy gastric antrum Clinical Info: Tiki Specimen Number: [id number] CPT code: 72157 METHODOLOGY: Deparaffinized sections of prefer/formalin-fixed tissue or PAP/DQ stained slides are incubated with monoclonal/polyclonal antibodies/oligonucleotide probes. Localization is made via biotin free immunoperoxidase method. Appropriate controls are performed and reacted as expected. Results on target cell population are indicated in the following table: RESULTS: ANTIBODY / CLONE RESULT H Pylori (polyclonal) Negative These tests were developed and their performance characteristics determined by [facility]. They may not have been cleared or approved by the U.S. Food and Drug Administration. The FDA has determined that such clearance or approval is not necessary. INTERPRETATION: Gastric antrum, biopsy: Negative for Helicobacter pylori organisms. SJ:pam 05/10/18
[2018-05-08 04:43] LABS: Absolute Lymphocyte Count 0.96 X10^3/ul (0.83-4.51); Absolute Neutrophil Count 3.9 X10^3/uL (2.0-7.7); Basophil# 0.04 X10^3/uL; Basophil% 0.7 % (0-1); Eosinophil# 0.17 X10^3/uL; Hematocrit 26.4 % (40-54); Hemoglobin 7.4 g/dl (13.0-16.5); Lymphocyte # 0.96 X10^3/ul (4.0); Mean Corpuscular Hgb 22.2 pg (27.0-32.0); Mean Corpuscular Volume 79.3 fL (80-94); Mean Platelet Vol. 9.5 fl (6.2-12.0); Monocyte# 0.63 X10^3/uL; Monocyte% 11.1 % (0-10); Neutrophil # 3.85 X10^3/uL (2.7-7.7); Platelet Count 298 K/mm3 (150-450); RBC Distribution Width CV 19.1 % (11.6-14.6); RBC Distribution Width SD 52.4 fl (35.1-43.9); Red Blood Count 3.33 M/mm3 (4.6-6.2); White Blood Count 5.7 K/mm3 (4.4-11.0)
[2018-05-08 04:44] LABS: POSITIVE COUNT NO; POSITIVE DIFFERENTIAL NO; POSITIVE MORPHOLOGY NO
[2018-05-08 05:13] LABS: Anion Gap 9 (5-15); BUN 20 mg/dL (7-18); BUN/Creat Ratio 14.5 RATIO (10-20); Calcium,Total 8.5 mg/dL (8.5-10.1); Chloride 107 mmol/L (98-107); Creatinine, Serum 1.38 mg/dL (0.70-1.30); EST Glomerular Filtration Rate 54 mL/min (>60); Est Glom Filt Rate - Afr Amer 65 mL/min (>60); Estimated Creatinine Clearance 53.89 ml/min; Glucose 88 mg/dL (74-106); Potassium 3.4 mmol/L (3.5-5.1); Sodium Level 145 mmol/L (136-145)
--- NOTE | 2018-05-08 06:30 | EGD_PTH ---
PATIENT: NANDO TIMMONS LOC: [facility] U#:[id number] AGE/SX: 73/M ROOM: [facility] RE05/04/[address]: Dr. Bouchra Mohan MD : 1945 BED: 1 DIS: 05/09/2018 SPEC #: [id number] RECD: 05/08/18 09:04 STATUS: NIHARIKA REMichelle #: [id number] CELESTE: 05/08/18 06:[address]: Nando Starks DEPT: SURGICAL PATHOLOGY RECD BY: Wilmer Cruz ENTERED: 05/08/18 10:12 SP TYPE: EGD BIOPSY OTHR DR: MD Dr. Lemuel Mora MD Dr. Derek Brown, DO Dr. Daniel Newton, MD Dr. Ghasem E Ashelfah, MD Dr. Jeffrey Burkey, MD Dr. Richard Guttman, MD Tissues: Gastric mucous membrane Procedures: Surgery Specimen Level IV Comments: @ Ordering doctor for SUIV edited from to @ by MARELY at 05/08/18 1030 @ Submitting doctor edited from to @ by RGOOD at 05/08/18 1030 HEADER OPERATION: Colonoscopy, EGD ([facility] [place]) PRE-OP DIAGNOSIS: Anemia TISSUE SUBMITTED: Biopsy gastric antrum, H. pylori and path MICROSCOPIC DIAGNOSIS Gastric antrum, biopsy: Mild gastritis. LAVELL:srinivas 05/09/18 COMMENT The results of immunohistochemistry for Helicobacter pylori will be reported separately ([id number]). MICROSCOPIC DESCRIPTION Slides are reviewed. The specimen shows fragments of gastric mucosa with chronic inflammatory cell infiltrates in the lamina propria consisting of lymphocytes and plasma cells, consistent with mild chronic gastritis. GROSS DESCRIPTION Received in fixative is one container labeled with the patient's name and designated biopsy gastric antrum. The specimen consists of two irregular fragments of light gaviria soft tissue that in aggregate measure 0.4 x 0.2 x 0.1 cm. The specimen is totally submitted in one cassette. / LAVELL:srinivas 05/08/18 TC:3 CPT: 63541
--- NOTE | 2018-05-08 07:05 | OP.ENDO_ITS ---
Patient Name: Lui Waterman Procedure Date: 05/08/2018 5:57 AM Date of : 1945 Age: 73 Procedure: Upper GI endoscopy Indications: Iron deficiency anemia Providers: Lui Starks MD Referring MD: Lemuel Martinez Medicines: Monitored Anesthesia Care Patient Profile: This is a 73 year old male. Refer to note in patient chart for documentation of history and physical. Patient has symptoms. Complications: No immediate complications. Procedure: Pre-Anesthesia Assessment: - Prior to the procedure, a History and Physical was performed, and patient medications and allergies were reviewed. The patient is competent. The risks and benefits of the procedure and the sedation options and risks were discussed with the patient. All questions were answered and informed consent was obtained. Patient identification and proposed procedure were verified by the physician, the nurse, the anesthesiologist and the core rescuer in the procedure room. Mental Status Examination: alert and oriented. Airway Examination: normal oropharyngeal airway and neck mobility. Respiratory Examination: clear to auscultation. CV Examination: normal. Prophylactic Antibiotics: The patient does not require prophylactic antibiotics. Prior Anticoagulants: The patient has taken antiplatelet medication, last dose was 1 day prior to procedure. ASA Grade Assessment: III - A patient with severe systemic disease. After reviewing the risks and benefits, the patient was deemed in satisfactory condition to undergo the procedure. The anesthesia plan was to use monitored anesthesia care (MAC). Immediately prior to administration of medications, the patient was re-assessed for adequacy to receive sedatives. The heart rate, respiratory rate, oxygen saturations, blood pressure, adequacy of pulmonary ventilation, and response to care were monitored throughout the procedure. The physical status of the patient was re-assessed after the procedure. After obtaining informed consent, the endoscope was passed under direct vision. Throughout the procedure, the patient's blood pressure, pulse, and oxygen saturations were monitored continuously. The gastroscope was introduced through the mouth, and advanced to the jejunum. The upper GI endoscopy was accomplished without difficulty. The patient tolerated the procedure well. Scope In: 6:41:25 AM Scope Out: 6:44:29 AM Total Procedure Duration Time 0 hours 3 minutes 4 seconds Findings: The examined jejunum was normal. The examined duodenum was normal. Two non-bleeding cratered gastric ulcers with no stigmata of bleeding were found in the prepyloric region of the stomach. Scattered mild inflammation was found in the gastric antrum. Biopsies were taken with a cold forceps for Helicobacter pylori testing using PyloriTek test. Biopsies were taken with a cold forceps for histology. The exam of the stomach was otherwise normal. The examined esophagus was normal. Impression: - Normal examined jejunum. - Normal examined duodenum. - Non-bleeding gastric ulcers with no stigmata of bleeding. - Gastritis. Biopsied. - Normal esophagus. Recommendation: - Await pathology results. - Use Protonix (pantoprazole) 40 mg PO BID. - Continue present medications. Lui Starks MD 05/08/2018 7:04:47 AM This report has been signed electronically. Number of Addenda: 0 Note Initiated On: 05/08/2018 5:57 AM
--- NOTE | 2018-05-08 07:07 | OP.ENDO_ITS ---
Patient Name: Liu Waterman Procedure Date: 05/08/2018 6:44 AM Date of : 1945 Age: 73 Procedure: Colonoscopy Indications: Iron deficiency anemia Providers: Lui Starks MD Referring MD: Lemuel Martinez Medicines: Monitored Anesthesia Care Patient Profile: This is a 73 year old male. Refer to note in patient chart for documentation of history and physical. Patient has symptoms. Last Colonoscopy: date unknown. Complications: No immediate complications. Procedure: Pre-Anesthesia Assessment: - Prior to the procedure, a History and Physical was performed, and patient medications and allergies were reviewed. The patient is competent. The risks and benefits of the procedure and the sedation options and risks were discussed with the patient. All questions were answered and informed consent was obtained. Patient identification and proposed procedure were verified by the physician, the nurse, the anesthesiologist and the bisque tile burner in the procedure room. Mental Status Examination: alert and oriented. Airway Examination: normal oropharyngeal airway and neck mobility. Respiratory Examination: clear to auscultation. CV Examination: normal. Prophylactic Antibiotics: The patient does not require prophylactic antibiotics. Prior Anticoagulants: The patient has taken antiplatelet medication, last dose was 1 day prior to procedure. ASA Grade Assessment: III - A patient with severe systemic disease. After reviewing the risks and benefits, the patient was deemed in satisfactory condition to undergo the procedure. The anesthesia plan was to use monitored anesthesia care (MAC). Immediately prior to administration of medications, the patient was re-assessed for adequacy to receive sedatives. The heart rate, respiratory rate, oxygen saturations, blood pressure, adequacy of pulmonary ventilation, and response to care were monitored throughout the procedure. The physical status of the patient was re-assessed after the procedure. After I obtained informed consent, the scope was passed under direct vision. Throughout the procedure, the patient's blood pressure, pulse, and oxygen saturations were monitored continuously. The colonoscope was introduced through the anus and advanced to the cecum, identified by the appendiceal orifice, ileocecal valve and palpation. The colonoscopy was performed without difficulty. The patient tolerated the procedure well. The quality of the bowel preparation was good. Scope In: 6:46:40 AM Scope Withdrawal Time 0 hours 6 minutes 9 seconds Scope Out: 6:56:59 AM Total Procedure Duration Time 0 hours 10 minutes 19 seconds Findings: The perianal and digital rectal examinations were normal. The entire examined colon appeared normal on direct and retroflexion views. Impression: - The entire examined colon is normal on direct and retroflexion views. - No specimens collected. Recommendation: - Resume previous diet. - [facility]. - Continue present medications. - Repeat colonoscopy in 10 years for screening purposes. Procedure Code(s): --- Professional --- 64193, Colonoscopy, flexible; diagnostic, including collection of specimen(s) by brushing or washing, when performed (separate procedure) CPT copyright 2017 [employer]. All rights reserved. The codes documented in this report are preliminary and upon food safety auditor review may be revised to meet current compliance requirements. Lui Starks MD 05/08/2018 7:06:54 AM This report has been signed electronically. Number of Addenda: 0 Note Initiated On: 05/08/2018 6:44 AM
--- NOTE | 2018-05-08 07:07 | PCM.PN.SRG ---
Patient Problems: Active and Suspected Problems (Last Reviewed 04/12/18 @ 15:31 by Lemuel Martinez MD) Acute anemia (Acute) Subjective: no complaints - Physical Exam Lungs: Clear to auscultation Cardiovascular: Regular rate, No murmurs Abdomen: Bowel Sounds Present, Soft, Non Tender Vital Signs Temp Pulse Resp BP Pulse Ox 97.7 F L 78 16 122/51 H 97 05/08/18 04:00 05/08/18 04:00 05/08/18 04:00 05/08/18 04:00 05/08/18 04:00 Oxygen Flow Rate (L/min) 2 Oxygen Delivery Method Room Air Weight: 114.8 kg Body Mass Index (BMI) 34.2 Intake and Output for Last 24 Hours 05/06/18 05/07/18 05/08/18 23:59 23:59 23:59 Intake Total 1151 / 1151 1594 / 1594 2271 / 2271 Output Total 750 / 750 1075 / 1075 Balance 401 / 401 519 / 519 2271 / 2271 Laboratory Tests Past 24 Hrs 05/08/18 05/08/18 04:14 04:14 WBC 5.7 RBC 3.33 L Hgb 7.4 L Hct 26.4 L MCV 79.3 L MCH 22.2 L MCHC 28.0 L RDW 19.1 H RDW Differential 52.4 H Plt Count 298 MPV 9.5 Immature Gran % (Auto) 0.200 Neut % (Auto) 68.0 Lymph % (Auto) 17.0 L [place] % (Auto) 11.1 H Eos % (Auto) 3.0 Baso % (Auto) 0.7 Absolute Neuts (auto) 3.9 Absolute Lymphs (auto) 0.96 Total Counted Not Reportable Sodium 145 Potassium 3.4 L Chloride 107 Carbon Dioxide 29.0 Anion Gap 9 BUN 20 H Creatinine 1.38 H Estim Creat Clear Calc 53.89 Est GFR (MDRD) Af Amer 65 Est GFR (MDRD) Non-Af 54 L BUN/Creatinine Ratio 14.5 Glucose 88 Calcium 8.5 Medical Necessity - Tobacco Use Smoking Status: Former smoker - Smoked when he was in the and quit remotely. Tobacco Use: Non-smoker Assessment/Plan All Active Problems (Last Reviewed 04/12/18 @ 15:31 by Lemuel Martinez MD) Acute anemia (Acute) Sinus pause (Acute) Acute combined systolic (congestive) and diastolic (congestive) heart failure (Acute) anemia - severe - no obvious source upper endoscopy demonstrated 2 white based gastric ulcers and gasatritis. Colonoscopy was unremarkable. recommend continued PPI's anticoagulation per cardiology. repeat endoscopy in 3-4 weeks to assure healing
--- NOTE | 2018-05-08 08:38 | PN_ITS ---
Patient Problems: Active and Suspected Problems (Last Reviewed 04/12/18 @ 15:31 by Lemuel Martinez MD) Acute anemia (Acute) Subjective: Chief complaint: Follow-up after admission for acute microcytic anemia, found to have 2 gastric ulcers and gastritis. Patient seen and examined. No acute events overnight. This morning, denies any complaints. He denies abdominal pain, nausea or vomiting. He mentioned that his breathing is better after blood transfusion. Denied bleeding from body orifices. His vital signs are stable. - Physical Exam General: Alert, Oriented x3, Cooperative, No apparent distress HEENT: Atraumatic, PERRLA, EOMI, Normocephalic Oral: Moist Mucosa, No Gingival or Mucosal Lesions/ Ulcerations Neck: Supple, No JVD, Negative Carotid Bruits Lungs: Clear to auscultation, No rhonchi, No wheeze, No rales, Diminished Cardiovascular: Regular rate, Regular Rhythm, Normal S1, Normal S2, PMI Normal Abdomen: Bowel Sounds Present, Soft, Non Tender, Non-Distended, No Hepato- splenomegaly, Obese Extremities: No clubbing, No cyanosis, No edema Skin: No rashes, No breakdown Lymphatic: No Cervical, Supraclavicular, or Inguinal Adenopathy Neurological: Cranial nerves II-XII grossly intact, Motor Exam 5/5 strength throughout Psych/Mental Status: Normal Affect, Appropriate, Alert and oriented to time, place, person, mood and affect Vital Signs Temp Pulse Resp BP Pulse Ox 98.3 F 77 16 122/65 H 93 05/08/18 08:05 05/08/18 08:05 05/08/18 08:05 05/08/18 08:05 05/08/18 08:05 Oxygen Flow Rate (L/min) 2 Oxygen Delivery Method Nasal Cannula Weight: 253 lb 1.451 oz Body Mass Index (BMI) 34.2 Intake and Output for Last 24 Hours 05/06/18 05/07/18 05/08/18 23:59 23:59 23:59 Intake Total 1151 / 1151 1594 / 1594 2721 / 2721 Output Total 750 / 750 1075 / 1075 Balance 401 / 401 519 / 519 2721 / 2721 Laboratory Tests Past 24 Hrs 05/08/18 05/08/18 05/08/18 04:14 04:14 07:35 WBC 5.7 RBC 3.33 L Hgb 7.4 L Hct 26.4 L MCV 79.3 L MCH 22.2 L MCHC 28.0 L RDW 19.1 H RDW Differential 52.4 H Plt Count 298 MPV 9.5 Immature Gran % (Auto) 0.200 Neut % (Auto) 68.0 Lymph % (Auto) 17.0 L [place] % (Auto) 11.1 H Eos % (Auto) 3.0 Baso % (Auto) 0.7 Absolute Neuts (auto) 3.9 Absolute Lymphs (auto) 0.96 Total Counted Not Reportable Sodium 145 Potassium 3.4 L Chloride 107 Carbon Dioxide 29.0 Anion Gap 9 BUN 20 H Creatinine 1.38 H Estim Creat Clear Calc 53.89 Est GFR (MDRD) Af Amer 65 Est GFR (MDRD) Non-Af 54 L BUN/Creatinine Ratio 14.5 Glucose 88 Calcium 8.5 Blood Type Pending Antibody Screen Pending Crossmatch See Detail Medical Necessity - Tobacco Use Smoking Status: Former smoker - Smoked when he was in the and quit remotely. Tobacco Use: Non-smoker Assessment/Plan All Active Problems (Last Reviewed 04/12/18 @ 15:31 by Lemuel Martinez MD) Acute anemia (Acute) This is a 73 years old male patient was sent to the emergency department from Dr. Frazier's office for very low hemoglobin, found to have acute microcytic anemia that required blood transfusion and he was found to have 2 gastric ulcers on upper EGD. #1 acute microcytic iron deficiency anemia: Could be due to GI bleed. Status post upper EGD that was done today and revealed 2 gastric ulcers and gastritis. Colonoscopy was unremarkable. Patient is on PPI. Vital signs are stable. Serum iron and ferritin are very low. He is on iron supplement. Today's hemoglobin is 7.4 g/dL. At this time, no evidence of active bleeding. Plan: Transfuse another unit of packed RBCs, repeat H&H this afternoon after blood transfusion, repeat CBC tomorrow morning. #2 CAD status post stents: Patient had stents to RCA on September,. Faisal held. Cardiology on the case. At this time, he is on Lipitor, Coreg and losartan. Cardiology on the case. 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 Continue Coreg, Lasix and losartan. #4 hypertension: Blood pressure stable, continue Coreg and losartan as well as Lasix. #5 persistent atrial fibrillation: Rate is controlled. Continue amiodarone and Coreg for rate control. Eliquis held because of anemia and probable GI bleed. #6 hyperlipidemia: Continue statins. #7 gout: Continue allopurinol. #8 DVT prophylaxis: SCDs. This note was generated with [employer] dictation software. It may contain incorrect words, spelling, and punctuation that were not noted in checking the note before signing. Code Visit Inpatient E&M: 06228 Subs Hosp L2
[2018-05-08] MEDS: 0.9% NaCl Peripheral Flush Adult/Peds IV ×3 (09:24→21:09)
[2018-05-08] MEDS: Amiodarone 200 MG Tablet PO (09:26)
[2018-05-08] MEDS: Ascorbic Acid 500 MG Tablet 1000 MG PO ×2 (09:26→16:46)
[2018-05-08] MEDS: Carvedilol 3.125 MG TABLET PO ×2 (09:26→21:10)
[2018-05-08] MEDS: Allopurinol 300 MG Tablet PO (09:27)
[2018-05-08] MEDS: Fluticasone 0.05% 1 SPRAY NASAL.SRY NASAL ×2 (09:27→21:10)
[2018-05-08] MEDS: Furosemide 40 MG Tablet PO (09:27)
[2018-05-08] MEDS: Losartan Potassium 25 MG Tablet PO (09:27)
[2018-05-08] MEDS: Furosemide 20 MG/2 ML VIAL IV (10:25)
[2018-05-08] MEDS: Ferrous Sulfate 325 MG Tablet PO ×2 (11:49→16:46)
--- NOTE | 2018-05-08 12:45 | PCM.PN.CARD ---
Subjectve: Patient doing well this morning, had EGD and colonoscopy. EGD showed 2 discrete focal ulcers, but no active bleeding. Colonoscopy negative. Hemoglobin stable at 7.4. Objective: Vital Signs Temp Pulse Resp BP Pulse Ox 98.4 F 62 14 115/62 93 05/08/18 11:48 05/08/18 11:48 05/08/18 11:48 05/08/18 11:48 05/08/18 11:48 Oxygen Flow Rate (L/min) 2 Oxygen Delivery Method Room Air Weight: 253 lb 1.451 oz Body Mass Index (BMI) 34.2 Intake and Output for Last 24 Hours 05/06/18 05/07/18 05/08/18 23:59 23:59 23:59 Intake Total 1151 / 1151 1594 / 1594 3186 / 3186 Output Total 750 / 750 1075 / 1075 Balance 401 / 401 519 / 519 3186 / 3186 General: Awake, Alert, Oriented x 3 HEENT: PERRL, EOMI, Sclera Non Icteric Neck: Supple, Good ROM, No Lymph Node Enlargement Lungs: Clear to auscultation Cardiovascular: Regular Rhythm, Normal S1, Normal S2, No Murmurs, No Rubs, No Gallops Vascular: No Carotid Bruits, Normal Femoral Pulses, Normal Radial Pulses, Normal Dorsalis Pedal Pulse, Normal Posterior Tibial Pulses Abdomen: Bowel Sounds Present, Soft, Non Tender, No HSM, No Organomegaly Extremities: No Cyanosis, No Clubbing, No edema Neurological: No Focal Motor or Sensory Deficit 05/08/18 04:14: WBC 5.7, RBC 3.33 L, Hgb 7.4 L, Hct 26.4 L, MCV 79.3 L, MCH 22.2 L, MCHC 28.0 L, RDW 19.1 H, RDW Differential 52.4 H, Plt Count 298, MPV 9.5, Immature Gran % (Auto) 0.200, Neut % (Auto) 68.0, Lymph % (Auto) 17.0 L, [place] % (Auto) 11.1 H, Eos % (Auto) 3.0, Baso % (Auto) 0.7, Absolute Neuts (auto) 3.9, Total Counted Not Reportable 05/08/18 04:14: Sodium 145, Potassium 3.4 L, Chloride 107, Carbon Dioxide 29.0, Anion Gap 9, BUN 20 H, Creatinine 1.38 H, Est GFR (MDRD) Af Amer 65, Est GFR (MDRD) Non-Af 54 L, BUN/Creatinine Ratio 14.5, Glucose 88, Calcium 8.5 Rhythm: EKG: ECHO: Stress Test: Cardiac Cath: PCI: CT Surgery: Holter monitor: EPS: PPM: CXR: Chest CT Scan: Medical Necessity - Tobacco Use Smoking Status: Former smoker - Smoked when he was in the and quit remotely. Tobacco Use: Non-smoker Assessment/Plan 1. Coronary artery disease: The patient is status post angioplasty and drug-eluting stent to his proximal RCA in September 2017. At that time he received a 3.5X 17 Elunir drug-eluting stent, postdilated with a 4.0 mm balloon. As this was a drug-eluting stent, the patient will require dual antiplatelet therapy for at least 6 months time, and preferably for 1 year. However he has acute anemia, most likely from a GI source, I would recommend holding his baby aspirin and Brilinta until his EGD and colonoscopy have been completed. I would definitely recommend holding his Eliquis going forward as he is in sinus rhythm and has maintained that for some time. Would recommend keeping his potassium of 4.0 and his magnesium of 2.0 to avoid recurrence to atrial fibrillation. EGD apparently showed 2 discrete small nonbleeding ulcers in his stomach, and colonoscopy was negative. Would recommend continuing high-dose twice daily PPI therapy, and switching to 2 Plavix 75 mg p.o. daily. We will hold off on aspirin therapy until 1 week's time when hopefully his gastric antrum has healed. At that time he will resume baby aspirin 81 mg p.o. daily. Do not recommend restarting Eliquis at this time. I do not recommend the patient undergo a repeat echocardiogram or stress test at this time. His troponins have been negative. Patient's LVEF is 25% by catheterization in September 2017. Recommend Lasix 40 mg p.o. daily going forward. Recommend a 1500 cc fluid restriction, and Lasix 40 mg IV in between units of blood. Would recommend keeping his hemoglobin above 8.0. Continue Cozaar therapy for afterload reduction. 2. Atrial fibrillation: Apparently the patient is status post DC cardioversion, and remains in normal sinus rhythm. We discontinue Eliquis therapy going forward given his acute anemia. Continue amiodarone to maintain normal sinus rhythm. 3. Hyperlipidemia: Continue statin based medications. Continue Lipitor therapy. 4. Thank you very much for the opportunity to participate in the cardiac care of your patient. Patient may follow-up with Dr. Martinez going forward. Would recommend repeat hemoglobin in 1 week's time to assure that he has not dropped below 7. Recommend keeping his hemoglobin at least above 7 and preferably above 8.0. Patient may be discharged home tomorrow if hemoglobin stable. Code Visit Inpatient E&M: 74474 Subs Hosp L2
[2018-05-08 13:09] LABS: Transferrin 301 mg/dL (200-370)
[2018-05-08 13:10] LABS: Pathologist Review Reviewed
[2018-05-08 13:11] LABS: Pathologist Review Reviewed
[2018-05-08 17:13] LABS: Hematocrit 30.1 % (40-54); Hemoglobin 8.7 g/dl (13.0-16.5)
[2018-05-08] MEDS: Acetaminophen 325 MG Tablet 650 MG PO (20:19)
[2018-05-08] MEDS: Atorvastatin Calcium 40 MG Tablet PO (21:10)
[2018-05-08] MEDS: Doxazosin 4 MG Tablet 2 MG PO (21:10)
[2018-05-09 02:10] VITALS: BP 128/60; PULSE 62; RESP 18; TEMP 36.6; O2SAT 95
[2018-05-09 02:59] VITALS: PULSE 53
[2018-05-09 06:49] LABS: Absolute Lymphocyte Count 1.14 X10^3/ul (0.83-4.51); Absolute Neutrophil Count 3.3 X10^3/uL (2.0-7.7); Basophil# 0.02 X10^3/uL; Basophil% 0.4 % (0-1); Eosinophil# 0.22 X10^3/uL; Eosinophils% 4.1 % (0-5); Hematocrit 29.2 % (40-54); Hemoglobin 8.3 g/dl (13.0-16.5); Lymphocyte # 1.14 X10^3/ul (4.0); Mean Corp Hgb Conc 28.4 g/gl (32-36); Mean Corpuscular Hgb 22.7 pg (27.0-32.0); Mean Platelet Vol. 9.8 fl (6.2-12.0); Monocyte# 0.72 X10^3/uL; Monocyte% 13.3 % (0-10); Neutrophil # 3.31 X10^3/uL (2.7-7.7); POSITIVE COUNT NO; POSITIVE DIFFERENTIAL NO; POSITIVE MORPHOLOGY NO; Platelet Count 298 K/mm3 (150-450); RBC Distribution Width CV 19.2 % (11.6-14.6); RBC Distribution Width SD 53.4 fl (35.1-43.9); Red Blood Count 3.65 M/mm3 (4.6-6.2); White Blood Count 5.4 K/mm3 (4.4-11.0)
[2018-05-09 07:04] VITALS: PULSE 59
[2018-05-09 07:15] LABS: Anion Gap 9 (5-15); BUN 17 mg/dL (7-18); Calcium,Total 8.7 mg/dL (8.5-10.1); Chloride 107 mmol/L (98-107); Creatinine, Serum 1.42 mg/dL (0.70-1.30); EST Glomerular Filtration Rate 52 mL/min (>60); Est Glom Filt Rate - Afr Amer 63 mL/min (>60); Estimated Creatinine Clearance 52.37 ml/min; Glucose 82 mg/dL (74-106); Potassium 3.9 mmol/L (3.5-5.1); Sodium Level 145 mmol/L (136-145)
[2018-05-09 07:45] VITALS: O2SAT 95
[2018-05-09 08:05] VITALS: BP 120/59; PULSE 70; RESP 18; TEMP 36.7; O2SAT 96
[2018-05-09] MEDS: Ascorbic Acid 500 MG Tablet 1000 MG PO (08:09)
[2018-05-09] MEDS: Amiodarone 200 MG Tablet PO (08:10)
[2018-05-09] MEDS: Carvedilol 3.125 MG TABLET PO (08:10)
[2018-05-09] MEDS: Furosemide 40 MG Tablet PO (08:10)
[2018-05-09] MEDS: Losartan Potassium 25 MG Tablet PO (08:10)
[2018-05-09] MEDS: Fluticasone 0.05% 1 SPRAY NASAL.SRY NASAL (08:10)
[2018-05-09] MEDS: Clopidogrel Bisulfate 75 MG Tablet PO (08:11)
[2018-05-09] MEDS: 0.9% NaCl Peripheral Flush Adult/Peds IV (08:11)
[2018-05-09] MEDS: Allopurinol 300 MG Tablet PO (08:11)
--- NOTE | 2018-05-09 10:07 | DCINST_ITS ---
- Discharge Diagnoses Current Active Problems: Current Active and Chronic Problems (Last Updated 05/08/18 @ 10:55 by Bouchra Mohan MD) Acute anemia (Acute) Heart failure (Chronic) You will use the following diet at home:: Cardiac, Fluid restricted (specify 2000 mls, 1500 mls) - Less than 1500 cc daily Your food should be the consistency of: Regular Discharge Activity: Return to Normal Activity Weight Bearing Status: Weight bearing as tolerated Call your doctor if you observe: Fever of 101 or Higher, Shortness of breath, Dizziness, Fainting spells, Chest pain, Increased palpitations (irregular heartbeat), Uncontrolled pain Additional Instructions: Do not take aspirin for a week and then resume taking aspirin 81 mg daily after that. Allergies/Adverse Reactions: Allergies Sulfa (Sulfonamide Antibiotics) Allergy (Verified 05/04/18 15:37) Hives Medications to take at Discharge Allopurinol [Zyloprim] 300 mg PO DAILY 09/15/17 Doxazosin Mesylate [Cardura] 4 mg PO QHS 09/15/17 atorvastatin 40 mg tablet 40 mg PO QHS #30 tab 10/21/17 Tramadol HCl [Ultram] 50 - 100 mg PO Q6H PRN 11/25/17 losartan 25 mg tablet 25 mg PO QDAY tab 12/21/17 furosemide 40 mg tablet 40 mg PO QDAY tab 01/12/18 metoprolol tartrate 50 mg tablet 25 mg PO BID tab 01/12/18 Amiodarone HCl 200 mg PO DAILY 05/04/18 Clopidogrel Bisulfate [Plavix] 75 mg PO DAILY #30 tablet 05/09/18 Ferrous Sulfate 325 mg PO 1200,1700 #90 tablet 05/09/18 Pantoprazole Sodium [Protonix] 40 mg PO BID #90 tablet 05/09/18 The following prescriptions were given: Clopidogrel Bisulfate [Plavix] 75 mg PO DAILY #30 tablet Ferrous Sulfate 325 mg PO 1200,1700 #90 tablet Pantoprazole Sodium [Protonix] 40 mg PO BID #90 tablet Orders to be completed after discharge: Basic Metabolic Profile (BMP) Time Frame: 5 Days, Location: Laboratory CBC W/Diff, Automated Time Frame: 5 Days, Location: Laboratory Primary Care Physician: Demetrio Lyons MD [Primary Care Provider] - Please follow up with your Primary Care Physician in: 1 week. Test Results: Test results from this visit will be discussed in further detail at your follow- up appointment, if applicable. Please Follow Up With: Lui Starks MD When: 3-4 weeks. please call his office. Please Follow Up With: Lemuel Martinez MD When: 2 weeks.
--- NOTE | 2018-05-09 10:18 | PCM.PN.CARD ---
Subjectve: Patient doing well, hemoglobin actually improved. No further bleeding issues. Tolerating Plavix well. Objective: Vital Signs Temp Pulse Resp BP Pulse Ox 98.1 F 70 18 120/59 L 96 05/09/18 08:05 05/09/18 08:05 05/09/18 08:05 05/09/18 08:05 05/09/18 08:05 Oxygen Flow Rate (L/min) 2 Oxygen Delivery Method Room Air Weight: 255 lb 4.725 oz Body Mass Index (BMI) 34.2 Intake and Output for Last 24 Hours 05/07/18 05/08/18 05/09/18 23:59 23:59 23:59 Intake Total 1594 / 1594 4369 / 4369 Output Total 1075 / 1075 Balance 519 / 519 4369 / 4369 General: Awake, Alert, Oriented x 3 HEENT: PERRL, EOMI, Sclera Non Icteric Neck: Supple, Good ROM, No Lymph Node Enlargement Lungs: Clear to auscultation Cardiovascular: Regular Rhythm, Normal S1, Normal S2, No Murmurs, No Rubs, No Gallops Vascular: No Carotid Bruits, Normal Femoral Pulses, Normal Radial Pulses, Normal Dorsalis Pedal Pulse, Normal Posterior Tibial Pulses Abdomen: Bowel Sounds Present, Soft, Non Tender, No HSM, No Organomegaly Extremities: No Cyanosis, No Clubbing, No edema Neurological: No Focal Motor or Sensory Deficit 05/06/18 05:35: Transferrin 301 05/08/18 16:54: Hgb 8.7 L, Hct 30.1 L 05/09/18 06:14: WBC 5.4, RBC 3.65 L, Hgb 8.3 L, Hct 29.2 L, MCV 80.0, MCH 22.7 L, MCHC 28.4 L, RDW 19.2 H, RDW Differential 53.4 H, Plt Count 298, MPV 9.8, Immature Gran % (Auto) 0.200, Neut % (Auto) 61.0, Lymph % (Auto) 21.0, [place] % (Auto) 13.3 H, Eos % (Auto) 4.1, Baso % (Auto) 0.4, Absolute Neuts (auto) 3.3, Total Counted Not Reportable 05/09/18 06:14: Sodium 145, Potassium 3.9, Chloride 107, Carbon Dioxide 29.0, Anion Gap 9, BUN 17, Creatinine 1.42 H, Est GFR (MDRD) Af Amer 63, Est GFR (MDRD) Non-Af 52 L, BUN/Creatinine Ratio 12.0, Glucose 82, Calcium 8.7 Rhythm: EKG: ECHO: Stress Test: Cardiac Cath: PCI: CT Surgery: Holter monitor: EPS: PPM: CXR: Chest CT Scan: Medical Necessity - Tobacco Use Smoking Status: Former smoker - Smoked when he was in the and quit remotely. Tobacco Use: Non-smoker Assessment/Plan 1. Coronary artery disease: The patient is status post angioplasty and drug-eluting stent to his proximal RCA in September 2017. At that time he received a 3.5X 17 Elunir drug-eluting stent, postdilated with a 4.0 mm balloon. As this was a drug-eluting stent, the patient will require dual antiplatelet therapy for at least 6 months time, and preferably for 1 year. However he has acute anemia, most likely from a GI source, I would recommend holding his baby aspirin and Brilinta until his EGD and colonoscopy have been completed. I would definitely recommend holding his Eliquis going forward as he is in sinus rhythm and has maintained that for some time. Would recommend keeping his potassium of 4.0 and his magnesium of 2.0 to avoid recurrence to atrial fibrillation. EGD apparently showed 2 discrete small nonbleeding ulcers in his stomach, and colonoscopy was negative. Would recommend continuing high-dose twice daily PPI therapy, and switching to Plavix 75 mg p.o. daily. We will hold off on aspirin therapy until 1 week's time when hopefully his gastric antrum has healed. At that time he will resume baby aspirin 81 mg p.o. daily. Do not recommend restarting Eliquis at this time, or going forward. I do not recommend the patient undergo a repeat echocardiogram or stress test at this time. His troponins have been negative. Patient's LVEF is 25% by catheterization in September 2017. Recommend Lasix 40 mg p.o. daily going forward. Recommend a 1500 cc fluid restriction, and Lasix 40 mg IV in between units of blood. Would recommend keeping his hemoglobin above 8.0. Continue Cozaar therapy for afterload reduction. 2. Atrial fibrillation: Apparently the patient is status post DC cardioversion, and remains in normal sinus rhythm. We discontinue Eliquis therapy going forward given his acute anemia. Continue amiodarone to maintain normal sinus rhythm. 3. Hyperlipidemia: Continue statin based medications. Continue Lipitor therapy. 4. Thank you very much for the opportunity to participate in the cardiac care of your patient. Patient may follow-up with Dr. Martinez going forward. Would recommend repeat hemoglobin in 1 week's time to assure that he has not dropped below 7. Recommend keeping his hemoglobin at least above 7 and preferably above 8.0. Patient may be discharged home today. Discussed with Dr. Mohan. Code Visit Inpatient E&M: 48504 Subs Hosp L2
--- NOTE | 2018-05-09 11:37 | PCM.DC.SUM ---
Discharge Date and Diagnosis Date of Admission: 05/04/18 Date of Discharge: 05/09/18 - Primary Discharge Diagnosis #1 acute microcytic iron deficiency anemia, attributed to probable GI bleed. #2 gastric ulcers. - Secondary Discharge Diagnosis Chronic Problems (Last Updated 05/08/18 @ 10:55 by Bouchra Mohan MD) Heart failure (Chronic) Bradycardia (Chronic) Dyslipidemia (Chronic) Obesity (Chronic) History of appendectomy (Chronic) Nonrheumatic mitral (valve) insufficiency (Chronic) Non-rheumatic tricuspid valve insufficiency (Chronic) Cardiomyopathy in disease classified elsewhere (Chronic) Secondary pulmonary arterial hypertension (Chronic) Persistent atrial fibrillation (Chronic) History of coronary artery stent placement (Chronic ~09/19/17) PCI-BONNY Prox RCA 3.5 x 17 mm Elunir 09/19/17 Atherosclerosis of coronary artery of [place] heart without angina pectoris (Chronic) PCI-BONNY Prox RCA 3.5 x 17 mm Elunir 09/19/17 Hypertension (Chronic) Hospital Course and Treatment Imaging Results: Clinical Impression(s) from Imaging Studies Chest X-Ray 05/04/18 17:00 IMPRESSION: No acute pulmonary process Electronically Signed: Fritz Gardner MD at 17:16 EDT , Service support , Dr. Zendejas, general surgery. Dr. Powell, critical care. Procedures: Blood transfusion, Colonoscopy, EGD Summary of Care Provided: The patient is a 73 year old M admitted because he was found to have very low hemoglobin and Dr. Frazier's office. He was found to have acute microcytic iron deficiency anemia which is attributed to probable GI bleed. On admission, hemoglobin was 4.9 g/dL. There was no evidence of active bleeding. Patient received a total of 5 units of packed RBCs. He was treated with IV Protonix twice daily. He underwent upper EGD by Dr. Clmeents that revealed 2 white based gastric ulcers and gastritis. Colonoscopy also performed and was unremarkable for active bleeding or masses. After blood transfusion, patient's hemoglobin reached up to 8.3 g/dL on the day of discharge. His platelet count was normal. His INR was 1.3 and pro time was 15.9. Patient was on Brilinta and Eliquis for history of CAD and atrial fibrillation. He had a cardioversion for the atrial fibrillation and he has been on sinus rhythm since then. Cardiology consulted and recommended to discontinue Brilinta and Eliquis and patient was started on Plavix. Aspirin also discontinued. His vital signs remained stable throughout admission. After another discussion with cardiology, patient was kept on Plavix, and requested to stop taking aspirin for a week and we discontinued Brilinta and Eliquis. Patient discharged home in a stable medical condition, discharged on Protonix 40 mg p.o. twice daily, discharged on Plavix 75 mg p.o. daily, discharged on iron supplement, continued on other home medications without any changes, order given to repeat CBC and BMP in 1 week, plan to follow-up with PCP in 1 week, follow-up with general surgery for repeat endoscopy in 3-4 weeks and recommend follow-up with cardiology in 2 weeks. - Physical Exam General: Alert, Oriented x3, Cooperative, No apparent distress HEENT: Atraumatic, PERRLA, EOMI, Normocephalic Oral: Moist Mucosa, No Gingival or Mucosal Lesions/ Ulcerations Neck: Supple, No JVD, Negative Carotid Bruits, Trachea Midline, Thyroid Normal Size and Texture Lungs: Clear to auscultation, No rhonchi, No wheeze, No rales, Diminished Cardiovascular: Regular rate, Regular Rhythm, Normal S1, Normal S2, PMI Normal Abdomen: Bowel Sounds Present, Soft, Non Tender, Non-Distended, No Hepato-splenomegaly, Obese Extremities: No clubbing, No cyanosis, No edema Skin: No rashes, No breakdown Lymphatic: No Cervical, Supraclavicular, or Inguinal Adenopathy Neurological: Cranial nerves II-XII grossly intact, Neuro grossly intact Psych/Mental Status: Normal Affect, Appropriate, Alert and oriented to time, place, person, mood and affect Vital Signs Temp Pulse Resp BP Pulse Ox 98.1 F 70 18 120/59 L 96 05/09/18 08:05 05/09/18 08:05 05/09/18 08:05 05/09/18 08:05 05/09/18 08:05 Oxygen Flow Rate (L/min) 2 Oxygen Delivery Method Room Air Weight: 255 lb 4.725 oz Body Mass Index (BMI) 34.2 Intake and Output for Last 24 Hours 05/07/18 05/08/18 05/09/18 23:59 23:59 23:59 Intake Total 1594 / 1594 4369 / 4369 Output Total 1075 / 1075 Balance 519 / 519 4369 / 4369 Laboratory Tests Past 24 Hrs 05/04/18 05/05/18 05/06/18 16:30 03:45 05:35 WBC RBC Hgb Hct MCV MCH MCHC RDW RDW Differential Plt Count MPV Immature Gran % (Auto) Neut % (Auto) Lymph % (Auto) [place] % (Auto) Eos % (Auto) Baso % (Auto) Absolute Neuts (auto) Absolute Lymphs (auto) Total Counted Diff Path Review Reviewed Reviewed Sodium Potassium Chloride Carbon Dioxide Anion Gap BUN Creatinine Estim Creat Clear Calc Est GFR (MDRD) Af Amer Est GFR (MDRD) Non-Af BUN/Creatinine Ratio Glucose Calcium Transferrin 301 Crossmatch 05/08/18 05/08/18 05/09/18 07:35 16:54 06:14 WBC 5.4 RBC 3.65 L Hgb 8.7 L 8.3 L Hct 30.1 L 29.2 L MCV 80.0 MCH 22.7 L MCHC 28.4 L RDW 19.2 H RDW Differential 53.4 H Plt Count 298 MPV 9.8 Immature Gran % (Auto) 0.200 Neut % (Auto) 61.0 Lymph % (Auto) 21.0 [place] % (Auto) 13.3 H Eos % (Auto) 4.1 Baso % (Auto) 0.4 Absolute Neuts (auto) 3.3 Absolute Lymphs (auto) 1.14 Total Counted Not Reportable Diff Path Review Sodium Potassium Chloride Carbon Dioxide Anion Gap BUN Creatinine Estim Creat Clear Calc Est GFR (MDRD) Af Amer Est GFR (MDRD) Non-Af BUN/Creatinine Ratio Glucose Calcium Transferrin Crossmatch See Detail 05/09/18 06:14 WBC RBC Hgb Hct MCV MCH MCHC RDW RDW Differential Plt Count MPV Immature Gran % (Auto) Neut % (Auto) Lymph % (Auto) [place] % (Auto) Eos % (Auto) Baso % (Auto) Absolute Neuts (auto) Absolute Lymphs (auto) Total Counted Diff Path Review Sodium 145 Potassium 3.9 Chloride 107 Carbon Dioxide 29.0 Anion Gap 9 BUN 17 Creatinine 1.42 H Estim Creat Clear Calc 52.37 Est GFR (MDRD) Af Amer 63 Est GFR (MDRD) Non-Af 52 L BUN/Creatinine Ratio 12.0 Glucose 82 Calcium 8.7 Transferrin Crossmatch Discharge Activity: Return to Normal Activity Weight Bearing Status: Weight bearing as tolerated Call your doctor if you observe: Fever of 101 or Higher, Shortness of breath, Dizziness, Fainting spells, Chest pain, Increased palpitations (irregular heartbeat), Uncontrolled pain Home Medications: Medications to take at Discharge Allopurinol [Zyloprim] 300 mg PO DAILY 09/15/17 Doxazosin Mesylate [Cardura] 4 mg PO QHS 09/15/17 atorvastatin 40 mg tablet 40 mg PO QHS #30 tab 10/21/17 Tramadol HCl [Ultram] 50 - 100 mg PO Q6H PRN 11/25/17 losartan 25 mg tablet 25 mg PO QDAY tab 12/21/17 furosemide 40 mg tablet 40 mg PO QDAY tab 01/12/18 metoprolol tartrate 50 mg tablet 25 mg PO BID tab 01/12/18 Amiodarone HCl 200 mg PO DAILY 05/04/18 Clopidogrel Bisulfate [Plavix] 75 mg PO DAILY #30 tablet 05/09/18 Ferrous Sulfate 325 mg PO 1200,1700 #90 tablet 05/09/18 Pantoprazole Sodium [Protonix] 40 mg PO BID #90 tablet 05/09/18 Following Prescrptions Were Given to Patient: Clopidogrel Bisulfate [Plavix] 75 mg PO DAILY #30 tablet Ferrous Sulfate 325 mg PO 1200,1700 #90 tablet Pantoprazole Sodium [Protonix] 40 mg PO BID #90 tablet Other Amb Orders: Basic Metabolic Profile (BMP) Time Frame: 5 Days, Location: Laboratory CBC W/Diff, Automated Time Frame: 5 Days, Location: Laboratory Primary Care Physician: Demetrio Lyons MD [Primary Care Provider] - Please follow up with your Primary Care Physician in: 1 week. Please Follow Up With: Lui Starks MD When: 3-4 weeks Please Follow Up With: Lemuel Martinez MD When: 2 weeks. Please Follow Up With: Demetrio Lyons MD When: 1 week Medical Necessity - Tobacco Use Smoking Status: Former smoker - Smoked when he was in the and quit remotely. Tobacco Use: Non-smoker Meaningful Use Info Meaningful Use Diagnoses (Choose all that apply): None applicable Code Visit Inpatient E&M: 66764 Disch Hosp
--- NOTE | 2018-05-12 14:45 | CASEMGMT ---
SAMANTHA DYE Discharge Phone Call. DC DATE: 05/10/18 DC Disposition: Home Call details: Intro role of CM to patient via phone. Pt states he has no questions, is doing well and has made f/u appointments. SAMANTHA DYE thanked him for using [facility]. Sury POTTSN RN ACM
== END 2018-05-09 11:09 | disposition home or self-care (01) | DRG 812 ==
LOC: ED 18:23 → ICU 20:09 → PCU 05-08 07:07 → ICU 05-08 08:55
PROVIDERS: Family Medicine; Internal Medicine Critical Care Medicine; Surgery; Admitting Provider Family Medicine; Emergency Provider Emergency Medicine; Family Provider Family Medicine; PCP Family Medicine; Referring Provider Internal Medicine Cardiovascular Disease; Visit Provider Hospitalist
PROC: 0DJD8ZZ Inspection of Lower Intestinal Tract, Via Natural or Artificial Opening Endoscopic (ICD-10-PCS; CPT 45378; principal; 2018-05-08 06:25)
DX: D50.0 Iron deficiency anemia secondary to blood loss (chronic) (principal); I50.42 Chronic combined systolic (congestive) and diastolic (congestive) heart failure; I48.1 Persistent atrial fibrillation; I42.9 Cardiomyopathy, unspecified; K92.2 Gastrointestinal hemorrhage, unspecified; K29.70 Gastritis, unspecified, without bleeding; K25.9 Gastric ulcer, unspecified as acute or chronic, without hemorrhage or perforation; R00.1 Bradycardia, unspecified; E66.9 Obesity, unspecified; I27.21 Secondary pulmonary arterial hypertension; E78.5 Hyperlipidemia, unspecified; I25.10 Atherosclerotic heart disease of native coronary artery without angina pectoris; I11.0 Hypertensive heart disease with heart failure; Z79.02 Long term (current) use of antithrombotics/antiplatelets; I36.1 Nonrheumatic tricuspid (valve) insufficiency; Z95.5 Presence of coronary angioplasty implant and graft; I34.0 Nonrheumatic mitral (valve) insufficiency; M10.9 Gout, unspecified; Z87.891 Personal history of nicotine dependence; Z68.35 Body mass index [BMI] 35.0-35.9, adult
CPT/HCPCS: 36415; 71045; 80048; 82274; 82728; 83540; 83550; 83735; 84466; 84484; 85014; 85018; 85025; 85027; 85610; 85730; 86850; 86900; 86920; 86922; 88305; 88342; 93005; 99285; J1756; J7040; J7050; P9016; A4216; J1940

== ENCOUNTER → 2018-05-15 10:31 | Outpatient (CLI) | payer MEDICARE, SELFPAY ==
[2017-09-21 13:58] VITALS: BMI 36.1
[2018-05-15 11:29] LABS: Absolute Lymphocyte Count 0.88 X10^3/ul (0.83-4.51); Absolute Neutrophil Count 3.9 X10^3/uL (2.0-7.7); Basophil# 0.03 X10^3/uL; Basophil% 0.5 % (0-1); Eosinophil# 0.13 X10^3/uL; Eosinophils% 2.4 % (0-5); Hemoglobin 10.1 g/dl (13.0-16.5); Lymphocyte # 0.88 X10^3/ul (4.0); Lymphocyte % 15.9 % (19-41); Mean Corp Hgb Conc 28.9 g/gl (32-36); Mean Corpuscular Volume 83.3 fL (80-94); Mean Platelet Vol. 10.2 fl (6.2-12.0); Monocyte# 0.59 X10^3/uL; Monocyte% 10.7 % (0-10); Neutrophil # 3.88 X10^3/uL (2.7-7.7); Neutrophil % 70.3 % (47-70); Platelet Count 297 K/mm3 (150-450); RBC Distribution Width CV 22.5 % (11.6-14.6); RBC Distribution Width SD 65.2 fl (35.1-43.9); White Blood Count 5.5 K/mm3 (4.4-11.0)
[2018-05-15 11:32] LABS: Differential Indicated SCAN CRITERIA MET; POSITIVE COUNT NO; POSITIVE DIFFERENTIAL NO; POSITIVE MORPHOLOGY YES
[2018-05-15 11:49] LABS: Anion Gap 7 (5-15); BUN 22 mg/dL (7-18); BUN/Creat Ratio 14.2 RATIO (10-20); Calcium,Total 8.9 mg/dL (8.5-10.1); Chloride 106 mmol/L (98-107); Creatinine, Serum 1.55 mg/dL (0.70-1.30); EST Glomerular Filtration Rate 47 mL/min (>60); Est Glom Filt Rate - Afr Amer 57 mL/min (>60); Glucose 90 mg/dL (74-106); Potassium 3.9 mmol/L (3.5-5.1); Sodium Level 143 mmol/L (136-145)
== END ==
PROVIDERS: Family Provider Family Medicine; PCP Family Medicine; Referring Provider Hospitalist; Visit Provider Hospitalist
DX: D64.9 Anemia, unspecified (principal); K25.9 Gastric ulcer, unspecified as acute or chronic, without hemorrhage or perforation; N18.9 Chronic kidney disease, unspecified
CPT/HCPCS: 36415; 80048; 85025

== ENCOUNTER → 2018-12-05 13:56 | Outpatient (CLI) | payer MEDICARE, SELFPAY ==
[2017-09-21 13:58] VITALS: BMI 36.1
[2018-12-05 12:49] VITALS: BMI 36.6
[2018-12-05 14:27] LABS: Absolute Lymphocyte Count 0.91 X10^3/ul (0.83-4.51); Absolute Neutrophil Count 5.5 X10^3/uL (2.0-7.7); Basophil# 0.01 X10^3/uL; Basophil% 0.1 % (0-1); Eosinophil# 0.16 X10^3/uL; Eosinophils% 2.2 % (0-5); Hematocrit 43.5 % (40-54); Hemoglobin 14.2 g/dl (13.0-16.5); Lymphocyte # 0.91 X10^3/ul (4.0); Lymphocyte % 12.2 % (19-41); Mean Corp Hgb Conc 32.6 g/gl (32-36); Mean Corpuscular Hgb 29.2 pg (27.0-32.0); Mean Corpuscular Volume 89.5 fL (80-94); Mean Platelet Vol. 10.1 fl (6.2-12.0); Monocyte# 0.88 X10^3/uL; Monocyte% 11.8 % (0-10); Neutrophil # 5.46 X10^3/uL (2.7-7.7); Neutrophil % 73.6 % (47-70); Platelet Count 216 K/mm3 (150-450); RBC Distribution Width CV 14.1 % (11.6-14.6); RBC Distribution Width SD 45.8 fl (35.1-43.9); Red Blood Count 4.86 M/mm3 (4.6-6.2); White Blood Count 7.4 K/mm3 (4.4-11.0)
[2018-12-05 14:30] LABS: POSITIVE COUNT NO; POSITIVE DIFFERENTIAL NO; POSITIVE MORPHOLOGY NO
[2018-12-05 14:40] LABS: BUN 26 mg/dL (7-18); Creatinine, Serum 1.26 mg/dL (0.70-1.30); Glucose 99 mg/dL (74-106)
[2018-12-05 14:41] LABS: Anion Gap 6 (5-15); BUN/Creat Ratio 20.6 RATIO (10-20); Chloride 106 mmol/L (98-107); EST Glomerular Filtration Rate 60 mL/min (>60); Est Glom Filt Rate - Afr Amer 72 mL/min (>60); Sodium Level 141 mmol/L (136-145)
== END ==
PROVIDERS: Family Provider Family Medicine; PCP Family Medicine; Referring Provider Internal Medicine Cardiovascular Disease; Visit Provider Internal Medicine Cardiovascular Disease
DX: I48.0 Paroxysmal atrial fibrillation (principal); I42.9 Cardiomyopathy, unspecified
CPT/HCPCS: 36415; 80048; 85025

== ENCOUNTER → 2019-06-04 07:58 | Outpatient (CLI) | payer MEDICARE, SELFPAY ==
[2017-09-21 13:58] VITALS: BMI 36.1
[2019-05-24 10:02] VITALS: BMI 36.6
[2019-06-04 09:35] LABS: AST(SGOT) 24 U/L (15-37); Alanine Aminotransfer ALT/SGPT 40 U/L (16-61); Albumin, Serum 3.9 g/dL (3.2-5.0); Alkaline Phosphatase 140 U/L (45-117); Bilirubin, Direct 0.17 mg/dL (0.00-0.30); Cholesterol 119 mg/dL (200); Globulin 3.4 g/dL (2.2-4.2); High Density Lipoprotein 55 mg/dL; Protein, Total 7.3 g/dL (6.4-8.2); Triglycerides 63 mg/dL; Very Low Density Lipoprotein 13 mg/dL (5-40)
== END ==
PROVIDERS: Family Provider Family Medicine; PCP Family Medicine; Referring Provider Nurse Practitioner Family; Visit Provider Nurse Practitioner Family
DX: E78.5 Hyperlipidemia, unspecified (principal); I25.10 Atherosclerotic heart disease of native coronary artery without angina pectoris; I48.0 Paroxysmal atrial fibrillation; I10 Essential (primary) hypertension; I43 Cardiomyopathy in diseases classified elsewhere; Z95.5 Presence of coronary angioplasty implant and graft
CPT/HCPCS: 36415; 80061; 80076

== ENCOUNTER → 2020-07-15 08:36 | Outpatient (CLI) | payer MEDICARE, SELFPAY ==
[2017-09-21 13:58] VITALS: BMI 36.1
[2019-12-13 14:31] VITALS: BMI 35.4
[2020-07-15 09:42] LABS: Ferritin 50 ng/mL (26-388)
== END ==
PROVIDERS: PCP Family Medicine; Referring Provider Internal Medicine Pulmonary Disease; Visit Provider Internal Medicine Pulmonary Disease
DX: D64.9 Anemia, unspecified (principal)
CPT/HCPCS: 36415; 82728

== ENCOUNTER → 2020-07-16 10:55 | Outpatient (CLI) | payer MEDICARE, SELFPAY ==
[2017-09-21 13:58] VITALS: BMI 36.1
[2019-12-13 14:31] VITALS: BMI 35.4
[2020-07-16 12:51] LABS: Hemoglobin 14.9 g/dL (13.0-16.5)
[2020-07-16 13:00] LABS: Iron 96 ug/dL (65-175); Iron Binding Capacity,Total 322 ug/dL (250-450); PERCENT IRON SATURATION 29.8 % (15.0-55.0)
== END ==
PROVIDERS: PCP Family Medicine; Referring Provider Internal Medicine Pulmonary Disease; Visit Provider Internal Medicine Pulmonary Disease
DX: D64.9 Anemia, unspecified (principal)
CPT/HCPCS: 36415; 83540; 83550; 85018

== ENCOUNTER → 2020-09-16 09:17 | Outpatient (CLI) | payer MEDICARE, SELFPAY ==
[2017-09-21 13:58] VITALS: BMI 36.1
[2019-12-13 14:31] VITALS: BMI 35.4
--- NOTE | 2020-09-16 09:19 | RAD_ITS ---
HISTORY: HYPOXEMIA, CAD EXAM: XR Chest 2 Views: COMPARISON: May 04, 2018 FINDINGS: # of images incl. paperwork: 3 Lungs are clear. Heart is not enlarged. No acute osseous pathology perceived. Pulmonary vascularity is distinct. No effusions. RAD/Chest PA and Lateral IMPRESSION: Normal. at 0618 Reported and signed by: Crow Mora MD Electronically Signed: Crow Mora MD at 6:17 EST Tel , Service support ,
== END ==
PROVIDERS: PCP Family Medicine; Referring Provider Internal Medicine Pulmonary Disease; Visit Provider Internal Medicine Pulmonary Disease
DX: R09.02 Hypoxemia (principal); I25.10 Atherosclerotic heart disease of native coronary artery without angina pectoris
CPT/HCPCS: 71046

== ENCOUNTER → 2021-01-14 11:52 | Outpatient (CLI) | payer MEDICARE, SELFPAY ==
[2017-09-21 13:58] VITALS: BMI 36.1
[2021-01-14 10:29] VITALS: BMI 33.9
[2021-01-14 14:10] LABS: ALB/GLOB Ratio 1.1 RATIO (0.9-2.4); AST(SGOT) 20 U/L (15-37); Alanine Aminotransfer ALT/SGPT 33 U/L (16-61); Albumin, Serum 3.7 g/dL (3.2-5.0); Alkaline Phosphatase 138 U/L (45-117); Anion Gap 5 (5-15); BUN 23 mg/dL (7-18); Calcium,Total 9.2 mg/dL (8.5-10.1); Chloride 105 mmol/L (98-107); Cholesterol 113 mg/dL (200); Creatinine, Serum 1.15 mg/dL (0.70-1.30); EST Glomerular Filtration Rate 66 mL/min (>60); Est Glom Filt Rate - Afr Amer 80 mL/min (>60); Free T3 2.7 pg/mL (2.18-3.98); Globulin 3.4 g/dL (2.2-4.2); Glucose 95 mg/dL (74-106); High Density Lipoprotein 46 mg/dL; Potassium 4.5 mmol/L (3.5-5.1); Protein, Total 7.1 g/dL (6.4-8.2); Sodium Level 141 mmol/L (136-145); T4 Free Direct 1.16 ng/dL (0.76-1.46); Thyroid Stim Hormone (TSH) 1.26 uIU/mL (0.358-3.74); Triglycerides 81 mg/dL; Very Low Density Lipoprotein 16 mg/dL (5-40)
== END ==
PROVIDERS: PCP Family Medicine; Visit Provider Physician Assistant Medical
DX: I48.0 Paroxysmal atrial fibrillation (principal); I25.10 Atherosclerotic heart disease of native coronary artery without angina pectoris; E78.5 Hyperlipidemia, unspecified
CPT/HCPCS: 36415; 80053; 80061; 84439; 84443; 84481

== ENCOUNTER 2021-10-13 11:08 | Outpatient (CLI) | payer MEDICARE, SELFPAY ==
[2017-09-21 13:58] VITALS: BMI 36.1
[2021-10-13 11:24] LABS: Absolute Lymphocyte Count 1.24 X10^3/uL (0.83-4.51); Basophil# 0.03 X10^3/uL; Basophil% 0.4 % (0-1); Eosinophil# 0.15 X10^3/uL; Eosinophils% 1.8 % (0-5); Hematocrit 45.8 % (40-54); Hemoglobin 15.2 g/dL (13.0-16.5); Lymphocyte # 1.24 X10^3/ul (0.83-4.51); Lymphocyte % 15.1 % (19-41); Mean Corp Hgb Conc 33.2 g/dL (32-36); Mean Corpuscular Hgb 30.6 pg (27.0-32.0); Mean Corpuscular Volume 92.3 fL (80-94); Mean Platelet Vol. 9.7 fl (6.2-12.0); Monocyte# 0.82 X10^3/uL; NRBC Flagged by Analyzer 0 % (0-5); Neutrophil # 5.96 X10^3/uL (2.7-7.7); Neutrophil % 72.3 % (47-70); Platelet Count 234 K/mm3 (150-450); RBC Distribution Width CV 12.7 % (11.6-14.6); RBC Distribution Width SD 42.8 fl (35.1-43.9); Red Blood Count 4.96 M/mm3 (4.6-6.2); White Blood Count 8.2 K/mm3 (4.4-11.0)
[2021-10-13 12:11] LABS: AST(SGOT) 15 U/L (15-37); Alanine Aminotransfer ALT/SGPT 26 U/L (16-61); Albumin, Serum 3.9 g/dL (3.2-5.0); Alkaline Phosphatase 120 U/L (45-117); Anion Gap 1 (5-15); BUN 26 mg/dL (7-18); BUN/Creat Ratio 19.3 RATIO (10-20); Bilirubin, Direct 0.21 mg/dL (0.00-0.30); Calcium,Total 9.2 mg/dL (8.5-10.1); Chloride 105 mmol/L (98-107); Cholesterol 122 mg/dL (200); Creatinine, Serum 1.35 mg/dL (0.70-1.30); EST Glomerular Filtration Rate 55 mL/min (>60); Est Glom Filt Rate - Afr Amer 66 mL/min (>60); Globulin 3.4 g/dL (2.2-4.2); Glucose 94 mg/dL (74-106); High Density Lipoprotein 51 mg/dL; Potassium 4.2 mmol/L (3.5-5.1); Protein, Total 7.3 g/dL (6.4-8.2); Sodium Level 138 mmol/L (136-145); Triglycerides 59 mg/dL; Very Low Density Lipoprotein 12 mg/dL (5-40)
== END 2021-10-13 23:59 | disposition home or self-care (01) ==
LOC: LAB 11:12
PROVIDERS: PCP Family Medicine; Visit Provider Internal Medicine Cardiovascular Disease
DX: I42.8 Other cardiomyopathies (principal); E78.5 Hyperlipidemia, unspecified; Z95.5 Presence of coronary angioplasty implant and graft
CPT/HCPCS: 36415; 80048; 80061; 80076; 85025

== ENCOUNTER → 2021-11-12 | Outpatient (CLI) | payer MEDICARE, SELFPAY ==
[2017-09-21 13:58] VITALS: BMI 36.1
--- NOTE | 2021-11-12 06:06 | ECHOD_ITS ---
Reason For Study: CAD Procedure This was a 2D Doppler, Color Flow transthoracic echocardiogram. Myocardial strain analysis was performed in this exam to aid in the assessment of cardiac function. Exam performed in department. Left Ventricle Normal LV size. The estimated ejection fraction is 50 %. Left ventricular systolic function is lower limits of normal. Stage 2 diastolic dysfunction. No regional wall motion abnormalities noted. Right Ventricle Normal RV size. Normal systolic function. Atria Normal left atrium. Normal right atrium. Mitral Valve Normal mitral valve. Mild (1+) mitral valve insufficiency. Tricuspid Valve Normal tricuspid valve. Mild tricuspid valve insufficiency. Pulmonary artery systolic pressure is 26 mmHg. Aortic Valve Normal aortic valve. Trisinus/trileaflet aortic valve. Pulmonic Valve Normal pulmonic valve. Great Vessels Normal aortic root. The pulmonary artery is normal size. Normal inferior vena cava. Pericardium/Pleural No pericardial effusion. MMode/2D Measurements & Calculations LVIDd: 6.0 cm IVSd: 1.1 cm Ao root diam: 3.6 cm LVIDs: 4.1 cm LVPWd: 1.1 cm RVDd: 3.7 cm FS: 31.5 % LAV(MOD-bp): 73.6 ml LVAd ap4: 45.3 cm2 LVAd ap2: 47.5 cm2 LAV(MOD-bp) Indexed: 31.5 ml/m2 LVLd ap4: 9.5 cm LVLd ap2: 9.6 cm LAV(MOD-sp2): 65.0 ml EDV(MOD-sp4): 176.7 ml EDV(MOD-sp2): 197.0 ml LAV(MOD-sp4): 81.0 ml EDV(sp4-el): 183.5 ml EDV(sp2-el): 198.8 ml LVAs ap4: 29.8 cm2 LVAs ap2: 30.5 cm2 LVLs ap4: 8.4 cm LVLs ap2: 8.4 cm ESV(MOD-sp4): 87.4 ml ESV(MOD-sp2): 94.7 ml ESV(sp4-el): 90.2 ml ESV(sp2-el): 94.4 ml EF(MOD-sp4): 50.5 % EF(MOD-sp2): 51.9 % EF(sp4-el): 50.9 % SV(MOD-sp4): 89.3 ml SV(MOD-sp2): 102.3 ml SV(sp4-el): 93.3 ml LA dimension(2D): 4.3 cm LA A4 area: 24.3 cm2 RA A4 area: 17.2 cm2 Doppler Measurements & Calculations MV E max wally: 86.5 cm/sec Lat Peak E' Wally: 9.2 cm/sec Med Peak E' Wally: 4.0 cm/sec MV A max wally: 74.4 cm/sec E/E' lat: 9.4 E/E' med: 21.6 MV E/A: 1.2 Ao V2 max: 143.3 cm/sec LV V1 max: 109.9 cm/sec PA V2 max: 110.6 cm/sec Ao max P.2 mmHg LV V1 max P.8 mmHg TR max wally: 235.7 cm/sec TR max P.2 mmHg ECHO/Echo Complete Interpretation Summary Normal LV size. The estimated ejection fraction is 50 %. Left ventricular systolic function is lower limits of normal. Stage 2 diastolic dysfunction. The global longitudinal strain is mildly abnormal. The global longitudinal stra in = -16.7% (abnormal). Compared to previous study, the left ventricular systolic function is the same.. Ordering Physician: Lemuel Martinez Referring Physician: Demetrio Lyons Performed By: Gertrudis Sow RDCS
--- NOTE | 2021-11-12 18:01 | STRESSREP_ITS ---
Stress Test Report Pharmacologic myocardial perfusion stress test. 76-year-old man with a history of previous stenting to the right coronary artery. Stress protocol: Resting EKG demonstrates normal sinus rhythm with a rate of 49 bpm and a left bundle branch block noted. Resting blood pressure is 122/78 mmHg. 0.4 mg of regadenoson was infused per usual protocol followed by rapid intravenous saline flush injection continuous EKG monitoring was performed. The maximum heart rate attained was 106 bpm which was 72% of max impact at heart rate the maximum wor kload was 1 metabolic equivalent. At rest there were no ST or T wave changes noted to suggest abnormal flow reserve and at peak infusion nonspecific ST changes were noted with did not meet the criteria for ischemia. No clinical angina was noted. Myocardial perfusion protocol. 14.7 mCi of technetium 99m sestamibi was injected at rest. 0.4 mg of regadenoson was infused per usual protocol. At peak infusion 44.3 mCi of technetium 99m sestamibi was injected stress images were obtained stress and rest images were reconstructed in comparing the short axis vertical long and horizontal long axis. Perfusion SPECT analysis: Review of the stress images demonstrate normal perfusion noted in the mid septum anterior wall and mid lateral wall. An extensive defect is noted involving the entire inferior wall towards the apex. The resting images demonstrate a similar pattern. There is minimal improvement at the edges suggesting a mild amount of yessenia-infarct ischemia. No gated CT images were obtained Conclusion: Pharmacologic myocardial perfusion stress test with evidence of extensive previous inferior infarct. Minimal yessenia-infarct ischemia only is present.
== END | disposition home or self-care (01) ==
LOC: CVS 05:58
PROVIDERS: PCP Family Medicine; Referring Provider Internal Medicine Cardiovascular Disease; Visit Provider Internal Medicine Cardiovascular Disease
DX: I25.10 Atherosclerotic heart disease of native coronary artery without angina pectoris (principal); Z95.5 Presence of coronary angioplasty implant and graft
CPT/HCPCS: 78452; 93017; 93306; A9500; A4216; J2785

== ENCOUNTER → 2021-11-19 | Outpatient (CLI) | payer MEDICARE, SELFPAY ==
[2017-09-21 13:58] VITALS: BMI 36.1
[2021-11-19 08:56] LABS: Hematocrit 44.8 % (40-54); Hemoglobin 14.4 g/dL (13.0-16.5); Mean Corp Hgb Conc 32.1 g/dL (32-36); Mean Corpuscular Hgb 30.4 pg (27.0-32.0); Mean Corpuscular Volume 94.7 fL (80-94); Mean Platelet Vol. 9.4 fl (6.2-12.0); Platelet Count 204 K/mm3 (150-450); RBC Distribution Width SD 45.3 fl (35.1-43.9); Red Blood Count 4.73 M/mm3 (4.6-6.2); White Blood Count 6.4 K/mm3 (4.4-11.0)
--- NOTE | 2021-11-19 08:58 | RAD_ITS ---
STUDY: X-RAY CHEST REASON FOR EXAM: Male, 76 years old. for heart cath TECHNIQUE: PA and lateral COMPARISON: 09/16/2020 FINDINGS: The lungs are clear and expanded. There is elevation of the right diaphragm. There is no demonstrated pleural abnormality. Normal size heart. Normal mediastinum and surjit. Normal visualized pulmonary arteries. Normal visualized aortic arch and descending thoracic aorta. Normal visualized thoracic spine. Normal visualized ribs, clavicles, and shoulders. There is no demonstrated abnormality of the visualized soft tissue structures of the upper abdomen. RAD/Chest PA and Lateral IMPRESSION: There is mild elevation of the right diaphragm. Otherwise normal x-ray examination of the chest. Electronically Signed: Osmany Leahy MD at 23:13 EDT ,
[2021-11-19 09:10] LABS: Anion Gap 1 (5-15); BUN 24 mg/dL (7-18); BUN/Creat Ratio 19.8 RATIO (10-20); Calcium,Total 8.9 mg/dL (8.5-10.1); Chloride 108 mmol/L (98-107); Creatinine, Serum 1.21 mg/dL (0.70-1.30); EST Glomerular Filtration Rate 62 mL/min (>60); Est Glom Filt Rate - Afr Amer 75 mL/min (>60); Glucose 111 mg/dL (74-106); Potassium 4.3 mmol/L (3.5-5.1); Sodium Level 142 mmol/L (136-145)
[2021-11-19 09:19] LABS: Prothrombin Time (Protime)PT. 13.3 SECONDS (11.7-14.9)
[2021-11-19 09:21] LABS: Partial Thromboplast Time 27.7 Seconds (24.1-36.2)
== END | disposition home or self-care (01) ==
PROVIDERS: PCP Family Medicine; Referring Provider Internal Medicine Cardiovascular Disease; Visit Provider Internal Medicine Cardiovascular Disease
DX: R93.1 Abnormal findings on diagnostic imaging of heart and coronary circulation (principal); I42.8 Other cardiomyopathies; I50.42 Chronic combined systolic (congestive) and diastolic (congestive) heart failure; I48.0 Paroxysmal atrial fibrillation; R94.39 Abnormal result of other cardiovascular function study; D50.9 Iron deficiency anemia, unspecified; I25.10 Atherosclerotic heart disease of native coronary artery without angina pectoris
CPT/HCPCS: 36415; 71046; 80048; 85027; 85610; 85730

== ENCOUNTER 2021-11-23 07:18 | Day surgery (SDC) | payer MEDICARE, SELFPAY ==
[2017-09-21 13:58] VITALS: BMI 36.1
[2021-11-20 08:21] VITALS: BMI 33.9
--- NOTE | 2021-11-23 08:31 | PCM.HP.BLA ---
History and Physical Lui Waterman, is a 76-year-old gentleman that presents here today for a diagnostic heart cath for an abnormal stress test. He has a history of coronary artery disease with stenting to his RCA in 2018. He also has a history of paroxysmal atrial fibrillation requiring a cardioversion in 2018. He also has a history of hypertension and hyperlipidemia. Of note he did have a significant GI bleed while being on triple anticoagulant therapy. Last month he presented to the office with some chest tightness which was difficult for him to describe. He stated that it did not necessarily worse with exertion occasionally occurs at rest its been lasting 2 to 4 minutes and he has had it for the last few months. He underwent a stress test which demonstrated: evidence of extensive previous inferior infarct. Minimal yessenia-infarct ischemia only is present. Allergies Sulfa (Sulfonamide Antibiotics) Allergy (Verified 10/13/21 09:08) Hives Medications allopurinol 300 mg PO DAILY 09/15/17 [History Confirmed 01/14/21] aspirin 81 mg tablet,delayed release 81 mg PO DAILY 05/26/18 [History Confirmed 10/13/21] doxazosin 4 mg tablet 2 mg PO QHS tab 12/05/18 [History Confirmed 10/13/21] pantoprazole 40 mg tablet,delayed release 40 mg PO DAILY #90 tab 12/05/18 [Rx Confirmed 10/13/21] ferrous sulfate 325 mg (65 mg iron) tablet 325 mg PO DAILY tab 12/13/19 [History Confirmed 10/13/21] amiodarone 200 mg tablet 100 mg PO DAILY #45 tab 01/14/21 [Rx Confirmed 10/13/21] atorvastatin 40 mg tablet 40 mg PO QHS #90 tab 01/14/21 [Rx Confirmed 10/13/21] clopidogrel 75 mg tablet 75 mg PO DAILY #90 tab 01/14/21 [Rx Confirmed 10/13/21] furosemide 40 mg tablet 40 mg PO QDAY #90 tab 01/14/21 [Rx Confirmed 10/13/21] losartan 25 mg tablet 25 mg PO DAILY #90 tab 01/14/21 [Rx Confirmed 10/13/21] metoprolol tartrate 25 mg tablet 25 mg PO BID #180 tab 01/14/21 [Rx Confirmed 10/13/21] Ejection fraction %: 50 to 54 [facility] Medical History Anemia Atherosclerosis of coronary artery of [place] heart without angina pectoris Chronic combined systolic and diastolic CHF (congestive heart failure) Erectile dysfunction Essential (primary) hypertension Gastric ulcer GI bleed (04/2018) Hyperlipidemia Iron deficiency anemia Left bundle branch block (LBBB) Non-ischemic cardiomyopathy Obesity Paroxysmal atrial fibrillation Surgical History History of appendectomy History of cardioversion (11/28/17) History of coronary artery stent placement (09/19/17) Family History Father Heart disease Brother Heart disease Pacemaker Social History Smoking Status: Former smoker how long ago did patient quit smokin's alcohol intake: current alcohol intake frequency: holidays/special occasions only substance use type: does not use caffeine: Yes Type: coffee Number of servings: 3 ROS Const Const: Negative for fatigue, weakness, headache(s), frequent falls, difficulty sleeping or excessive sweating Eyes Eyes: Negative for loss of peripheral vision, transient loss of vision, blurry vision, double vision or tunnel vision ENT ENT: Negative for headache(s), dizziness, Nosebleed/epistaxis or balance problems Cardio Chest Pain: Yes (left chest at rest watching TV lasting 2-4/- minutes 1-2 x a month) Frequency: monthly Palpitations: No Edema: None Muscle aches with walking: None Resp Respiratory: Negative for SOB with activity, SOB at rest, SOB orthopnea\SOB lying down, Cough or paroxysmal nocturnal dyspnea GI GI: Negative nausea, vomiting, heartburn or black,tarry stools : Negative for hematuria Musc Musc: Negative for muscle aches/ myalgia, muscle weakness, joint pain or balance problems Skin Skin: Negative non-healing lesions, rash or unusual bruising Neuro Neuro: Negative for dizziness, lightheadedness, near syncope, syncope, orthostatic symptoms, frequent falls, headache(s), weakness, blurry vision, double vision or lack of coordination [place] Hematologic/Lymphatic: Negative for easy bleeding or easy bruising Endo Endo: Negative for fatigue, excessive sweating or increased thirst/drinking Psych Psych: Negative for anxiety or depression Allergy Allergy/Immunology: Negative for hives and Negative for rash Cardiology Exam Const Appearance: cooperative, healthy appearing, no acute distress, well developed and well groomed Nutritional Appearance: average body habitus and well nourished Orientation: alert, awake and oriented x3 Head Head: normal to inspection, normocephalic and atraumatic Ears: hearing grossly normal bilaterally and external ears normal Nose: external nose normal, nares normal, nasal mucous membranes and turbinates normal, septum normal and no nasal discharge Face and Sinus: face symmetric Mouth: oral mucosae normal, tongue normal, oropharynx normal and moist mucous membranes Teeth and gingiva: dentition normal Throat: posterior oropharynx normal, tonsils normal and uvula midline Eyes General: appearance normal, both eyes and all related structures Eyelids: eyelids normal Conjunctivae: conjunctivae normal Pupils: PERRL, normal by confrontation and accommodation normal EOM: EOM intact bilaterally Neck Neck: normal visual inspection, trachea midline and no JVD JVD: +5 Carotids: normal carotid upstroke and bounding pulses Chest Chest inspection: normal inspection of the chest, symmetric chest movement and normal respiratory effort Auscultation: Bilateral: Clear to Auscultation Cardio Palpation: normal PMI Rate: regular rate Rhythm: regular rhythm Heart sounds: S1 normal, S2 normal and normal, physiologic split S2; Negative rub, gallop or murmur GI GI: normal to inspection, soft, no hepatosplenomegaly and bowel sounds present Neuro General: patient alert, patient awake, patient oriented x3, gait normal, moves all extremities and no focal sensory deficit Skin Skin: no rashes or lesions noted Extremities Pulses: Normal: Right Femoral Pulse, Left Femoral Pulse, Right Dorsalis Pedis Pulse, Left Dorsalis Pedis Pulse, Right Posterior Tibial Pulse, Left Posterior Tibial Pulse, Right Radial Pulse and Left Radial Pulse Lower Extremity Edema: None: Bilateral Musculoskel Musculoskeletal: No joint tenderness Psych Psychological: normal affect Supplemental Info ECHOCARDIOGRAM 04/24/2018 Interpretation Summary Normal LV size. Left ventricular systolic function is lower limits of normal. The estimated ejection fraction is 50 %. Stage 2 diastolic dysfunction. The left atrium is mildly enlarged. Mild (1+) tricuspid valve insufficiency. The global longitudinal strain is borderline abnormal. DC CARDIOVERSION 11/19/2017 72-year-old man with a history of chronic persistent atrial fibrillation and cardiomyopathy with an estimated ejection fraction of 25% status post right coronary artery stenting. The patient was brought into the noninvasive cardiac catheterization suite in the postabsorptive nonsedated state. Informed consent was obtained. The patient was seen by Dr. Powell of the critical care division. Anterior posterior pads were applied. The patient was then administered 6 mg of intravenous etomidate and 300 J of DC cardioversion energy were applied. The patient did not convert to sinus rhythm and so required an additional 4 mg of intravenous etomidate and 300 J of DC cardioversion energy were applied with prompt reversal to sinus rhythm. Successful DC cardioversion. CARDIAC CATHETERIZATION/INTERVENTION 09/19/2017 CORONARY ANGIOGRAPHY DOMINANCE: Co- Dominant LEFT HEART ASSESSMENT Left Ventricular Ejection Fraction: by LV Gram 25 % Global Hypokinesis - Severe Depressed Left Ventricular systolic function LEFT MAIN: Angiographically normal LEFT ANTERIOR DESCENDING ARTERY: Mild luminal irregularities less than 30% CIRCUMFLEX ARTERY: Mild luminal irregularities RIGHT CORONARY ARTERY: PROX RCA: 70 eccentric % Stenosis INTERVENTION INFORMATION LESION SITE: RCA (Proximal) Lesion Complexity: Non-High/Non-C, lesion at bifurcation: No, thrombus present: No, lesion length: 17 mm, culprit lesion: Yes Pre Stenosis: 75 % Pre intervention INOCENCIO flow: 3 PROCEDURE: Drug Eluting Stent with pre and post dilatation Post Stenosis: 0 % Post intervention INOCENCIO flow: 3 Lesion Devices: SmartRxtronic 6 Fr HSII 100cm Guide Catheter Rubio .014 [employer] [place] Straight 190cm Jase Sci EMERGE MR 2.00x12 BALLOON [employer] BONNY RX 3.5x17 Jase Sci NC EMERGE MR 4.00x12 BALLOON Assessment & Plan Assessment/Plan (1) Abnormal stress test: (2) Atherosclerosis of coronary artery of [place] heart without angina pectoris: QUALIFIERS: Coronary Disease-Associated Artery/Lesion type: [place] artery Qualified Code(s): I25.10 - Atherosclerotic heart disease of [place] coronary artery without angina pectoris (3) History of coronary artery stent placement: (4) Non-ischemic cardiomyopathy: (5) Paroxysmal atrial fibrillation: (6) Essential (primary) hypertension: (7) Hyperlipidemia: QUALIFIERS: Hyperlipidemia type: unspecified Qualified Code(s): E78.5 - Hyperlipidemia, unspecified PLAN: With patient's abnormal stress test and his cardiac symptoms we will pursue a diagnostic heart catheterization. Follow-up will be based upon this.
--- NOTE | 2021-11-23 10:45 | CL.D_ITS ---
Patient Name: ANNDO TIMMONS Study Date: 11/23/2021 Performing: Lemuel Martinez MD Ht: 72.04 inches 183 cm : 1945 Wt: 249.12 lbs 113 kg Age: 76 Gender: male BSA: 2.34 PROCEDURE(S) PERFORMED [id number])LHC/COR/LV CLINICAL PROFILE AND INDICATIONS Indications: Suspected CAD Heart Failure: None Stress/Imaging Date: 11/12/21Stress Test with SPECT MPI: Negative CAD Presentations: Symptom unlikely to be ischemic. CONCLUSIONS Non obstructive coronary arteries Previously placed stent is patent in the right coronary artery with no high-grade stenosis noted in a ny other vessels. RECOMMENDATIONS Medical therapy DESCRIPTION OF PROCEDURE The patient arrived to the procedure lab. The risks and benefits of the procedure as well as a full d escription of our services here and current unavailability of surgical backup were fully explained to the patient and/or their significant other prior to the catheterization. The Timeout was completed, verifying the correct patient and procedure. The patient's procedural site was prepped and draped in the usual fashion. Local anesthetic was given subcutaneously to right radial region with Lidocaine 2% . Using a modified Seldinger technique, arterial access was obtained via the right radial artery, a 6 Fr sheath was inserted. Left Coronary Artery selective angiography was performed in multiple views u sing a 5 Fr. 4.0 Ahmeek catheter. Right Coronary Artery selective angiography was then performed in mu ltiple views using a 5 Fr. 4.0 Ahmeek catheter. Left Ventriculography was performed in HUGHES projection using a 5 Fr. Pigtail catheter. LV to AO pullback pressures were then recorded.The arterial sheath was pulled and a TR Band was applied for hemostasis. 10cc air inserted. Sheath flushe d prior to removal. CORONARY ANGIOGRAPHY DOMINANCE: Right Dominant LEFT HEART ASSESSMENT Left Ventricular Ejection Fraction: by LV Gram 45 % Inferior Mid Hypokinesis - Moderate Depressed Left Ventricular systolic function LEFT MAIN: Angiographically normal LEFT ANTERIOR DESCENDING ARTERY: Moderate luminal irregularities up to 50% CIRCUMFLEX ARTERY: Mild luminal irregularities less than 30% RIGHT CORONARY ARTERY: Mild luminal irregularities less than 30% PROX RCA: Previously placed stent is patent COMPLICATIONS No Complications PROCEDURE MEDICATIONS Fentanyl 50 mcg IV Versed 1 mg IV Oxygen: 2 L/min via nasal cannula Heparin given IA 11/23/2021 09:51:48 SUMMARY OF HEMODYNAMIC DATA Time AIR REST ECG 08:04:18 Art 126/52 (77) 09:39:15 AO 99/52 (71) SA 09:53:23 LV 113/7, 14 10:00:31 LV 112/7, 13 10:00:37 LV 97/8, 15 10:01:18 LVp 100/6, 10 10:01:22 AOp 112/58 (79) 10:01:27 Signed By Lemuel Martinez MD On 11/23/2021 10:44:57 AM Lemuel Martinez MD
== END 2021-11-23 11:35 | disposition home or self-care (01) ==
PROVIDERS: PCP Family Medicine; Referring Provider Internal Medicine Cardiovascular Disease; Visit Provider Internal Medicine Cardiovascular Disease
DX: I25.10 Atherosclerotic heart disease of native coronary artery without angina pectoris (principal); I11.0 Hypertensive heart disease with heart failure; I42.8 Other cardiomyopathies; I50.42 Chronic combined systolic (congestive) and diastolic (congestive) heart failure; I48.0 Paroxysmal atrial fibrillation; R94.39 Abnormal result of other cardiovascular function study; E78.5 Hyperlipidemia, unspecified; D50.9 Iron deficiency anemia, unspecified; E66.9 Obesity, unspecified; Z79.82 Long term (current) use of aspirin; Z95.5 Presence of coronary angioplasty implant and graft; Z79.899 Other long term (current) drug therapy; Z87.891 Personal history of nicotine dependence; Z79.02 Long term (current) use of antithrombotics/antiplatelets
CPT/HCPCS: 93458; 99152; 99153; J7030; Q9967; C1769; C1894

== ENCOUNTER → 2022-05-10 | Outpatient (CLI) | payer MEDICARE, SELFPAY ==
[2017-09-21 13:58] VITALS: BMI 36.1
[2022-05-10 11:07] LABS: AST(SGOT) 16 U/L (15-37); Alanine Aminotransfer ALT/SGPT 21 U/L (16-61); Albumin, Serum 3.7 g/dL (3.2-5.0); Alkaline Phosphatase 135 U/L (45-117); Bilirubin, Direct 0.28 mg/dL (0.00-0.30); Cholesterol 105 mg/dL (200); Globulin 3.3 g/dL (2.2-4.2); High Density Lipoprotein 48 mg/dL; Thyroid Stim Hormone (TSH) 1.65 uIU/mL (0.358-3.74); Triglycerides 62 mg/dL; Very Low Density Lipoprotein 12 mg/dL (5-40)
== END | disposition home or self-care (01) ==
LOC: LAB 09:20
PROVIDERS: PCP Family Medicine; Referring Provider Physician Assistant Medical; Visit Provider Physician Assistant Medical
DX: I48.0 Paroxysmal atrial fibrillation (principal); E78.5 Hyperlipidemia, unspecified; Z79.899 Other long term (current) drug therapy
CPT/HCPCS: 36415; 80061; 80076; 84443

== ENCOUNTER → 2022-06-01 | Outpatient (CLI) | payer MEDICARE, SELFPAY ==
[2017-09-21 13:58] VITALS: BMI 36.1
--- NOTE | 2022-06-01 18:26 | PFTCOMP_ITS ---
COMPLETE PULMONARY FUNCTION TEST INTERPRETATION Brief HPI: Patient is a 77-year-old male, currently under the care of Amparo Ortega, who presents to [facility] for complete pulmonary function tests secondary to diagnosis of high risk med use. Respiratory therapist reports good effort and reproducible results. Interpretation: Forced expiration spirometry shows a mild large airways obstructive ventilatory defect with an FEV1 of 74% predicted. There is no significant bronchodilator re sponse by strict ATS criteria. Spirograms are of good quality and plateau slowly, indicating slowly emptying areas of the lungs. The respiratory flow volume loop shows decreased expiratory flow rates at high lung volumes consistent with small airways obstruction. Lung volumes by body plethysmography show a slightly decreased total lung capacity at 5.7 L, 82% predicted. All other lung volumes are reduced symmetrically. Diffusion capacity by carbon monoxide is normal at 111% predicted. The airway resistance is slightly elevated. No previous pulmonary function tests were available for review. Impression: Irreversible mild mixed ventilatory defect with preserved diffusion capacity
== END | disposition home or self-care (01) ==
LOC: PSN 09:26
PROVIDERS: PCP Family Medicine; Referring Provider Physician Assistant Medical; Visit Provider Physician Assistant Medical
DX: Z79.899 Other long term (current) drug therapy (principal); I48.0 Paroxysmal atrial fibrillation; E78.5 Hyperlipidemia, unspecified
CPT/HCPCS: 94060; 94726; 94729

== ENCOUNTER → 2022-11-08 | Outpatient (CLI) | payer MEDICARE, SELFPAY ==
[2017-09-21 13:58] VITALS: BMI 36.1
--- NOTE | 2022-11-08 09:36 | RAD_ITS ---
STUDY: X-RAY CHEST REASON FOR EXAM: Male, 77 years old. Amiodarone. No complaints currently. Follow-up for heart medications. TECHNIQUE: PA and lateral views of the chest. COMPARISON: November 19, 2021 FINDINGS: Persistent elevation right hemidiaphragm. The lungs are clear. There is no demonstrated pleural abnormality. Normal size heart. Normal mediastinum and surjit. Normal visualized pulmonary arteries. Normal visualized aortic arch and descending thoracic aorta. There is flattening of the thoracic kyphosis. Normal visualized ribs, clavicles, and shoulders. There is no demonstrated abnormality of the visualized soft tissue structures of the upper abdomen. RAD/Chest PA and Lateral IMPRESSION: No acute cardiopulmonary disease or interval change. Electronically Signed: Nahun Mosqueda DO at 19:35 EDT ,
== END | disposition home or self-care (01) ==
LOC: RAD 09:36
PROVIDERS: PCP Family Medicine; Referring Provider Nurse Practitioner Gerontology; Visit Provider Nurse Practitioner Gerontology
DX: Z79.899 Other long term (current) drug therapy (principal)
CPT/HCPCS: 71046

== ENCOUNTER → 2024-10-23 | Outpatient (CLI) | payer MEDICARE, SELFPAY ==
[2017-09-21 13:58] VITALS: BMI 36.1
--- NOTE | 2024-10-23 12:45 | RAD_ITS ---
PROCEDURE: CHEST PA AND LATERAL 10/23/2024 REASON FOR EXAM: AMIODARONE TECHNIQUE: Frontal and lateral views of the chest. COMPARISON: None. FINDINGS: Elevation of the right hemidiaphragm. Minimal bilateral basilar atelectatic pulmonary changes. There is no demonstrated pleural abnormality. Normal heart and pericardium. Normal mediastinum and surjit. Normal visualized pulmonary arteries. Normal visualized aortic arch and descending thoracic aorta. Normal visualized thoracic spine. Normal visualized ribs, clavicles, and shoulders. There is no demonstrated abnormality of the visualized soft tissue structures of the upper abdomen. RAD/Chest PA and Lateral IMPRESSION: Elevation of the right hemidiaphragm. Minimal bilateral basilar atelectatic pulmonary changes. No radiographic evidence of an acute bone abnormality. No definite radiographic evidence of chronic interstitial pulmonary thickening. Reading Location: [place] [id number]
== END | disposition home or self-care (01) ==
PROVIDERS: PCP Family Medicine; Referring Provider Nurse Practitioner Gerontology; Visit Provider Nurse Practitioner Gerontology
DX: Z51.81 Encounter for therapeutic drug level monitoring (principal); Z79.899 Other long term (current) drug therapy
CPT/HCPCS: 36415; 71046; 84439; 84443

== ENCOUNTER → 2024-11-12 | Outpatient (CLI) | payer MEDICARE, SELFPAY ==
[2017-09-21 13:58] VITALS: BMI 36.1
== END | disposition home or self-care (01) ==
LOC: PSN 06:46
PROVIDERS: PCP Family Medicine; Referring Provider Nurse Practitioner Gerontology; Visit Provider Nurse Practitioner Gerontology
DX: Z79.899 Other long term (current) drug therapy (principal)
CPT/HCPCS: 94060; 94726; 94729

== ENCOUNTER → 2025-05-27 | Outpatient (CLI) | payer MEDICARE, SELFPAY ==
[2017-09-21 13:58] VITALS: BMI 36.1
--- NOTE | 2025-05-27 08:50 | ECHOD_ITS ---
Reason For Study Reason For Study: ATRIAL FIB-FLUTTER Procedure This was a 2D Doppler, Color Flow transthoracic echocardiogram. Myocardial strain analysis was performed in this exam to aid in the assessment of cardiac function. Exam performed in department. Left Ventricle Normal LV size. Mild concentric left ventricular hypertrophy. The left ventricular ejection fraction is 60 %. Stage 1 diastolic dysfunction. No regional wall motion abnormalities noted. Right Ventricle Normal RV size. Normal systolic function. Atria Normal left atrium. Normal right atrium. Mitral Valve Normal mitral valve. Mild (1+) mitral valve insufficiency. Tricuspid Valve Normal tricuspid valve. Mild (1+) tricuspid valve insufficiency. Pulmonary artery systolic pressure is 33 mmHg. Aortic Valve Trisinus/trileaflet aortic valve. Pulmonic Valve Normal pulmonic valve. Great Vessels Mildly dilated aortic root. The pulmonary artery is normal size. Inferior vena cava collapse with respiration. Pericardium/Pleural No pericardial effusion. MMode/2D Measurements & Calculations LVIDd: 5.7 cm IVSd: 1.2 cm Ao root diam: 3.9 cm LVIDs: 3.0 cm LVPWd: 1.3 cm RVDd: 3.5 cm FS: 46.7 % LAV(MOD-bp): 64.4 ml LVAd ap4: 41.4 cm2 LVAd ap2: 46.2 cm2 LAV(MOD-bp) Indexed: 27.6 ml/m2 LVLd ap4: 9.4 cm LVLd ap2: 9.8 cm LAV(MOD-sp2): 64.3 ml EDV(MOD-sp4): 150.3 ml EDV(MOD-sp2): 184.0 ml LAV(MOD-sp4): 63.7 ml EDV(sp4-el): 155.2 ml EDV(sp2-el): 184.6 ml LVAs ap4: 24.4 cm2 LVAs ap2: 27.6 cm2 LVLs ap4: 7.9 cm LVLs ap2: 8.2 cm ESV(MOD-sp4): 62.6 ml ESV(MOD-sp2): 79.2 ml ESV(sp4-el): 63.6 ml ESV(sp2-el): 79.5 ml EF(MOD-sp4): 58.4 % EF(MOD-sp2): 57.0 % EF(sp4-el): 59.0 % SV(MOD-sp4): 87.7 ml SV(MOD-sp2): 104.8 ml SV(sp4-el): 91.6 ml SI(MOD-sp4): 37.6 ml/m2 SI(MOD-sp2): 45.0 ml/m2 LA A4 area: 20.6 cm2 LA dimension(2D): 4.9 cm RA A4 area: 13.4 cm2 TAPSE: 3.3 cm Time Measurements MV dec time: 0.28 sec Doppler Measurements & Calculations MV E max wally: 79.3 cm/sec Lat Peak E' Wally: 6.7 cm/sec Med Peak E' Wally: 4.8 cm/sec MV A max wally: 85.9 cm/sec E/E' lat: 11.8 E/E' med: 16.6 MV E/A: 0.92 Ao V2 max: 143.8 cm/sec LV V1 max: 95.5 cm/sec MV dec slope: 283.5 cm/sec2 Ao max P.3 mmHg LV V1 max P.6 mmHg Ao V2 mean: 99.9 cm/sec LV V1 mean P.0 mmHg Ao mean P.4 mmHg LV V1 mean: 65.8 cm/sec Ao V2 VTI: 31.9 cm LV V1 VTI: 25.0 cm AV (velocity ratio): 0.78 PA V2 max: 107.5 cm/sec TR max wally: 271.6 cm/sec TR max P.5 mmHg ECHO/Echo Complete Interpretation Summary Normal LV size. The left ventricular ejection fraction is 60 %. Mild concentric left ventricular hypertrophy. Stage 1 diastolic dysfunction. Pulmonary artery systolic pressure is 33 mmHg. Mildly dilated aortic root. Ordering Physician: Lemuel Martinez Referring Physician: Demetrio Lyons Performed By: Mala Rabago RDCS
--- NOTE | 2025-05-27 09:55 | EKG12_ITS ---
Test Reason : BRADYCARDIA Blood Pressure : */* mmHG Vent. Rate : 52 BPM Atrial Rate : 52 BPM P-R Int : 186 ms QRS Dur : 150 ms QT Int : 494 ms P-R-T Axes : 38 -48 20 degrees QTcB Int : 459 ms Sinus bradycardia Left axis deviation Left bundle branch block Abnormal ECG Confirmed by ACE SOLIMAN, LEUMEL ([id number]), story editor XAVIER VANCE ([id number]) on 05/27/2025 11:04:58 AM Referred By: Lemuel Martinez Confirmed By: LEMUEL MARTINEZ MD
== END | disposition home or self-care (01) ==
LOC: CVS 08:48
PROVIDERS: PCP Family Medicine; Referring Provider Internal Medicine Cardiovascular Disease; Visit Provider Internal Medicine Cardiovascular Disease
DX: I42.8 Other cardiomyopathies (principal); R00.1 Bradycardia, unspecified
CPT/HCPCS: 93005; 93306